=== PATIENT | male | born 1935 | race Caucasian/White ===

== ENCOUNTER 2023-02-17 12:04 | Emergency (ER) | payer MEDICARE, SELFPAY ==
[2023-02-17 12:05] VITALS: BP 154/105; PULSE 149; RESP 16; TEMP 36.2; O2SAT 100; BMI 31.0
--- NOTE | 2023-02-17 12:22 | EDS_ITS ---
HPI History of Present Illness Chief Complaint: Shortness of Breath Informant: patient Onset/Context/Timing Onset: Month(s) Context: gradual Narrative Narrative: Patient presents from PCPs office secondary to shortness of breath and tachycardia. Patient reports increasing shortness of breath over the last several months that is recently worsened. He states he has occasional sensation of his heart racing. He denies chest pain. He has mild baseline cough. No fever or chills. He was noted in the office to have his heart rate in the 140s. EKG was not performed at that time. He has no known history of cardiac disease. 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 He is not on any baseline medication for blood pressure. [facility] Medical History (Updated 02/17/23 @ 14:[address] Sherry Yin MD) Hx of gastroesophageal reflux (GERD) White coat syndrome with hypertension Home Medications apixaban 5 mg (74 tabs) tablets in a dose pack (Eliquis DVT-PE Treat 30D Start) 5 mg PO BID #74 tabs 02/17/23 [Rx Last Taken Unknown] diltiazem HCl 120 mg capsule,extended release 24 hr (Cardizem CD) 120 mg PO DAILY #30 caps 02/17/23 [Rx Last Taken Unknown] omeprazole 20 mg capsule,delayed release 20 mg PO QODAY 02/17/23 [History Last Taken Unknown] Allergy/AdvReac Type Severity Reaction Status Date / Time No Known Allergies Allergy Verified 02/17/23 12:06 Social History Smoking Status: Never smoker ROS ROS ED Constitutional Constitutional ED: Denies chills or fever(s) Eyes Eyes: Denies change in vision or discharge from eye(s) ENT ENT ED: Denies discharge from eye(s), rhinorrhea or sore throat Cardiovascular Cardiovascular: Reports racing heartbeat; Denies chest pain Respiratory/Chest Respiratory/Chest: Reports cough and dyspnea Gastrointestinal Gastrointestinal: Denies abdominal pain, diarrhea, nausea or vomiting Genitourinary Genitourinary ED: Denies dysuria Musculoskeletal Musculoskeletal: Denies back pain or extremity pain Integumentary Denies Abrasions or rash Neurologic Neurologic: Denies headache(s) or weakness Psychiatric Psychiatric: Denies anxiety or depression Allergic/Immunologic Allergic/Immunologic ED: Denies lip swelling or urticaria EXAM Physical Exam Const Vital Signs: 02/17/23 12:05 02/17/23 12:28 02/17/23 12:30 Temperature 97.1 F L Temperature Source Temporal Pulse Rate 149 H 150 H Respiratory Rate 16 24 H Respiratory Effort Short of Breath Blood Pressure 154/105 H 151/122 H Blood Pressure Mean 121 131 Pulse Ox 100 100 Oxygen Delivery Method Room Air Room Air 02/17/23 12:35 02/17/23 13:02 02/17/23 13:57 Temperature Temperature Source Pulse Rate 110 H 114 H 96 Respiratory Rate 18 18 Respiratory Effort Blood Pressure 147/100 H 110/82 H 107/72 Blood Pressure Mean 115 91 83 Pulse Ox 100 100 Oxygen Delivery Method Room Air Room Air Positive well nourished and well developed General Appearance ED: well developed HEENT Reports normocephalic and head/scalp atraumatic Eyes PERRL and EOMs intact bilaterally Neck supple Chest Wall inspection of chest normal and palpation of chest normal Resp normal respiratory effort Resp Narrative: Diminished breath sounds bilateral bases. Cardio Rate: tachycardic Rhythm: abnormal rhythm irregularly irregular GI non-tender Palpation: soft Extremity Extremity Narrative: 2+ bilateral lower extremity edema, symmetric. Neuro oriented x3 and no sensory deficits noted Sensorium / Orientation: alert Motor Exam: strength 5/5 throughout Psych mental status grossly normal Skin no rashes or lesions noted MDM MDM MDM Narrative Medical decision making narrative: Patient placed on monitoring tech. He appears to be in new onset atrial fibrillation with RVR. IV line established. IV Cardizem ordered for rate control. Labwork obtained to evaluate for leukocytosis, anemia, and electrolyte derangement. Chest x-ray obtained to evaluate for acute lung pathology, cardiac size, or mediastinal abnormality. History & Record Review Discussion w/independent historian: Patient and Other (PCP) Lab Data Attestation: I reviewed the patient's lab results. Labs: Laboratory Results - last 24 hr 02/17/23 12:30 WBC 8.5 RBC 4.68 Hgb 12.8 L Hct 41.7 MCV 89.1 MCH 27.4 MCHC 30.7 L RDW Std Deviation 44.0 H RDW Coeff of Joy 13.4 Plt Count 282 MPV 10.6 Immature Gran % (Auto) 0.500 Neut % (Auto) 59.7 Lymph % (Auto) 26.9 [place] % (Auto) 9.6 Eos % (Auto) 2.2 Baso % (Auto) 1.1 H Absolute Neuts (auto) 5.1 Absolute Lymphs (auto) 2.30 Nucleated RBC % 0 Sodium 137 Potassium 3.9 Chloride 105 Carbon Dioxide 26.0 Anion Gap 6 BUN 15 Creatinine 1.13 Estim Creat Clear Calc 44.56 Est GFR (MDRD) Af Amer 79 Est GFR (MDRD) Non-Af 65 BUN/Creatinine Ratio 13.3 Glucose 153 H Calcium 9.1 Troponin I High Sens 11 B-Natriuretic Peptide 154.3 H TSH 2.75 Radiography Chest X-Ray - ED: 1 View, Read by ED Physician and Chronic Changes Diagnostic Testing: Clinical Impression(s) from Imaging Studies Chest X-Ray 02/17/23 12:35 IMPRESSION: Elevation of the right hemidiaphragm. Mild increased markings at the left lung base suggestive of linear atelectasis. Electronically Signed: Juan Manuel Mix MD at 13:52 EDT , EKG Initial EKG: Attestation: I personally reviewed and interpreted this EKG as follows: Interpretation: Atrial Fibrillation (A-fib RVR with a rate of 145. No significant ST change.) Treatment and Re-Evaluation :: After 2 doses of Cardizem, 10 mg each patient's heart rate is in the high 90s. His blood pressure is 107/72. CBC reveals normal white count 8.5 with a hemoglobin of 12.8. Chemistry studies are unremarkable with normal renal function. Glucose is 153. Troponin is normal at 11. BNP is 154 and TSH is 2.75. Portable chest x-ray per my interpretation reveals chronic changes. Radiology interpretation is reviewed and feels there are signs of mild atelectasis. No overt signs of CHF. On repeat examination patient is comfortable and anxious to go home. He is refusing hospital admission. I spoke with Dr. Núñez, on-call for cardiology. Patient be started on Cardizem CD 120 mg daily as well as Eliquis. Patient encouraged to follow-up in the office for remainder of atrial fibrillation work-up. Discharge Plan Triage Chief Complaint: Shortness of Breath ED Provider: Sherry Yin Dx/Rx/DC Orders Clinical Impression: Atrial fibrillation, new onset, Atrial fibrillation with RVR Instructions: ED AFIB Prescriptions: New diltiazem HCl [Cardizem CD] 120 mg capsule,extended release 24hr 120 mg PO DAILY Qty: 30 0RF Eliquis DVT-PE Treat 30D Start 5 mg (74 tabs) tablets,dose pack 5 mg PO BID Qty: 74 0RF No Action omeprazole 20 mg capsule,delayed release(DR/EC) 20 mg PO QODAY Primary Care Provider: Jeffrey Chan Referrals: Uri Núñez MD [Med Staff - Active Staff] - 1-2 Weeks Jeffrey Chan MD [Primary Care Provider] - 1-2 Weeks Disposition Disposition: Home, Self Care
[2023-02-17 12:28] VITALS: BP 151/122; PULSE 150; RESP 24; O2SAT 100
--- NOTE | 2023-02-17 12:28 | NURSING ---
NO OLD EKGS
[2023-02-17] MEDS: dilTIAZem 25 MG/5 ML Vial 10 MG IV BOLUS ×2 (12:34→13:56)
[2023-02-17 12:35] VITALS: BP 147/100; PULSE 110; RESP 18; O2SAT 100
--- NOTE | 2023-02-17 12:35 | RAD_ITS ---
STUDY: X-RAY CHEST REASON FOR EXAM: Male, 87 years old. Sob TECHNIQUE: Single AP portable view of the chest. COMPARISON: None. FINDINGS: EKG electrodes are seen. Elevation of the right hemidiaphragm. Mild increased markings at the left lung base suggestive of left basilar atelectasis. There is mild cardiac enlargement. Normal mediastinum and liat. Normal visualized pulmonary arteries. There is atherosclerotic tortuosity of the aortic arch and descending thoracic aorta. There are diffuse degenerative changes of the visualized thoracic spine. Normal visualized ribs, clavicles, and shoulders. There is no demonstrated abnormality of the visualized soft tissue structures of the upper abdomen. RAD/Chest 1 View (Portable) IMPRESSION: Elevation of the right hemidiaphragm. Mild increased markings at the left lung base suggestive of linear atelectasis. Electronically Signed: Juan Manuel Mix MD at 13:52 EDT ,
[2023-02-17 12:42] LABS: Absolute Neutrophil Count 5.1 X10^3/uL (2.0-7.7); Basophil# 0.09 X10^3/uL; Basophil% 1.1 % (0-1); Eosinophil# 0.19 X10^3/uL; Eosinophils% 2.2 % (0-5); Hematocrit 41.7 % (40-54); Hemoglobin 12.8 g/dL (13.0-16.5); Lymphocyte % 26.9 % (19-41); Mean Corp Hgb Conc 30.7 g/dL (32-36); Mean Corpuscular Hgb 27.4 pg (27.0-32.0); Mean Corpuscular Volume 89.1 fL (80-94); Mean Platelet Vol. 10.6 fl (6.2-12.0); Monocyte# 0.82 X10^3/uL; Monocyte% 9.6 % (0-10); NRBC Flagged by Analyzer 0 % (0-5); Neutrophil % 59.7 % (47-70); Platelet Count 282 K/mm3 (150-450); RBC Distribution Width CV 13.4 % (11.6-14.6); Red Blood Count 4.68 M/mm3 (4.6-6.2); White Blood Count 8.5 K/mm3 (4.4-11.0)
[2023-02-17 13:02] VITALS: BP 110/82; PULSE 114
[2023-02-17 13:05] LABS: Anion Gap 6 (5-15); BUN 15 mg/dL (7-18); BUN/Creat Ratio 13.3 RATIO (10-20); Calcium,Total 9.1 mg/dL (8.5-10.1); Chloride 105 mmol/L (98-107); Creatinine, Serum 1.13 mg/dL (0.70-1.30); EST Glomerular Filtration Rate 65 mL/min (>60); Est Glom Filt Rate - Afr Amer 79 mL/min (>60); Estimated Creatinine Clearance 44.56 ml/min; Glucose 153 mg/dL (74-106); Potassium 3.9 mmol/L (3.5-5.1); Sodium Level 137 mmol/L (136-145); Thyroid Stim Hormone (TSH) 2.75 uIU/mL (0.358-3.74); Troponin-I HS 11 pg/mL (3.0-78.0)
[2023-02-17 13:12] LABS: BNP,B-Type NATRIURETIC PEPTIDE 154.3 pg/mL (0-100)
[2023-02-17 13:57] VITALS: BP 107/72; PULSE 96; RESP 18; O2SAT 100
== END 2023-02-17 14:48 | disposition home or self-care (01) ==
PROVIDERS: Emergency Provider Emergency Medicine; PCP Internal Medicine; Visit Provider Emergency Medicine
DX: I48.91 Unspecified atrial fibrillation (principal)
CPT/HCPCS: 71045; 80048; 83880; 84443; 84484; 85025; 93005; 96374; 96376; 99283; A4216

== ENCOUNTER → 2023-03-09 | Outpatient (CLI) | payer MEDICARE, SELFPAY ==
--- NOTE | 2023-03-09 10:55 | ECHOD_ITS ---
Reason For Study: AFIB Procedure This was a 2D Doppler, Color Flow transthoracic echocardiogram. Exam performed in department. Left Ventricle Normal LV size. Left ventricular systolic function is normal. The left ventricular ejection fraction is 55 %. No regional wall motion abnormalities noted. Right Ventricle Normal RV size. Normal systolic function. Atria The left atrium is moderately enlarged. Normal right atrium. Mitral Valve Bileaflet diffuse mitral valve thickening. Mild-Moderate (1-2+) eccentric mitral valve insufficiency. Tricuspid Valve Normal tricuspid valve. Mild to moderate (1-2+) tricuspid valve insufficiency. Pulmonary artery systolic pressure is 52 mmHg. Aortic Valve Trisinus/trileaflet aortic valve. Mild (1+) aortic valve insufficiency. Pulmonic Valve Normal pulmonic valve. Great Vessels Mildly dilated aortic root. The pulmonary artery is normal size. Normal inferior vena cava. Pericardium/Pleural No pericardial effusion. MMode/2D Measurements & Calculations LVIDd: 4.2 cm IVSd: 0.84 cm Ao root diam: 3.8 cm LVIDs: 3.5 cm LVPWd: 1.1 cm RVDd: 3.1 cm FS: 16.2 % LAV(MOD-bp): 82.7 ml LVAd ap4: 22.5 cm2 SV(MOD-sp4): 30.1 ml LAV(MOD-bp) Indexed: 46.6 ml/m2 LVLd ap4: 7.5 cm LAV(MOD-sp2): 88.2 ml EDV(MOD-sp4): 56.4 ml LAV(MOD-sp4): 71.4 ml EDV(sp4-el): 57.5 ml LVAs ap4: 14.2 cm2 LVLs ap4: 6.4 cm ESV(MOD-sp4): 26.3 ml ESV(sp4-el): 26.7 ml EF(MOD-sp4): 53.4 % EF(sp4-el): 53.5 % SV(sp4-el): 30.8 ml LA A4 area: 25.4 cm2 LA dimension(2D): 4.5 cm RA A4 area: 18.7 cm2 TAPSE: 0.79 cm Doppler Measurements & Calculations MV E max leonarda: 97.4 cm/sec Ao V2 max: 123.5 cm/sec AI max leonarda: 372.9 cm/sec Ao max P.2 mmHg AI max P.6 mmHg Ao V2 mean: 88.8 cm/sec Ao mean P.5 mmHg AI dec slope: 193.9 cm/sec2 Ao V2 VTI: 19.7 cm AI P1/2t: 563.3 msec AV (velocity ratio): 0.72 LV V1 max: 83.7 cm/sec MR max leonarda: 538.7 cm/sec PA V2 max: 95.4 cm/sec LV V1 max P.8 mmHg MR max P.1 mmHg PA V2 mean: 60.8 cm/sec LV V1 mean P.5 mmHg MR mean leonarda: 448.5 cm/sec LV V1 mean: 55.9 cm/sec MR mean P.1 mmHg LV V1 VTI: 14.2 cm MR VTI: 159.9 cm TR max leonarda: 343.1 cm/sec TR max P.1 mmHg ECHO/Echo Complete Interpretation Summary Normal LV size. Left ventricular systolic function is normal. The left ventricular ejection fraction is 55 %. The left atrium is moderately enlarged. Pulmonary artery systolic pressure is 52 mmHg. Mild (1+) aortic valve insufficiency. Ordering Physician: Yessy Mason Referring Physician: Yessy Mason Performed By: Rosa Davila RCS
== END | disposition home or self-care (01) ==
PROVIDERS: PCP Internal Medicine; Referring Provider Physician Assistant Medical; Visit Provider Physician Assistant Medical
DX: I48.91 Unspecified atrial fibrillation (principal); R94.31 Abnormal electrocardiogram [ECG] [EKG]
CPT/HCPCS: 93306

== ENCOUNTER → 2023-03-24 | Outpatient (CLI) | payer MEDICARE, SELFPAY ==
--- NOTE | 2023-03-24 10:46 | VDLE_ITS ---
Reason For Study: Bilateral leg pain/swelling RIGHT LEFT GSV is normal. GSV is normal. CFV is compressible, spontaneous, competent CFV is compressible, spontaneous, competent, and demonstrates pulsatile venous flow. and demonstrates pulsatile venous flow. FV is compressible, spontaneous, competent FV is compressible, spontaneous, competent and demonstrates pulsatile venous flow. and demonstrates pulsatile venous flow. POP V is compressible, spontaneous, competent POP V is compressible, spontaneous, competent and demonstrates pulsatile venous flow. and demonstrates pulsatile venous flow. T/P Trunk is compressible. T/P Trunk is compressible. PTV is compressible. PTV is compressible. RT PerV is compressible. LT PerV is compressible. Vascularized lymph nodes noted in the right Vascularized lymph node noted in the left groin. groin. Procedure This is a venous duplex using B-mode, color flow and spectral Doppler. Exam performed in department. A preliminary report was called and/or faxed to Dr. Ortiz. VL/Venous Duplex US - Fadi Extrem Interpretation Summary No evidence for acute deep venous thrombosis bilateral lower extremities with p atent and compressible bilateral great saphenous veins. Pulsatile venous flow is noted bi laterally suspicious for proximal venous hypertension or obstruction. Clinical correlation would be appropriate. Groin 3.55 x 1.23 cm diameter lymph node Left groin 3.22 x 0.84 cm lymph node Ordering Physician: Cem Ortiz Referring Physician: Jeffrey Chan M.D. Performed By: Treasure Pacheco RVT
[2023-03-24 16:24] LABS: AST(SGOT) 40 U/L (15-37); Alanine Aminotransfer ALT/SGPT 55 U/L (16-61); Albumin, Serum 3.2 g/dL (3.2-5.0); Alkaline Phosphatase 259 U/L (45-117); Bilirubin, Direct 0.22 mg/dL (0.00-0.30); Globulin 4.6 g/dL (2.2-4.2); Protein, Total 7.8 g/dL (6.4-8.2)
== END | disposition home or self-care (01) ==
PROVIDERS: Physician Assistant Medical; PCP Internal Medicine; Referring Provider Podiatrist; Visit Provider Podiatrist
DX: M79.604 Pain in right leg (principal); M79.605 Pain in left leg; R22.41 Localized swelling, mass and lump, right lower limb; R22.42 Localized swelling, mass and lump, left lower limb
CPT/HCPCS: 36415; 80076; 93970

== ENCOUNTER 2023-06-17 14:20 | Emergency (ER) | payer MEDICARE, SELFPAY ==
[2023-06-17] VITALS (7 sets, daily range): BP systolic 106–149; BP diastolic 76–135; PULSE 72–128; RESP 16–25; TEMP 36.6; O2SAT 89–98; BMI 34.7
--- NOTE | 2023-06-17 15:14 | EDS_ITS ---
HPI History of Present Illness Chief Complaint: Shortness of Breath [facility] Medical History Abnormal EKG Anemia Atrial fibrillation with RVR Atrial fibrillation, new onset Benign neoplasm of colon Bilateral lower extremity edema DDD (degenerative disc disease), lumbar Hx of gastroesophageal reflux (GERD) Hyperlipidemia Idiopathic peripheral neuropathy Internal hemorrhoids without complication Kidney stone Nocturia Obesity (BMI 30.0-34.9) Skin cancer of scalp Thrombocytopenia White coat syndrome with hypertension Home Medications cholecalciferol (vitamin D3) 25 mcg (1,000 unit) capsule 25 mcg PO DAILY 03/12/23 [History Last Taken Unknown] imjrgrmvxkbw-rvahnymf-akfdxt tablet 1 tab PO DAILY 03/12/23 [History Last Taken Unknown] psyllium husk 0.4 gram capsule (Fiber (psyllium husk)) 0.4 g PO DAILY 03/12/23 [History Last Taken Unknown] vitamin B complex 1 cap PO DAILY 03/12/23 [History Last Taken Unknown] apixaban 5 mg tablet (Eliquis) 5 mg PO BID #90 tabs 03/24/23 [Rx Last Taken Unknown] cyanocobalamin (vitamin B-12) 1,000 mcg tablet 2,500 mcg PO DAILY 03/24/23 [History Last Taken Unknown] furosemide 40 mg tablet (Lasix) 40 mg PO DAILY #90 tabs 03/24/23 [Rx Last Taken Unknown] metoprolol succinate 50 mg tablet,extended release 24 hr (Toprol XL) 50 mg PO DAILY #90 tabs 03/24/23 [Rx Last Taken Unknown] omega-3 fatty acids 1,000 mg capsule 2,000 mg PO DAILY 03/24/23 [History Last Taken Unknown] omeprazole 20 mg capsule,delayed release 20 mg PO .QOD 03/24/23 [History Last Taken Unknown] turmeric 400 mg capsule 1,000 mg PO DAILY 03/24/23 [History Last Taken Unknown] vitamins A,C,Z-npjw-ttpnml 4,296 mcg-226 mg-90 mg capsule (PreserVision AREDS) 1 cap PO QAM AND QPM 03/24/23 [History Last Taken Unknown] Allergy/AdvReac Type Severity Reaction Status Date / Time No Known Allergies Allergy Verified 06/17/23 14:23 Family History Father Cancer lung Mother Colon cancer Surgical History History of appendectomy History of colonoscopy History of inguinal hernia repair History of laparotomy Social History Smoking Status: Former smoker how long ago did patient quit smokin years alcohol intake: never substance use type: does not use EXAM Physical Exam Const Vital Signs: 06/17/23 14:24 06/17/23 15:00 06/17/23 15:02 Temperature 98 F Temperature Source Temporal Pulse Rate 107 H Respiratory Rate 20 H 25 H Respiratory Effort Short of Breath Respiratory Pattern Tachypnea Blood Pressure 138/111 H 147/135 H Blood Pressure Mean 120 139 Pulse Ox 89 93 Oxygen Delivery Method Room Air Room Air Room Air 06/17/23 15:17 Temperature Temperature Source Pulse Rate Respiratory Rate Respiratory Effort Respiratory Pattern Blood Pressure Blood Pressure Mean Pulse Ox Oxygen Delivery Method Room Air Discharge Plan Triage Chief Complaint: Shortness of Breath ED Provider: Gerson Prince Dx/Rx/DC Orders Prescriptions: No Action vitamin B complex Capsule 1 cap PO DAILY psyllium husk [Fiber (psyllium husk)] 0.4 gram capsule 0.4 g PO DAILY cholecalciferol (vitamin D3) 25 mcg (1,000 unit) capsule 25 mcg PO DAILY priffsikfzsp-opcefenw-pidlxl Tablet 1 tab PO DAILY omega-3 fatty acids 1,000 mg capsule 2,000 mg PO DAILY turmeric 400 mg capsule 1,000 mg PO DAILY cyanocobalamin (vitamin B-12) 1,000 mcg tablet 2,500 mcg PO DAILY PreserVision AREDS 4,296 mcg-226 mg-90 mg capsule 1 cap PO QAM AND QPM metoprolol succinate [Toprol XL] 50 mg tablet extended release 24 hr 50 mg PO DAILY Qty: 90 3RF Eliquis 5 mg tablet 5 mg PO BID Qty: 90 3RF furosemide [Lasix] 40 mg tablet 40 mg PO DAILY Qty: 90 3RF omeprazole 20 mg capsule,delayed release(DR/EC) 20 mg PO .QOD Primary Care Provider: Jeffrey Chan Referrals: Jeffrey Chan MD [Primary Care Provider] -
--- NOTE | 2023-06-17 15:25 | RAD_ITS ---
EXAM: XR CHEST, 1 VIEW CLINICAL INDICATION: chest pain TECHNIQUE: Frontal view of the chest. COMPARISON: XR Chest dated 02/17/2023 FINDINGS: LUNGS AND PLEURAL SPACES: New small right pleural effusion associated with pneumonia or atelectasis of the right lower lobe. HEART: Stable mild cardiomegaly. MEDIASTINUM: No mediastinal or hilar mass. BONES/JOINTS: No acute abnormality. RAD/Chest 1 View (Portable) IMPRESSION: Small right pleural effusion with pneumonia or atelectasis of the right lower lobe. Electronically Signed: Luis Marshall MD at 16:08 EST ,
[2023-06-17 15:26] LABS: Absolute Lymphocyte Count 0.97 X10^3/uL (0.83-4.51); Absolute Neutrophil Count 5.7 X10^3/uL (2.0-7.7); Basophil# 0.08 X10^3/uL; Eosinophil# 0.13 X10^3/uL; Eosinophils% 1.7 % (0-5); Hematocrit 38.8 % (40-54); Hemoglobin 12.2 g/dL (13.0-16.5); Lymphocyte # 0.97 X10^3/ul (0.83-4.51); Lymphocyte % 12.6 % (19-41); Mean Corp Hgb Conc 31.4 g/dL (32-36); Mean Corpuscular Hgb 26.3 pg (27.0-32.0); Mean Corpuscular Volume 83.8 fL (80-94); Mean Platelet Vol. 9.7 fl (6.2-12.0); Monocyte# 0.84 X10^3/uL; Monocyte% 10.9 % (0-10); NRBC Flagged by Analyzer 0 % (0-5); Neutrophil # 5.66 X10^3/uL (2.7-7.7); Neutrophil % 73.5 % (47-70); Platelet Count 283 K/mm3 (150-450); RBC Distribution Width CV 15.5 % (11.6-14.6); RBC Distribution Width SD 46.9 fl (35.1-43.9); Red Blood Count 4.63 M/mm3 (4.6-6.2); White Blood Count 7.7 K/mm3 (4.4-11.0)
--- NOTE | 2023-06-17 15:27 | ED.VIS.DYS ---
HPI History of Present Illness Chief Complaint: Shortness of Breath Informant: patient and family Onset/Context/Timing Onset: Days Context: gradual Timing: Continuous Quality: Positive for Dyspnea on exertion Current Severity: Mild Maximum Severity: Mild Worsened by: Exertion Relieved by: Nothing Associated Symptoms Chest Pain: Positive for None Narrative Narrative: 88-year-old male history of A-fib on Eliquis takes both metoprolol and Cardizem for this. States has had increasing shortness of breath and weakness for last 10 days. Associated diarrhea. No nausea or vomiting. No fever. No melena. Chronic leg swelling not new or worse. PE Risk Factors: Negative for Cancer, OCP + Smoking + > 35, Prior DVT or PE, Recent immobilization, Recent surgery or Recent travel Prior similar symptoms: Yes Recent Illness/Hospitalization: No PFSH PFSH Medical History Abnormal EKG Anemia Atrial fibrillation with RVR Atrial fibrillation, new onset Benign neoplasm of colon Bilateral lower extremity edema DDD (degenerative disc disease), lumbar Hx of gastroesophageal reflux (GERD) Hyperlipidemia Idiopathic peripheral neuropathy Internal hemorrhoids without complication Kidney stone Nocturia Obesity (BMI 30.0-34.9) Skin cancer of scalp Thrombocytopenia White coat syndrome with hypertension Home Medications cholecalciferol (vitamin D3) 25 mcg (1,000 unit) capsule 25 mcg PO DAILY 03/12/23 [History Last Taken Unknown] lwljzsbcaoeb-ebhwivav-nhdxed tablet 1 tab PO DAILY 03/12/23 [History Last Taken Unknown] psyllium husk 0.4 gram capsule (Fiber (psyllium husk)) 0.4 g PO DAILY 03/12/23 [History Last Taken Unknown] vitamin B complex 1 cap PO DAILY 03/12/23 [History Last Taken Unknown] apixaban 5 mg tablet (Eliquis) 5 mg PO BID #90 tabs 03/24/23 [Rx Last Taken Unknown] cyanocobalamin (vitamin B-12) 1,000 mcg tablet 2,500 mcg PO DAILY 03/24/23 [History Last Taken Unknown] furosemide 40 mg tablet (Lasix) 40 mg PO DAILY #90 tabs 03/24/23 [Rx Last Taken Unknown] metoprolol succinate 50 mg tablet,extended release 24 hr (Toprol XL) 50 mg PO DAILY #90 tabs 03/24/23 [Rx Last Taken Unknown] omega-3 fatty acids 1,000 mg capsule 2,000 mg PO DAILY 03/24/23 [History Last Taken Unknown] omeprazole 20 mg capsule,delayed release 20 mg PO .QOD 03/24/23 [History Last Taken Unknown] turmeric 400 mg capsule 1,000 mg PO DAILY 03/24/23 [History Last Taken Unknown] vitamins A,C,L-phbw-lcmiwq 4,296 mcg-226 mg-90 mg capsule (PreserVision AREDS) 1 cap PO QAM AND QPM 03/24/23 [History Last Taken Unknown] Allergy/AdvReac Type Severity Reaction Status Date / Time No Known Allergies Allergy Verified 06/17/23 14:23 Family History Father Cancer lung Mother Colon cancer Surgical History History of appendectomy History of colonoscopy History of inguinal hernia repair History of laparotomy Social History Smoking Status: Former smoker how long ago did patient quit smokin years alcohol intake: never substance use type: does not use ROS ROS ED ROS Narrative Diarrhea. Shortness of breath. Review of Systems ROS Unobtainable: Denies due to encephalopathy Constitutional Constitutional ED: Denies chills or fever(s) Eyes Eyes: Denies blurry vision ENT ENT ED: Denies ear pain Cardiovascular Cardiovascular: Reports racing heartbeat; Denies chest pain Respiratory/Chest Respiratory/Chest: Reports dyspnea and dyspnea on exertion; Denies cough Gastrointestinal Gastrointestinal: Reports diarrhea; Denies abdominal pain, nausea or vomiting Genitourinary Genitourinary ED: Denies dysuria or hematuria Musculoskeletal Musculoskeletal: Denies arthralgias or back pain Integumentary Denies abscess or Abrasions Neurologic Neurologic: Denies headache(s) Psychiatric Psychiatric: Denies anxiety or depression Endocrine Endocrinology: Denies cold intolerance Hematologic/Lymphatic Hematologic/Lymphatic: Denies easy bleeding Allergic/Immunologic Allergic/Immunologic ED: Denies mouth swelling or tongue swelling EXAM Physical Exam Narrative Exam Narrative: 88-year-old male vital signs stable except heart rate 121 in the room. A-fib RVR on the monitor. No distress. Sitting upright in bed. Niece at bedside. H EENT exam unremarkable. Neck nontender no JVD. Lungs clear to auscultation bilaterally. Heart tachycardic and A-fib RVR. Abdomen soft nontender. Both lower extremities have 1+ pitting edema. Nontender. No cords. Neurologically he is awake alert with no focal motor deficits. Answering questions following commands. Const Vital Signs: 06/17/23 14:24 06/17/23 15:00 06/17/23 15:02 Temperature 98 F Temperature Source Temporal Pulse Rate 107 H Respiratory Rate 20 H 25 H Respiratory Effort Short of Breath Respiratory Pattern Tachypnea Blood Pressure 138/111 H 147/135 H Blood Pressure Mean 120 139 Pulse Ox 89 93 Oxygen Delivery Method Room Air Room Air Room Air 06/17/23 15:17 06/17/23 15:36 06/17/23 15:40 Temperature Temperature Source Pulse Rate 128 H 93 Respiratory Rate Respiratory Effort Respiratory Pattern Blood Pressure 128/98 H 106/79 Blood Pressure Mean 108 88 Pulse Ox Oxygen Delivery Method Room Air Positive well nourished and well developed; Negative for cachectic or contractures General Appearance ED: well developed; Negative for cachectic, contractures or pallor Nutritional Appearance: Negative for cachectic HEENT Reports moist mucous membranes; Denies dry mucous membranes atraumatic; Negative for trauma or tenderness Mouth ED: No dry mucous membranes Mouth: No dry mucous membranes Eyes PERRL and EOMs intact bilaterally General Eye ED: Negative for pale conjunctiva or scleral icterus Neck no lymphadenopathy, supple, no meningeal signs and no JVD General: Negative for tenderness Lymph Lymphatic: Negative for other Chest Wall Chest: Negative for other Resp normal respiratory effort and clear to auscultation bilaterally Effort and Inspection: Negative for pain with movement Auscultation: Negative for rales or rhonchi Cardio S1 normal heart sound, S2 normal heart sound and no murmurs; Negative for regular rate or regular rhythm Rate: tachycardic Rhythm: abnormal rhythm GI non-tender, non-distended and no masses Inspection: Negative for other Auscultation: normoactive bowel sounds Palpation: soft; Negative for tender, guarding or hepatomegaly Back/Spine no CVA tenderness and normal to inspection General Back: Negative for CVA tenderness or tenderness Extremity Negative for normal to inspection General Extremety ED: Yes edema; Negative for tenderness General Extremity: edema Neuro CN's II-XII intact bilaterally Sensorium / Orientation: alert, oriented to person, oriented to place and oriented to time; Negative for orientation impaired, confused, lethargic or stuporous Speech: speech normal Motor Exam: strength 5/5 throughout Psych mental status grossly normal Attitude: No agitated Mood & Affect: Negative for depressed, anxious or tearful Thought Process: normal thought process Skin no wounds and skin turgor normal General Skin Exam: Negative for jaundice or pallor Lesions: no lesions Rashes: no rashes Trauma: Negative for abrasion MDM MDM MDM Narrative Medical decision making narrative: 88-year-old male A-fib RVR with shortness of breath. Lower extremity edema. Cardiac workup. Cardizem IV bolus for his A-fib RVR. Labs and chest x-ray are pending. Repeat exam at 4:50 PM doing well. Heart rate remains A-fib around 100. Working to walk the patient see how he does. He prefers to be discharged home. It was able to get up out of bed and ambulate without any difficulty per nursing his pulse ox stayed 92% or better. He will be discharged home. Continue on both his Cardizem and metoprolol and other A-fib medications and follow-up with his primary care physician and/or real estate listing consultant. Return if worse. History & Record Review Discussion w/independent historian: Patient and Family Lab Data Attestation: I reviewed the patient's lab results. Lab results narrative: CBC shows a white count 7. H&H 12.2 and 38. Platelets 283. Chemistries show sodium 131. Potassium 3.1. Gap of 5. Normal BUN and creatinine is 17 and 1. Glucose 195. Troponin normal at 22. Labs: Laboratory Results - last 24 hr 06/17/23 15:06 WBC 7.7 RBC 4.63 Hgb 12.2 L Hct 38.8 L MCV 83.8 MCH 26.3 L MCHC 31.4 L RDW Std Deviation 46.9 H RDW Coeff of Joy 15.5 H Plt Count 283 MPV 9.7 Immature Gran % (Auto) 0.300 Neut % (Auto) 73.5 H Lymph % (Auto) 12.6 L [place] % (Auto) 10.9 H Eos % (Auto) 1.7 Baso % (Auto) 1.0 Absolute Neuts (auto) 5.7 Absolute Lymphs (auto) 0.97 Nucleated RBC % 0 PT 18.8 H INR 1.6 APTT 36.3 H Sodium 131 L Potassium 3.1 L Chloride 95 L Carbon Dioxide 31.0 Anion Gap 5 BUN 17 Creatinine 1.02 Estim Creat Clear Calc 46.80 Est GFR (MDRD) Af Amer 89 Est GFR (MDRD) Non-Af 73 BUN/Creatinine Ratio 16.7 Glucose 195 H Calcium 9.3 Troponin I High Sens 22 Radiography Chest X-Ray - ED: 1 View, Read by ED Physician, Read by Radiologist, Mediastinum, Bony Structures, Chronic Changes and Right Effusion Diagnostic Testing: Clinical Impression(s) from Imaging Studies Chest X-Ray 06/17/23 15:25 IMPRESSION: Small right pleural effusion with pneumonia or atelectasis of the right lower lobe. Electronically Signed: Luis Marshall MD at 16:08 EST , Ring, portable, single view interpreted by myself and the radiologist shows right lower lobe pleural effusion with atelectasis. Clinically not pneumonia. Rhythm Strip Rhythm Strip: A-fib Rate: 146 Ectopy: None EKG Initial EKG: Attestation: I personally reviewed and interpreted this EKG as follows: Interpretation: No Acute Injury Pattern Comments: A-fib RVR rate of 146. No acute signs of VA or ischemia. Discharge Plan Triage Chief Complaint: Shortness of Breath ED Provider: Gerson Prince Dx/Rx/DC Orders Clinical Impression: Chronic a-fib, Atrial fibrillation with rapid ventricular response, Chronic anticoagulation, Pleural effusion on right Instructions: ED AFIB Prescriptions: No Action vitamin B complex Capsule 1 cap PO DAILY psyllium husk [Fiber (psyllium husk)] 0.4 gram capsule 0.4 g PO DAILY cholecalciferol (vitamin D3) 25 mcg (1,000 unit) capsule 25 mcg PO DAILY cudhpyvdjbqc-ogglbjjf-xstvdr Tablet 1 tab PO DAILY omega-3 fatty acids 1,000 mg capsule 2,000 mg PO DAILY turmeric 400 mg capsule 1,000 mg PO DAILY cyanocobalamin (vitamin B-12) 1,000 mcg tablet 2,500 mcg PO DAILY PreserVision AREDS 4,296 mcg-226 mg-90 mg capsule 1 cap PO QAM AND QPM metoprolol succinate [Toprol XL] 50 mg tablet extended release 24 hr 50 mg PO DAILY Qty: 90 3RF Eliquis 5 mg tablet 5 mg PO BID Qty: 90 3RF furosemide [Lasix] 40 mg tablet 40 mg PO DAILY Qty: 90 3RF omeprazole 20 mg capsule,delayed release(DR/EC) 20 mg PO .QOD Primary Care Provider: Jeffrey Chan Referrals: Jeffrey Chan MD [Primary Care Provider] - As soon as possible Activity Restrictions/Additional Instructions: Call and follow-up with primary care physician and/or your real estate listing consultant as soon as possible. To ensure you are improving. Make sure you are taking your medications for A-fib both your Cardizem and your metoprolol if you are still on both of those. Continue your Eliquis. Your sodium was just a little low today at 131 add a little salt to your food. Your potassium was a little low at 3.1 make sure you are eating plenty of fluid fruits and vegetables. Disposition Disposition: Home, Self Care
[2023-06-17] MEDS: dilTIAZem 25 MG/5 ML Vial IV BOLUS (15:35)
--- OUTSIDE RECORDS SUMMARY | 2023-06-17 15:40 | XMS RPT_ITS | CCD ---
Author Name Unknown Address [facility] [employer] [address] [place] [address] Organization [facility] Care Team Providers Care Staff Software Engineer Name Role Phone Dustin PEÑA, Jeffrey Camacho Primary Care Provider OLDER, KASEY Referring Unavailable BETTS, JEFFREY Camacho Primary Care Unavailable OLDER, KASEY Referring Unavailable BETTS, JEFFREY Camacho Primary Care Unavailable OLDER, KASEY Attending Unavailable OLDER, KASEY Referring Unavailable BETTS, JEFFREY Camacho Primary Care Unavailable BETTS, JEFFREY Camacho Primary Care Unavailable OLDER, KASEY Attending Unavailable SELF Referring Unavailable BETTS, JEFFREY Camacho Primary Care Unavailable BETTS, JEFFREY Camacho Attending Unavailable BETTS, JEFFREY Camacho Primary Care Unavailable BETTS, JEFFREY Camacho Attending Unavailable QIAN CHERY Referring Unavailable BETTS, JEFFREY Camacho Primary Care Unavailable BETTS, JEFFREY Camacho Referring Unavailable BETTS, JEFFREY Camacho Primary Care Unavailable QIAN CHERY Attending Unavailable BETTS, JEFFREY Camacho Referring Unavailable BETTS, JEFFREY Camacho Primary Care Unavailable BETTS, JEFFREY Camacho Referring Unavailable BETTS, JEFFREY Camacho Primary Care Unavailable Medications Completed/Discontinued Medications Medication Drug Class(es) Dates Sig (Normalized) Sig (Original) apixaban 5 mg oral tablet (8 sources) Factor Xa Inhibitor Start: 02-17-2023 take 1 tablet by mouth twice daily apixaban (ELIQUIS) 5 mg tab(s) Take 5 mg by mouth twice daily. 0 02/17/2023 Active Problems Active Problems Problem Classification Problem Date Documented Date Episodic/Chronic Cardiac dysrhythmias (13 sources) Atrial fibrillation with rapid ventricular response; Translations: [Unspecified atrial fibrillation] Onset: 02-17-2023 02-18-2023 Chronic Cardiac dysrhythmias (1 source) Tachycardia; Translations: [Tachycardia, unspecified] 02-17-2023 Episodic Coagulation and hemorrhagic disorders (17 sources) Platelet count below reference range; Translations: [Thrombocytopenia, unspecified] Onset: 02-22-2018 02-22-2018 Chronic Congestive heart failure; nonhypertensive (1 source) Congestive heart failure; Translations: [Heart failure, unspecified] 02-17-2023 Chronic Deficiency and other anemia (1 source) Anemia; Translations: [Anemia, unspecified] 05-17-2023 Episodic Diabetes mellitus without complication (3 sources) Disorder of glucose metabolism; Translations: [Other abnormal glucose] Onset: 04-26-2023 04-23-2023 Episodic Esophageal disorders (17 sources) Gastroesophageal reflux disease; Translations: [Gastro-esophageal reflux disease without esophagitis] 10-11-2006 Chronic Essential hypertension (17 sources) Hypertensive disorder; Translations: [Essential (primary) hypertension] Onset: 02-23-2019 10-09-2020 Chronic Other aftercare (1 source) Patient encounter status; Translations: [Other terminal operations manager (current) drug therapy] Episodic Other lower respiratory disease (5 sources) Dyspnea; Translations: [Shortness of breath] 02-24-2023 Episodic Other lower respiratory disease (1 source) Restrictive lung disease; Translations: [Other disorders of lung] 05-11-2023 Episodic Other lower respiratory disease (1 source) Elevated diaphragm; 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 diaphragm] 05-11-2023 Episodic Other lower respiratory disease (1 source) Shortness of breath; Translations: [SOB (shortness of breath)] Onset: 05-11-2023 Episodic Other lower respiratory disease (1 source) Dyspnea, unspecified; Translations: [Dyspnea, unspecified type] Onset: 05-11-2023 Episodic Other nutritional; endocrine; and metabolic disorders (15 sources) Obese class I; Translations: [Obesity, unspecified] Onset: 02-22-2018 02-22-2018 Chronic Other screening for suspected conditions (not mental disorders or infectious disease) (3 sources) Other specified abnormal findings of blood chemistry; Translations: [Other abnormal blood chemistry] Onset: 04-26-2023 04-23-2023 Episodic Pulmonary heart disease (1 source) Pulmonary arterial hypertension; 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] 05-11-2023 Chronic Residual codes; unclassified (1 source) Bilateral lower limb edema; Translations: [Localized edema] 02-24-2023 Episodic Past or Other Problems Problem Classification Problem Date Documented Da te Episodic/Chronic Chronic obstructive pulmonary disease and bronchiectasis (2 sources) Bronchitis; Translations: [Bronchitis, not specified as acute or chronic] Onset: 09-24-2022 Episodic Other and unspecified benign neoplasm (14 sources) History of polyp of colon; Translations: [Personal history of colonic polyps] Onset: 07-16-2016 07-16-2016 Episodic Other non-epithelial cancer of skin (14 sources) History of malignant neoplasm of skin; Translations: [Personal history of other malignant neoplasm of skin] Onset: 02-22-2018 02-22-2018 Episodic Results Test Name Value Interpretation Reference Range Facil ity Vital Signs Date Time Vital Sign Value Performing Clinician Faci lity 05-11-2023 08:08-0500 Body height 170.3 cm Pulm Wstr Work Phone: [facility] 05-11-2023 08:08-0500 Body weight 93.44 kg Pulm Wstr Work Phone: [facility] 05-11-2023 08:08-0500 Diastolic blood pressure 76 mm[Hg] Qian Chery MD Work Phone: [facility] 05-11-2023 08:08-0500 Heart rate 120 /min Pulm Wstr Work Phone: [facility] 05-11-2023 08:08-0500 Respiratory rate 16 /min Pulm Wstr Work Phone: [facility] 05-11-2023 08:08-0500 SaO2% (BldA) [Mass fraction] 97 % Pulm Wstr Work Phone: [facility] 05-11-2023 08:08-0500 Systolic blood pressure 118 mm[Hg] Qian Chery MD Work Phone: [facility] 04-23-2023 13:53-0400 Body height 170.2 cm Kasey Older RESIDENTIAL CARPENTER.[employer]RAFTER Work Phone: [facility] 04-23-2023 13:53-0400 Body weight 94.35 kg Kasey Older RESIDENTIAL CARPENTER.[employer] DRAFTER Work Phone: [facility] 04-23-2023 13:53-0400 Diastolic blood pressure 92 mm[Hg] Kasey Older RESIDENTIAL CARPENTER.[employer]RAFTER Work Phone: [facility] 04-23-2023 13:53-0400 Heart rate 156 /min Kasey Older RESIDENTIAL CARPENTER.[employer]RAFTER Work Phone: [facility] 04-23-2023 13:53-0400 Respiratory rate 20 /min Kasey Older RESIDENTIAL CARPENTER.[employer]RAFTER Work Phone: [facility] 04-23-2023 13:53-0400 Systolic blood pressure 119 mm[Hg] Kasey Older RESIDENTIAL CARPENTER.[employer]RAFTER Work Phone: [facility] 02-24-2023 10:36-0400 Body weight 93.44 kg Kasey Older RESIDENTIAL CARPENTER.[employer]RAFTER Work Phone: [facility] 02-24-2023 10:36-0400 Diastolic blood pressure 98 mm[Hg] Kasey Older RESIDENTIAL CARPENTER.[employer]RAFTER Work Phone: [facility] 02-24-2023 10:36-0400 Heart rate 147 /min Kasey Older RESIDENTIAL CARPENTER.[employer]RAFTER Work Phone: [facility] 02-24-2023 10:36-0400 Respiratory rate 24 /min Kasey Older RESIDENTIAL CARPENTER.[employer]RAFTER Work Phone: [facility] 02-24-2023 10:36-0400 SaO2% (BldA) [Mass fraction] 96 % Kasey Older RESIDENTIAL CARPENTER.[employer] DRAFTER Work Phone: [facility] 02-24-2023 10:36-0400 Systolic blood pressure 144 mm[Hg] Kasey Older RESIDENTIAL CARPENTER.[employer]RAFTER Work Phone: [facility] 02-17-2023 11:25-0400 Body weight 92.53 kg Jeffrey Betts MD Work Phone: [facility] 02-17-2023 11:25-0400 Diastolic blood pressure 84 mm[Hg] Jeffrey Betts MD Work Phone: [facility] 02-17-2023 11:25-0400 Heart rate 140 /min Jeffrey Betts MD Work Phone: [facility] 02-17-2023 11:25-0400 Respiratory rate 20 /min Jeffrey Betts MD Work Phone: [facility] 02-17-2023 11:25-0400 SaO2% (BldA) [Mass fraction] 96 % Jeffrey Betts MD Work Phone: [facility] 02-17-2023 11:25-0400 Systolic blood pressure 130 mm[Hg] Jeffrey Betts MD Work Phone: [facility] 09-24-2022 10:56-0400 Diastolic blood pressure 77 mm[Hg] eJffrey Betts MD Work Phone: [facility] 09-24-2022 10:56-0400 Heart rate 75 /min Jeffrey Betts MD Work Phone: [facility] 09-24-2022 10:56-0400 Systolic blood pressure 125 mm[Hg] Jeffrey Betts MD Work Phone: [facility] 09-24-2022 10:52-0400 Body temperature 97.81 [degF] Jeffrey Betts MD Work Phone: [facility] 09-24-2022 10:52-0400 Body weight 91.63 kg Jeffrey Betts MD Work Phone: [facility] 09-24-2022 10:52-0400 Respiratory rate 20 /min Jeffrey Betts MD Work Phone: [facility] 09-24-2022 10:52-0400 SaO2% (BldA) [Mass fraction] 98 % Jeffrey Betts MD Work Phone: [facility] 01-23-2022 11:52-0400 Diastolic blood pressure 77 mm[Hg] Kasey Older RESIDENTIAL CARPENTER.[employer] DRAFTER Work Phone: [facility] 01-23-2022 11:52-0400 Systolic blood pressure 143 mm[Hg] Kasey Older RESIDENTIAL CARPENTER.[employer] DRAFTER Work Phone: [facility] 01-23-2022 11:15-0400 Body weight 91.17 kg Kasey Older RESIDENTIAL CARPENTER.[employer] DRAFTER Work Phone: [facility] 01-23-2022 11:15-0400 Heart rate 90 /min Kasey Older RESIDENTIAL CARPENTER.[employer] DRAFTER Work Phone: [facility] 01-23-2022 11:15-0400 Respiratory rate 18 /min Kasey Older RESIDENTIAL CARPENTER.[employer] DRAFTER Work Phone: [facility] Encounters Encounter Date Encounter Type Care Provider Facility Start: 05-17-2023 ambulatory Kasey Older RESIDENTIAL CARPENTER .PRINT[employer] BOARD DRAFTER Work Phone: [facility] [place] Procedures Date Procedure Procedure Detail Performing Clinician Start: 05-11-2023 Brncdilat rspse spmt ry pre&post-brncdilat admn Jeffrey Betts MD Work Phone: Plan of Treatment Date Care Activity Detail Author Start: 02-23-2028 Urine microalbumin profile [facility] Start: 04-26-2026 Diabetes Screening Diabetes Screenin g [facility] Start: 09-20-2023 End: 12-20-2023 Comprehensive metabolic 2000 panel - Serum or Plasma COMP METABOLIC PANEL Lab Routine Elevated LFTs Expected: 09/20/2023 (Approximate), Expires: 12/20/2023 [facility] Work Phone: Immunizations Immunization Date Immunization Notes Care Provider Fa cili 05-04-2022 influenza, high dose seasonal, preservative-free Jeffrey Betts MD Work Phone: [facility] Work Phone: 05-04-2022 influenza virus vacc ine, unspecified formulation Kasey Older RESIDENTIAL CARPENTER.[employer] BO[employer] DRAFTER Work Phone: [facility] 04-08-2020 influenza, high-dose , quadrivalent vaccine (FLUZONE HIGH DOSE QUADRIVALENT) Jeffrey Betts MD Work Phone: [facility] Work Phone: 04-06-2019 influenza, high dose seasonal, preservative-free Jeffrey Betts MD Work Phone: [facility] Work Phone: 02-23-2019 zoster vaccine recombinant Jeffrey Betts MD Work Phone: [facility] Work Phone: 03-16-2018 influenza virus vacc ine, unspecified formulation Jeffrey Betts MD Work Phone: [facility] Work Phone: 02-22-2018 tetanus toxoid, redu quyen diphtheria toxoid, and acellular pertussis vaccine, adsorbed Jeffrey Betts MD Work Phone: [facility] Work Phone: 04-18-2017 influenza, high dose seasonal, preservative-free Jeffrey Betts MD Work Phone: [facility] 2016 influenza, high dose seasonal, preservative-free Jeffrey Betts MD Work Phone: [facility] Work Phone: 05-25-2015 influenza, seasonal, injectable Jeffrey Betts MD Work Phone: [facility] 06-27-2014 pneumococcal conjuga te vaccine, 13 valent Jeffrey Betts MD Work Phone: [facility] Work Phone: 03-29-2014 influenza, seasonal, injectable Jeffrey Betts MD Work Phone: [facility] Work Phone: 04-12-2013 influenza virus vacc ine, unspecified formulation Jeffrey Betts MD Work Phone: [facility] 05-18-2012 influenza virus vacc ine, unspecified formulation Jeffrey Betts MD Work Phone: [facility] 04-16-2011 influenza virus vacc ine, unspecified formulation Jeffrey Betts MD Work Phone: [facility] 04-16-2011 pneumococcal polysaccharide vaccine, 23 valent Jeffrey Betts MD Work Phone: [facility] 04-09-2010 influenza virus vacc ine, unspecified formulation Jeffrey Betts MD Work Phone: [facility] Work Phone: 04-09-2009 influenza virus vacc ine, unspecified formulation Jeffrey Betts MD Work Phone: [facility] 10-26-2008 zoster vaccine, live Jeffrey Betts MD Work Phone: [facility] Work Phone: 04-05-2008 influenza virus vacc ine, unspecified formulation Jeffrey Betts MD Work Phone: [facility] Work Phone: 10-21-2007 diphtheria and tetan us toxoids, adsorbed for pediatric use Jeffrey Betts MD Work Phone: [facility] Work Phone: 04-20-2007 influenza virus vacc ine, unspecified formulation Jeffrey Betts MD Work Phone: [facility] Work Phone: 04-26-2006 influenza virus vacc ine, unspecified formulation Jeffrey Betts MD Work Phone: [facility] 04-15-2005 influenza virus vacc ine, unspecified formulation Jeffrey Betts MD Work Phone: [facility] Work Phone: 05-05-1996 pneumococcal polysaccharide vaccine, 23 valent Jeffrey Betts MD Work Phone: [facility] Work Phone: Payers Date Payer Category Payer Medicare [employer] [place] [id number] 2022-Present [phone] [address] [place] [address] O [id number] 2022 Medicare [id number] 2015 Unknown ANTHEM BLUE SOPHIE S AND BLUE SHIELD ANTHEM MEDIBLUE ACCESS [id number] 2015-Present [phone] [address] [place] [address] PPO [id number] 2015 Unknown ANTHEM BLUE CROS S AND BLUE SHIELD ANTHEM MEDIBLUE ACCESS [id number] 2015-Present [phone] [address] [place] [address] PPO [id number] Social History Date Type Detail Facility Start: 02-18-2017 End: 02-17-2023 Tobacco smoking status NHIS Ex-smoker [facility] End: 07-26-1982 History of tobacco use Current smoker [facility] End: 07-26-1982 History of tobacco use Cigar Smoker [facility] History of tobacco use Chews Tobacco [facility] Start: 10-09-2020 End: 05-11-2023 Alcohol intake Current non-drinker of alcohol (finding) [facility] Start: 12-07-2019 End: 01-20-2022 History SDOH Alcohol Frequency 3 [facility] Start: 12-07-2019 End: 01-20-2022 History SDOH Alcohol Std Drinks 1 [facility] Start: 12-07-2019 End: 01-20-2022 History SDOH Social Connections Phone 2 [facility] Start: 12-07-2019 End: 01-20-2022 History SDOH Social Connections Get Together 98 [facility] Start: 12-07-2019 End: 01-20-2022 History SDOH Social Connections Living 7 [facility] Start: 12-07-2019 History SDOH Physica l Activity MPS 6 [facility] Start: 12-07-2019 End: 01-20-2022 History SDOH Financial 5 [facility] Start: 12-06-2019 Education 21 [facility] Start: 1935 Sex Assigned At Not on file C [facility] Start: 01-20-2022 History SDOH Alcohol Frequency 4 [facility] Start: 02-18-2017 End: 02-17-2023 Tobacco use and exposure Smokeless tobacco non-user [facility] Work Phone: Start: 01-20-2022 End: 02-24-2023 History of Social function [facility] Start: 01-20-2022 End: 02-24-2023 Social connection and isolation panel [facility] Do you belong to any clubs or organizations such as taoist groups, unions, fraternal or athletic groups, or school groups? No [facility] How often do you att end meetings of the clubs or organizations you belong to? Patient refused [facility] Are you now , , , , never or living with a partner? Never [facility] How often to you hav e a drink containing alcohol? 2-3 time sa week [facility] How many standard dr inks containing alcohol do you have on a typical day? 1 or 2 [facility] How often do you hav e 6 or more drinks on 1 occasion? Never [facility] Do you feel stress - tense, restless, nervous, or anxious, or unable to sleep at night because your mind is troubled all the time - these days [OSQ] Not at all [facility] (I/We) worried [facility] (my/our) food would run out before (I/we) got money to buy more. Never true [facility] Clinical Notes 11-19-2016 to 05-11-2023 Ingrid Ramos RPFT - 05/11/2023 8:00 AM Qian Roberson MD - 05/11/2023 8:00 AM ESTTelephone Encounter - Destiny Fraga LPN - 05/08/2023 9:09 AM ESTPatient Instructions Note Date & Type Note Facility 05-11-2023 Note HNO ID: [id number] Author: Elisha Us RT(R) Service: ? Author Type: Utility Arborist Type: Progress Notes Filed: 05/11/2023 9:00 AM Note Text: Radiology Service Progress Note PATIENT NAME: Michel Guevara DATE OF SERVICE: May 11, 2023 TIME: 8:52 AM PATIENT IDENTITY VERIFICATION COMPLETED USING TWO (2) IDENTIFIERS: Name and Date of confirmed by patient verbally. FALL SCREENING: Has the patient had 2 falls in the last year or 1 fall with injury or currently using an Ambulatory Assistive Device (Walker, Cane, Wheelchair, Crutches, etc.)? No PATIENT GENDER DATA: Male PATIENT RELEVANT IMPLANT DATA REVIEWED: Yes RADIOLOGY DEPARTMENT: General X-ray: Exam(s) Completed: Chest X-Ray PERIPHERAL IV DATA: Not applicable SIGNED BY: Elisha Us, RT(R) May 11, 2023 8:52 AM [facility] 05-11-2023 Note HNO ID: [id number] Author: Ingrid Ramos RPFT Service: ? Author Type: Respiratory Therapist Type: Progress Notes Filed: 05/11/2023 8:02 AM Note Text: PULM FUNCTION SMARTBLOCK: Provider: Jeffrey Betts MD Assisting Tech: Ingrid Ramos RPFT Spirometry w/BD: 1 LV - Box: 1 [facility] 05-11-2023 Note HNO ID: [id number] Author: Qian Chery MD Service: ? Author Type: Physician Type: Progress Notes Filed: 05/11/2023 9:43 AM Note Text: . [facility] [place] Note Patient name: Michel Guevara PCP: Jeffrey Betts MD Referring Physician: Same Consultation requested by Dr. Castro for an opinion regarding EDUARDO. My final recommendations will be communicated back to the requesting physician by way of shared Medical record or letter to requesting physician via [place] mail. CC: Shortness of breath HPI: Michel Guevara 88 year old obese male former remote cigar smoker with PMH significant for AF, HLD, prediabetes, GERD being referred for EDUARDO. Patient has been remarkably healthy. First noted dyspnea this past summer. He had intermittent shortness of breath with activity only. If he stopped and rested, shortness of breath would resolve and he was able to go on with his activities. No dyspnea with rest nocturnal. He was discovered to have new onset atrial fibrillation. He is currently on calcium channel carolyn, Eliquis and beta-carolyn but heart rate is not controlled. He continues to have intermittent dyspnea only with exertion. He does not have dyspnea every day. Although episodes seem to be occurring more often. He denies chest pain or palpitations. Associated lower extremity edema and fatigue, no orthopnea. Chronic cough, wheezing or sputum production. He states that he does have a history of recurrent bronchitis. No history of asthma or COPD. He will tend to wheeze when he is ill with bronchitis. He usually can count on an episode of bronchitis once every few years. He denies snoring, witnessed apneas, morning headaches. Echocardiogram shows normal ejection fraction and is notable for left atrial enlargement as well as pulmonary hypertension with RV systolic pressure estimated at 52 mmHg. AP chest x-ray shows elevated right hemidiaphragm. No previous x-rays for comparison. STOP BANG Questionnaire 1. Snoring Do you snore loudly (louder than talking or loud enough to be heard through closed doors)? NO 2. Tired Do you often feel tired, fatigued, or sleepy during daytime? YES 3. Observed Has anyone observed you stop breathing during your sleep? NO 4. Blood Pressure Do you have or are you being treated for high blood pressure? NO 5. BMI BMI more than 35 kg/m2? NO 6. Age Age over 50 yr old? YES 7. Neck circumference Neck circumference greater than 40 cm? NO 8. Gender Gender male? YES * Neck circumference is measured by staff High risk of RON: answering yes to three or more items Low risk of RON: answering yes to less than three items DATA: PFT: Review pulmonary function test showed restriction pattern suggestive of body habitus Labs: Imaging / Diagnostic Studies: Echocardiogram [facility] 02/2023: EF 55%, LAE, RVSP estimated at 52 mmHg CXR [facility] 01/2023: Cardiac enlargement, elevated right hemidiaphragm, LLL atelectasis Reviewed chest x-ray shows elevated right hemidiaphragm PAST MEDICAL HISTORY Diagnosis Date Anemia, unspecified Atrial fibrillation with rapid ventricular response (HCC) 02/17/2023 Benign neoplasm of colon DDD (degenerative disc disease), lumbar Esophageal reflux EXANTHEM////NONSPECIF SKIN ERUPT NEC 06/29/2008 Idiopathic peripheral neuropathy 1983 Internal hemorrhoids without mention of complication 01/20/2007 Laceration of thumb 02/17/2015 Nocturia Other and unspecified hyperlipidemia Pain in joint of right hip 11/19/2016 Personal history of skin cancer 2010 left scalp, [facility] Prediabetes Unspecified erythematous condition 06/29/2008 ALLERGIES No Known Allergies metoprolol succinate ER (TOPROL XL) 50 mg 24 hr tablet omeprazole (PRILOSEC) 20 mg capsule Take 1 capsule by mouth once daily as needed (acid reflux). 1/2 hr before meal. apixaban (ELIQUIS) 5 mg tab(s) Take 5 mg by mouth twice daily. dilTIAZem CD (CARDIZEM CD) 180 mg 24 hr capsule Take 1 capsule by mouth daily at bedtime. furosemide (LASIX) 20 mg tablet Take 1 tablet by mouth once daily for 7 days. psyllium husk (DAILY FIBER ORAL) Take 1 tablet by mouth once daily. flaxseed oil (OMEGA 3 ORAL) Take 520 mg by mouth once daily. TURMERIC, BULK, MISC Take 500 mg by mouth once daily. cyanocobalamin (VITAMIN B-12) 1,000 mcg tab Take 1,000 mcg by mouth once daily. COMPOUNDED PRESCRIPTION Take 1 Drop by mouth once daily. Nascent Iodine - mix 1 drop with water, drink once daily. Aspirin 81 mg tab Take 1 tablet by mouth once daily. Cholecalciferol, Vitamin D3, 1,000 unit ORAL Cap Take 1 capsule by mouth once daily. Ovlefbwazuaox-Fxqkdtlc-Nhclfj (CENTRUM SILVER) ORAL Tab Take one(1) tablet daily. vitamin b complex capsule Take 1 capsule by mouth once daily. Social History Tobacco Use Smoking status: Former Types: Cigars Quit date: 07/26/1982 Years since quittin.8 Smokeless tob (more content not included)... [facility] 05-11-2023 History of Presen t illness Narrative PULM FUNCTION SMARTBLOCK: Provider: Jeffrey Betts MD Assisting Tech: Ingrid Ramos RPFT Spirometry w/BD: 1 LV - Box: 1 documented in this encounter [facility] 05-11-2023 History of Presen t illness Narrative Images from the original note were not included. . [facility] [place] Note Patient name: Michel Guevara PCP: Jeffrey Betts MD Referring Physician: Same Consultation requested by Dr. Castro for an opinion regarding EDUARDO. My final recommendations will be communicated back to the requesting physician by way of shared Medical record or letter to requesting physician via [place] mail. CC: Shortness of breath HPI: Michel Guevara 88 year old obese male former remote cigar smoker with PMH significant for AF, HLD, prediabetes, GERD being referred for EDUARDO. Patient has been remarkably healthy. First noted dyspnea this past summer. He had intermittent shortness of breath with activity only. If he stopped and rested, shortness of breath would resolve and he was able to go on with his activities. No dyspnea with rest nocturnal. He was discovered to have new onset atrial fibrillation. He is currently on calcium channel carolyn, Eliquis and beta-carolyn but heart rate is not controlled. He continues to have intermittent dyspnea only with exertion. He does not have dyspnea every day. Although episodes seem to be occurring more often. He denies chest pain or palpitations. Associated lower extremity edema and fatigue, no orthopnea. Chronic cough, wheezing or sputum production. He states that he does have a history of recurrent bronchitis. No history of asthma or COPD. He will tend to wheeze when he is ill with bronchitis. He usually can count on an episode of bronchitis once every few years. He denies snoring, witnessed apneas, morning headaches. Echocardiogram shows normal ejection fraction and is notable for left atrial enlargement as well as pulmonary hypertension with RV systolic pressure estimated at 52 mmHg. AP chest x-ray shows elevated right hemidiaphragm. No previous x-rays for comparison. STOP BANG Questionnaire 1. Snoring Do you snore loudly (louder than talking or loud enough to be heard through closed doors)? NO 2. Tired Do you often feel tired, fatigued, or sleepy during daytime? YES 3. Observed Has anyone observed you stop breathing during your sleep? NO 4. Blood Pressure Do you have or are you being treated for high blood pressure? NO 5. BMI BMI more than 35 kg/m2? NO 6. Age Age over 50 yr old? YES 7. Neck circumference Neck circumference greater than 40 cm? NO 8. Gender Gender male? YES * Neck circumference is measured by staff High risk of RON: answering yes to three or more items Low risk of RON: answering yes to less than three items DATA: PFT: Review pulmonary function test showed restriction pattern suggestive of body habitus Labs: Imaging / Diagnostic Studies: Echocardiogram [facility] 02/2023: EF 55%, LAE, RVSP estimated at 52 mmHg CXR [facility] 01/2023: Cardiac enlargement, elevated right hemidiaphragm, LLL atelectasis Reviewed chest x-ray shows elevated right hemidiaphragm PAST MEDICAL HISTORY Diagnosis Date Anemia, unspecified Atrial fibrillation with rapid ventricular response (HCC) 02/17/2023 Benign neoplasm of colon DDD (degenerative disc disease), lumbar Esophageal reflux EXANTHEM////NONSPECIF SKIN ERUPT NEC 06/29/2008 Idiopathic peripheral neuropathy 1982 Internal hemorrhoids without mention of complication 01/20/2007 Laceration of thumb 02/17/2015 Nocturia Other and unspecified hyperlipidemia Pain in joint of right hip 11/19/2016 Personal history of skin cancer 2010 left scalp, [facility] Prediabetes Unspecified erythematous condition 06/29/2008 ALLERGIES No Known Allergies metoprolol succinate ER (TOPROL XL) 50 mg 24 hr tablet omeprazole (PRILOSEC) 20 mg capsule Take 1 capsule by mouth once daily as needed (acid reflux). 1/2 hr before meal. apixaban (ELIQUIS) 5 mg tab(s) Take 5 mg by mouth twice daily. dilTIAZem CD (CARDIZEM CD) 180 mg 24 hr capsule Take 1 capsule by mouth daily at bedtime. furosemide (LASIX) 20 mg tablet Take 1 tablet by mouth once daily for 7 days. psyllium husk (DAILY FIBER ORAL) Take 1 tablet by mouth once daily. flaxseed oil (OMEGA 3 ORAL) Take 520 mg by mouth once daily. TURMERIC, BULK, MISC Take 500 mg by mouth once daily. cyanocobalamin (VITAMIN B-12) 1,000 mcg tab Take 1,000 mcg by mouth once daily. COMPOUNDED PRESCRIPTION Take 1 Drop by mouth once daily. Nascent Iodine - mix 1 drop with water, drink once daily. Aspirin 81 mg tab Take 1 tablet by mouth once daily. Cholecalciferol, Vitamin D3, 1,000 unit ORAL Cap Take 1 capsule by mouth once daily. Mbquhyoibshyd-Xxstivzw-Zmhcbo (CENTRUM SILVER) ORAL Tab Take one(1) tablet daily. vitamin b complex capsule Take 1 capsule by mouth once daily. 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 Pets: None FAMILY HISTORY Problem Relation Age of Onset Cancer Mother met colon cancer Cancer Father lung Asthma No Family History PAST SURGICAL HISTORY Procedure Laterality Date APPENDECTOMY 194 COLONOSCOPY FLX DX W/COLLJ SPEC WHEN PFRMD 01/20/2007 Colonoscopy COLONOSCOPY FLX DX W/COLLJ SPEC WHEN PFRMD 01/27/2012 Colonoscopy IR BASKET STONE EXTRACTION Right 1994 kidney stone MOHS 1 STAGE T/A/L Left 2009 PAST SURGICAL HISTORY OF Right 1972 laparotomy for kidney stone extraction RPR 1ST INGUN HRNA AGE 5 YRS/> REDUCIBLE Left 1966 Hernia repair, inguinal, left PMH, Social history, family history and surgical history reviewed and updated in EMR REVIEW OF SYSTEMS: CONSTITUTIONAL: No fevers, chills, nightsweats, unintended weight loss or weight gain HEENT: Denies morning headaches, sinus symptoms, allergy problems. Intermittent rhinorrhea EYES: No diplopia or blurry vision. CARDIOVASCULAR: No chest pain, palpitations, orthopnea, PND. Edema PULM: See HPI GI: No dysphagia/odynophagia, constipation, diarrhea. GERD : No urinary complaints, including dysuria, gross hematuria NEURO: No new balance problems, peripheral weakness. Neuropathy MUSC-SKEL: No joint pain, swelling, or erythema. PSY: No concerns regarding depression, anxiety INTEGUMENTARY: No new skin changes, rashes, bruising PHYSICAL EXAMINATION: BP 118/76 Pulse 120 Resp 16 Ht 5' 7.05 (1.70m) Wt 206 lb (93.4kg) SpO2 97% BMI 32.22 kg/(m^2). General Appearance: Elderly male, NAD. Skin: Skin color, texture, turgor normal, no suspicious rashes or lesions. Head: Normocephalic, no masses, lesions, tenderness or abnormalities. Eyes: Sclera, conjunctiva normal. Oropharynx: No oral lesions, erythema. Neck: JVD, no masses, no bruits. Lungs: Not labored, dullness to percussion right base, no crackles or wheezes. Heart: Irregular rhythm tachycardia, no murmur. Extremities: Lower extremity tense edema, stasis dermatitis, no clubbing. Musculoskeletal: No joint deformities or effusions. Neurologic: Alert and oriented, no focal findings. Lymph Nodes: No cervical lymphadenopathy and No supraclavicular lymphadenopathy. Assessment/Plan: 1. Restrictive lung disease -Pulmonary function test suggests restriction due to body habitus chest x-ray shows elevated right hemidiaphragm. No lateral view evaluate for possible eventration of the diaphragm versus paralysis 2. Shortness of breath -Intermittent dyspnea in the face of atrial fibrillation with RVR is the primary reason for the patient's shortness of breath 3. Pulmonary artery hypertension -In light of elevated hemidiaphragm and elevated pulmonary pressure, need to exclude nocturnal hypoxemia -Overnight oximetry testing 4. A-fib with RVR -See #2 -Has appointment with cardiology in June. Needs to be seen sooner for rate control 5. Elevated diaphragm -See #1 -Lateral chest x-ray to assess for eventration versus paralysis although clinical history does not suggest diaphragmatic paralysis -If lateral x-ray does not confirm eventration of the diaphragm, he will need sniff test Qian Chery MD [facility] [place] documented in this encounter [facility] 05-08-2023 Miscellaneous Notes Phoned patient and assisted with transfer to central scheduler to get Pulmonary and other testing appts set up. ASSESSMENT/PLAN: 1. Dyspnea, unspecified type - ICD9: 786.09, ICD10: R06.00 - CONSULT TO PULMONARY MEDICINE - SPIROMETRY - BASELINE AND POST DILATOR - LUNG VOLUMES Jeffrey Betts MD Patient calling asking for referral to Pulmonology, Dr Chery. Patient said with his Afib he is short of breath with very little activity and fatigued. Patient said he saw Dr Cooper in March and has follow up in June with him. Patient said he discussed this with Dr Cooper at his last visit. Pending consult needs diagnosis. Please advise documented in this encounter [facility] 05-03-2023 Miscellaneous Notes Patient has been identified by name and date of : Yes Patient phones for refill(s): Requested Prescriptions Pending Prescriptions Disp Refills omeprazole (PRILOSEC) 20 mg capsule 30 capsule 5 Sig: Take 1 capsule by mouth once daily as needed (acid reflux). 1/2 hr before meal. Date of last office visit in primary care: 04/23/2023 Date of next office visit in primary care: Visit date not found Last 2 Encounter Wt Readings: Date: Wt: 04/23/2023 94.3 kg (208 lb) 02/24/2023 93.4 kg (206 lb) Previous labs/tests for medication: Not applicable Please advise. Thank you. Mariangel Lloyd LPN. documented in this encounter [facility] 04-23-2023 Note HNO ID: [id number] Author: Kasey Ruiz APRN.[employer] Service: ? Author Type: Nurse Practitioner Type: Progress Notes Filed: 04/23/2023 2:26 PM Note Text: Michel Guevara is a 88 year old male here for a Medicare wellness visit. Medicare Health Risk Assessment General Health good Exercise: Minutes/Day Does not exercise Exercise: Days/Week No Alcohol: Daily Use No Alcohol: Drinks/Day 1 glass of wine a couple times a week Alcohol: 6 or more drinks No Feel off balance No Concerns: Teeth/Dentures No Concerns: Sexual function No Troubled by feelings No Frequency: Eating healthy diet Most of the time ADLs requiring help No Safety precautions in home/vehicle Yes Smoke, vape, chews tobacco No Difficulty hearing No Difficulty seeing No Current Providers Specialists: I have reviewed specialist-related care of the patient in the medical record. 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 Opioid use review Opioid Medications (last 90 days) Some values may be hidden. Unless noted otherwise, only the newest values recorded on each date are displayed. Opioid Medications No data to display. Depression screening Depression Screening PHQ-2 Score FAUSTO-2 Total Score 10/08/2020 0 - Depression screening tool completed and reviewed. Based on score and interview, patient is not at risk for depression. Screening tool discussed with patient, and I recommended no further intervention at this time. Cognitive screening Mini Cog Score: 5 Functional Observation Was the patient's timed Up AND Go test unsteady or ? 12 seconds? No Advance Care Planning Patient did not wish or was not able to name a surrogate decision maker or provide an advance care plan Measurements BP 119/92 Pulse 156 Resp 20 Ht 5' 7 (1.70m) Wt 208 lb (94.3kg) BMI 32.57 kg/(m2). Additional screenings: No results found. Assessment/Plan Medicare annual wellness visit, subsequent (Z00.00) - Counseled on healthy diet and regular exercise - Fall avoidance information provided - Personalized prevention plan provided - Discussed need for and benefit of weight loss. BMI 32.58 kg/(m2) Kasey Ruiz APRN.CNP [facility] 04-23-2023 Instructions Kasey Ruiz APRN.CNP - 04/23/2023 2:23 PM EDT Screening schedule The following prevention plan is recommended: Covid-19 Vaccine(1) Never done RSV Vaccine(1 - 1-dose 60+ series) Never done Advance Directive Discussion due on 06/21/2022 Depression Assessment Never done Influenza Vaccine(1) due on 02/19/2023 Diabetes Screening due on 04/04/2023 WHAT YOU CAN DO TO PREVENT FALLS Many falls can be prevented. By making some changes, you can lower your chances of falling. Four things YOU can do to prevent falls for you* and your caregiver 1. Begin a regular exercise program Exercise is one of the most important ways to lower your chances of falling. It makes you stronger and helps you feel better. Exercises that improve balance and coordination (like Marv Chi) are the most helpful. Lack of exercise leads to weakness and increases your chances of falling. Ask your doctor or health care provider about the best type of exercise program for you. 2. Have your health care provider review your medicines Have your doctor or pharmacist review all the medicines you take, even peok-vkb-gmuwpjt medicines. As you get older, the way medicines work in your body can change. Some medicines, or combinations of medicines, can make you sleepy or dizzy and can cause you to fall. 3. Have your vision checked Have your eyes checked by an eye doctor at least once a year. You may be wearing the wrong glasses or have a condition like glaucoma or cataracts that limits your vision. Poor vision can increase your chances of falling. 4. Make your home safer About half of all falls happen at home. To make your home safer: Remove things you can trip over (like papers, books, clothes, and shoes) from stairs and places where you walk. Remove small throw rugs or use double-sided tape to keep the rugs from slipping. Keep items you use often in cabinets you can reach easily without using a step stool. Have grab bars put in next to your toilet and in the tub or shower. Use non-slip mats in the bathtub and on shower floors. Improve the lighting in your home. As you get older, you need brighter lights to see well. Hang light-weight curtains or shades to reduce glare. Have handrails and lights put in on all staircases. Wear shoes both inside and outside the house. Avoid going barefoot or wearing slippers. For more information, contact: Centers for Disease Control and Prevention www.cdc.gov/injury * This information may not apply if you have certain medical conditions. documented in this encounter [facility] 04-23-2023 History of Presen t illness Narrative Michel Guevara is a 88 year old male here for a Medicare wellness visit. Medicare Health Risk Assessment General Health good Exercise: Minutes/Day Does not exercise Exercise: Days/Week No Alcohol: Daily Use No Alcohol: Drinks/Day 1 glass of wine a couple times a week Alcohol: 6 or more drinks No Feel off balance No Concerns: Teeth/Dentures No Concerns: Sexual function No Troubled by feelings No Frequency: Eating healthy diet Most of the time ADLs requiring help No Safety precautions in home/vehicle Yes Smoke, vape, chews tobacco No Difficulty hearing No Difficulty seeing No Current Providers Specialists: I have reviewed specialist-related care of the patient in the medical record. 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 Opioid use review Opioid Medications (last 90 days) Some values may be hidden. Unless noted otherwise, only the newest values recorded on each date are displayed. Opioid Medications No data to display. Depression screening Depression Screening PHQ-2 Score FAUSTO-2 Total Score 10/08/2020 0 - Depression screening tool completed and reviewed. Based on score and interview, patient is not at risk for depression. Screening tool discussed with patient, and I recommended no further intervention at this time. Cognitive screening Mini Cog Score: 5 Functional Observation Was the patient's timed Up & Go test unsteady or ? 12 seconds? No Advance Care Planning Patient did not wish or was not able to name a surrogate decision maker or provide an advance care plan Measurements BP 119/92 Pulse 156 Resp 20 Ht 5' 7 (1.70m) Wt 208 lb (94.3kg) BMI 32.57 kg/(m^2). Additional screenings: No results found. Assessment/Plan Medicare annual wellness visit, subsequent (Z00.00) - Counseled on healthy diet and regular exercise - Fall avoidance information provided - Personalized prevention plan provided - Discussed need for and benefit of weight loss. BMI 32.58 kg/(m^2) Kasey Ruiz APRN.CNP documented in this encounter [facility] 02-24-2023 Miscellaneous Notes Addended by: KASEY RUIZ on: 02/24/2023 04:09 PM Modules accepted: Orders Addended by: ALMA HIRSCH MA on: 02/24/2023 04:06 PM Modules accepted: Orders documented in this encounter [facility] 02-24-2023 Note HNO ID: [id number] Author: Kasey Ruiz APRN.[employer] Service: ? Author Type: Nurse Practitioner Type: Progress Notes Filed: 02/24/2023 11:19 AM Note Text: CC: Patient presents with: ED Follow-up HPI Michel Guevara is a 87 year old male who presents today for above. Patient presented to [facility] ER on 02/17 from this office for SOB, chest pain and tachycardia. EKG revealed Afib with RVR. Chest x-ray, labs and BNP unremarkable. It was recommended patient be admitted but he refused. Discharged home with prescription for Cardizem 120 mg daily and Eliquis. Patient continues to feel SOB with minimal exertion but no worse. Edema of BLE is chronic, stable. Denies palpitations, chest pain, weight gain, PND, orthopnea, cough, wheezing, dizziness, lightheadedness, feeling faint, syncope. Monitoring BP and heart rate at home. Average BP in the 120's/70's and heart rate around 100-120. He is taking medications as prescribed, denies side effects. He is scheduled with [facility] at the end of February, will have echocardiogram 03/09. REVIEW OF SYSTEMS See HPI PAST MEDICAL HISTORY Diagnosis Date Anemia, unspecified Atrial fibrillation with rapid ventricular response (HCC) 02/17/2023 Benign neoplasm of colon DDD (degenerative disc disease), lumbar Esophageal reflux EXANTHEM////NONSPECIF SKIN ERUPT NEC 06/29/2008 Idiopathic peripheral neuropathy 1983 Internal hemorrhoids without mention of complication 01/20/2007 Laceration of thumb 02/17/2015 Nocturia Other and unspecified hyperlipidemia Pain in joint of right hip 11/19/2016 Personal history of skin cancer 2010 left scalp, [facility] Unspecified erythematous condition 06/29/2008 PAST SURGICAL HISTORY Procedure Laterality Date APPENDECTOMY 1948 COLONOSCOPY FLX DX W/COLLJ SPEC WHEN PFRMD 01/20/2007 Colonoscopy COLONOSCOPY FLX DX W/COLLJ SPEC WHEN PFRMD 01/27/2012 Colonoscopy IR BASKET STONE EXTRACTION Right 1994 kidney stone MOHS 1 STAGE T/A/L Left 2009 PAST SURGICAL HISTORY OF Right 1972 laparotomy for kidney stone extraction RPR 1ST INGUN HRNA AGE 5 YRS/> REDUCIBLE Left 1965 Hernia repair, inguinal, left ALLERGIES Patient has no known allergies. MEDICATIONS apixaban (ELIQUIS) 5 mg tab(s) Take 5 mg by mouth twice daily. dilTIAZem CD (CARDIZEM CD, CARTIA XT) 120 mg 24 hr capsule Take 120 mg by mouth once daily. vitamin b complex capsule Take 1 capsule by mouth once daily. omeprazole (PRILOSEC) 20 mg capsule Take 1 capsule by mouth once daily as needed (acid reflux). 1/2 hr before meal. psyllium husk (DAILY FIBER ORAL) Take 1 tablet by mouth once daily. flaxseed oil (OMEGA 3 ORAL) Take 520 mg by mouth once daily. TURMERIC, BULK, MISC Take 500 mg by mouth once daily. cyanocobalamin (VITAMIN B-12) 1,000 mcg tab Take 1,000 mcg by mouth once daily. COMPOUNDED PRESCRIPTION Take 1 Drop by mouth once daily. Nascent Iodine - mix 1 drop with water, drink once daily. Aspirin 81 mg tab Take 1 tablet by mouth once daily. Cholecalciferol, Vitamin D3, 1,000 unit ORAL Cap Take 1 capsule by mouth once daily. Jpgwrxnehblpu-Yqniptkk-Evscgj (CENTRUM SILVER) ORAL Tab Take one(1) tablet daily. FAMILY HISTORY Problem Relation Age of Onset Cancer Father lung Cancer Mother met colon cancer Social History Tobacco Use Smoking status: Former Types: Cigars Quit date: 07/26/1982 Years since quittin.6 Smokeless tobacco: Never Vaping Use Vaping Use: Never used Substance Use Topics Alcohol use: No Drug use: No BP 144/98 Pulse (!) 147 Resp 24 Wt 93.4 kg (206 lb) SpO2 96% BMI 31.79 kg/m? Physical Exam Constitutional: General: He is not in acute distress. Appearance: He is not ill-appearing. Cardiovascular: Rate and Rhythm: Tachycardia present. Rhythm irregularly irregular. Heart sounds: No murmur heard. Pulmonary: Effort: Pulmonary effort is normal. No respiratory distress. Breath sounds: Normal breath sounds. No wheezing, rhonchi or rales. Musculoskeletal: Right lower le+ Pitting Edema present. Left lower le+ Pitting Edema present. Neurological: Mental Status: He is alert. DATA REVIEWED: Outside chart from [facility] ER reviewed. ASSESSMENT/PLAN: 1. Atrial fibrillation with rapid ventricular response (HCC) - ICD9: 427.31, ICD10: I48.91 (primary diagnosis) Patient is tachycardic. EKG today showing Afib with RVR, rate of 126. Patient reports symptoms are stable and he is in no apparent distress however due to RVR on EKG recommend ER evaluation and treatment. Patient declined. Discussed with patient's PCP, will increase Cardizem dose and he should take an extra 120 mg capsule this morning. Continue with Eliquis. Follow-up with cardiology and testing as scheduled 2. Bilateral lower extremity edema - ICD9: 782.3, ICD10: R60.0 Chronic, gradually worsening but stable over the past month. No overt heart failure findings on work-up in ER however he did not have echo (more content not included)... [facility] 02-24-2023 Instructions Kasey Ruiz APRN.CNP - 02/24/2023 11:05 AM EDT Take an extra diltiazem 120 mg capsule when you get home documented in this encounter [facility] 02-24-2023 History of Presen t illness Narrative CC: Patient presents with: ED Follow-up HPI Michel Guevara is a 87 year old male who presents today for above. Patient presented to [facility] ER on 02/17 from this office for SOB, chest pain and tachycardia. EKG revealed Afib with RVR. Chest x-ray, labs and BNP unremarkable. It was recommended patient be admitted but he refused. Discharged home with prescription for Cardizem 120 mg daily and Eliquis. Patient continues to feel SOB with minimal exertion but no worse. Edema of BLE is chronic, stable. Denies palpitations, chest pain, weight gain, PND, orthopnea, cough, wheezing, dizziness, lightheadedness, feeling faint, syncope. Monitoring BP and heart rate at home. Average BP in the 120's/70's and heart rate around 100-120. He is taking medications as prescribed, denies side effects. He is scheduled with [facility] at the end of February, will have echocardiogram 03/09. REVIEW OF SYSTEMS See HPI PAST MEDICAL HISTORY Diagnosis Date Anemia, unspecified Atrial fibrillation with rapid ventricular response (HCC) 02/17/2023 Benign neoplasm of colon DDD (degenerative disc disease), lumbar Esophageal reflux EXANTHEM////NONSPECIF SKIN ERUPT NEC 06/29/2008 Idiopathic peripheral neuropathy 1982 Internal hemorrhoids without mention of complication 01/20/2007 Laceration of thumb 02/17/2015 Nocturia Other and unspecified hyperlipidemia Pain in joint of right hip 11/19/2016 Personal history of skin cancer 2010 left scalp, [facility] Unspecified erythematous condition 06/29/2008 PAST SURGICAL HISTORY Procedure Laterality Date APPENDECTOMY 1948 COLONOSCOPY FLX DX W/COLLJ SPEC WHEN PFRMD 01/20/2007 Colonoscopy COLONOSCOPY FLX DX W/COLLJ SPEC WHEN PFRMD 01/27/2012 Colonoscopy IR BASKET STONE EXTRACTION Right 1994 kidney stone MOHS 1 STAGE T/A/L Left 2009 PAST SURGICAL HISTORY OF Right 1973 laparotomy for kidney stone extraction RPR 1ST INGUN HRNA AGE 5 YRS/> REDUCIBLE Left 1966 Hernia repair, inguinal, left ALLERGIES Patient has no known allergies. MEDICATIONS apixaban (ELIQUIS) 5 mg tab(s) Take 5 mg by mouth twice daily. dilTIAZem CD (CARDIZEM CD, CARTIA XT) 120 mg 24 hr capsule Take 120 mg by mouth once daily. vitamin b complex capsule Take 1 capsule by mouth once daily. omeprazole (PRILOSEC) 20 mg capsule Take 1 capsule by mouth once daily as needed (acid reflux). 1/2 hr before meal. psyllium husk (DAILY FIBER ORAL) Take 1 tablet by mouth once daily. flaxseed oil (OMEGA 3 ORAL) Take 520 mg by mouth once daily. TURMERIC, BULK, MISC Take 500 mg by mouth once daily. cyanocobalamin (VITAMIN B-12) 1,000 mcg tab Take 1,000 mcg by mouth once daily. COMPOUNDED PRESCRIPTION Take 1 Drop by mouth once daily. Nascent Iodine - mix 1 drop with water, drink once daily. Aspirin 81 mg tab Take 1 tablet by mouth once daily. Cholecalciferol, Vitamin D3, 1,000 unit ORAL Cap Take 1 capsule by mouth once daily. Sgqsqeehqdldv-Eextthyv-Ftrqyr (CENTRUM SILVER) ORAL Tab Take one(1) tablet daily. FAMILY HISTORY Problem Relation Age of Onset Cancer Father lung Cancer Mother met colon cancer Social History Tobacco Use Smoking status: Former Types: Cigars Quit date: 07/26/1982 Years since quittin.6 Smokeless tobacco: Never Vaping Use Vaping Use: Never used Substance Use Topics Alcohol use: No Drug use: No BP 144/98 Pulse (!) 147 Resp 24 Wt 93.4 kg (206 lb) SpO2 96% BMI 31.79 kg/m Physical Exam Constitutional: General: He is not in acute distress. Appearance: He is not ill-appearing. Cardiovascular: Rate and Rhythm: Tachycardia present. Rhythm irregularly irregular. Heart sounds: No murmur heard. Pulmonary: Effort: Pulmonary effort is normal. No respiratory distress. Breath sounds: Normal breath sounds. No wheezing, rhonchi or rales. Musculoskeletal: Right lower le+ Pitting Edema present. Left lower le+ Pitting Edema present. Neurological: Mental Status: He is alert. DATA REVIEWED: Outside chart from [facility] ER reviewed. ASSESSMENT/PLAN: 1. Atrial fibrillation with rapid ventricular response (HCC) - ICD9: 427.31, ICD10: I48.91 (primary diagnosis) Patient is tachycardic. EKG today showing Afib with RVR, rate of 126. Patient reports symptoms are stable and he is in no apparent distress however due to RVR on EKG recommend ER evaluation and treatment. Patient declined. Discussed with patient's PCP, will increase Cardizem dose and he should take an extra 120 mg capsule this morning. Continue with Eliquis. Follow-up with cardiology and testing as scheduled 2. Bilateral lower extremity edema - ICD9: 782.3, ICD10: R60.0 Chronic, gradually worsening but stable over the past month. No overt heart failure findings on work-up in ER however he did not have echocardiogram. May need diuretic therapy, will discuss with patient's PCP. 3. Shortness of breath - ICD9: 786.05, ICD10: R06.02 As above Prescription instructions reviewed with patient as applicable. Potential red flag symptoms discussed with the patient. Reviewed appropriate action plan to take if red flag symptoms occur. Patient agreeable to treatment plan. Kasey Ruiz APRN.CNP documented in this encounter [facility] 02-19-2023 Miscellaneous Notes Pt returned call and appt scheduled as advised. Kristan Christian RN Attempted to contact patient. Home phone rang with no option to leave a message. Mobile # went straight to VM. Unable to reach patient. Left VM to return call to office. Please assist patient with scheduling ER F/U ([facility]) in 1 week with PCP/[facility]. Please confirm/document if sister/EC has access to information d/t home # listed is the same as well. Etta Mart MA ----- Message from Jeffrey Betts MD sent at 02/18/2023 1:19 PM EDT ----- Regarding: ER follow up Please schedule ER follow up in 1 week with Kasey or me. New atrial fib. documented in this encounter [facility] 02-17-2023 Note HNO ID: [id number] Author: Jeffrey Betts MD Service: ? Author Type: Physician Type: Progress Notes Filed: 02/17/2023 12:42 PM Note Text: This note was created using LIFEMODELER. Subjective Patient presents with: Breathing Problem Michel Guevara is a 87 year old male with progressive dyspnea on exertion for several months. His symptoms have progressed to the point of dyspnea on mild exertion. Other symptoms are palpitations and upper chest heaviness off and on not clearly related to physical activity. Review of Systems Constitutional: Positive for activity change and fatigue. Negative for diaphoresis, fever and unexpected weight change. HENT: Negative for congestion. Eyes: Negative for visual disturbance. Respiratory: Positive for shortness of breath. Negative for cough, chest tightness and wheezing. Cardiovascular: Positive for chest pain, palpitations and leg swelling. Gastrointestinal: Negative for diarrhea, nausea and vomiting. Neurological: Negative for dizziness, syncope and headaches. 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 omeprazole (PRILOSEC) 20 mg capsule Take 1 capsule by mouth once daily as needed (acid reflux). 1/2 hr before meal. psyllium husk (DAILY FIBER ORAL) Take 1 tablet by mouth once daily. flaxseed oil (OMEGA 3 ORAL) Take 520 mg by mouth once daily. TURMERIC, BULK, MISC Take 500 mg by mouth once daily. cyanocobalamin (VITAMIN B-12) 1,000 mcg tab Take 1,000 mcg by mouth once daily. COMPOUNDED PRESCRIPTION Take 1 Drop by mouth once daily. Nascent Iodine - mix 1 drop with water, drink once daily. Aspirin 81 mg tab Take 1 tablet by mouth once daily. Cholecalciferol, Vitamin D3, 1,000 unit ORAL Cap Take 1 capsule by mouth once daily. Khcqznuifympz-Jhdnvbbt-Upvsop (CENTRUM SILVER) ORAL Tab Take one(1) tablet daily. No current facility-administered medications for this visit. Objective BP 130/84 (BP Site: Left Arm, BP Position: Sitting, BP Cuff Size: Large Adult) Pulse (!) 140 Resp 20 Wt 92.5 kg (204 lb) SpO2 96% BMI 31.48 kg/m? Physical Exam Constitutional: General: He is in acute distress. Appearance: He is not ill-appearing or diaphoretic. HENT: Head: Normocephalic. Eyes: Conjunctiva/sclera: Conjunctivae normal. Neck: Vascular: No JVD. Cardiovascular: Rate and Rhythm: Tachycardia present. Rhythm irregular. Heart sounds: No murmur heard. No gallop. Pulmonary: Effort: Accessory muscle usage present. Breath sounds: Examination of the right-lower field reveals decreased breath sounds. Examination of the left-lower field reveals decreased breath sounds and rales. Decreased breath sounds and rales present. No wheezing or rhonchi. Abdominal: General: There is no distension. Palpations: Abdomen is soft. Tenderness: There is no abdominal tenderness. Musculoskeletal: Right lower le+ Pitting Edema present. Left lower le+ Pitting Edema present. Neurological: Mental Status: He is alert. Assessment and Plan 1. Congestive heart failure, unspecified HF chronicity, unspecified heart failure type (HCC) - ICD9: 428.0, ICD10: I50.9 (primary diagnosis) 2. Tachycardia - ICD9: 785.0, ICD10: R00.0 I recommended ER, possible admission. Patient indicated understanding and willingness to follow recommendations. I spoke to Dr. Yin ([facility] ER) about this patient. Jeffrey Betts MD [facility] 02-17-2023 History of Shayy macias illness Narrative This note was created using Satellierriter. Subjective Patient presents with: Breathing Problem Michel Guevara is a 87 year old male with progressive dyspnea on exertion for several months. His symptoms have progressed to the point of dyspnea on mild exertion. Other symptoms are palpitations and upper chest heaviness off and on not clearly related to physical activity. Review of Systems Constitutional: Positive for activity change and fatigue. Negative for diaphoresis, fever and unexpected weight change. HENT: Negative for congestion. Eyes: Negative for visual disturbance. Respiratory: Positive for shortness of breath. Negative for cough, chest tightness and wheezing. Cardiovascular: Positive for chest pain, palpitations and leg swelling. Gastrointestinal: Negative for diarrhea, nausea and vomiting. Neurological: Negative for dizziness, syncope and headaches. 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 omeprazole (PRILOSEC) 20 mg capsule Take 1 capsule by mouth once daily as needed (acid reflux). 1/2 hr before meal. psyllium husk (DAILY FIBER ORAL) Take 1 tablet by mouth once daily. flaxseed oil (OMEGA 3 ORAL) Take 520 mg by mouth once daily. TURMERIC, BULK, MISC Take 500 mg by mouth once daily. cyanocobalamin (VITAMIN B-12) 1,000 mcg tab Take 1,000 mcg by mouth once daily. COMPOUNDED PRESCRIPTION Take 1 Drop by mouth once daily. Nascent Iodine - mix 1 drop with water, drink once daily. Aspirin 81 mg tab Take 1 tablet by mouth once daily. Cholecalciferol, Vitamin D3, 1,000 unit ORAL Cap Take 1 capsule by mouth once daily. Yaxhnggafuwyx-Gelpmybm-Jhjfpe (CENTRUM SILVER) ORAL Tab Take one(1) tablet daily. No current facility-administered medications for this visit. Objective BP 130/84 (BP Site: Left Arm, BP Position: Sitting, BP Cuff Size: Large Adult) Pulse (!) 140 Resp 20 Wt 92.5 kg (204 lb) SpO2 96% BMI 31.48 kg/m Physical Exam Constitutional: General: He is in acute distress. Appearance: He is not ill-appearing or diaphoretic. HENT: Head: Normocephalic. Eyes: Conjunctiva/sclera: Conjunctivae normal. Neck: Vascular: No JVD. Cardiovascular: Rate and Rhythm: Tachycardia present. Rhythm irregular. Heart sounds: No murmur heard. No gallop. Pulmonary: Effort: Accessory muscle usage present. Breath sounds: Examination of the right-lower field reveals decreased breath sounds. Examination of the left-lower field reveals decreased breath sounds and rales. Decreased breath sounds and rales present. No wheezing or rhonchi. Abdominal: General: There is no distension. Palpations: Abdomen is soft. Tenderness: There is no abdominal tenderness. Musculoskeletal: Right lower le+ Pitting Edema present. Left lower le+ Pitting Edema present. Neurological: Mental Status: He is alert. Assessment and Plan 1. Congestive heart failure, unspecified HF chronicity, unspecified heart failure type (HCC) - ICD9: 428.0, ICD10: I50.9 (primary diagnosis) 2. Tachycardia - ICD9: 785.0, ICD10: R00.0 I recommended ER, possible admission. Patient indicated understanding and willingness to follow recommendations. I spoke to Dr. Yin ([facility] ER) about this patient. Jeffrey Betts MD documented in this encounter [facility] 02-17-2023 Instructions Jeffrey Betts MD - 02/17/2023 11:51 AM EDT GO TO ER SOON POSSIBLE TODAY. documented in this encounter [facility] 09-24-2022 Note HNO ID: [id number] Author: Jeffrey Betts MD Service: ? Author Type: Physician Type: Progress Notes Filed: 09/24/2022 11:34 AM Note Text: This note was created using Satellierriter. Subjective Michel Guevara is a 87 year old male who presents with complaint of rhinorrhea, cough- dry, with coughing fits, and for the past 5 days, and not sleeping well. He denies fever, headache, ear pain, sore throat, dyspnea, wheezing, nausea, vomiting, diarrhea, and loss of smell or taste. Treatments tried include nothing so far. Cough was most bothersome and his main concern. His sister was ill with no history of Covid. Review of Systems Per HPI. 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 1/2 hr before meal. Lacto 51/B.animal,bifid/inulin (FORTIFY PROBIOTIC ORAL) Take by mouth. psyllium husk (DAILY FIBER ORAL) Take 1 tablet by mouth once daily. flaxseed oil (OMEGA 3 ORAL) Take 520 mg by mouth once daily. TURMERIC, BULK, MISC Take 500 mg by mouth once daily. cyanocobalamin (VITAMIN B-12) 1,000 mcg tab Take 1,000 mcg by mouth once daily. COMPOUNDED PRESCRIPTION Take 1 Drop by mouth once daily. Nascent Iodine - mix 1 drop with water, drink once daily. Aspirin 81 mg tab Take 1 tablet by mouth once daily. Cholecalciferol, Vitamin D3, 1,000 unit ORAL Cap Take 1 capsule by mouth once daily. Gucecxawvadga-Tgvbfdte-Yblqgt (CENTRUM SILVER) ORAL Tab Take one(1) tablet daily. No current facility-administered medications for this visit. Objective BP 125/77 (BP Site: Left Arm, BP Position: Sitting, BP Cuff Size: Large Adult) Pulse 75 Temp 36.6 ?C (97.8 ?F) (Temporal) Resp 20 Wt 91.6 kg (202 lb) SpO2 98% BMI 31.17 kg/m? Physical Exam Constitutional: General: He is not in acute distress. Appearance: He is not ill-appearing or diaphoretic. HENT: Right Ear: Tympanic membrane normal. Left Ear: Tympanic membrane normal. Nose: Congestion present. No rhinorrhea. Mouth/Throat: Mouth: Mucous membranes are moist. Pharynx: Oropharynx is clear. No oropharyngeal exudate or posterior oropharyngeal erythema. Cardiovascular: Rate and Rhythm: Normal rate and regular rhythm. Pulmonary: Effort: No respiratory distress. Breath sounds: No wheezing or rales. Lymphadenopathy: Cervical: No cervical adenopathy. Neurological: Mental Status: He is alert. Assessment and Plan 1. Bronchitis - ICD9: 490, ICD10: J40 (primary diagnosis) Viral. Symptom care. Discussed medication dosage, usage, goals of therapy, and side effects. Call or return for worsening symptoms. He was not concerned about Covid. - BENZONATATE 100 MG CAPSULE 2. White coat syndrome with hypertension - ICD9: 401.9, ICD10: I10 - good control Jeffrey Betts MD [facility] 09-24-2022 History of Presen t illness Narrative This note was created using NoteWriter. Subjective Michel Guevara is a 87 year old male who presents with complaint of rhinorrhea, cough- dry, with coughing fits, and for the past 5 days, and not sleeping well. He denies fever, headache, ear pain, sore throat, dyspnea, wheezing, nausea, vomiting, diarrhea, and loss of smell or taste. Treatments tried include nothing so far. Cough was most bothersome and his main concern. His sister was ill with no history of Covid. Review of Systems Per HPI. 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 1/2 hr before meal. Lacto 51/B.animal,bifid/inulin (FORTIFY PROBIOTIC ORAL) Take by mouth. psyllium husk (DAILY FIBER ORAL) Take 1 tablet by mouth once daily. flaxseed oil (OMEGA 3 ORAL) Take 520 mg by mouth once daily. TURMERIC, BULK, MISC Take 500 mg by mouth once daily. cyanocobalamin (VITAMIN B-12) 1,000 mcg tab Take 1,000 mcg by mouth once daily. COMPOUNDED PRESCRIPTION Take 1 Drop by mouth once daily. Nascent Iodine - mix 1 drop with water, drink once daily. Aspirin 81 mg tab Take 1 tablet by mouth once daily. Cholecalciferol, Vitamin D3, 1,000 unit ORAL Cap Take 1 capsule by mouth once daily. Aezxkdqqvkplj-Fcynyjex-Quidxo (CENTRUM SILVER) ORAL Tab Take one(1) tablet daily. No current facility-administered medications for this visit. Objective BP 125/77 (BP Site: Left Arm, BP Position: Sitting, BP Cuff Size: Large Adult) Pulse 75 Temp 36.6 C (97.8 F) (Temporal) Resp 20 Wt 91.6 kg (202 lb) SpO2 98% BMI 31.17 kg/m Physical Exam Constitutional: General: He is not in acute distress. Appearance: He is not ill-appearing or diaphoretic. HENT: Right Ear: Tympanic membrane normal. Left Ear: Tympanic membrane normal. Nose: Congestion present. No rhinorrhea. Mouth/Throat: Mouth: Mucous membranes are moist. Pharynx: Oropharynx is clear. No oropharyngeal exudate or posterior oropharyngeal erythema. Cardiovascular: Rate and Rhythm: Normal rate and regular rhythm. Pulmonary: Effort: No respiratory distress. Breath sounds: No wheezing or rales. Lymphadenopathy: Cervical: No cervical adenopathy. Neurological: Mental Status: He is alert. Assessment and Plan 1. Bronchitis - ICD9: 490, ICD10: J40 (primary diagnosis) Viral. Symptom care. Discussed medication dosage, usage, goals of therapy, and side effects. Call or return for worsening symptoms. He was not concerned about Covid. - BENZONATATE 100 MG CAPSULE 2. White coat syndrome with hypertension - ICD9: 401.9, ICD10: I10 - good control Jeffrey Betts MD documented in this encounter [facility] 05-08-2022 Miscellaneous Notes Patient has been identified by name and date of : Yes Patient phones for refill(s): Requested Prescriptions Pending Prescriptions Disp Refills omeprazole (PRILOSEC) 20 mg capsule 30 capsule 5 Sig: Take 1 capsule by mouth once daily as needed (acid reflux). 1/2 hr before meal. Date of last office visit in primary care: 01/23/22 Last 2 Encounter Wt Readings: Date: Wt: 01/23/2022 91.2 kg (201 lb) 10/09/2020 91.9 kg (202 lb 9.6 oz) Please advise. Thank you. Maday Kendrick LPN documented in this encounter [facility] 01-23-2022 History of Presen t illness Narrative CC: Patient presents with: Medicare Wellness Exam HPI Michel Guevara is a 86 year old male who presents today for yearly follow-up. Denies any concerns or issues today. Taking Prilosec as needed for reflux. No new or worsening symptoms. Blood pressure elevated due to white coat hypertension. Patient does not check at home. History of thrombocytopenia. Platelets at baseline. Patient denies prolonged bleeding, black/bloody stools, nose bleeds, hematuria. REVIEW OF SYSTEMS General: no fevers, no chills, no night sweats, no change in appetite, no change in energy and no significant changes in weight Respiratory: no cough, no wheezing, no shortness of breath Cardiovascular: no chest pain, no chest pressure, no palpitations and no swelling PAST MEDICAL HISTORY Diagnosis Date Anemia, unspecified Benign neoplasm of colon DDD (degenerative disc disease), lumbar Esophageal reflux EXANTHEM////NONSPECIF SKIN ERUPT NEC 06/29/2008 Idiopathic peripheral neuropathy 1982 Internal hemorrhoids without mention of complication 01/20/2007 Laceration of thumb 02/17/2015 Nocturia Other and unspecified hyperlipidemia Pain in joint of right hip 11/19/2016 Personal history of skin cancer 2010 left scalp, [facility] Unspecified erythematous condition 06/29/2008 PAST SURGICAL HISTORY Procedure Laterality Date APPENDECTOMY 1948 COLONOSCOPY FLX DX W/COLLJ SPEC WHEN PFRMD 01/20/2007 Colonoscopy COLONOSCOPY FLX DX W/COLLJ SPEC WHEN PFRMD 01/27/2012 Colonoscopy IR BASKET STONE EXTRACTION Right 1994 kidney stone MOHS 1 STAGE T/A/L Left 2009 PAST SURGICAL HISTORY OF Right 1973 laparotomy for kidney stone extraction RPR 1ST INGUN HRNA AGE 5 YRS/> REDUCIBLE Left 1966 Hernia repair, inguinal, left ALLERGIES Patient has no known allergies. MEDICATIONS Lacto 51/B.animal,bifid/inulin (FORTIFY PROBIOTIC ORAL) Take by mouth. omeprazole (PRILOSEC) 20 mg capsule Take 1 capsule by mouth once daily as needed (acid reflux). 1/2 hr before meal. psyllium husk (DAILY FIBER ORAL) Take 1 tablet by mouth once daily. flaxseed oil (OMEGA 3 ORAL) Take 520 mg by mouth once daily. TURMERIC, BULK, MISC Take 500 mg by mouth once daily. cyanocobalamin (VITAMIN B-12) 1,000 mcg tab Take 1,000 mcg by mouth once daily. COMPOUNDED PRESCRIPTION Take 1 Drop by mouth once daily. Nascent Iodine - mix 1 drop with water, drink once daily. Aspirin 81 mg tab Take 1 tablet by mouth once daily. Cholecalciferol, Vitamin D3, 1,000 unit ORAL Cap Take 1 capsule by mouth once daily. Uatkyyxfsaiua-Wmctgmap-Ccmgfv (CENTRUM SILVER) ORAL Tab Take one(1) tablet daily. FAMILY HISTORY Problem Relation Age of Onset Cancer Father lung Cancer Mother met colon cancer Social History Tobacco Use Smoking status: Former Smoker Years: 20.00 Types: Cigars Quit date: 07/26/1982 Years since quittin.5 Smokeless tobacco: Never Used Vaping Use Vaping Use: Never used Substance Use Topics Alcohol use: No Drug use: No PHYSICAL EXAM BP 143/77 Pulse 90 Resp 18 Wt 91.2 kg (201 lb) BMI 31.02 kg/m General Appearance: well appearing, in no acute distress, alert Lungs: Lungs clear to auscultation. No wheezing, rhonchi, rales. Heart: RRR without murmur, gallop, or rubs. No ectopy Health maintenance reviewed with patient: COVID-19 VACCINE(1) due on 01/23/2023 INFLUENZA(1) due on 02/19/2022 DIABETES SCREEN due on 04/04/2023 DTAP,TDAP,TD(3 - Td or Tdap) due on 02/23/2028 ADVANCE DIRECTIVE DISCUSSION Completed PNEUMOCOCCAL: 65+ Completed SHINGRIX VACCINE Discontinued DATA REVIEWED: Most recent labs ASSESSMENT/PLAN: 1. Medicare annual wellness visit, subsequent - ICD9: V70.0, ICD10: Z00.00 (primary diagnosis) See Medicare Wellness note 2. White coat syndrome with hypertension - ICD9: 401.9, ICD10: I10 - Baseline in office reading - Encouraged dietary sodium restriction/DASH diet - Recommended regular aerobic exercise. - Recommend home blood pressure monitoring, to bring results in on next visit - Goal of BP <130/80 3. Thrombocytopenia (HCC) - ICD9: 287.5, ICD10: D69.6 Stable 4. Obesity, Class I, BMI 30-34.9 - ICD9: 278.00, ICD10: E66.9 Weight increasing 5. Gastroesophageal reflux disease without esophagitis - ICD9: 530.81, ICD10: K21.9 Stable Prescription instructions reviewed with patient as applicable. Potential red flag symptoms discussed with the patient. Reviewed appropriate action plan to take if red flag symptoms occur. Patient agreeable to treatment plan. Kasey Ruiz APRN.CNP Medicare Yearly Visit Medical B eligibilty date 1999 Date of last exam 02/18/17 PAST MEDICAL HISTORY Diagnosis Date Anemia, unspecified Benign neoplasm of colon DDD (degenerative disc disease), lumbar Esophageal reflux EXANTHEM////NONSPECIF SKIN ERUPT NEC 06/29/2008 Idiopathic peripheral neuropathy 1983 Internal hemorrhoids without mention of complication 01/20/2007 Laceration of thumb 02/17/2015 Nocturia Other and unspecified hyperlipidemia Pain in joint of right hip 11/19/2016 Personal history of skin cancer 2010 left scalp, [facility] Unspecified erythematous condition 06/29/2008 PAST SURGICAL HISTORY Procedure Laterality Date APPENDECTOMY 1948 COLONOSCOPY FLX DX W/COLLJ SPEC WHEN PFRMD 01/20/2007 Colonoscopy COLONOSCOPY FLX DX W/COLLJ SPEC WHEN PFRMD 01/27/2012 Colonoscopy IR BASKET STONE EXTRACTION Right 1994 kidney stone MOHS 1 STAGE T/A/L Left 2009 PAST SURGICAL HISTORY OF Right 1972 laparotomy for kidney stone extraction RPR 1ST INGUN HRNA AGE 5 YRS/> REDUCIBLE Left 1966 Hernia repair, inguinal, left ALLERGIES: Patient has no known allergies. Medications reviewed: Yes FAMILY HISTORY Problem Relation Age of Onset Cancer Father lung Cancer Mother met colon cancer SOCIAL HISTORY: Social History Tobacco Use Smoking status: Former Smoker Years: 20.00 Types: Cigars Quit date: 07/26/1982 Years since quittin.5 Smokeless tobacco: Never Used Substance Use Topics Alcohol use: No Drug use: No Michel denies regular aerobic exercise but stays active doing yard work, occasionally uses stationary bike in the winter. He watches his diet for sodium, low fat and low cholesterol most of the time but doesn't limit the salt as much as he should. List of current specialists seen: Nurse Clinical- Dr. Ortiz [facility]- Counts Include [facility] Supervisor Network Control Operators- [facility] End of Live Planning discussed including patients advanced directive wishes: Yes I am willing to follow Michel's advanced directives. Evidence of Cognitive Impairment: No What tool was used to assess the patients cognitive status? MiniCog 5/5. PHQ-2 / Depression screen He in the past two weeks denies having felt down, depressed, hopeless or with little interest or pleasure in doing things. Functional Ability/Safety Screen 1. Was the patient's timed Up and Go test unsteady or longer than 30 seconds? No 2. Does the patient need help with the phone, transportation, shopping,preparing meals, housework, laundry, medications or managing money? No 3. Does your home have rugs in the hallway, lack of grab bars in the bathroom, lack of handrails on the stairs or have poor lighting? No Hearing Evaluation: normal PHYSICAL EXAM BP 168/86 Pulse 90 Resp 18 Wt 91.2 kg (201 lb) BMI 31.02 kg/m Alert and oriented X 3: YES Body mass index is 31.02 kg/m . ASSESSMENT/PLAN: 1. Medicare annual wellness visit, subsequent - ICD9: V70.0, ICD10: Z00.00The following prevention plan was discussed during the office visit and provided to the patient: - Fall risk reduction - Counseled on healthy diet and regular exercise - Discussed need for and benefit of weight loss. BMI 31.02 kg/(m^2) - Depression screening tool completed and reviewed with patient. Based on score and interview, patient is not at risk for depression and recommended no further intervention at this time. - Patient was counseled [id number] by myself (the billing provider) for the following immunizations and vaccine components, including side effects: COVID-19. Patient declined - Follow up for annual exam in one year Kasey Ruiz APRN.CNP documented in this encounter [facility] documented as of this encounter (statuses as of 09/26/2021) [facility] History of Past illness Narrative* Problem Noted Date Resolved Date Pain in joint of right hip 11/19/201602/18 Laceration of thumb 02/17/2015 07/16/2016 Unspecified erythematous condition 06/29/2008 07/16/2016 EXANTHEM////NONSPECIF SKIN ERUPT NEC 06/29/2008 07/16/2016 DDD (degenerative disc disease), lumbar 02/18/2017 Mixed hyperlipidemia 07/16/2016 Nocturia 07/16/2016 Anemia, unspecified 06/25/2014 documented as of this encounter (statuses as of 01/23/2022) [facility] History of Past illness Narrative* Problem Noted Date Resolved Date Pain in joint of right hip 11/19/201602/18 Laceration of thumb 02/17/2015 07/16/2016 Unspecified erythematous condition 06/29/2008 07/16/2016 EXANTHEM////NONSPECIF SKIN ERUPT NEC 06/29/2008 07/16/2016 DDD (degenerative disc disease), lumbar 02/18/2017 Mixed hyperlipidemia 07/16/2016 Nocturia 07/16/2016 Anemia, unspecified 06/25/2014 documented as of this encounter (statuses as of 05/08/2022) [facility] History of Past illness Narrative* Problem Noted Date Resolved Date Pain in joint of right hip 11/19/201602/18 Laceration of thumb 02/17/2015 07/16/2016 Unspecified erythematous condition 06/29/2008 07/16/2016 EXANTHEM////NONSPECIF SKIN ERUPT NEC 06/29/2008 07/16/2016 DDD (degenerative disc disease), lumbar 02/18/2017 Mixed hyperlipidemia 07/16/2016 Nocturia 07/16/2016 Anemia, unspecified 06/25/2014 documented as of this encounter (statuses as of 09/24/2022) [facility] History of Past illness Narrative* Problem Noted Date Diagnosed Date Resolved Date Pain in joint of right hip 11/19/2016 0 02/18/2017 Laceration of thumb 02/17/2015 07/16/19 17 Unspecified erythematous condition 06/29/2008 07/16/2016 EXANTHEM////NONSPECIF SKIN ERUPT NEC 06/29/2008 07/16/2016 DDD (degenerative disc disease), lumbar 02/18/2017 Mixed hyperlipidemia 017 Nocturia 07/16/2016 Anemia, unspecified 06/25/19 15 documented as of this encounter (statuses as of 02/17/2023) [facility] History of Past illness Narrative* Problem Noted Date Diagnosed Date Resolved Date Pain in joint of right hip 11/19/2016 0 02/18/2017 Laceration of thumb 02/17/2015 07/16/19 17 Unspecified erythematous condition 06/29/2008 07/16/2016 EXANTHEM////NONSPECIF SKIN ERUPT NEC 06/29/2008 07/16/2016 DDD (degenerative disc disease), lumbar 02/18/2017 Mixed hyperlipidemia 017 Nocturia 07/16/2016 Anemia, unspecified 06/25/19 15 documented as of this encounter (statuses as of 02/19/2023) [facility] of Past illness Narrative* Problem Noted Date Diagnosed Date Resolved Date Pain in joint of right hip 11/19/2016 0 02/18/2017 Laceration of thumb 02/17/2015 07/16/19 17 Unspecified erythematous condition 06/29/2008 07/16/2016 EXANTHEM////NONSPECIF SKIN ERUPT NEC 06/29/2008 07/16/2016 DDD (degenerative disc disease), lumbar 02/18/2017 Mixed hyperlipidemia 017 Nocturia 07/16/2016 Anemia, unspecified 06/25/19 15 documented as of this encounter (statuses as of 02/24/2023) [facility] of Past illness Narrative* Problem Noted Date Diagnosed Date Resolved Date Pain in joint of right hip 11/19/2016 0 02/18/2017 Laceration of thumb 02/17/2015 07/16/19 17 Unspecified erythematous condition 06/29/2008 07/16/2016 EXANTHEM////NONSPECIF SKIN ERUPT NEC 06/29/2008 07/16/2016 DDD (degenerative disc disease), lumbar 02/18/2017 Mixed hyperlipidemia 017 Nocturia 07/16/2016 Anemia, unspecified 06/25/19 15 documented as of this encounter (statuses as of 04/24/2023) [facility] of Past [facility] Narrative* Problem Noted Date Diagnosed Date Resolved Date Pain in joint of right hip 11/19/2016 0 02/18/2017 Laceration of thumb 02/17/2015 07/16/19 17 Unspecified erythematous condition 06/29/2008 07/16/2016 EXANTHEM////NONSPECIF SKIN ERUPT NEC 06/29/2008 07/16/2016 DDD (degenerative disc disease), lumbar 02/18/2017 Mixed hyperlipidemia 017 Nocturia 07/16/2016 Anemia, unspecified 06/25/19 15 documented as of this encounter (statuses as of 05/04/2023) [facility] Past [facility] Narrative* Problem Noted Date Diagnosed Date Resolved Date Pain in joint of right hip 11/19/2016 0 02/18/2017 Laceration of thumb 02/17/2015 07/16/19 17 Unspecified erythematous condition 06/29/2008 07/16/2016 EXANTHEM////NONSPECIF SKIN ERUPT NEC 06/29/2008 07/16/2016 DDD (degenerative disc disease), lumbar 02/18/2017 Mixed hyperlipidemia 017 Nocturia 07/16/2016 Anemia, unspecified 06/25/19 15 documented as of this encounter (statuses as of 05/08/2023) [facility] Narrative* Problem Noted Date Diagnosed Date Resolved Date Pain in joint of right hip 11/19/2016 0 02/18/2017 Laceration of thumb 02/17/2015 07/16/19 17 Unspecified erythematous condition 06/29/2008 07/16/2016 EXANTHEM////NONSPECIF SKIN ERUPT NEC 06/29/2008 07/16/2016 DDD (degenerative disc disease), lumbar 02/18/2017 Mixed hyperlipidemia 017 Nocturia 07/16/2016 Anemia, unspecified 06/25/19 15 documented as of this encounter (statuses as of 05/11/2023) [facility] Past [facility] Narrative* Problem Noted Date Diagnosed Date Resolved Date Pain in joint of right hip 11/19/2016 0 02/18/2017 Laceration of thumb 02/17/2015 07/16/19 17 Unspecified erythematous condition 06/29/2008 07/16/2016 EXANTHEM////NONSPECIF SKIN ERUPT NEC 06/29/2008 07/16/2016 DDD (degenerative disc disease), lumbar 02/18/2017 Mixed hyperlipidemia 017 Nocturia 07/16/2016 Anemia, unspecified 06/25/19 15 documented as of this encounter (statuses as of 05/11/2023) [facility] History of Past illness Narrative* Problem Noted Date Diagnosed Date Resolved Date Pain in joint of right hip 11/19/2016 0 02/18/2017 Laceration of thumb 02/17/2015 07/16/19 17 Unspecified erythematous condition 06/29/2008 07/16/2016 EXANTHEM////NONSPECIF SKIN ERUPT NEC 06/29/2008 07/16/2016 DDD (degenerative disc disease), lumbar 02/18/2017 Mixed hyperlipidemia 017 Nocturia 07/16/2016 Anemia, unspecified 06/25/19 15 documented as of this encounter (statuses as of 05/12/2023) [facility] of Past [facility] Narrative* Problem Noted Date Diagnosed Date Resolved Date Pain in joint of right hip 11/19/2016 0 02/18/2017 Laceration of thumb 02/17/2015 07/16/19 17 Unspecified erythematous condition 06/29/2008 07/16/2016 EXANTHEM////NONSPECIF SKIN ERUPT NEC 06/29/2008 07/16/2016 DDD (degenerative disc disease), lumbar 02/18/2017 Mixed hyperlipidemia 017 Nocturia 07/16/2016 Anemia, unspecified 06/25/19 15 documented as of this encounter (statuses as of 05/18/2023) [facility] Diagnosis Medication management Encounter for long-term (current) use of other medications [facility]* Diagnosis Medicare annual wellness visit, subsequent- Primary Routine general medical examination at a health care facility White coat syndrome with hypertension Thrombocytopenia (HCC) Thrombocytopenia, unspecified Obesity, Class I, BMI 30-34.9 Obesity, unspecified Gastroesophageal reflux disease without esophagitis Esophageal reflux [facility] Diagnosis Gastroesophageal reflux disease without esophagitis Esophageal reflux [facility] Diagnosis Bronchitis- Primary Bronchitis, not specified as acute or chronic White coat syndrome with hypertension [facility] Diagnosis Congestive heart failure, unspecified HF chronicity, unspecified heart failure type (HCC)- Primary Tachycardia Tachycardia, unspecified [facility] Diagnosis Atrial fibrillation with rapid ventricular response (HCC)- Primary Atrial fibrillation Bilateral lower extremity edema Edema Shortness of breath [facility] Diagnosis Medicare annual wellness visit, subsequent- Primary Routine general medical examination at a health care facility Impaired glucose metabolism Impaired glucose tolerance test Elevated LFTs Other abnormal blood chemistry Thrombocytopenia (HCC) Thrombocytopenia, unspecified Atrial fibrillation with rapid ventricular response (HCC) Atrial fibrillation [facility] Diagnosis Gastroesophageal reflux disease without esophagitis Esophageal reflux [facility] Diagnosis Dyspnea, unspecified type- Primary [facility] Diagnosis Dyspnea, unspecified type [facility] Diagnosis Restrictive lung disease- Primary Other diseases of lung, not elsewhere classified SOB (shortness of breath) Shortness of breath PAH (pulmonary artery hypertension) (HCC) Other chronic pulmonary heart diseases Atrial fibrillation with RVR (HCC) Atrial fibrillation Elevated diaphragm Disorders of diaphragm [facility] Diagnosis SOB (shortness of breath) Shortness of breath [facility] Diagnosis Elevated LFTs- Primary Other abnormal blood chemistry Impaired glucose metabolism Impaired glucose tolerance test Anemia, unspecified type documented in this encounter [facility] for referral (narrative)* Outpatient Procedure (Routine) - Closed Specialty Diagnoses / Procedures Referred By Contac t Referred To Contact [facility] Diagnoses Atrial fibrillation with rapid ventricular response (HCC) Procedures ECG COMPLETE ECG ROUTINE ECG W/LEAST 12 LDS W/I&R Kasey Ruiz APRN.CNP [address] [id number] [facility] [place] [address] Referral ID Status Reason Start Date Expiration Date V isits Requested Visits Authorized [id number] Closed Auto-Generate d Referral 02/24/2023 02/24/2024 1 1 [facility] for referral (narrative)* Outpatient Procedure (Routine) - Pending Review Specialty Diagnoses / Procedures Referred By Contac t Referred To [facility] Diagnoses Dyspnea, unspecified type Procedures LUNG VOLUMES Jeffrey Betts MD [address] [place] [address] [facility] [address] [place] [address] Referral ID Status Reason Start Date Expiration Date Visits Requested Visits Authorized [id number] Pending Review Auto-Generat ed Referral 3 06/05/2024 1 1 * Outpatient Procedure (Routine) - Pending Review Specialty Diagnoses / Procedures Referred By Contac t Referred To [facility] Diagnoses Dyspnea, unspecified type Procedures SPIROMETRY - BASELINE AND POST DILATOR BRNCDILAT RSPSE SPMTRY PRE&POST-BRNCDILAT ADMN Jeffrey Betts MD [address] [place] [address] [facility] [place] [address] Referral ID Status Reason Start Date Expiration Date Visits Requested Visits Authorized [id number] Pending Review Auto-Generat ed Referral 3 06/05/2024 1 1 [facility] Advance Directives No Advanced Directives Records FoundDocuments on File Type Date Recorded 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 Advance Directive(s) 06/28/2012 4:54 PM Documents on File Type Date Recorded 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 Advance Directive(s) 06/28/2012 4:54 PM Summary Purpose Family History No Family History Records Found Additional Source Comments Source Comments (unrecognize d section and content) In the event this informatio n is protected by the Federal Confidentiality of Alcohol and Drug Abuse Patient Records regulations: The Federal rules restrict any use of the information to criminally investigate or prosecute any alcohol or drug abuse patient.[facility] event this information is protected by the Federal Confidentiality of Alcohol and Drug Abuse Patient Records regulations: The Federal rules restrict any use of the information to criminally investigate or prosecute any alcohol or drug abuse patient.[facility] the event this information is protected by the Federal Confidentiality of Alcohol and Drug Abuse Patient Records regulations: The Federal rules restrict any use of the information to criminally investigate or prosecute any alcohol or drug abuse patient.[facility] the event this information is protected by the Federal Confidentiality of Alcohol and Drug Abuse Patient Records regulations: The Federal rules restrict any use of the information to criminally investigate or prosecute any alcohol or drug abuse patient.[facility] the event this information is protected by the Federal Confidentiality of Alcohol and Drug Abuse Patient Records regulations: The Federal rules restrict any use of the information to criminally investigate or prosecute any alcohol or drug abuse patient.[facility] the event this information is protected by the Federal Confidentiality of Alcohol and Drug Abuse Patient Records regulations: The Federal rules restrict any use of the information to criminally investigate or prosecute any alcohol or drug abuse patient.[facility] the event this information is protected by the Federal Confidentiality of Alcohol and Drug Abuse Patient Records regulations: The Federal rules restrict any use of the information to criminally investigate or prosecute any alcohol or drug abuse patient.[facility] the event this information is protected by the Federal Confidentiality of Alcohol and Drug Abuse Patient Records regulations: The Federal rules restrict any use of the information to criminally investigate or prosecute any alcohol or drug abuse patient.[facility] the event this information is protected by the Federal Confidentiality of Alcohol and Drug Abuse Patient Records regulations: The Federal rules restrict any use of the information to criminally investigate or prosecute any alcohol or drug abuse patient.[facility] the event this information is protected by the Federal Confidentiality of Alcohol and Drug Abuse Patient Records regulations: The Federal rules restrict any use of the information to criminally investigate or prosecute any alcohol or drug abuse patient.[facility] the event this information is protected by the Federal Confidentiality of Alcohol and Drug Abuse Patient Records regulations: The Federal rules restrict any use of the information to criminally investigate or prosecute any alcohol or drug abuse patient.[facility] the event this information is protected by the Federal Confidentiality of Alcohol and Drug Abuse Patient Records regulations: The Federal rules restrict any use of the information to criminally investigate or prosecute any alcohol or drug abuse patient.[facility] the event this information is protected by the Federal Confidentiality of Alcohol and Drug Abuse Patient Records regulations: The Federal rules restrict any use of the information to criminally investigate or prosecute any alcohol or drug abuse patient.[facility] the event this information is protected by the Federal Confidentiality of Alcohol and Drug Abuse Patient Records regulations: The Federal rules restrict any use of the information to criminally investigate or prosecute any alcohol or drug abuse patient.[facility] Care Teams (unrecognized sec tion and content) Staff Software Engineer Relationship Specialty Start Date End Date Jeffrey Betts MD [address] [place] [address] PCP - General Internal Medicine 02/18/17 Staff Software Engineer Relationship Specialty Start Date End Date Jeffrey Betts MD [address] [place] [address] PCP - General Internal Medicine 02/18/17 Staff Software Engineer Relationship Specialty Start Date End Date Jeffrey Betts MD [address] [place] [address] PCP - General Internal Medicine 02/18/17 Staff Software Engineer Relationship Specialty Start Date End Date Jeffrey Betts MD [address] [place] [address] PCP - General Internal Medicine 02/18/17 Staff Software Engineer Relationship Specialty Start Date End Date Jeffrey Betts MD [address] [place] [address] PCP - General Internal Medicine 02/18/17 Staff Software Engineer Relationship Specialty Start Date End Date Jeffrey Betts MD [address] [place] [address] PCP - General Internal Medicine 02/18/17 Staff Software Engineer Relationship Specialty Start Date End Date Jeffrey Betts MD [address] [place] [address] PCP - General Internal Medicine 02/18/17 Staff Software Engineer Relationship Specialty Start Date End Date Jeffrey Betts MD [address] [place] [address] PCP - General Internal Medicine 02/18/17 Staff Software Engineer Relationship Specialty Start Date End Date Jeffrey Betts MD [address] [place] [address] PCP - General Internal Medicine 02/18/17 Staff Software Engineer Relationship Specialty Start Date End Date Jeffrey Betts MD [address] [place], [place] [id number] PCP - General Internal Medicine 02/18/17 Staff Software Engineer Relationship Specialty Start Date End Date Jeffrey Betts MD [address] [place], [place] [id number] PCP - General Internal Medicine 02/18/17 Reason for Visit (unrecogniz ed section and content) Reason Onset Date Comments Refill Request 05/08/2022 Reason Comments Cough Reason Comments Breathing Problem Reason Comments Appointment Reason Comments ED Follow-up Reason Onset Date Comments Refill Request 05/03/2023 Reason Comments Consult Reason Comments Spirometry Specialty Diagnoses / Procedures Referred By Contsharon t Referred To Contact [facility] Diagnoses Dyspnea, unspecified type Procedures SPIROMETRY - BASELINE AND POST DILATOR BRNCDILAT RSPSE SPMTRY PRE&POST-BRNCDILAT ADMN Jeffrey Betts MD [address] [place] [address] [facility] [address] [place] [address] Referral ID Status Reason Start Date Expiration Date V isits Requested Visits Authorized [id number] Closed Auto-Generate d Referral 05/07/2023 06/05/2024 1 1 Reason Comments New Patient Dyspnea (unrecognized sect ion and content) No Status Records Found INFORMATION SOURCE (unrecogn ized section and content) FOR RECORDS PERTAINING TO PATIENTS WHO ARE OR HAVE BEEN ENROLLED IN A CHEMICAL DEPENDENCY/SUBSTANCEABUSE PROGRAM, SOME INFORMATION MAY BE OMITTED. This clinical summary was aggregated from multiple sources. Caution should be exercised in using it in the provision of clinical care. This summary normalizes information from multiple sources, and as a consequence, information in this document may materially change the coding, format and clinical context of patient data. In addition, data may be omitted in some cases. CLINICAL DECISIONS SHOULD BE BASED ON THE PRIMARY CLINICAL RECORDS. [facility]. provides no warranty or guarantee of the accuracy or completeness of information in this document.
[2023-06-17 15:44] LABS: International Normalized Ratio 1.6; Prothrombin Time (Protime)PT. 18.8 SECONDS (11.7-14.9)
[2023-06-17 15:46] LABS: Partial Thromboplast Time 36.3 Seconds (24.1-36.2)
[2023-06-17 15:51] LABS: Anion Gap 5 (5-15); BUN 17 mg/dL (7-18); BUN/Creat Ratio 16.7 RATIO (10-20); Calcium,Total 9.3 mg/dL (8.5-10.1); Chloride 95 mmol/L (98-107); Creatinine, Serum 1.02 mg/dL (0.70-1.30); EST Glomerular Filtration Rate 73 mL/min (>60); Est Glom Filt Rate - Afr Amer 89 mL/min (>60); Glucose 195 mg/dL (74-106); Potassium 3.1 mmol/L (3.5-5.1); Sodium Level 131 mmol/L (136-145); Troponin-I HS 22 pg/mL (3.0-78.0)
== END 2023-06-17 17:28 | disposition home or self-care (01) ==
PROVIDERS: Emergency Provider Emergency Medicine; PCP Internal Medicine; Visit Provider Emergency Medicine
DX: J90 Pleural effusion, not elsewhere classified (principal); I48.20 Chronic atrial fibrillation, unspecified; E66.9 Obesity, unspecified; Z68.34 Body mass index [BMI] 34.0-34.9, adult; Z79.01 Long term (current) use of anticoagulants; Z87.891 Personal history of nicotine dependence
CPT/HCPCS: 71045; 80048; 84484; 85025; 85610; 85730; 93005; 96374; 99283; A4216

== ENCOUNTER 2023-06-22 17:12 | Inpatient (IN) | payer MEDICARE, SELFPAY ==
[2023-06-22 17:13] VITALS: BP 145/113; PULSE 113; RESP 16; TEMP 36.8; O2SAT 97; BMI 35.2
--- NOTE | 2023-06-22 17:47 | RAD_ITS ---
STUDY: X-RAY CHEST REASON FOR EXAM: Male, 88 years old. chest pain TECHNIQUE: Single AP portable view of the chest. COMPARISON: 06/17/2023. FINDINGS: Stable low to moderate lung volumes. Stable atelectasis or infiltrate in the right lung base with small effusion. On the left, there may be minimal atelectasis/infiltrate/effusion. There is mild cardiac enlargement. Normal mediastinum and liat. Normal visualized pulmonary arteries. Normal visualized aortic arch and descending thoracic aorta. Normal visualized thoracic spine. Normal visualized ribs, clavicles, and shoulders. There is no demonstrated abnormality of the visualized soft tissue structures of the upper abdomen. RAD/Chest 1 View (Portable) IMPRESSION: Possible mild atelectasis/infiltrate/effusion in the left lung base. No other changes. Electronically Signed: Silas Sevilla MD at 18:04 EST ,
[2023-06-22 18:17] LABS: Absolute Lymphocyte Count 1.25 X10^3/uL (0.83-4.51); Absolute Neutrophil Count 7.7 X10^3/uL (2.0-7.7); Basophil# 0.09 X10^3/uL; Basophil% 0.9 % (0-1); Eosinophil# 0.14 X10^3/uL; Eosinophils% 1.4 % (0-5); Hematocrit 39.5 % (40-54); Hemoglobin 12.7 g/dL (13.0-16.5); Lymphocyte # 1.25 X10^3/ul (0.83-4.51); Lymphocyte % 12.2 % (19-41); Mean Corp Hgb Conc 32.2 g/dL (32-36); Mean Corpuscular Hgb 26.8 pg (27.0-32.0); Mean Corpuscular Volume 83.5 fL (80-94); Mean Platelet Vol. 9.4 fl (6.2-12.0); Monocyte# 1.05 X10^3/uL; Monocyte% 10.2 % (0-10); NRBC Flagged by Analyzer 0 % (0-5); Neutrophil # 7.68 X10^3/uL (2.7-7.7); Neutrophil % 74.9 % (47-70); Platelet Count 304 K/mm3 (150-450); RBC Distribution Width CV 15.6 % (11.6-14.6); RBC Distribution Width SD 47.3 fl (35.1-43.9); Red Blood Count 4.73 M/mm3 (4.6-6.2); White Blood Count 10.3 K/mm3 (4.4-11.0)
[2023-06-22 18:35] LABS: Anion Gap 6 (5-15); BUN 22 mg/dL (7-18); BUN/Creat Ratio 17.2 RATIO (10-20); Calcium,Total 9.2 mg/dL (8.5-10.1); Chloride 96 mmol/L (98-107); Creatinine, Serum 1.28 mg/dL (0.70-1.30); EST Glomerular Filtration Rate 56 mL/min (>60); Est Glom Filt Rate - Afr Amer 68 mL/min (>60); Glucose 140 mg/dL (74-106); Potassium 3.2 mmol/L (3.5-5.1); Sodium Level 132 mmol/L (136-145); Troponin-I HS 27 pg/mL (3.0-78.0)
[2023-06-22 18:39] LABS: BNP,B-Type NATRIURETIC PEPTIDE 169.5 pg/mL (0-100)
--- NOTE | 2023-06-22 19:42 | PCM.HP.STD ---
[facility] - General General Date of Admission: 06/22/23 Date of Service: 06/22/23 Chief Complaint: Generalized Weakness. HPI Narrative TRINH GUEVARA, is a 88 M with a past medical history of essential hypertension, hyperlipidemia, obesity; with BMI of 35.2 this admission, chronic atrial fibrillation; on Eliquis, Metoprolol and Cardizem, history of benign neoplasm of colon, history of appendectomy, history of inguinal hernia repair, peripheral neuropathy, GERD, DDD, chronic bilateral LE edema and OA who presents to [facility] ER complaining of generalized weakness. Mr. Guevara reports his symptoms began a few weeks prior to admission with generalized weakness and easy fatigability that have progressively worsened since that time. He actually came to this ER for a similar complaint on 06/17/2023 and he then decided to return home after new acute pathologic changes were noted on his workup. Today he states he can barely sit up in the bed without assistance and his younger sister and niece informed the ER staff that they could not care for him at home in his current condition which prompted the ER physician to contact the hospitalist service. He denies associated fever, chills, nausea, vomiting, diarrhea or constipation. In the ER he was diagnosed with generalized weakness complicated by ambulatory dysfunction in an elderly patient with multiple comorbidities but with no signs of acute pathologic changes on his labs, imaging or EKG other than mild hypokalemia of 3.2 mmol/L present on admission and he was then admitted to the general medical floor with telemetric monitoring under observation status for a stay that is expected to be less than 48 hours. [facility] Medical History Abnormal EKG Anemia Atrial fibrillation with RVR Atrial fibrillation, new onset Benign neoplasm of colon Bilateral lower extremity edema DDD (degenerative disc disease), lumbar Hx of gastroesophageal reflux (GERD) Hyperlipidemia Idiopathic peripheral neuropathy Internal hemorrhoids without complication Kidney stone Nocturia Obesity (BMI 30.0-34.9) Skin cancer of scalp Thrombocytopenia White coat syndrome with hypertension Home Medications cholecalciferol (vitamin D3) 25 mcg (1,000 unit) capsule 25 mcg PO DAILY vitamin 03/12/23 [History Last Taken Unknown] iwtylolsrjel-gowiantn-yrygfh tablet 1 tab PO DAILY vitamin 03/12/23 [History Last Taken Unknown] psyllium husk 0.4 gram capsule (Fiber (psyllium husk)) 0.4 g PO DAILY fiber 03/12/23 [History Last Taken Unknown] vitamin B complex 1 cap PO DAILY vitamin 03/12/23 [History Last Taken Unknown] cyanocobalamin (vitamin B-12) 1,000 mcg tablet 1,000 mcg PO DAILY vitamin 03/24/23 [History Last Taken Unknown] metoprolol succinate 50 mg tablet,extended release 24 hr (Toprol XL) 50 mg PO DAILY heart #90 tabs 03/24/23 [Rx Last Taken Unknown] omeprazole 20 mg capsule,delayed release 20 mg PO DAILY PRN acid reflux 03/24/23 [History Last Taken Unknown] apixaban 5 mg tablet (Eliquis) 5 mg PO BID blood thinner 06/22/23 [History Last Taken Unknown] aspirin 81 mg tablet,delayed release (Adult Aspirin Regimen) 81 mg PO DAILY blood thinner 06/22/23 [History Last Taken Unknown] diltiazem HCl 180 mg capsule,extended release 24 hr 180 mg PO QHS afib 06/22/23 [History Last Taken Unknown] furosemide 40 mg tablet (Lasix) 20 mg PO DAILY water pill 06/22/23 [History Last Taken Unknown] omega-3 fatty acids 520 mg PO DAILY vitamin 06/22/23 [History Last Taken Unknown] turmeric 400 mg capsule 500 mg PO DAILY vitamin 06/22/23 [History Last Taken Unknown] Allergy/AdvReac Type Severity Reaction Status Date / Time No Known Allergies Allergy Verified 06/22/23 17:15 Family History Father Cancer lung Mother Colon cancer Surgical History History of appendectomy History of colonoscopy History of inguinal hernia repair History of laparotomy Social History Smoking Status: Former smoker how long ago did patient quit smokin years alcohol intake: never substance use type: does not use ROS ROS Narrative Review of systems: Constitutional: Patient denies fever or chills but he does admit to severe fatigue. Eyes: Patient denies visual changes or discharge from eyes. ENT: Patient denies runny nose, sore throat or ear pain. Cardiovascular: Patient denies chest pain or palpitations. Respiratory: Patient does admit increased SOB with activity and easy fatigability but denies cough. Gastrointestinal: Patient denies nausea, vomiting, abdominal pain, diarrhea or constipation. Genitourinary: Patient denies dysuria, hematuria or urinary obstruction. Integumentary: Patient denies abscess or rash. Psychiatric: Patient denies uncontrolled depression or anxiety. Allergic: Patient denies lip swelling, tongue swelling or urticaria. Hematologic: Patient admits to easy bleeding on Eliquis. Endocrinologic: Patient denies polyuria, polydipsia or polyphagia. 14 point ROS otherwise negative except for positives noted above in HPI. Vital Signs Vital Signs Vital Signs: 06/22/23 17:13 06/22/23 18:08 06/22/23 18:09 Temperature 98.2 F Temperature Source Oral Pulse Rate 113 H Respiratory Rate 16 Respiratory Pattern Normal Blood Pressure 145/113 H Blood Pressure Mean 123 Pulse Ox 97 Oxygen Delivery Method Room Air Room Air Weight Weight: 225 lb Body Mass Index (BMI) 35.2 Physical Exam Const alert, oriented x3 and no apparent distress General Appearance: cooperative HEENT normocephalic, head/scalp atraumatic, hearing grossly normal bilaterally and moist oral mucous membranes Eyes PERRL, EOMs intact bilaterally and conjunctivae normal Neck no lymphadenopathy and supple Resp normal respiratory effort, no retractions and no use of accessory muscles Cardio Cardio Narrative: Irregularly irregular. GI normal to inspection, nondistended, normoactive bowel sounds, soft to palpation, non-tender and non-distended Extremity normal to inspection and full ROM Skin Skin Narrative: Patient has no evidence of rash at this time. Neuro oriented x3, CN's II-XII intact bilaterally, moves all extremities and no focal motor deficits Sensorium / Orientation: awake, alert, oriented to person, oriented to place and oriented to time Speech: speech normal Psych affect normal Results Medical Records Data Attestation: I reviewed the patient's medical records Lab / Micro Data Attestation: I reviewed the patient's lab results. 06/22/23 18:05 06/22/23 18:05 Labs: Laboratory Results - last 24 hr 06/22/23 18:05: WBC 10.3, RBC 4.73, Hgb 12.7 L, Hct 39.5 L, MCV 83.5, MCH 26.8 L, MCHC 32.2, RDW Std Deviation 47.3 H, RDW Coeff of Joy 15.6 H, Plt Count 304, MPV 9.4, Immature Gran % (Auto) 0.400, Neut % (Auto) 74.9 H, Lymph % (Auto) 12.2 L, [place] % (Auto) 10.2 H, Eos % (Auto) 1.4, Baso % (Auto) 0.9, Absolute Neuts (auto) 7.7, Absolute Lymphs (auto) 1.25, Nucleated RBC % 0, Sodium 132 L, Potassium 3.2 L, Chloride 96 L, Carbon Dioxide 30.0, Anion Gap 6, BUN 22 H, Creatinine 1.28, Estim Creat Clear Calc 37.30, Est GFR (MDRD) Af Amer 68, Est GFR (MDRD) Non-Af 56 L, BUN/Creatinine Ratio 17.2, Glucose 140 H, Calcium 9.2, Troponin I High Sens 27, B-Natriuretic Peptide 169.5 H Imagaing Radiology Impression Chest X-Ray 06/22/23 17:47 IMPRESSION: Possible mild atelectasis/infiltrate/effusion in the left lung base. No other changes. Electronically Signed: Silas Sevilla MD at 18:04 EST , Assessment & Plan Assessment/Plan (1) Generalized weakness: (2) Ambulatory dysfunction: (3) Hypokalemia: (4) Chronic a-fib: (5) Chronic anticoagulation: PLAN: Plan 1. Generalized Weakness with Ambulatory Dysfunction - Admit to general medical floor with telemetric monitoring under observation status. Check TSH. Finally, PT/OT and Case Management to consult and treat on-rounds in the AM for further recommendations with help appreciated in advance. 2. Mild Hypokalemia of 3.2 mmol/L present on admission - Give supplemental KCl and then recheck level in the AM to ensure correction. 3. Chronic atrial fibrillation; on Eliquis, Metoprolol and Cardizem - Resume home regimen as previous. 4. Essential hypertension - Continue home medications plus give prn IV Hydralazine for systolic blood pressure > 160 mm Hg. 5. Hyperlipidemia - Resume statin and check lipid profile this admission. 6. Obesity; with BMI of 35.2 this admission - Weight loss will be recommended. 7. History of benign neoplasm of colon - Noted. 8. History of appendectomy - Noted. 9. History of inguinal hernia repair - Noted. 10. Peripheral neuropathy - Stable. 11. GERD - Continue PPI. 12. DDD - Stable. 13. Chronic bilateral LE edema - Noted. 14. OA - Stable. Give Tylenol prn. 15. DVT prophylaxis - Patient is already on Eliquis for #3 which will be continued. Total time: Approximately 45 minutes. Charges/Coding Visit Charges OBSV E&M: 84632 Observ/hosp same date L1
[2023-06-22 20:36] VITALS: BP 124/75; PULSE 94; RESP 16; O2SAT 96
--- NOTE | 2023-06-22 20:53 | EX.ED.DYSGE1 ---
HPI History of Present Illness Chief Complaint: Weakness Narrative Narrative: 88-year-old male with history of CHF, A-fib, hyperlipidemia, CAD presenting with several months of progressive weakness. Patient states this all started in January when he was diagnosed with atrial fibrillation. He was initially seen by Dr. Chan who sent the patient to Dr. Cooper and was sent him to the emergency room. Patient has been on Eliquis, Lasix, rate control but states he is steadily getting more short of breath. He describes it as slowly getting worse over the last few months. This is worse increasingly over the last month. Patient was here last week with A-fib and RVR. Patient states he is walking with a walker but this is not his baseline. Now he can no longer walk with a walker. Denies fevers or chills. He does admit to significant shortness of breath when he tries to ambulate. He states he can only go a couple of feet without a walker. He cannot do his ADLs. [facility] Medical History Abnormal EKG Anemia Atrial fibrillation with RVR Atrial fibrillation, new onset Benign neoplasm of colon Bilateral lower extremity edema DDD (degenerative disc disease), lumbar Hx of gastroesophageal reflux (GERD) Hyperlipidemia Idiopathic peripheral neuropathy Internal hemorrhoids without complication Kidney stone Nocturia Obesity (BMI 30.0-34.9) Skin cancer of scalp Thrombocytopenia White coat syndrome with hypertension Home Medications cholecalciferol (vitamin D3) 25 mcg (1,000 unit) capsule 25 mcg PO DAILY 03/12/23 [History Last Taken Unknown] tqnguimfzrgp-nzbjwquz-xjygvb tablet 1 tab PO DAILY 03/12/23 [History Last Taken Unknown] psyllium husk 0.4 gram capsule (Fiber (psyllium husk)) 0.4 g PO DAILY 03/12/23 [History Last Taken Unknown] vitamin B complex 1 cap PO DAILY 03/12/23 [History Last Taken Unknown] cyanocobalamin (vitamin B-12) 1,000 mcg tablet 1,000 mcg PO DAILY 03/24/23 [History Last Taken Unknown] metoprolol succinate 50 mg tablet,extended release 24 hr (Toprol XL) 50 mg PO DAILY #90 tabs 03/24/23 [Rx Last Taken Unknown] omeprazole 20 mg capsule,delayed release 20 mg PO DAILY PRN acid reflux 03/24/23 [History Last Taken Unknown] apixaban 5 mg tablet (Eliquis) 5 mg PO BID 06/22/23 [History Last Taken Unknown] aspirin 81 mg tablet,delayed release (Adult Aspirin Regimen) 81 mg PO DAILY 06/22/23 [History Last Taken Unknown] diltiazem HCl 180 mg capsule,extended release 24 hr 180 mg PO QHS 06/22/23 [History Last Taken Unknown] furosemide 40 mg tablet (Lasix) 20 mg PO DAILY 06/22/23 [History Last Taken Unknown] turmeric 400 mg capsule 500 mg PO DAILY 06/22/23 [History Last Taken Unknown] Allergy/AdvReac Type Severity Reaction Status Date / Time No Known Allergies Allergy Verified 06/22/23 17:15 Family History Father Cancer lung Mother Colon cancer Surgical History History of appendectomy History of colonoscopy History of inguinal hernia repair History of laparotomy Social History Smoking Status: Former smoker how long ago did patient quit smokin years alcohol intake: never substance use type: does not use ROS ROS ED Constitutional Constitutional ED: Denies chills, fever(s) or sweats Eyes Eyes: Denies blurry vision or change in vision ENT ENT ED: Denies ear pain or sore throat Cardiovascular Cardiovascular: Denies chest pain, palpitations or racing heartbeat Respiratory/Chest Respiratory/Chest: Reports dyspnea and dyspnea on exertion; Denies sputum Gastrointestinal Gastrointestinal: Denies abdominal pain, constipation, diarrhea, nausea or vomiting Genitourinary Genitourinary ED: Denies dysuria, hematuria or urinary frequency Musculoskeletal Musculoskeletal: Denies arthralgias, myalgias or neck pain Integumentary Denies abscess, Abrasions or rash Neurologic Neurologic: Denies headache(s), paresthesias or weakness Psychiatric Psychiatric: Denies anxiety, depression, suicidal ideation or suicidal thoughts Endocrine Endocrinology: Denies polydipsia or polyuria EXAM Physical Exam Const Vital Signs: 06/22/23 17:13 06/22/23 18:08 06/22/23 18:09 Temperature 98.2 F Temperature Source Oral Pulse Rate 113 H Respiratory Rate 16 Respiratory Pattern Normal Blood Pressure 145/113 H Blood Pressure Mean 123 Pulse Ox 97 Oxygen Delivery Method Room Air Room Air 06/22/23 20:36 Temperature Temperature Source Pulse Rate 94 Respiratory Rate 16 Respiratory Pattern Blood Pressure 124/75 H Blood Pressure Mean 91 Pulse Ox 96 Oxygen Delivery Method Positive well nourished General Appearance ED: NAD; Negative for pallor HEENT Reports moist mucous membranes Eyes PERRL and EOMs intact bilaterally General Eye ED: Negative for pale conjunctiva Chest Wall inspection of chest normal Resp normal respiratory effort and clear to auscultation bilaterally Auscultation: Negative for rales, rhonchi or wheezes Cardio regular rate and regular rhythm GI normal to inspection, nondistended, normoactive bowel sounds Neuro oriented x3 and CN's II-XII intact bilaterally Sensorium / Orientation: alert Psych mental status grossly normal Skin no rashes or lesions noted General Skin Exam: Negative for jaundice or pallor MDM MDM MDM Narrative Medical decision making narrative: Patient presenting with generalized weakness and worsening shortness of breath over several months which appears to be acutely worsening. Differential includes ACS, CHF, pneumonia, dehydration, anemia, electrolyte abnormalities, A-fib. CBC was obtained to assess white blood cell count, hemoglobin, platelets. BMP to assess renal function, electrolytes, glucose. High-sensitivity troponin and EKG to assess for ischemia/dysrhythmia. BNP to assess for CHF. EKG on my interpretation shows A-fib with a ventricular of 113 bpm without sign of ischemic change. Chest x-ray on my interpretation shows look like a small effusion in the left lung base. Given that the patient's BNP is elevated at 160 this may be CHF. CBC shows normal white blood cell count 10.3. Hemoglobin stable at 12.7. Platelets are normal at 304. Renal function at baseline. Sodium 132 and potassium 3.2. Chloride 96. Patient unable to get up and ambulate and can barely sit up in the bed for examination. Given this family request admission due to debility. Discussed with hospitalist for admission. Impression: 1. Debility 2. Dyspnea Lab Data Attestation: I reviewed the patient's lab results. Labs: Laboratory Results - last 24 hr 06/22/23 18:05 WBC 10.3 RBC 4.73 Hgb 12.7 L Hct 39.5 L MCV 83.5 MCH 26.8 L MCHC 32.2 RDW Std Deviation 47.3 H RDW Coeff of Joy 15.6 H Plt Count 304 MPV 9.4 Immature Gran % (Auto) 0.400 Neut % (Auto) 74.9 H Lymph % (Auto) 12.2 L [place] % (Auto) 10.2 H Eos % (Auto) 1.4 Baso % (Auto) 0.9 Absolute Neuts (auto) 7.7 Absolute Lymphs (auto) 1.25 Nucleated RBC % 0 Sodium 132 L Potassium 3.2 L Chloride 96 L Carbon Dioxide 30.0 Anion Gap 6 BUN 22 H Creatinine 1.28 Estim Creat Clear Calc 37.30 Est GFR (MDRD) Af Amer 68 Est GFR (MDRD) Non-Af 56 L BUN/Creatinine Ratio 17.2 Glucose 140 H Calcium 9.2 Troponin I High Sens 27 B-Natriuretic Peptide 169.5 H Radiography Diagnostic Testing: Clinical Impression(s) from Imaging Studies Chest X-Ray 06/22/23 17:47 IMPRESSION: Possible mild atelectasis/infiltrate/effusion in the left lung base. No other changes. Electronically Signed: Silas Sevilla MD at 18:04 EST , Discharge Plan Triage Chief Complaint: Weakness ED Provider: Fausto Dover Dx/Rx/DC Orders Prescriptions: No Action vitamin B complex Capsule 1 cap PO DAILY psyllium husk [Fiber (psyllium husk)] 0.4 gram capsule 0.4 g PO DAILY cholecalciferol (vitamin D3) 25 mcg (1,000 unit) capsule 25 mcg PO DAILY qfruvgrpqkel-cfjnjlam-hidklz Tablet 1 tab PO DAILY cyanocobalamin (vitamin B-12) 1,000 mcg tablet 1,000 mcg PO DAILY metoprolol succinate [Toprol XL] 50 mg tablet extended release 24 hr 50 mg PO DAILY Qty: 90 3RF omeprazole 20 mg capsule,delayed release(DR/EC) 20 mg PO DAILY PRN (Reason: acid reflux) aspirin [Adult Aspirin Regimen] 81 mg tablet,delayed release (DR/EC) 81 mg PO DAILY diltiazem HCl 180 mg capsule,extended release 24hr 180 mg PO QHS turmeric 400 mg capsule 500 mg PO DAILY furosemide [Lasix] 40 mg tablet 20 mg PO DAILY Eliquis 5 mg tablet 5 mg PO BID Primary Care Provider: Jeffrey Chan Referrals: Jeffrey Chan MD [Primary Care Provider] -
--- OUTSIDE RECORDS SUMMARY | 2023-06-22 20:56 | XMS RPT_ITS | CCD ---
Author Name Unknown Address [facility] [place] [address] Organization [facility] Care Team Providers Care Grocery Shopper Name Role Phone Dustin PEÑA, Jeffrey Camacho Primary Care Provider QIAN CHERY Referring Unavailable BETTS, JEFFREY Camacho Primary Care Unavailable BETTS, JEFFREY Camacho Referring Unavailable BETTS, JEFFREY Camacho Primary Care Unavailable QIAN CHERY Attending Unavailable BETTS, JEFFREY Camacho Referring Unavailable BETTS, JEFFREY Camacho Primary Care Unavailable BETTS, JEFFREY Camacho Referring Unavailable BETTS, JEFFREY Camacho Primary Care Unavailable BETTS, JEFFREY Camacho Primary Care Unavailable KASEY MCDONALD Referring Unavailable BELTRAN, NAZ M Referring Unavailable BETTS, JEFFREY Camacho Primary Care Unavailable BELTRANKASEY SHEN Attending Unavailable BELTRANKASEY SHEN Referring Unavailable BETTS, JEFFREY Camacho Primary Care Unavailable BETTS, JEFFREY Camacho Primary Care Unavailable BELTRANKASEY SHEN Attending Unavailable BETTS, JEFFREY Camacho Primary Care Unavailable SELF Referring Unavailable BETTS, JEFFREY Camacho Attending Unavailable BETTS, JEFFREY Camacho Primary Care Unavailable BETTS, JEFFREY Camacho Attending Unavailable BETTS, JEFFREY Camacho Primary Care Unavailable BELTRANKASEY SHEN Attending Unavailable Medications Completed/Discontinued Medications Medication Drug Class(es) [...] (1 source) Patient encounter status; Translations: [Other jail (current) drug therapy] Episodic Other lower respiratory [...] height 170.3 cm Pulm Wstr Work Phone: [facility] 05-11-2023 08:08-0500 Body weight 93.44 kg Pulm Wstr Work Phone: [facility] 05-11-2023 08:08-0500 Diastolic blood pressure 76 mm[Hg] Qian Chery MD Work Phone: [facility] 05-11-2023 08:08-0500 Heart rate 120 /min Pulm Wstr Work Phone: [facility] 05-11-2023 08:08-0500 Respiratory rate 16 /min Pulm Wstr Work Phone: [facility] 05-11-2023 08:08-0500 SaO2% (BldA) [Mass fraction] 97 % Pulm Wstr Work Phone: [facility] 05-11-2023 08:08-0500 Systolic blood pressure 118 mm[Hg] Qian Chery MD Work Phone: [facility] 04-23-2023 13:53-0400 Body height 170.2 cm Kasey Older MEMBERSHIP COUNSELOR.OPTICAL WORKER Work Phone: [facility] 04-23-2023 13:53-0400 Body weight 94.35 kg Kasey Older MEMBERSHIP COUNSELOR.OPTICAL WORKER Work Phone: [facility] 04-23-2023 13:53-0400 Diastolic blood pressure 92 mm[Hg] Kasey Older MEMBERSHIP COUNSELOR.OPTICAL WORKER Work Phone: [facility] 04-23-2023 13:53-0400 Heart rate 156 /min Kasey Older MEMBERSHIP COUNSELOR.OPTICAL WORKER Work Phone: [facility] 04-23-2023 13:53-0400 Respiratory rate 20 /min Kasey Older MEMBERSHIP COUNSELOR.OPTICAL WORKER Work Phone: [facility] 04-23-2023 13:53-0400 Systolic blood pressure 119 mm[Hg] Kasey Older MEMBERSHIP COUNSELOR.OPTICAL WORKER Work Phone: [facility] 02-24-2023 10:36-0400 Body weight 93.44 kg Kasey Older MEMBERSHIP COUNSELOR.OPTICAL WORKER Work Phone: [facility] 02-24-2023 10:36-0400 Diastolic blood pressure 98 mm[Hg] Kasey Older MEMBERSHIP COUNSELOR.OPTICAL WORKER Work Phone: [facility] 02-24-2023 10:36-0400 Heart rate 147 /min Kasey Older MEMBERSHIP COUNSELOR.OPTICAL WORKER Work Phone: [facility] 02-24-2023 10:36-0400 Respiratory rate 24 /min Kasey Older MEMBERSHIP COUNSELOR.OPTICAL WORKER Work Phone: [facility] 02-24-2023 10:36-0400 SaO2% (BldA) [Mass fraction] 96 % Kasey Older MEMBERSHIP COUNSELOR.OPTICAL WORKER Work Phone: [facility] 02-24-2023 10:36-0400 Systolic blood pressure 144 mm[Hg] Kasey Older MEMBERSHIP COUNSELOR.OPTICAL WORKER Work Phone: [facility] 02-17-2023 11:25-0400 Body weight 92.53 kg Jeffrey Betts MD Work Phone: [facility] 02-17-2023 11:25-0400 Diastolic blood pressure 84 mm[Hg] Jeffrey Betts MD Work Phone: [facility] 02-17-2023 11:25-0400 Heart rate 140 /min Jeffrey Betts MD Work Phone: [facility] 02-17-2023 11:25-0400 Respiratory rate 20 /min Jeffrey Betts MD Work Phone: [facility] 02-17-2023 11:25-0400 SaO2% (BldA) [Mass fraction] 96 % Jeffrey Betts MD Work Phone: [facility] 02-17-2023 11:25-0400 Systolic blood pressure 130 mm[Hg] Jeffrey Betts MD Work Phone: [facility] 09-24-2022 10:56-0400 Diastolic blood pressure 77 mm[Hg] Jeffrey Betts MD Work Phone: [facility] 09-24-2022 10:56-0400 Heart rate 75 /min Jeffrey Betts MD Work Phone: [facility] 09-24-2022 10:56-0400 Systolic blood pressure 125 mm[Hg] Jefrfey Betts MD Work Phone: [facility] 09-24-2022 10:52-0400 Body temperature 97.81 [degF] Jeffrey Betts MD Work Phone: [facility] 09-24-2022 10:52-0400 Body weight 91.63 kg Jeffrey Betts MD Work Phone: [facility] 09-24-2022 10:52-0400 Respiratory rate 20 /min Jeffrey Betts MD Work Phone: [facility] 09-24-2022 10:52-0400 SaO2% (BldA) [Mass fraction] 98 % Jeffrey Betts MD Work Phone: [facility] 01-23-2022 11:52-0400 Diastolic blood pressure 77 mm[Hg] Kasey Ruiz APRNJUD Work Phone: [facility] 01-23-2022 11:52-0400 Systolic blood pressure 143 mm[Hg] Kasey Older MEMBERSHIP COUNSELOR.OPTICAL WORKER Work Phone: [facility] 01-23-2022 11:15-0400 Body weight 91.17 kg Kasey Older MEMBERSHIP COUNSELOR.OPTICAL WORKER Work Phone: [facility] 01-23-2022 11:15-0400 Heart rate 90 /min Kasey Older MEMBERSHIP COUNSELOR.OPTICAL WORKER Work Phone: [facility] 01-23-2022 11:15-0400 Respiratory rate 18 /min Kasey Older MEMBERSHIP COUNSELOR.OPTICAL WORKER Work Phone: [facility] Encounters Encounter Date Encounter Type Care Provider Facility Start: 06-17-2023 End: 06-17-2023 ambulatory JEFFREY BETTS Facility:[facility] Start: 05-17-2023 ambulatory Kasey Older MEMBERSHIP COUNSELOR .OPTICAL WORKER Work Phone: [facility] Procedures Date Procedure Procedure Detail Performing Clinician Start: 05-11-2023 Brncdilat rspse spmt ry pre&post-brncdilat admn Jeffrey Betts MD Work Phone: Plan of Treatment Date Care Activity Detail Author Start: 02-23-2028 Urine microalbumin profile [facility] Start: 04-26-2026 Diabetes Screening Diabetes Screenin g [facility] Start: 09-20-2023 End: 12-20-2023 Comprehensive metabolic 2000 panel - Serum or Plasma COMP METABOLIC PANEL Lab Routine Elevated LFTs Expected: 09/20/2023 (Approximate), Expires: 12/20/2023 [facility] Work Phone: Immunizations Immunization Date Immunization Notes Care Provider Fa cili 05-04-2022 influenza, high dose seasonal, preservative-free Jeffrey Betts MD Work Phone: [facility] Work Phone: 05-04-2022 influenza virus vacc ine, unspecified formulation Kasey Older MEMBERSHIP COUNSELOR.OPTICAL WORKER Work Phone: [facility] 04-08-2020 influenza, high-dose , quadrivalent vaccine (FLUZONE HIGH DOSE QUADRIVALENT) Jeffrey Betts MD Work Phone: [facility] Work Phone: 04-06-2019 influenza, high dose seasonal, preservative-free Jeffrey Betts MD Work Phone: [facility] Work Phone: 02-23-2019 zoster vaccine recombinant Jeffrey Betts MD Work Phone: [facility] Work Phone: 03-16-2018 influenza virus vacc ine, unspecified formulation Jeffrey Betts MD Work Phone: [facility] Work Phone: 02-22-2018 tetanus toxoid, redu quyen diphtheria toxoid, and acellular pertussis vaccine, adsorbed Jeffrey Betts MD Work Phone: [facility] Work Phone: 04-18-2017 influenza, high dose seasonal, preservative-free Jeffrey Betts MD Work Phone: [facility] 2016 influenza, high dose seasonal, preservative-free Jeffrey Betts MD Work Phone: [facility] Work Phone: 05-25-2015 influenza, seasonal, injectable Jeffrey Betts MD Work Phone: [facility] 06-27-2014 pneumococcal conjuga te vaccine, 13 valent Jeffrey Betts MD Work Phone: [facility] Work Phone: 03-29-2014 influenza, seasonal, injectable Jeffrey Betts MD Work Phone: [facility] Work Phone: 04-12-2013 influenza virus vacc ine, unspecified formulation Jeffrey Betts MD Work Phone: [facility] 05-18-2012 influenza virus vacc ine, unspecified formulation Jeffrey Betts MD Work Phone: [facility] 04-16-2011 influenza virus vacc ine, unspecified formulation Jeffrey Betts MD Work Phone: [facility] 04-16-2011 pneumococcal polysaccharide vaccine, 23 valent Jeffrey Betts MD Work Phone: [facility] 04-09-2010 influenza virus vacc ine, unspecified formulation Jeffrey Betts MD Work Phone: [facility] Work Phone: 04-09-2009 influenza virus vacc ine, unspecified formulation Jeffrey Betts MD Work Phone: [facility] 10-26-2008 zoster vaccine, live Jeffrey Betts MD Work Phone: [facility] Work Phone: 04-05-2008 influenza virus vacc ine, unspecified formulation Jeffrey Betts MD Work Phone: [facility] Work Phone: 10-21-2007 diphtheria and tetan us toxoids, adsorbed for pediatric use Jeffrey Betts MD Work Phone: [facility] Work Phone: 04-20-2007 influenza virus vacc ine, unspecified formulation Jeffrey Betts MD Work Phone: [facility] Work Phone: 04-26-2006 influenza virus vacc ine, unspecified formulation Jeffrey Betts MD Work Phone: [facility] 04-15-2005 influenza virus vacc ine, unspecified formulation Jeffrey Betts MD Work Phone: [facility] Work Phone: 05-05-1996 pneumococcal polysaccharide vaccine, 23 valent Jeffrey Betts MD Work Phone: [facility] Work Phone: Payers Date Payer Category Payer [facility] [place] [facility] [id number] 2022-Present [phone] [address] [place] [address] [facility] [id number] 2022 Medicare [id number] 2015 Unknown ANTHEM BLUE CROS S AND BLUE SHIELD ANTHEM MEDIBLUE ACCESS [id number] 2015-Present [phone] [address] [place] [address] PPO [id number] 2015 Unknown ANTHEM BLUE CROS S AND BLUE SHIELD ANTHEM MEDIBLUE ACCESS [id number] 2015-Present [phone] [address] [place] [address] PPO [id number] Social History Date Type Detail Facility Start: 02-18-2017 End: 02-17-2023 Tobacco smoking status NHIS Ex-smoker [facility] End: 07-26-1982 History of tobacco use Current smoker [facility] End: 07-26-1982 History of tobacco use Cigar Smoker [facility] History of tobacco use Chews Tobacco [facility] Start: 10-09-2020 End: 05-11-2023 Alcohol intake Current non-drinker of alcohol (finding) [facility] Start: 12-07-2019 End: 01-20-2022 History SDOH Alcohol Frequency 3 [facility] Start: 12-07-2019 End: 01-20-2022 History SDOH Alcohol Std Drinks 1 [facility] Start: 12-07-2019 End: 01-20-2022 History SDOH Social Connections Phone 2 [facility] Start: 12-07-2019 End: 01-20-2022 History SDOH Social Connections Get Together 98 [facility] Start: 12-07-2019 End: 01-20-2022 History SDOH Social Connections Living 7 [facility] Start: 12-07-2019 History SDOH Physica l Activity MPS 6 [facility] Start: 12-07-2019 End: 01-20-2022 History SDOH Financial 5 [facility] Start: 12-06-2019 Education 21 [facility] Start: 1935 Sex Assigned At Not on file C [facility] Start: 01-20-2022 History SDOH Alcohol Frequency 4 [facility] Start: 02-18-2017 End: 02-17-2023 Tobacco use and exposure Smokeless tobacco non-user [facility] Work Phone: Start: 01-20-2022 End: 02-24-2023 History of Social function [facility] Start: 01-20-2022 End: 02-24-2023 Social connection and isolation panel [facility] Do you belong to any clubs or organizations such as restorationism groups, unions, fraternal or athletic groups, or school groups? No [facility] How often do you att end meetings of the clubs or organizations you belong to? Patient refused [facility] Are you now , , , , never or living with a partner? Never [facility] How often to you hav e a drink containing alcohol? 2-3 time sa week [facility] How many standard dr inks containing alcohol do you have on a typical day? 1 or 2 [facility] How often do you hav e 6 or more drinks on 1 occasion? Never [facility] Do you feel stress - tense, restless, nervous, or anxious, or unable to sleep at night because your mind is troubled all the time - these days [OSQ] Not at all [facility] (I/We) worried wheth er (my/our) food would run out before (I/we) got money to buy more. Never true [facility] Clinical Notes 11-19-2016 to 06-17-2023 Ingrid Ramos RPFT - 05/11/2023 8:00 AM Qian Roberson MD - 05/11/2023 8:00 AM ESTTelephone Encounter - Destiny Fraga LPN - 05/08/2023 9:09 AM ESTPatient Instructions Note Date & Type Note Facility 06-17-2023 Note HNO ID: [id number] Author: Kasey Mcdonald APRN.OPTICAL WORKER Service: ? Author Type: Nurse Practitioner Type: Progress Notes Filed: 06/17/2023 2:37 PM Note Text: CC: Patient presents with: genital swelling started 06/13 HPI Michel Guevara is a 88 year old male who presents today for above. Patient reports worsening SOB with exertion, swelling from the thighs to abdomen including genitals, and diarrhea x 10 days. Positive for PND, orthopnea and weight gain. Swelling in lower legs has actually improved. Denies swelling in the face, arms or hands, chest pain or palpitations. He had an initial weight gain of 20 lbs since 05/16 but has been stable at home for the past 1-2 weeks. He has a history of Afib, pulmonary hypertension and restrictive lung disease. Wood Preserving Plant Laborer is Dr. Cooper and mill supervisor is Dr. Qian Chery. He is currently treated with Metoprolol, Eliquis, Cardizem and Lasix. He is taking all medications as prescribed. Denies history of CHF. Review of Systems Constitutional: Positive for fatigue and unexpected weight change. Negative for chills, diaphoresis and fever. Respiratory: Negative for cough and wheezing. Gastrointestinal: Positive for abdominal distention. Negative for abdominal pain, anal bleeding, blood in stool, nausea and vomiting. Genitourinary: Positive for penile swelling and scrotal swelling. Negative for decreased urine volume, difficulty urinating, dysuria, genital sores, hematuria, penile pain and testicular pain. Neurological: Negative for dizziness, syncope and light-headedness. PAST MEDICAL HISTORY Diagnosis Date Anemia, unspecified [...] of skin cancer 2010 left scalp, [facility] Prediabetes Unspecified erythematous condition 06/29/2008 PAST SURGICAL HISTORY [...] ALLERGIES Patient has no known allergies. MEDICATIONS metoprolol succinate ER (TOPROL XL) 50 mg [...] by mouth once daily for 7 days. vitamin b complex capsule Take 1 capsule by mouth once daily. psyllium husk (DAILY FIBER ORAL) Take 1 [...] Take 1 capsule by mouth once daily. Poxvpgbzwzpsl-Tacztgsa-Uvvgpk (CENTRUM SILVER) ORAL Tab Take one(1) tablet daily. FAMILY HISTORY Problem Relation Age of Onset Cancer Mother met colon cancer Cancer Father lung Asthma No Family History Social History Tobacco Use Smoking status: Former Types: Cigars Quit date: 07/26/1982 Years since quittin.9 Smokeless tobacco: Never Vaping Use Vaping Use: Never used Substance Use Topics Alcohol use: No Drug use: No BP 126/86 Pulse 70 Resp 22 Wt 103 kg (227 lb) SpO2 89% BMI 35.50 kg/m? Physical Exam Vitals reviewed. Constitutional: General: He is not in acute distress. Appearance: He is ill-appearing. HENT: Mouth/Throat: Mouth: Mucous membranes are dry. Cardiovascular: Rate and Rhythm: Tachycardia present. Rhythm irregularly irregular. Heart sounds: Normal heart sounds. No murmur heard. Comments: 2-3+ pitting edema from above knees to waist. 1+ pitting edema in the lower legs. Pulmonary: Breath sounds: Decreased air movement present. No wheezing, rhonchi or rales. Comments: Conversational dyspnea noted Abdominal: General: There is distension. Tenderness: There is no abdominal tenderness. Genitourinary: Penis: Swe (more content not included)... [facility] 05-11-2023 Note HNO ID: [id number] Author: Elisha Us RT(R) Service: ? Author Type: Language Tutor Type: Progress Notes Filed: 05/11/2023 9:00 AM [...] IV DATA: Not applicable SIGNED BY: Elisha Us RT(R) May 11, 2023 8:52 AM [facility] 05-11-2023 Note HNO ID: [id number] Author: Ingrid Ramos RPFT Service: ? Author Type: Respiratory Therapist Type: Progress Notes Filed: 05/11/2023 8:02 AM Note Text: PULM FUNCTION SMARTBLOCK: Provider: Jeffrey Betts MD Assisting Tech: Ingrid Ramos RPFT Spirometry w/BD: 1 LV - Box: 1 [facility] 05-11-2023 Note HNO ID: [id number] Author: Qian Chery MD Service: ? Author Type: Physician Type: Progress Notes Filed: 05/11/2023 9:43 AM Note Text: . Respiratory Scribner Note Patient name: Michel Guevara PCP: Jeffrey [...] habitus Labs: Imaging / Diagnostic Studies: Echocardiogram [facility] 02/2023: EF 55%, LAE, RVSP estimated at 52 mmHg CXR [facility] 01/2023: Cardiac enlargement, elevated right hemidiaphragm, LLL [...] of skin cancer 2010 left scalp, [facility] Prediabetes Unspecified erythematous condition 06/29/2008 ALLERGIES [...] Take 1 capsule by mouth once daily. Wfwrgcpmkvqwt-Wxoampvd-Irhzuc (CENTRUM SILVER) ORAL Tab Take one(1) tablet daily. vitamin b complex capsule Take 1 capsule by mouth once daily. Social History Tobacco Use Smoking status: Former Types: Cigars Quit date: 07/26/1982 Years since quittin.8 Smokeless tob (more content not included)... [facility] 05-11-2023 History of Presen t illness Narrative PULM FUNCTION SMARTBLOCK: Provider: Jeffrey Betts MD Assisting Tech: Ingrid Ramos RPFT Spirometry w/BD: 1 LV - Box: 1 documented in this encounter [facility] 05-11-2023 History of Presen t illness Narrative Images from the original note were not included. . Respiratory Scribner Note Patient name: Michel Guevara PCP: Jeffrey [...] habitus Labs: Imaging / Diagnostic Studies: Echocardiogram [facility] 02/2023: EF 55%, LAE, RVSP estimated at 52 mmHg CXR [facility] 01/2023: Cardiac enlargement, elevated right hemidiaphragm, LLL [...] of skin cancer 2010 left scalp, [facility] Prediabetes Unspecified erythematous condition 06/29/2008 ALLERGIES [...] Take 1 capsule by mouth once daily. Ausuxrimwatrx-Thuauqno-Dsyucb (CENTRUM SILVER) ORAL Tab Take one(1) tablet [...] need sniff test Qian Chery MD Respiratory Scribner documented in this encounter [facility] 05-08-2023 Miscellaneous Notes Phoned patient and assisted with transfer to industrial gas servicer helper to get Pulmonary and other testing appts [...] diagnosis. Please advise documented in this encounter [facility] 05-03-2023 Miscellaneous Notes Patient has been [...] Mariangel Lloyd LPN. documented in this encounter [facility] 04-23-2023 Note HNO ID: [id number] Author: Kasey Ruiz APRN.OPTICAL WORKER Service: ? Author Type: Nurse Practitioner Type: [...] - General (Internal Medicine) Outside specialists seen: agriculture department chair- Dr. Ortiz, [facility] Medical/Family history review Reviewed and updated problem [...] weight loss. BMI 32.58 kg/(m2) Kasey Ruiz APRN.JAYCE [facility] 04-23-2023 Instructions Kasey Ruiz APRN.CNP - 04/23/2023 [...] review all the medicines you take, even iwnr-onr-oaajnmn medicines. As you get older, the way [...] certain medical conditions. documented in this encounter [facility] 04-23-2023 History of Presen t illness [...] - General (Internal Medicine) Outside specialists seen: agriculture department chair- Dr. Ortiz, [facility] Medical/Family history review Reviewed and updated problem [...] Kasey Ruiz APRN.CNP documented in this encounter [facility] 02-24-2023 Miscellaneous Notes Addended by: KASEY RUIZ on: 02/24/2023 04:09 PM Modules accepted: Orders Addended by: ALMA HIRSCH MA on: 02/24/2023 04:06 PM Modules accepted: Orders documented in this encounter [facility] 02-24-2023 Note HNO ID: [id number] Author: Kasey Ruiz APRN.CNP Service: ? Author Type: Nurse Practitioner Type: Progress Notes Filed: 02/24/2023 11:19 AM Note Text: CC: Patient presents with: ED Follow-up HPI Michel Guevara is a 87 year old male who presents today for above. Patient presented to [facility] ER on 02/17 from this office for [...] denies side effects. He is scheduled with [facility] at the end of February, [...] of skin cancer 2010 left scalp, [facility] Unspecified erythematous condition 06/29/2008 PAST SURGICAL [...] Take 1 capsule by mouth once daily. Vtgrqieroxvmy-Ujreejoc-Wllcnk (CENTRUM SILVER) ORAL Tab Take one(1) tablet [...] is alert. DATA REVIEWED: Outside chart from [facility] ER reviewed. ASSESSMENT/PLAN: 1. Atrial fibrillation with [...] not have echo (more content not included)... [facility] 02-24-2023 Instructions Kasey Ruiz APRN.CNP - 02/24/2023 11:05 AM EDT Take an extra diltiazem 120 mg capsule when you get home documented in this encounter [facility] 02-24-2023 History of Presen t illness Narrative CC: Patient presents with: ED Follow-up HPI Michel Guevara is a 87 year old male who presents today for above. Patient presented to [facility] ER on 02/17 from this office for [...] denies side effects. He is scheduled with [facility] at the end of February, [...] of skin cancer 2010 left scalp, [facility] Unspecified erythematous condition 06/29/2008 PAST SURGICAL [...] Take 1 capsule by mouth once daily. Lhenyatlcrzqq-Oetfhkdm-Sgqybv (CENTRUM SILVER) ORAL Tab Take one(1) tablet [...] is alert. DATA REVIEWED: Outside chart from [facility] ER reviewed. ASSESSMENT/PLAN: 1. Atrial fibrillation with [...] Kasey Ruiz APRN.CNP documented in this encounter [facility] 02-19-2023 Miscellaneous Notes Pt returned call and appt scheduled as advised. Kristan Christian RN Attempted to contact patient. Home phone rang with no option to leave a message. Mobile # went straight to . Unable to reach patient. Left to return call to office. Please assist patient with scheduling ER F/U ([facility]) in 1 week with PCP/AUTOMAT WATCHER. Please confirm/document if sister/EC has access to information d/t home # listed is the same as well. Etta Mart MA ----- Message from Jeffrey Betts MD sent at 02/18/2023 1:19 PM EDT ----- Regarding: ER follow up Please schedule ER follow up in 1 week with Kasey or . New atrial fib. documented in this encounter [facility] 02-17-2023 Note HNO ID: [id number] Author: Jeffrey Betts MD Service: ? Author Type: Physician Type: Progress Notes Filed: 02/17/2023 12:42 PM Note Text: This note was created using Mobile [employer]. Subjective Patient presents with: Breathing Problem Michel [...] Take 1 capsule by mouth once daily. Byqbeudijhtya-Ltubmfxq-Ybsmod (CENTRUM SILVER) ORAL Tab Take one(1) tablet [...] follow recommendations. I spoke to Dr. Yin ([facility]) about this patient. Jeffrey Betts MD [facility] 02-17-2023 History of Presen t illness Narrative This note was created using Mobile [employer]. Subjective Patient presents with: Breathing Problem Michel [...] Take 1 capsule by mouth once daily. Wlezrjglqwqvj-Zbmbradn-Aobjji (CENTRUM SILVER) ORAL Tab Take one(1) tablet [...] follow recommendations. I spoke to Dr. Yin ([facility]) about this patient. Jeffrey Betts MD documented in this encounter [facility] 02-17-2023 Instructions Jeffrey Betts MD - 02/17/2023 11:51 AM EDT GO TO ER SOON POSSIBLE TODAY. documented in this encounter [facility] 09-24-2022 Note HNO ID: [id number] Author: Jeffrey Betts MD Service: ? Author Type: Physician Type: Progress Notes Filed: 09/24/2022 11:34 AM Note Text: This note was created using Mobile [employer]. Subjective Michel Guevara is a 87 year [...] Take 1 capsule by mouth once daily. Uvfouzqaodrjf-Svalvdpj-Bnkkwo (CENTRUM SILVER) ORAL Tab Take one(1) tablet [...] I10 - good control Jeffrey Betts MD [facility] 09-24-2022 History of Shayy t illness Narrative This note was created using [employer]. Subjective Michel Guevara is a 87 year [...] Take 1 capsule by mouth once daily. Ionllcmvujlze-Suyzhckd-Plvhgb (CENTRUM SILVER) ORAL Tab Take one(1) tablet [...] Jeffrey Betts MD documented in this encounter [facility] 05-08-2022 Miscellaneous Notes Patient has been [...] Maday Kendrick LPN documented in this encounter [facility] 01-23-2022 History of Presen t illness [...] of skin cancer 2010 left scalp, [facility] Unspecified erythematous condition 06/29/2008 PAST SURGICAL [...] Take 1 capsule by mouth once daily. Smkcfwxhcpxxw-Mzqjxotv-Ykdmmo (CENTRUM SILVER) ORAL Tab Take one(1) tablet [...] of skin cancer 2010 left scalp, [facility] Unspecified erythematous condition 06/29/2008 PAST SURGICAL [...] he should. List of current specialists seen: Director Insurance- Dr. Ortiz Reservation Manager- [facility] General Warehouse Associate- [facility] End of Live Planning discussed including patients [...] at this time. - Patient was counseled [id number] by myself (the billing provider) for the following immunizations and vaccine components, including side effects: COVID-19. Patient declined - Follow up for annual exam in one year Kasey Ruiz APRN.CNP documented in this encounter [facility] documented as of this encounter (statuses as of 09/26/2021) [facility] History of Past illness Narrative* Problem Noted Date Resolved Date Pain in joint of right hip 11/19/201602/18 Laceration of thumb 02/17/2015 07/16/2016 Unspecified erythematous condition 06/29/2008 07/16/2016 EXANTHEM////NONSPECIF SKIN ERUPT NEC 06/29/2008 07/16/2016 DDD (degenerative disc disease), lumbar 02/18/2017 Mixed hyperlipidemia 07/16/2016 Nocturia 07/16/2016 Anemia, unspecified 06/25/2014 documented as of this encounter (statuses as of 01/23/2022) [facility] History of Past illness Narrative* Problem Noted Date Resolved Date Pain in joint of right hip 11/19/201602/18 Laceration of thumb 02/17/2015 07/16/2016 Unspecified erythematous condition 06/29/2008 07/16/2016 EXANTHEM////NONSPECIF SKIN ERUPT NEC 06/29/2008 07/16/2016 DDD (degenerative disc disease), lumbar 02/18/2017 Mixed hyperlipidemia 07/16/2016 Nocturia 07/16/2016 Anemia, unspecified 06/25/2014 documented as of this encounter (statuses as of 05/08/2022) [facility] History of Past illness Narrative* Problem Noted Date Resolved Date Pain in joint of right hip 11/19/201602/18 Laceration of thumb 02/17/2015 07/16/2016 Unspecified erythematous condition 06/29/2008 07/16/2016 EXANTHEM////NONSPECIF SKIN ERUPT NEC 06/29/2008 07/16/2016 DDD (degenerative disc disease), lumbar 02/18/2017 Mixed hyperlipidemia 07/16/2016 Nocturia 07/16/2016 Anemia, unspecified 06/25/2014 documented as of this encounter (statuses as of 09/24/2022) [facility] History of Past illness Narrative* Problem Noted Date Diagnosed Date Resolved Date Pain in joint of right hip 11/19/2016 0 02/18/2017 Laceration of thumb 02/17/2015 07/16/19 17 Unspecified erythematous condition 06/29/2008 07/16/2016 EXANTHEM////NONSPECIF SKIN ERUPT NEC 06/29/2008 07/16/2016 DDD (degenerative disc disease), lumbar 02/18/2017 Mixed hyperlipidemia 017 Nocturia 07/16/2016 Anemia, unspecified 06/25/19 15 documented as of this encounter (statuses as of 02/17/2023) [facility] History of Past illness Narrative* Problem Noted Date Diagnosed Date Resolved Date Pain in joint of right hip 11/19/2016 0 02/18/2017 Laceration of thumb 02/17/2015 07/16/19 17 Unspecified erythematous condition 06/29/2008 07/16/2016 EXANTHEM////NONSPECIF SKIN ERUPT NEC 06/29/2008 07/16/2016 DDD (degenerative disc disease), lumbar 02/18/2017 Mixed hyperlipidemia 017 Nocturia 07/16/2016 Anemia, unspecified 06/25/19 15 documented as of this encounter (statuses as of 02/19/2023) [facility] History of Past illness Narrative* Problem Noted Date Diagnosed Date Resolved Date Pain in joint of right hip 11/19/2016 0 02/18/2017 Laceration of thumb 02/17/2015 07/16/19 17 Unspecified erythematous condition 06/29/2008 07/16/2016 EXANTHEM////NONSPECIF SKIN ERUPT NEC 06/29/2008 07/16/2016 DDD (degenerative disc disease), lumbar 02/18/2017 Mixed hyperlipidemia 017 Nocturia 07/16/2016 Anemia, unspecified 06/25/19 15 documented as of this encounter (statuses as of 02/24/2023) [facility] History of Past illness Narrative* Problem Noted Date Diagnosed Date Resolved Date Pain in joint of right hip 11/19/2016 0 02/18/2017 Laceration of thumb 02/17/2015 07/16/19 17 Unspecified erythematous condition 06/29/2008 07/16/2016 EXANTHEM////NONSPECIF SKIN ERUPT NEC 06/29/2008 07/16/2016 DDD (degenerative disc disease), lumbar 02/18/2017 Mixed hyperlipidemia 017 Nocturia 07/16/2016 Anemia, unspecified 06/25/19 15 documented as of this encounter (statuses as of 04/24/2023) [facility] of Past illness Narrative* Problem Noted Date Diagnosed Date Resolved Date Pain in joint of right hip 11/19/2016 0 02/18/2017 Laceration of thumb 02/17/2015 07/16/19 17 Unspecified erythematous condition 06/29/2008 07/16/2016 EXANTHEM////NONSPECIF SKIN ERUPT NEC 06/29/2008 07/16/2016 DDD (degenerative disc disease), lumbar 02/18/2017 Mixed hyperlipidemia 017 Nocturia 07/16/2016 Anemia, unspecified 06/25/19 15 documented as of this encounter (statuses as of 05/04/2023) [facility] of Past [facility] Narrative* Problem Noted Date Diagnosed Date Resolved Date Pain in joint of right hip 11/19/2016 0 02/18/2017 Laceration of thumb 02/17/2015 07/16/19 17 Unspecified erythematous condition 06/29/2008 07/16/2016 EXANTHEM////NONSPECIF SKIN ERUPT NEC 06/29/2008 07/16/2016 DDD (degenerative disc disease), lumbar 02/18/2017 Mixed hyperlipidemia 017 Nocturia 07/16/2016 Anemia, unspecified 06/25/19 15 documented as of this encounter (statuses as of 05/08/2023) [facility] of [facility] Narrative* Problem Noted Date Diagnosed Date Resolved Date Pain in joint of right hip 11/19/2016 0 02/18/2017 Laceration of thumb 02/17/2015 07/16/19 17 Unspecified erythematous condition 06/29/2008 07/16/2016 EXANTHEM////NONSPECIF SKIN ERUPT NEC 06/29/2008 07/16/2016 DDD (degenerative disc disease), lumbar 02/18/2017 Mixed hyperlipidemia 017 Nocturia 07/16/2016 Anemia, unspecified 06/25/19 15 documented as of this encounter (statuses as of 05/11/2023) [facility] of Past illness Narrative* Problem Noted Date Diagnosed Date Resolved Date Pain in joint of right hip 11/19/2016 0 02/18/2017 Laceration of thumb 02/17/2015 07/16/19 17 Unspecified erythematous condition 06/29/2008 07/16/2016 EXANTHEM////NONSPECIF SKIN ERUPT NEC 06/29/2008 07/16/2016 DDD (degenerative disc disease), lumbar 02/18/2017 Mixed hyperlipidemia 017 Nocturia 07/16/2016 Anemia, unspecified 06/25/19 15 documented as of this encounter (statuses as of 05/11/2023) [facility] of [facility] Narrative* Problem Noted Date Diagnosed Date Resolved Date Pain in joint of right hip 11/19/2016 0 02/18/2017 Laceration of thumb 02/17/2015 07/16/19 17 Unspecified erythematous condition 06/29/2008 07/16/2016 EXANTHEM////NONSPECIF SKIN ERUPT NEC 06/29/2008 07/16/2016 DDD (degenerative disc disease), lumbar 02/18/2017 Mixed hyperlipidemia 017 Nocturia 07/16/2016 Anemia, unspecified 06/25/19 15 documented as of this encounter (statuses as of 05/12/2023) [facility] of Past illness Narrative* Problem Noted Date Diagnosed Date Resolved Date Pain in joint of right hip 11/19/2016 0 02/18/2017 Laceration of thumb 02/17/2015 07/16/19 17 Unspecified erythematous condition 06/29/2008 07/16/2016 EXANTHEM////NONSPECIF SKIN ERUPT NEC 06/29/2008 07/16/2016 DDD (degenerative disc disease), lumbar 02/18/2017 Mixed hyperlipidemia 017 Nocturia 07/16/2016 Anemia, unspecified 06/25/19 15 documented as of this encounter (statuses as of 05/18/2023) [facility] Diagnosis Medication management Encounter for long-term (current) use of other medications documented in this encounter [facility]* Diagnosis Medicare annual wellness visit, subsequent- Primary Routine general medical examination at a [facility] care facility White coat syndrome with hypertension Thrombocytopenia (HCC) Thrombocytopenia, unspecified Obesity, Class I, BMI 30-34.9 Obesity, unspecified Gastroesophageal reflux disease without esophagitis Esophageal reflux documented in this encounter [facility]* Diagnosis Gastroesophageal reflux disease without esophagitis Esophageal reflux [facility] Diagnosis Bronchitis- Primary Bronchitis, not specified as acute or chronic White coat syndrome with hypertension [facility] Diagnosis Congestive heart failure, unspecified HF chronicity, unspecified heart failure type (HCC)- Primary Tachycardia Tachycardia, unspecified [facility] Diagnosis Atrial fibrillation with rapid ventricular response (HCC)- Primary Atrial fibrillation Bilateral lower extremity edema Edema Shortness of breath documented in this encounter [facility] note* Diagnosis Medicare annual wellness visit, subsequent- Primary Routine general medical examination at a health care facility Impaired glucose metabolism Impaired glucose tolerance test Elevated LFTs Other abnormal blood chemistry Thrombocytopenia (HCC) Thrombocytopenia, unspecified Atrial fibrillation with rapid ventricular response (HCC) Atrial fibrillation documented in this encounter [facility] note* Diagnosis Gastroesophageal reflux disease without esophagitis Esophageal reflux [facility] Diagnosis Dyspnea, unspecified type- Primary [facility] Diagnosis Dyspnea, unspecified type documented in this encounter [facility]* Diagnosis Restrictive lung disease- Primary Other diseases of lung, not elsewhere classified SOB (shortness of breath) Shortness of breath PAH (pulmonary artery hypertension) (HCC) Other chronic pulmonary heart diseases Atrial fibrillation with RVR (HCC) Atrial fibrillation Elevated diaphragm Disorders of diaphragm documented in this encounter [facility] note* Diagnosis SOB (shortness of breath) Shortness of breath documented in this encounter [facility] note* Diagnosis Elevated LFTs- Primary Other abnormal blood chemistry Impaired glucose metabolism Impaired glucose tolerance test Anemia, unspecified type [facility] Outpatient Procedure (Routine) - Closed Specialty Diagnoses / Procedures Referred By Main macias [facility] Diagnoses Atrial fibrillation with rapid ventricular response (HCC) Procedures ECG COMPLETE ECG ROUTINE ECG W/LEAST 12 LDS W/I&R Kasey Ruiz APRN.CNP [address] [place] [address] [facility] [address] [place] [id number] Referral ID Status Reason Start Date Expiration Date V isits Requested Visits Authorized [id number] Closed Auto-Generate d Referral 02/24/2023 02/24/2024 1 1 [facility] Outpatient Procedure (Routine) - Pending Review Specialty Diagnoses / Procedures Referred By Main macias Referred To Contact [facility] Diagnoses Dyspnea, unspecified type Procedures LUNG VOLUMES Jeffrey Betts MD [address] [place] [address] [place] [phone] Referral ID Status Reason Start Date Expiration Date Visits Requested Visits Authorized [id number] Pending Review Auto-Generat ed Referral 3 06/05/2024 1 1 * Outpatient Procedure (Routine) - Pending Review Specialty Diagnoses / Procedures Referred By Contac t Referred To Contact [facility] Diagnoses Dyspnea, unspecified type Procedures SPIROMETRY - BASELINE AND POST DILATOR BRNCDILAT RSPSE SPMTRY PRE&POST-BRNCDILAT ADMN Jeffrey Betts MD [address] [place] [address] [place] [phone] Referral ID Status Reason Start Date Expiration Date Visits Requested Visits Authorized [id number] Pending Review Auto-Generat ed Referral 3 06/05/2024 1 1 [facility] Advance Directives No Advanced Directives Records FoundDocuments on File Type Date Recorded Patient Nurses Supervisor Expl anation Advance Directive(s) 06/28/2012 4:54 PM Documents on File Type Date Recorded Patient Nurses Supervisor Expl anation Advance Directive(s) 06/28/2012 4:54 PM [...] or prosecute any alcohol or drug abuse patient.[facility] the event this information is protected by the Federal Confidentiality of Alcohol and Drug Abuse Patient Records regulations: The Federal rules restrict any use of the information to criminally investigate or prosecute any alcohol or drug abuse patient.[facility] the event this information is protected by the Federal Confidentiality of Alcohol and Drug Abuse Patient Records regulations: The Federal rules restrict any use of the information to criminally investigate or prosecute any alcohol or drug abuse patient.[facility] the event this information is protected by the Federal Confidentiality of Alcohol and Drug Abuse Patient Records regulations: The Federal rules restrict any use of the information to criminally investigate or prosecute any alcohol or drug abuse patient.[facility] the event this information is protected by the Federal Confidentiality of Alcohol and Drug Abuse Patient Records regulations: The Federal rules restrict any use of the information to criminally investigate or prosecute any alcohol or drug abuse patient.[facility] the event this information is protected by the Federal Confidentiality of Alcohol and Drug Abuse Patient Records regulations: The Federal rules restrict any use of the information to criminally investigate or prosecute any alcohol or drug abuse patient.[facility] the event this information is protected by the Federal Confidentiality of Alcohol and Drug Abuse Patient Records regulations: The Federal rules restrict any use of the information to criminally investigate or prosecute any alcohol or drug abuse patient.[facility] the event this information is protected by the Federal Confidentiality of Alcohol and Drug Abuse Patient Records regulations: The Federal rules restrict any use of the information to criminally investigate or prosecute any alcohol or drug abuse patient.[facility] the event this information is protected by the Federal Confidentiality of Alcohol and Drug Abuse Patient Records regulations: The Federal rules restrict any use of the information to criminally investigate or prosecute any alcohol or drug abuse patient.[facility] the event this information is protected by the Federal Confidentiality of Alcohol and Drug Abuse Patient Records regulations: The Federal rules restrict any use of the information to criminally investigate or prosecute any alcohol or drug abuse patient.[facility] the event this information is protected by the Federal Confidentiality of Alcohol and Drug Abuse Patient Records regulations: The Federal rules restrict any use of the information to criminally investigate or prosecute any alcohol or drug abuse patient.[facility] the event this information is protected by the Federal Confidentiality of Alcohol and Drug Abuse Patient Records regulations: The Federal rules restrict any use of the information to criminally investigate or prosecute any alcohol or drug abuse patient.[facility] the event this information is protected by the Federal Confidentiality of Alcohol and Drug Abuse Patient Records regulations: The Federal rules restrict any use of the information to criminally investigate or prosecute any alcohol or drug abuse patient.[facility] the event this information is protected by the Federal Confidentiality of Alcohol and Drug Abuse Patient Records regulations: The Federal rules restrict any use of the information to criminally investigate or prosecute any alcohol or drug abuse patient.[facility] Care Teams (unrecognized sec tion and content) Grocery Shopper Relationship Specialty Start Date End Date Jeffrey Betts MD [address] [place] [address] PCP - General Internal Medicine 02/18/17 Grocery Shopper Relationship Specialty Start Date End Date Jeffrey Betts MD [address] [place] [address] PCP - General Internal Medicine 02/18/17 Grocery Shopper Relationship Specialty Start Date End Date Jeffrey Betts MD [address] [place] [address] PCP - General Internal Medicine 02/18/17 Grocery Shopper Relationship Specialty Start Date End Date Jeffrey Betts MD [address] [place] [address] PCP - General Internal Medicine 02/18/17 Grocery Shopper Relationship Specialty Start Date End Date Jeffrey Betts MD [address] [place] [address] PCP - General Internal Medicine 02/18/17 Grocery Shopper Relationship Specialty Start Date End Date Jeffrey Betts MD [address] [place] [address] PCP - General Internal Medicine 02/18/17 Grocery Shopper Relationship Specialty Start Date End Date Jeffrey Betts MD [address] [facility] [place] [address] PCP - General Internal Medicine 02/18/17 Grocery Shopper Relationship Specialty Start Date End Date Jeffrey Betts MD [address] [facility] [place] [address] PCP - General Internal Medicine 02/18/17 Grocery Shopper Relationship Specialty Start Date End Date Jeffrey Betts MD [address] [facility] [place] [address] PCP - General Internal Medicine 02/18/17 Grocery Shopper Relationship Specialty Start Date End Date Jeffrey Betts MD [address] [facility] [place] [address] PCP - General Internal Medicine 02/18/17 Grocery Shopper Relationship Specialty Start Date End Date Jeffrey Betts MD [address] [facility] [place] [address] PCP - General Internal Medicine 02/18/17 Reason [...] AND POST DILATOR BRNCDILAT RSPSE SPMTRY PRE&POST-BRNCDILAT ADMJeffrey Moscoso MD [address] [place] [address] [facility] [address] [place] [address] Referral ID Status Reason Start Date Expiration Date V isits Requested Visits Authorized [id number] Closed Auto-Generate d Referral 05/07/2023 06/05/2024 1 [...] BE BASED ON THE PRIMARY CLINICAL RECORDS. [facility]. provides no warranty or guarantee of the accuracy or completeness of information in this document.
--- NOTE | 2023-06-22 21:13 | NURSING ---
Pt taken to the bathroom. Pt became very sob with min exeration. 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 edema noted from the abd down.
[2023-06-22 21:22] VITALS: BMI 34.9
[2023-06-22 21:31] VITALS: BP 143/109; PULSE 125; RESP 20; TEMP 36.6; O2SAT 96
[2023-06-22] MEDS: Potassium Chloride Oral Tablet 20 MEQ 60 MEQ PO (22:55)
[2023-06-22] MEDS: 0.9% Saline Lock 10 ML Syringe IV (22:56)
[2023-06-22] MEDS: APIXABAN 5 MG TABLET PO (22:56)
[2023-06-22] MEDS: KCL 20MEQ in 0.9% NS 20 MEQ/1,000 ML IV.SOLN. 50 MEQ IV (22:56)
[2023-06-22] MEDS: dilTIAZem CD 180 MG Capsule PO (22:56)
[2023-06-22 23:52] VITALS: O2SAT 95
[2023-06-23 05:27] VITALS: BP 144/112; PULSE 107; RESP 20; TEMP 36.4; O2SAT 94
[2023-06-23 05:45] VITALS: BMI 35.1
[2023-06-23 07:16] VITALS: O2SAT 95
[2023-06-23 07:45] LABS: Absolute Lymphocyte Count 0.94 X10^3/uL (0.83-4.51); Absolute Neutrophil Count 6.1 X10^3/uL (2.0-7.7); Basophil# 0.07 X10^3/uL; Basophil% 0.8 % (0-1); Eosinophil# 0.18 X10^3/uL; Eosinophils% 2.2 % (0-5); Hematocrit 37.1 % (40-54); Hemoglobin 12.2 g/dL (13.0-16.5); Lymphocyte # 0.94 X10^3/ul (0.83-4.51); Lymphocyte % 11.4 % (19-41); Mean Corp Hgb Conc 32.9 g/dL (32-36); Mean Corpuscular Hgb 27.2 pg (27.0-32.0); Mean Corpuscular Volume 82.6 fL (80-94); Mean Platelet Vol. 9.2 fl (6.2-12.0); Monocyte# 0.95 X10^3/uL; Monocyte% 11.5 % (0-10); NRBC Flagged by Analyzer 0 % (0-5); Neutrophil # 6.09 X10^3/uL (2.7-7.7); Neutrophil % 73.7 % (47-70); Platelet Count 267 K/mm3 (150-450); RBC Distribution Width CV 15.6 % (11.6-14.6); RBC Distribution Width SD 46.4 fl (35.1-43.9); Red Blood Count 4.49 M/mm3 (4.6-6.2); White Blood Count 8.3 K/mm3 (4.4-11.0)
[2023-06-23 08:24] VITALS: BP 133/95; PULSE 116; RESP 18; TEMP 36.4; O2SAT 95
[2023-06-23 08:36] LABS: ALB/GLOB Ratio 0.8 RATIO (0.9-2.4); AST(SGOT) 47 U/L (15-37); Alanine Aminotransfer ALT/SGPT 52 U/L (16-61); Albumin, Serum 2.8 g/dL (3.2-5.0); Alkaline Phosphatase 128 U/L (45-117); Anion Gap 9 (5-15); BUN 19 mg/dL (7-18); Calcium,Total 8.8 mg/dL (8.5-10.1); Chloride 100 mmol/L (98-107); EST Glomerular Filtration Rate 75 mL/min (>60); Est Glom Filt Rate - Afr Amer 91 mL/min (>60); Estimated Creatinine Clearance 47.74 ml/min; Globulin 3.6 g/dL (2.2-4.2); Glucose 101 mg/dL (74-106); Magnesium 1.8 mg/dL (1.6-2.6); Phosphorus 3.1 mg/dL (2.5-4.9); Potassium 3.5 mmol/L (3.5-5.1); Protein, Total 6.4 g/dL (6.4-8.2); Sodium Level 134 mmol/L (136-145); Thyroid Stim Hormone (TSH) 3.46 uIU/mL (0.358-3.74)
--- NOTE | 2023-06-23 09:42 | CASEMGMT ---
Discharge Planning A list of?SNF providers including quality and resource use data and consistent with the patient's preferred geographic region, medical needs, and insurance network was created in [employer].? This list was provided to the SW. Esperanza Montiel Discharge Planning Asst.
--- NOTE | 2023-06-23 09:46 | PN.HOSP_ITS ---
Subjective Subjective States that he is doing well, no issues overnight. Denies any recent illnesses or fevers. Objective Data Objective Data Vital Signs: Vital Signs Temp Pulse Resp BP Pulse Ox O2 Del Method 97.6 F L 116 H 18 133/95 H 95 Room Air 06/23/23 08:24 06/23/23 08:24 06/23/23 08:24 06/23/23 08:24 06/23/23 08:24 06/23/23 08:24 Oxygen Delivery Method Room Air Weight: 223 lb 8.78 oz Body Mass Index (BMI) 35.1 Intake & Output: Intake and Output for Last 24 Hours 06/22/23 06/23/23 06/24/23 03:59 03:59 03:59 Intake Total 500 / 500 200 / 200 Balance 500 / 500 200 / 200 Lab / Micro Data 06/23/23 07:23 06/23/23 07:23 Labs: Laboratory Results - last 24 hr 06/22/23 18:05: WBC 10.3, RBC 4.73, Hgb 12.7 L, Hct 39.5 L, MCV 83.5, MCH 26.8 L , MCHC 32.2, RDW Std Deviation 47.3 H, RDW Coeff of Joy 15.6 H, Plt Count 304, MPV 9.4, Immature Gran % (Auto) 0.400, Neut % (Auto) 74.9 H, Lymph % (Auto) 12.2 L, [place] % (Auto) 10.2 H, Eos % (Auto) 1.4, Baso % (Auto) 0.9, Absolute Neuts ( auto) 7.7, Absolute Lymphs (auto) 1.25, Nucleated RBC % 0, Sodium 132 L, Potassium 3.2 L, Chloride 96 L, Carbon Dioxide 30.0, Anion Gap 6, BUN 22 H, Creatinine 1.28, Estim Creat Clear Calc 37.30, Est GFR (MDRD) Af Amer 68, Est GFR (MDRD) Non-Af 56 L, BUN/Creatinine Ratio 17.2, Glucose 140 H, Calcium 9.2, Troponin I High Sens 27, B-Natriuretic Peptide 169.5 H 06/23/23 07:23: WBC 8.3, RBC 4.49 L, Hgb 12.2 L, Hct 37.1 L, MCV 82.6, MCH 27.2, MCHC 32.9, RDW Std Deviation 46.4 H, RDW Coeff of Joy 15.6 H, Plt Count 267, MPV 9.2, Immature Gran % (Auto) 0.400, Neut % (Auto) 73.7 H, Lymph % (Auto) 11.4 L, [place] % (Auto) 11.5 H, Eos % (Auto) 2.2, Baso % (Auto) 0.8, Absolute Neuts (auto) 6.1, Absolute Lymphs (auto) 0.94, Nucleated RBC % 0, Sodium 134 L, Potassium 3.5, Chloride 100, Carbon Dioxide 25.0, Anion Gap 9, BUN 19 H, Creatinine 1.00, Estim Creat Clear Calc 47.74, Est GFR (MDRD) Af Amer 91, Est GFR (MDRD) Non-Af 75, BUN/Creatinine Ratio 19.0, Glucose 101, Calcium 8.8, Phosphorus 3.1, Magnesium 1.8, Total Bilirubin 1.50 H, AST 47 H, ALT 52, Alkaline Phosphatase 128 H, Total Protein 6.4, Albumin 2.8 L, Globulin 3.6, Albumin/Globulin Ratio 0.8 L, TSH 3.46 Radiography Diagnostic Testing: Radiology Impression Chest X-Ray 06/22/23 17:47 IMPRESSION: Possible mild atelectasis/infiltrate/effusion in the left lung base. No other changes. Electronically Signed: Silas Sevilla MD at 18:04 EST Reading Location ID and State: [address] [place] [address] , Service support , Physical Exam Narrative General: Alert, Oriented x3, Cooperative, No apparent distress HEENT: Atraumatic, PERRLA, EOMI, Normocephalic Oral: Moist Mucosa Neck: Supple, No JVD Lungs: Diminished, Normal air movement, No rhonchi, No wheeze, No rales Cardiovascular: Regular rate, Regular Rhythm, Normal S1, Normal S2, No murmurs Abdomen: Soft, Non Tender, Non-Distended, No Hepato-splenomegaly Extremities: No edema, Capillary Refill Less than 3 Seconds Skin: No rashes, No breakdown Musculoskeletal: No Tenderness to Palpation of Joints or Extremities Neurological: Moves all extremities, no focal deficits, Motor Exam 5/5 strength throughout, Sensory exam intact to light touch and pain Psych/Mental Status: Normal Affect, Appropriate Assessment & Plan Assessment/Plan (1) Generalized weakness: (2) Ambulatory dysfunction: (3) Hypokalemia: (4) Chronic a-fib: (5) Chronic anticoagulation: PLAN: Plan 1. Generalized weakness with an inability to complete ADLs ? Unclear etiology says that this has been a gradual onset for the last 6 months ? Will obtain a UA just to completely rule out infectious etiology ? PT/OT ? Consult case management for discharge planning ? 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 A-fib/HTN/HLD ? Continue with his home blood pressure medications ? We will monitor make adjustments as necessary ? Continue with Eliquis ? Continue with his statin, he denies any muscle pain 3. GERD ? Stable ? Continue with PPI DVT: Eliquis Charges/Coding Visit Charges Inpatient E&M: 23029 Subs Hosp L2
[2023-06-23] MEDS: Psyllium 1 PACKET PO (09:49)
[2023-06-23 09:50] VITALS: PULSE 116
[2023-06-23] MEDS: Metoprolol(XL)Succ 50 MG Tablet PO (09:50)
[2023-06-23] MEDS: Multivitamins,Ther W-Minerals Tablet 1 TABLET PO (09:50)
[2023-06-23] MEDS: Cholecalciferol (VIT D3) 25 MCG TABLET (1,000 UNITS) PO (09:50)
[2023-06-23] MEDS: Furosemide 20 MG Tablet PO (09:50)
[2023-06-23] MEDS: Cyanocobalamin 500 MCG Tablet 1000 MCG PO (09:50)
[2023-06-23] MEDS: Aspirin E.C. 81 MG Tablet PO (09:50)
[2023-06-23] MEDS: APIXABAN 5 MG TABLET PO ×2 (09:50→21:41)
[2023-06-23 10:11] LABS: Bacteria 0 SEEN /hpf (None Seen); Mucous, Urine 0 SEEN /hpf (<or=2+)
[2023-06-23 10:20] LABS: Color, Urine Yellow (Yellow); Glucose, Dipstick Normal (Normal); Ketone-Dipstick 50 mg/dl (Negative); Leukocyte Esterase-Dipstick 25 /ul (Negative); Nitrite-Dipstick Negative (Negative); Occult Blood-Urine 10 /ul (Negative); Protein-Dipstick 30 mg/dl (Negative); Urine Bilirubin Dipstick Negative (Negative); Urine Clarity Clear (Clear); Urine Urobilinogen 1 mg/dl (Normal)
[2023-06-23 10:46] LABS: Red Blood Cells-Urine 0-5 SEEN /hpf (0-5); Squamous Epithelial Cells - UA 0-5 SEEN /hpf (0-5); White Blood Cells 0-5 SEEN /hpf (0-5)
[2023-06-23] MEDS: Flu Vacc QS2023-24(65YR UP)/PF 240 MCG/0.7 ML Syringe IM (12:02)
--- NOTE | 2023-06-23 12:11 | CASEMGMT ---
Addendum entered by Livier Parikh 06/23/23 12:32: Appt. for Wednesday is at 1330. Pt is aware. Original Note: This RN to pt room to discuss DC needs. Pt states that he did good with therapy and states that he would be willing to partake in outpatient PT/OT. Dr. Moss signed a form for outpatient therapy. Pt states he prefers late-morning for TOD. [facility] called by this RN CM and they state they can see the pt on Wednesday at 1300 for PT. 1000 on Wednesday06/29/23 for OT. Pt and pt family updated and accepts this. Order faxed to [facility]. Pt lives at home with his sister. Pt states he is normally independent at home. Pt states he drives. Pt states his sister can drive him when needed. Pt uses a walker at home. Pt states that he can manage his meals and medications independently. Pt states he feels safe being DC home with his sister at time of DC.
--- NOTE | 2023-06-23 13:09 | CASEMGMT ---
Addendum entered by Ana Shore 06/24/23 15:36: Social Work SW received a message from [employer] office that pt does not have advance directives on file at their office. SW notified pt's niece and educated that SW can assist pt in completing new documents if pt chooses. NU Abreu Original Note: Social Work SW met with pt to discuss advance directives.? Pt confirms he has completed a living will and health care POA naming his sister Loraine Lambert.? Pt notified that documents are not on file at [facility] and SW requested they be brought in for scanning into the EMR. Pt stating documents are on file at [employer] and requested SW obtain documents from there. Phone call to the law office and request made for documents to be faxed to [facility]. NU Abreu
[2023-06-23 14:57] VITALS: BP 119/84; PULSE 94; RESP 20; TEMP 36.9; O2SAT 93
--- NOTE | 2023-06-23 16:05 | CASEMGMT ---
Met with patient to complete OCHOA form. OCHOA form explained to patient who voiced understanding and signed form. Original form placed in pt?s chart and copy provided to?patient. Esperanza Montiel, Discharge Planning Asst
[2023-06-23 21:38] VITALS: BP 128/89; PULSE 93; RESP 20; TEMP 36.4; O2SAT 100
[2023-06-23] MEDS: 0.9% Saline Lock 10 ML Syringe IV (21:41)
[2023-06-23] MEDS: dilTIAZem CD 180 MG Capsule PO (21:41)
[2023-06-24] VITALS (13 sets, daily range): BP systolic 108–129; BP diastolic 73–87; PULSE 77–100; RESP 18–22; TEMP 36.6–36.9; O2SAT 85–98; BMI 35.0; BMI 35.2
[2023-06-24 07:27] LABS: Absolute Lymphocyte Count 1.33 X10^3/uL (0.83-4.51); Absolute Neutrophil Count 6.5 X10^3/uL (2.0-7.7); Basophil# 0.08 X10^3/uL; Basophil% 0.9 % (0-1); Eosinophil# 0.15 X10^3/uL; Eosinophils% 1.6 % (0-5); Hematocrit 35.7 % (40-54); Hemoglobin 11.5 g/dL (13.0-16.5); Lymphocyte # 1.33 X10^3/ul (0.83-4.51); Lymphocyte % 14.6 % (19-41); Mean Corp Hgb Conc 32.2 g/dL (32-36); Mean Corpuscular Hgb 26.7 pg (27.0-32.0); Monocyte# 1.04 X10^3/uL; Monocyte% 11.4 % (0-10); NRBC Flagged by Analyzer 0 % (0-5); Neutrophil # 6.47 X10^3/uL (2.7-7.7); Neutrophil % 71.1 % (47-70); Platelet Count 275 K/mm3 (150-450); RBC Distribution Width CV 15.7 % (11.6-14.6); RBC Distribution Width SD 46.9 fl (35.1-43.9); White Blood Count 9.1 K/mm3 (4.4-11.0)
[2023-06-24 08:01] LABS: Anion Gap 9 (5-15); BUN 20 mg/dL (7-18); BUN/Creat Ratio 21.2 RATIO (10-20); Calcium,Total 9.1 mg/dL (8.5-10.1); Chloride 98 mmol/L (98-107); Creatinine, Serum 0.94 mg/dL (0.70-1.30); EST Glomerular Filtration Rate 80 mL/min (>60); Est Glom Filt Rate - Afr Amer 97 mL/min (>60); Estimated Creatinine Clearance 50.79 ml/min; Glucose 128 mg/dL (74-106); Potassium 3.5 mmol/L (3.5-5.1); Sodium Level 134 mmol/L (136-145)
[2023-06-24] MEDS: Multivitamins,Ther W-Minerals Tablet 1 TABLET PO (09:00)
[2023-06-24] MEDS: Aspirin E.C. 81 MG Tablet PO (09:00)
[2023-06-24] MEDS: APIXABAN 5 MG TABLET PO ×2 (09:00→21:59)
[2023-06-24] MEDS: Metoprolol(XL)Succ 50 MG Tablet PO (09:00)
[2023-06-24] MEDS: Cholecalciferol (VIT D3) 25 MCG TABLET (1,000 UNITS) PO (09:00)
[2023-06-24] MEDS: Furosemide 20 MG Tablet PO (09:00)
[2023-06-24] MEDS: Cyanocobalamin 500 MCG Tablet 1000 MCG PO (09:01)
[2023-06-24] MEDS: Psyllium 1 PACKET PO (09:01)
--- NOTE | 2023-06-24 10:16 | PCM.PN.HOSP ---
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 200 / 200 Balance 200 / 200 Lab / Micro Data 06/24/23 07:17 06/24/23 07:17 Labs: Laboratory Results - last 24 hr 06/23/23 10:01: Urine Color Yellow, Urine Clarity Clear, Urine pH 6.0, Ur Specific [place] 1.020, Urine Protein 30 H, Urine Glucose (UA) Normal, Urine Ketones 50 H, Urine Occult Blood 10 H, Urine Nitrite Negative, Urine Bilirubin Negative, Urine Urobilinogen 1 H, Ur Leukocyte Esterase 25 H, Urine RBC 0-5 SEEN, Urine WBC 0-5 SEEN, Ur Squamous Epith Cells 0-5 SEEN, Urine Bacteria 0 SEEN, Urine Mucus 0 SEEN 06/24/23 07:17: WBC 9.1, RBC 4.30 L, Hgb 11.5 L, Hct 35.7 L, MCV 83.0, MCH 26.7 L, MCHC 32.2, RDW Std Deviation 46.9 H, RDW Coeff of Joy 15.7 H, Plt Count 275, MPV 9.0, Immature Gran % (Auto) 0.400, Neut % (Auto) 71.1 H, Lymph % (Auto) 14.6 L, [place] % (Auto) 11.4 H, Eos % (Auto) 1.6, Baso % (Auto) 0.9, Absolute Neuts (auto) 6.5, Absolute Lymphs (auto) 1.33, Nucleated RBC % 0, Sodium 134 L, Potassium 3.5, Chloride 98, Carbon Dioxide 27.0, Anion Gap 9, BUN 20 H, Creatinine 0.94, Estim Creat Clear Calc 50.79, Est GFR (MDRD) Af Amer 97, Est GFR (MDRD) Non-Af 80, BUN/Creatinine Ratio 21.2 H, Glucose 128 H, Calcium 9.1 Physical Exam Narrative GENERAL: cooperative HEENT: Atraumatic; normocephalic EYES; Anicteric, Normal Conjunctiva NECK; supple, normal thyroid, RESPIRATORY: Diminished to auscultation CARDIOVASCULAR: Regular S1 S2, GI: soft, normoactive bowel sounds, : No Renal angle tenderness; EXTREMITIES: Bilateral edema, no clubbing, MUSCULOSKELETAL: no muscle wasting NEURO: Awake; no lateralizing signs. SKIN: No Rash PSYCH; Flat affect Assessment & Plan Assessment/Plan (1) Generalized weakness: (2) Ambulatory dysfunction: (3) Hypokalemia: (4) Chronic a-fib: (5) Chronic anticoagulation: PLAN: Plan 1. Generalized weakness with an inability to complete ADLs ? Unclear etiology says that this has been a gradual onset for the last 6 months ? Will obtain a UA just to completely rule out infectious etiology ? PT/OT ? Consult case management for discharge planning ? 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 A-fib/HTN/HLD ? Continue with his home blood pressure medications ? We will monitor make adjustments as necessary ? Continue with Eliquis ? Continue with his statin, he denies any muscle pain 3. GERD ? Stable ? Continue with PPI DVT: Eliquis
--- NOTE | 2023-06-24 14:16 | PCM.DC.SUM ---
Providers Date of Admission: 06/22/23 Primary Care Physician: Dr. 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 Physical deconditioning - Requested for PT OT eval and criminal justice social worker to assist with discharge planning. Recommendation was for patient to have been discharged to care home facility however requested to be discharged home for outpatient physical therapy 2. Hypertension - Blood pressure controlled, home medications continued with dose adjustment as needed 3. Paroxysmal A-fib ? Rate controlled on metoprolol and diltiazem, on systemic anticoagulation with Eliquis discontinued 4. GERD ? On PPI 5. Class I obesity with BMI of 34.9 ? Complicating care weight loss advised 6. Significant bipedal edema ? This was attributed to patient being on calcium channel carolyn; diltiazem this was discontinued on discharge 7. DVT prophylaxis ? On apixaban Medications at Discharge Home Medications cholecalciferol (vitamin D3) 25 mcg (1,000 unit) capsule 25 mcg PO DAILY vitamin 03/12/23 rqufbdjmtxpj-qvnjflon-bhghat tablet 1 tab PO DAILY vitamin 03/12/23 psyllium husk 0.4 gram capsule (Fiber (psyllium husk)) 0.4 g PO DAILY fiber 03/12/23 vitamin B complex 1 cap PO DAILY vitamin 03/12/23 cyanocobalamin (vitamin B-12) 1,000 mcg tablet 1,000 mcg PO DAILY vitamin 03/24/23 metoprolol succinate 50 mg tablet,extended release 24 hr (Toprol XL) 50 mg PO DAILY heart #90 tabs 03/24/23 omeprazole 20 mg capsule,delayed release 20 mg PO DAILY PRN acid reflux 03/24/23 apixaban 5 mg tablet (Eliquis) 5 mg PO BID blood thinner 06/22/23 aspirin 81 mg tablet,delayed release (Adult Aspirin Regimen) 81 mg PO DAILY blood thinner 06/22/23 furosemide 40 mg tablet (Lasix) 20 mg PO DAILY water pill 06/22/23 omega-3 fatty acids 520 mg PO DAILY vitamin 06/22/23 turmeric 400 mg capsule 500 mg PO DAILY vitamin 06/22/23 Hospital Course Summary of Care Provided Minutes Spent on Discharge: 35 Physical Exam Narrative GENERAL: cooperative HEENT: Atraumatic; normocephalic EYES; Anicteric, Normal Conjunctiva NECK; supple, normal thyroid, RESPIRATORY: Diminished to auscultation CARDIOVASCULAR: Regular S1 S2, GI: soft, normoactive bowel sounds, : No Renal angle tenderness; EXTREMITIES: Bipedal edema, no clubbing, MUSCULOSKELETAL: no muscle wasting NEURO: Awake; no lateralizing signs. SKIN: No Rash PSYCH; Flat affect Weight / BMI Weight Weight: 101.2 kg Body Mass Index (BMI) 35.0 ABG / Lab / Microbiology Data 06/24/23 07:17 06/24/23 07:17 Laboratory: Laboratory Results - last 24 hr 06/24/23 07:17: WBC 9.1, RBC 4.30 L, Hgb 11.5 L, Hct 35.7 L, MCV 83.0, MCH 26.7 L, MCHC 32.2, RDW Std Deviation 46.9 H, RDW Coeff of Joy 15.7 H, Plt Count 275, MPV 9.0, Immature Gran % (Auto) 0.400, Neut % (Auto) 71.1 H, Lymph % (Auto) 14.6 L, [place] % (Auto) 11.4 H, Eos % (Auto) 1.6, Baso % (Auto) 0.9, Absolute Neuts (auto) 6.5, Absolute Lymphs (auto) 1.33, Nucleated RBC % 0, Sodium 134 L, Potassium 3.5, Chloride 98, Carbon Dioxide 27.0, Anion Gap 9, BUN 20 H, Creatinine 0.94, Estim Creat Clear Calc 50.79, Est GFR (MDRD) Af Amer 97, Est GFR (MDRD) Non-Af 80, BUN/Creatinine Ratio 21.2 H, Glucose 128 H, Calcium 9.1 D/C Instructions Discharge Diet: No restrictions Discharge Activity: Return to Normal Activity Call your doctor if you observe: Fever of 101 or Higher, Shortness of breath, Fainting spells and Chest pain Meaningful Use Info Meaningful Use Diagnoses (Choose all that apply): None applicable Discharge Plan Admission Admit Date/Time: 06/22/23 20:22 Attending Provider: Adrian Elise Primary Care Provider: Jeffrey Chan Consulting Providers: Adrian Singleton; Kaleb Moss Discharge Orders/Prescriptions Prescriptions: Continued vitamin B complex Capsule 1 cap PO DAILY psyllium husk [Fiber (psyllium husk)] 0.4 gram capsule 0.4 g PO DAILY cholecalciferol (vitamin D3) 25 mcg (1,000 unit) capsule 25 mcg PO DAILY fwqgflviggfr-ybhaqfvp-uzvrgg Tablet 1 tab PO DAILY cyanocobalamin (vitamin B-12) 1,000 mcg tablet 1,000 mcg PO DAILY metoprolol succinate [Toprol XL] 50 mg tablet extended release 24 hr 50 mg PO DAILY Qty: 90 3RF omeprazole 20 mg capsule,delayed release(DR/EC) 20 mg PO DAILY PRN (Reason: acid reflux) aspirin [Adult Aspirin Regimen] 81 mg tablet,delayed release (DR/EC) 81 mg PO DAILY turmeric 400 mg capsule 500 mg PO DAILY furosemide [Lasix] 40 mg tablet 20 mg PO DAILY Eliquis 5 mg tablet 5 mg PO BID omega-3 fatty acids Capsule 520 mg PO DAILY Discontinued diltiazem HCl 180 mg capsule,extended release 24hr 180 mg PO QHS Other Ambulatory Orders: Occupational Therapy Eval (Routine) Location: None Selected Ordered By: Dr. Adrian Elise Physical Therapy Evaluation (Routine) Location: None Selected Ordered By: Dr. Adrian Elise Referrals / Follow Up: Jeffrey Chan MD [Primary Care Provider] - Within 1 Week Disposition Disposition (needs filled in before D/C Order can be placed): Home, Self Care Charges/Coding Visit Charges Inpatient E&M: 04838 Disch Hosp >30min
--- NOTE | 2023-06-24 14:48 | RAD_ITS ---
STUDY: X-RAY CHEST REASON FOR EXAM: Male, 88 years old. dyspnea TECHNIQUE: Single AP portable view of the chest. COMPARISON: 06/22/2023. FINDINGS: Continued incomplete expansion of the lungs. Improved aeration in both lung bases, especially the left since prior study. Improved atelectasis or infiltrate and small effusion persists in the right lung base. Minimal atelectasis persists in the left lung base. There is mild cardiac enlargement. Normal mediastinum and liat. Normal visualized pulmonary arteries. Normal visualized aortic arch and descending thoracic aorta. Normal visualized thoracic spine. Normal visualized ribs, clavicles, and shoulders. There is no demonstrated abnormality of the visualized soft tissue structures of the upper abdomen. RAD/Chest 1 View (Portable) IMPRESSION: Pulmonary opacities in both lung bases, left worse than right, but improved bilaterally since prior study. Electronically Signed: Silas Sevilla MD at 16:42 EST ,
--- NOTE | 2023-06-24 14:50 | PCM.PN.HOSP ---
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0 Intake & Output: Intake and Output for Last 24 Hours 06/22/23 06/23/23 06/24/23 23:59 23:59 23:59 Intake Total 2027.33 / 2027.33 200 / 200 Balance 2027. / 2027. 200 / 200 Lab / Micro Data 06/24/23 07:17 06/24/23 07:17 Labs: Laboratory Results - last 24 hr 06/24/23 07:17: WBC 9.1, RBC 4.30 L, Hgb 11.5 L, Hct 35.7 L, MCV 83.0, MCH 26.7 L, MCHC 32.2, RDW Std Deviation 46.9 H, RDW Coeff of Joy 15.7 H, Plt Count 275, MPV 9.0, Immature Gran % (Auto) 0.400, Neut % (Auto) 71.1 H, Lymph % (Auto) 14.6 L, [place] % (Auto) 11.4 H, Eos % (Auto) 1.6, Baso % (Auto) 0.9, Absolute Neuts (auto) 6.5, Absolute Lymphs (auto) 1.33, Nucleated RBC % 0, Sodium 134 L, Potassium 3.5, Chloride 98, Carbon Dioxide 27.0, Anion Gap 9, BUN 20 H, Creatinine 0.94, Estim Creat Clear Calc 50.79, Est GFR (MDRD) Af Amer 97, Est GFR (MDRD) Non-Af 80, BUN/Creatinine Ratio 21.2 H, Glucose 128 H, Calcium 9.1 Physical Exam Narrative GENERAL: cooperative HEENT: Atraumatic; normocephalic EYES; Anicteric, Normal Conjunctiva NECK; supple, normal thyroid, RESPIRATORY: Diminished to auscultation CARDIOVASCULAR: Regular S1 S2, GI: soft, normoactive bowel sounds, : No Renal angle tenderness; EXTREMITIES: Bipedal edema, no clubbing, MUSCULOSKELETAL: no muscle wasting NEURO: Awake; no lateralizing signs. SKIN: No Rash PSYCH; Flat affect Assessment & Plan Assessment/Plan (1) Generalized weakness: (2) Ambulatory dysfunction: (3) Hypokalemia: (4) Chronic a-fib: (5) Chronic anticoagulation: PLAN: Plan Patient is an 88-year-old gentleman admitted with progressive generalized weakness 1. Physical deconditioning - Requested for PT OT eval and social welfare administrator to assist with discharge planning. Recommendation was for patient to have been discharged to [facility] facility however requested to be discharged home for outpatient physical therapy 2. Hypertension - Blood pressure controlled, home medications continued with dose adjustment as needed 3. Paroxysmal A-fib ? Rate controlled on metoprolol and diltiazem, on systemic anticoagulation with Eliquis discontinued 4. GERD ? On PPI 5. Class I obesity with BMI of 34.9 ? Complicating care weight loss advised 6. Significant bipedal edema ? This was attributed to patient being on calcium channel carolyn; diltiazem discontinued 7. DVT prophylaxis ? On apixaban Charges/Coding Visit Charges Inpatient E&M: 22031 Subs Hosp L2
--- NOTE | 2023-06-24 14:51 | CASEMGMT ---
Addendum entered by Ze Sharif 06/24/23 16:48: Pt and kit state pt has a pulse ox, but it is not working properly. Kit states they will change the batteries to see if that is the issue. If it still does not work, they can afford to buy another one and made aware of locations one can be purchased. Original Note: PARMJIT BRIGGS NOTE: Discharge order was in. Per Eunice PARNELL, pt will need home O2, as his pulse ox was 87% RA @ rest and she was going to do home O2 amb testing soon. Dr Elise made aware of above and states he will cancel his discharge and keep him one more day. Pt and kit, who is at bedside, made aware. Pt has an appt @ [facility] tomorrow. Kit and pt asked if PARMJIT BRIGGS could call and cancel the appt and have it rescheduled for Wednesday. Call placed to [facility]. Appt cancelled for tomorrow and rescheduled for Wednesday06/28/23 @ 2 PM for PT eval. Pt also has an OT eval on 06/29/23 @ 1000, which will remain in place. Pt and kit made aware and this was edited in pt's discharge plan. John BEAVER RN, CM
[2023-06-24] MEDS: 0.9% Saline Lock 10 ML Syringe IV ×2 (15:19→21:59)
[2023-06-24] MEDS: Furosemide 100 MG/10 ML Vial 60 MG IV (15:19)
[2023-06-24 18:19] LABS: BNP,B-Type NATRIURETIC PEPTIDE 171.9 pg/mL (0-100)
[2023-06-25] VITALS (9 sets, daily range): BP systolic 113–137; BP diastolic 78–94; PULSE 81–122; RESP 20–24; TEMP 36.4–36.8; O2SAT 76–98; BMI 35.2
[2023-06-25 06:19] LABS: Absolute Lymphocyte Count 1.15 X10^3/uL (0.83-4.51); Absolute Neutrophil Count 5.9 X10^3/uL (2.0-7.7); Basophil# 0.08 X10^3/uL; Basophil% 0.9 % (0-1); Eosinophil# 0.32 X10^3/uL; Eosinophils% 3.7 % (0-5); Hemoglobin 11.5 g/dL (13.0-16.5); Lymphocyte # 1.15 X10^3/ul (0.83-4.51); Lymphocyte % 13.3 % (19-41); Mean Corp Hgb Conc 31.9 g/dL (32-36); Mean Corpuscular Hgb 26.6 pg (27.0-32.0); Mean Corpuscular Volume 83.3 fL (80-94); Monocyte# 1.11 X10^3/uL; Monocyte% 12.9 % (0-10); NRBC Flagged by Analyzer 0 % (0-5); Neutrophil # 5.94 X10^3/uL (2.7-7.7); Neutrophil % 68.9 % (47-70); Platelet Count 274 K/mm3 (150-450); RBC Distribution Width CV 15.7 % (11.6-14.6); RBC Distribution Width SD 47.5 fl (35.1-43.9); Red Blood Count 4.32 M/mm3 (4.6-6.2); White Blood Count 8.6 K/mm3 (4.4-11.0)
[2023-06-25 06:58] LABS: Anion Gap 7 (5-15); BUN 19 mg/dL (7-18); BUN/Creat Ratio 17.8 RATIO (10-20); Calcium,Total 8.3 mg/dL (8.5-10.1); Chloride 101 mmol/L (98-107); Creatinine, Serum 1.07 mg/dL (0.70-1.30); EST Glomerular Filtration Rate 69 mL/min (>60); Est Glom Filt Rate - Afr Amer 84 mL/min (>60); Estimated Creatinine Clearance 44.62 ml/min; Glucose 122 mg/dL (74-106); Magnesium 1.9 mg/dL (1.6-2.6); Phosphorus 3.6 mg/dL (2.5-4.9); Potassium 3.4 mmol/L (3.5-5.1); Sodium Level 138 mmol/L (136-145)
--- NOTE | 2023-06-25 07:36 | PCM.PN.HOSP ---
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 Patient was started on scheduled Lasix. Has extensive anterior abdominal wall scrotal and bilateral lower extremity edema Objective Data Objective Data Vital Signs: Vital Signs Temp Pulse Resp BP Pulse Ox O2 Del Method O2 Flow Rate 97.5 F L 94 20 H 132/79 H 96 Nasal Cannula 2 06/25/23 05:12 06/25/23 05:12 06/25/23 05:12 06/25/23 05:12 06/25/23 05:12 06/25/23 05:12 06/25/23 05:12 Oxygen Flow Rate (L/min) [At 2 REST with Oxygen] Oxygen Flow Rate (L/min) 2 Oxygen Delivery Method Nasal Cannula Weight: 101.8 kg Body Mass Index (BMI) 35.2 Intake & Output: Intake and Output for Last 24 Hours 06/23/23 06/24/23 06/25/23 23:59 23:59 23:59 Intake Total 2027.33 / 2027. 200 / 200 Output Total 650 / 650 Balance / 2027. -450 / -450 Lab / Micro Data 06/25/23 05:57 06/25/23 05:57 Labs: Laboratory Results - last 24 hr 06/24/23 07:17: Sodium 134 L, Potassium 3.5, Chloride 98, Carbon Dioxide 27.0, Anion Gap 9, BUN 20 H, Creatinine 0.94, Estim Creat Clear Calc 50.79, Est GFR (MDRD) Af Amer 97, Est GFR (MDRD) Non-Af 80, BUN/Creatinine Ratio 21.2 H, Glucose 128 H, Calcium 9.1, B-Natriuretic Peptide 171.9 H 06/25/23 05:57: WBC 8.6, RBC 4.32 L, Hgb 11.5 L, Hct 36.0 L, MCV 83.3, MCH 26.6 L, MCHC 31.9 L, RDW Std Deviation 47.5 H, RDW Coeff of Joy 15.7 H, Plt Count 274, MPV 9.0, Immature Gran % (Auto) 0.300, Neut % (Auto) 68.9, Lymph % (Auto) 13.3 L, [place] % (Auto) 12.9 H, Eos % (Auto) 3.7, Baso % (Auto) 0.9, Absolute Neuts (auto) 5.9, Absolute Lymphs (auto) 1.15, Nucleated RBC % 0, Sodium 138, Potassium 3.4 L, Chloride 101, Carbon Dioxide 30.0, Anion Gap 7, BUN 19 H, Creatinine 1.07, Estim Creat Clear Calc 44.62, Est GFR (MDRD) Af Amer 84, Est GFR (MDRD) Non-Af 69, BUN/Creatinine Ratio 17.8, Glucose 122 H, Calcium 8.3 L, Phosphorus 3.6, Magnesium 1.9 Radiography Diagnostic Testing: Radiology Impression Chest X-Ray 06/24/23 14:48 IMPRESSION: Pulmonary opacities in both lung bases, left worse than right, but improved bilaterally since prior study. Electronically Signed: Silas Sevilla MD at 16:42 EST , Physical Exam Narrative GENERAL: cooperative HEENT: Atraumatic; normocephalic EYES; Anicteric, Normal Conjunctiva NECK; supple, normal thyroid, RESPIRATORY: Diminished to auscultation CARDIOVASCULAR: Regular S1 S2, GI: soft, normoactive bowel sounds, : No Renal angle tenderness; EXTREMITIES: Bipedal edema, no clubbing, MUSCULOSKELETAL: no muscle wasting NEURO: Awake; no lateralizing signs. SKIN: No Rash PSYCH; Flat affect Assessment & Plan Assessment/Plan (1) Generalized weakness: (2) Ambulatory dysfunction: (3) Hypokalemia: (4) Chronic a-fib: (5) Chronic anticoagulation: PLAN: Plan Patient is an 88-year-old gentleman admitted with progressive generalized weakness 1. Physical deconditioning - Requested for PT OT eval and social welfare research worker to assist with discharge planning. Recommendation was for patient to [facility] however requested to be discharged home for outpatient physical therapy 2. 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 Echo from 2022 demonstrated Normal LV size. Left ventricular systolic function is normal. The left ventricular ejection fraction is 55 %. The left atrium is moderately enlarged. Pulmonary artery systolic pressure is 52 mmHg. Mild (1+) aortic valve insufficiency. ? Patient is on furosemide p.o. switch to IV Lasix 3. Acute hypoxia ? 06/25/2023 secondary to patient acute congestive heart failure as well as possible atelectasis. Repeat x-ray demonstrated Pulmonary opacities in both lung bases, left worse than right, but improved bilaterally since prior study ? Patient qualifies for home oxygen. He will need portability since he is active both at home as well as in the community 4. Hypertension - Blood pressure controlled, home medications continued with dose adjustment as needed 5. Paroxysmal A-fib ? Rate controlled on metoprolol and diltiazem, on systemic anticoagulation with Eliquis discontinued 6. GERD ? On PPI 7. Class I obesity with BMI of 34.9 ? Complicating care weight loss advised 8. Significant bipedal edema ? This was attributed to patient being on calcium channel carolyn; diltiazem discontinued 9. DVT prophylaxis ? On apixaban 10. Hypokalemia -Corrected per protocol, repeat labs ordered for a.m. Time spent in the patient's overall evaluation,decision-making process, review of diagnostic data, adjustment of management, discussion with other providers, nursing nursing and ancillary staff involved in patient's care documentation, 50 Minutes Charges/Coding Visit Charges Inpatient E&M: 37780 [facility] L3
[2023-06-25] MEDS: Furosemide 100 MG/10 ML Vial 80 MG IV (08:17)
[2023-06-25] MEDS: 0.9% Saline Lock 10 ML Syringe IV ×3 (08:18→23:31)
[2023-06-25] MEDS: Aspirin E.C. 81 MG Tablet PO (08:19)
[2023-06-25] MEDS: Metoprolol(XL)Succ 50 MG Tablet PO (08:20)
[2023-06-25] MEDS: Psyllium 1 PACKET PO (08:20)
[2023-06-25] MEDS: Cyanocobalamin 500 MCG Tablet 1000 MCG PO (08:20)
[2023-06-25] MEDS: Multivitamins,Ther W-Minerals Tablet 1 TABLET PO (08:20)
[2023-06-25] MEDS: Cholecalciferol (VIT D3) 25 MCG TABLET (1,000 UNITS) PO (08:20)
[2023-06-25] MEDS: APIXABAN 5 MG TABLET PO ×2 (08:21→23:31)
[2023-06-25] MEDS: Potassium Chloride Oral Tablet 20 MEQ 40 MEQ PO (10:19)
--- NOTE | 2023-06-25 12:52 | CASEMGMT ---
PARMJIT BRIGGS Assessment Face to Face with patient for initial transition planning/care coordination assessment. PARMJIT BRIGGS introduced self and role at [facility], pt voices understanding. Pt is A&Ox4 and is resting comfortably in chair and is calm. Care providers, pharmacy, and demographics verified. Admitting dx: Weakness LACE Strata: 2 PCP: Dustin Specialists: Vik Cooper (Pulmonary) Preferred Pharmacy: [facility] Insurance: [facility] Prescription Benefit: Yes LNOK: Loraine Lambret (Sister) Living Arrangements: Pt states he lives in a 1 story home with a basement with his sister. Pt states there are 3 steps to enter the home with 2 hand rails. Pt denies any issues. ADLs/IADLs: Pt states he is completely independent at home. Transportation: Pt states he drives and also his sister. DME: Pt states he uses a walker at home. Pt states he also has a cane at home. Pt reports he has grab bars for his toilet and shower. Raised seat for toilet. Pt denies previous home O2 use. Pt provided with a list of local, in-network DME companies. Pt states he would be willing to use [employer] if needing home O2. HHC/SNF: Denies history or needs. Plan: Pt goal and plan is to DC home with his sister. Pt has outpatient therapy setup through [facility] starting Wednesday 06/28. Pt is aware of this appointment and states willing to go. Will follow O2 needs. Reina Parikh RN, CM
[2023-06-25] MEDS: Furosemide 40 MG/4 ML Vial IV ×2 (13:39→23:31)
[2023-06-25] MEDS: Potassium Chloride Oral Tablet 20 MEQ PO (17:04)
[2023-06-26] VITALS (10 sets, daily range): BP systolic 106–123; BP diastolic 70–90; PULSE 70–113; RESP 18–20; TEMP 36.6–37.1; O2SAT 87–97; BMI 35.2
[2023-06-26] MEDS: Furosemide 40 MG/4 ML Vial IV ×2 (06:39→14:15)
[2023-06-26] MEDS: 0.9% Saline Lock 10 ML Syringe IV ×2 (06:39→14:15)
[2023-06-26 06:53] LABS: Absolute Lymphocyte Count 1.14 X10^3/uL (0.83-4.51); Absolute Neutrophil Count 5.6 X10^3/uL (2.0-7.7); Basophil# 0.12 X10^3/uL; Basophil% 1.5 % (0-1); Eosinophil# 0.43 X10^3/uL; Eosinophils% 5.2 % (0-5); Hematocrit 35.7 % (40-54); Hemoglobin 11.5 g/dL (13.0-16.5); Lymphocyte # 1.14 X10^3/ul (0.83-4.51); Lymphocyte % 13.8 % (19-41); Mean Corp Hgb Conc 32.2 g/dL (32-36); Mean Corpuscular Hgb 27.1 pg (27.0-32.0); Mean Corpuscular Volume 84.2 fL (80-94); Mean Platelet Vol. 9.2 fl (6.2-12.0); Monocyte# 1.01 X10^3/uL; Monocyte% 12.2 % (0-10); NRBC Flagged by Analyzer 0 % (0-5); Neutrophil # 5.55 X10^3/uL (2.7-7.7); Neutrophil % 67.1 % (47-70); Platelet Count 272 K/mm3 (150-450); RBC Distribution Width CV 15.8 % (11.6-14.6); RBC Distribution Width SD 47.7 fl (35.1-43.9); Red Blood Count 4.24 M/mm3 (4.6-6.2); White Blood Count 8.3 K/mm3 (4.4-11.0)
[2023-06-26 07:18] LABS: Anion Gap 6 (5-15); BUN 17 mg/dL (7-18); BUN/Creat Ratio 16.8 RATIO (10-20); Calcium,Total 8.4 mg/dL (8.5-10.1); Chloride 100 mmol/L (98-107); Creatinine, Serum 1.01 mg/dL (0.70-1.30); EST Glomerular Filtration Rate 74 mL/min (>60); Est Glom Filt Rate - Afr Amer 90 mL/min (>60); Estimated Creatinine Clearance 47.27 ml/min; Glucose 115 mg/dL (74-106); Potassium 3.5 mmol/L (3.5-5.1); Sodium Level 139 mmol/L (136-145)
--- NOTE | 2023-06-26 07:40 | PCM.PN.HOSP ---
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 Breathing and edema in both lower extremities improving. Patient be assessed for possible discharge Objective Data Objective Data Vital Signs: Vital Signs Temp Pulse Resp BP Pulse Ox O2 Del Method O2 Flow Rate 98.1 F 111 H 20 H 121/76 H 97 Nasal Cannula 2 06/26/23 05:04 06/26/23 06:38 06/26/23 05:04 06/26/23 06:38 06/26/23 05:04 06/26/23 05:09 06/26/23 05:09 Oxygen Flow Rate (L/min) [ 8 AMBULATING with Oxygen #2] Oxygen Flow Rate (L/min) [At 2 REST with Oxygen] Oxygen Flow Rate (L/min) 2 Oxygen Delivery Method Nasal Cannula Weight: 101.6 kg Body Mass Index (BMI) 35.2 Intake & Output: Intake and Output for Last 24 Hours 06/24/23 06/25/23 06/26/23 23:59 23:59 23:59 Intake Total 200 / 200 300 / 300 200 / 200 Output Total 650 / 650 2340 / 2340 900 / 900 Balance -450 / -450 -2040 / -2040 -700 / -700 Lab / Micro Data 06/26/23 06:29 06/26/23 06:29 Labs: Laboratory Results - last 24 hr 06/26/23 06:29: WBC 8.3, RBC 4.24 L, Hgb 11.5 L, Hct 35.7 L, MCV 84.2, MCH 27.1, MCHC 32.2, RDW Std Deviation 47.7 H, RDW Coeff of Joy 15.8 H, Plt Count 272, MPV 9.2, Immature Gran % (Auto) 0.200, Neut % (Auto) 67.1, Lymph % (Auto) 13.8 L, [place] % (Auto) 12.2 H, Eos % (Auto) 5.2 H, Baso % (Auto) 1.5 H, Absolute Neuts (auto) 5.6, Absolute Lymphs (auto) 1.14, Nucleated RBC % 0, Sodium 139, Potassium 3.5, Chloride 100, Carbon Dioxide 33.0 H, Anion Gap 6, BUN 17, Creatinine 1.01, Estim Creat Clear Calc 47.27, Est GFR (MDRD) Af Amer 90, Est GFR (MDRD) Non-Af 74, BUN/Creatinine Ratio 16.8, Glucose 115 H, Calcium 8.4 L Physical Exam Narrative GENERAL: cooperative HEENT: Atraumatic; normocephalic EYES; Anicteric, Normal Conjunctiva NECK; supple, normal thyroid, RESPIRATORY: Diminished to auscultation CARDIOVASCULAR: Regular S1 S2, GI: soft, normoactive bowel sounds, : No Renal angle tenderness; EXTREMITIES: Bipedal edema, no clubbing, MUSCULOSKELETAL: no muscle wasting NEURO: Awake; no lateralizing signs. SKIN: No Rash PSYCH; Flat affect Assessment & Plan Assessment/Plan (1) Generalized weakness: (2) Ambulatory dysfunction: (3) Hypokalemia: (4) Chronic a-fib: (5) Chronic anticoagulation: PLAN: Plan Patient is an 88-year-old gentleman admitted with progressive generalized weakness 1. Physical deconditioning - Requested for PT OT eval and high school social science teacher to assist with discharge planning. Recommendation was for patient to have been discharged to longterm facility however requested to be discharged home for outpatient physical therapy 2. 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 Echo from 2022 demonstrated Normal LV size. Left ventricular systolic function is normal. The left ventricular ejection fraction is 55 %. The left atrium is moderately enlarged. Pulmonary artery systolic pressure is 52 mmHg. Mild (1+) aortic valve insufficiency. ? Patient is on furosemide p.o. switch to IV Lasix 3. Acute hypoxia ? 06/25/2023 secondary to patient acute congestive heart failure as well as possible atelectasis. Repeat x-ray demonstrated Pulmonary opacities in both lung bases, left worse than right, but improved bilaterally since prior study ? Patient qualifies for home oxygen. He will need portability since he is active both at home as well as in the community 4. Hypertension - Blood pressure controlled, home medications continued with dose adjustment as needed 5. Paroxysmal A-fib ? Rate controlled on metoprolol and diltiazem, on systemic anticoagulation with Eliquis discontinued 6. GERD ? On PPI 7. Class I obesity with BMI of 34.9 ? Complicating care weight loss advised 8. Significant bipedal edema ? This was attributed to patient being on calcium channel carolyn; diltiazem discontinued 9. DVT prophylaxis ? On apixaban 10. Hypokalemia -Corrected per protocol, repeat labs ordered for a.m. Time spent in the patient's overall evaluation,decision-making process, review of diagnostic data, adjustment of management, discussion with other providers, nursing nursing and ancillary staff involved in patient's care documentation, 35 minutes Charges/Coding Visit Charges Inpatient E&M: 72099 [facility] L2
[2023-06-26] MEDS: Aspirin E.C. 81 MG Tablet PO (08:01)
[2023-06-26] MEDS: Potassium Chloride Oral Tablet 20 MEQ PO (08:01)
[2023-06-26] MEDS: Multivitamins,Ther W-Minerals Tablet 1 TABLET PO (08:01)
[2023-06-26] MEDS: Metoprolol(XL)Succ 50 MG Tablet PO (08:02)
[2023-06-26] MEDS: APIXABAN 5 MG TABLET PO (08:02)
[2023-06-26] MEDS: Psyllium 1 PACKET PO (08:03)
[2023-06-26] MEDS: Cholecalciferol (VIT D3) 25 MCG TABLET (1,000 UNITS) PO (08:03)
[2023-06-26] MEDS: Cyanocobalamin 500 MCG Tablet 1000 MCG PO (08:03)
--- NOTE | 2023-06-26 09:36 | DS.PCM_ITS ---
Providers Date of Admission: 06/24/23 Date of Discharge: 06/26/23 Primary Care Physician: Dr. Jeffrey Chan MD Reason For Visit: GENERALIZED WEAKNESS Diagnosis Discharge Diagnosis (1) Generalized weakness: Status: Acute Code(s): R53.1 - Weakness (2) Ambulatory dysfunction: Status: Acute Code(s): R26.2 - Difficulty in walking, not elsewhere classified (3) Hypokalemia: Status: Resolved Code(s): E87.6 - Hypokalemia (4) Chronic a-fib: Status: Inactive Code(s): I48.20 - Chronic atrial fibrillation, unspecified (5) Chronic anticoagulation: Status: Inactive Code(s): Z79.01 - manager long term care (current) use of anticoagulants Plan Patient is an 88-year-old gentleman admitted with progressive generalized weakness 1. Physical deconditioning - Requested for PT OT eval and social services assistant to assist with discharge planning. Recommendation was for patient to have been discharged to [place] however requested to be discharged home for outpatient physical therapy 2. 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 Echo from 2022 demonstrated Normal LV size. Left ventricular systolic function is normal. The left ventricular ejection fraction is 55 %. The left atrium is moderately enlarged. Pulmonary artery systolic pressure is 52 mmHg. Mild (1+) aortic valve insufficiency. ? Patient is on furosemide p.o. switch to IV Lasix 3. Acute hypoxia ? 06/25/2023 secondary to patient acute congestive heart failure as well as possible atelectasis. Repeat x-ray demonstrated Pulmonary opacities in both lung bases, left worse than right, but improved bilaterally since prior study ? Patient qualifies for home oxygen. He will need portability since he is active both at home as well as in the community 4. Hypertension - Blood pressure controlled, home medications continued with dose adjustment as needed 5. Paroxysmal A-fib ? Rate controlled on metoprolol and diltiazem, on systemic anticoagulation with Eliquis discontinued 6. GERD ? On PPI 7. Class I obesity with BMI of 34.9 ? Complicating care weight loss advised 8. Significant bipedal edema ? This was attributed to patient being on calcium channel carolyn; diltiazem discontinued 9. DVT prophylaxis ? On apixaban 10. Hypokalemia -Corrected per protocol, repeat labs ordered for a.m. Time spent in the patient's overall evaluation,decision-making process, review of diagnostic data, adjustment of management, discussion with other providers, nursing nursing and ancillary staff involved in patient's care documentation, 35 minutes Medications at Discharge Home Medications cholecalciferol (vitamin D3) 25 mcg (1,000 unit) capsule 25 mcg PO DAILY vitamin 03/12/23 [id number]-plgezyts-hroggb tablet 1 tab PO DAILY vitamin 03/12/23 psyllium husk 0.4 gram capsule (Fiber (psyllium husk)) 0.4 g PO DAILY fiber 03/12/23 vitamin B complex 1 cap PO DAILY vitamin 03/12/23 cyanocobalamin (vitamin B-12) 1,000 mcg tablet 1,000 mcg PO DAILY vitamin 03/24/23 metoprolol succinate 50 mg tablet,extended release 24 hr (Toprol XL) 50 mg PO DAILY heart #90 tabs 03/24/23 omeprazole 20 mg capsule,delayed release 20 mg PO DAILY PRN acid reflux 03/24/23 apixaban 5 mg tablet (Eliquis) 5 mg PO BID blood thinner 06/22/23 aspirin 81 mg tablet,delayed release (Adult Aspirin Regimen) 81 mg PO DAILY blood thinner 06/22/23 omega-3 fatty acids 520 mg PO DAILY vitamin 06/22/23 turmeric 400 mg capsule 500 mg PO DAILY vitamin 06/22/23 furosemide 40 mg tablet (Lasix) 40 mg PO BID #60 tabs 06/26/23 potassium chloride 20 mEq tablet,extended release(part/cryst) 20 meq PO BIDCM 30 days #60 tabs 06/26/23 Hospital Course Summary of Care Provided Minutes Spent on Discharge: 35 Physical Exam Narrative GENERAL: cooperative HEENT: Atraumatic; normocephalic EYES; Anicteric, Normal Conjunctiva NECK; supple, normal thyroid, RESPIRATORY: Diminished to auscultation CARDIOVASCULAR: Regular S1 S2, GI: soft, normoactive bowel sounds, : No Renal angle tenderness; EXTREMITIES: Bipedal edema, no clubbing, MUSCULOSKELETAL: no muscle wasting NEURO: Awake; no lateralizing signs. SKIN: No Rash PSYCH; Flat affect Weight / BMI Weight Weight: 101.6 kg Body Mass Index (BMI) 35.2 ABG / Lab / Microbiology Data 06/26/23 06:29 06/26/23 06:29 Laboratory: Laboratory Results - last 24 hr 06/26/23 06:29: WBC 8.3, RBC 4.24 L, Hgb 11.5 L, Hct 35.7 L, MCV 84.2, MCH 27.1, MCHC 32.2, RDW Std Deviation 47.7 H, RDW Coeff of Joy 15.8 H, Plt Count 272, MPV 9.2, Immature Gran % (Auto) 0.200, Neut % (Auto) 67.1, Lymph % (Auto) 13.8 L, [place] % (Auto) 12.2 H, Eos % (Auto) 5.2 H, Baso % (Auto) 1.5 H, Absolute Neuts (auto) 5.6, Absolute Lymphs (auto) 1.14, Nucleated RBC % 0, Sodium 139, Potassium 3.5, Chloride 100, Carbon Dioxide 33.0 H, Anion Gap 6, BUN 17, Creatinine 1.01, Estim Creat Clear Calc 47.27, Est GFR (MDRD) Af Amer 90, Est GFR (MDRD) Non-Af 74, BUN/Creatinine Ratio 16.8, Glucose 115 H, Calcium 8.4 L D/C Instructions Discharge Diet: 8 Cup Fluid Restriction and 2000 mg Sodium Diet Call your doctor if you observe: Fever of 101 or Higher, Shortness of breath, Fainting spells and Chest pain Meaningful Use Info Meaningful Use Diagnoses (Choose all that apply): CHF CHF ANIKET/ARB ordered at discharge?: No Reason ANIKET/ARB not ordered?: Not indicated Documented LVEF (%): 55 Discharge Plan Admission Admit Date/Time: 06/24/23 16:47 Attending Provider: Adrian Elise Primary Care Provider: Jeffrey Chan Consulting Providers: Adrian Singleton; Kaleb Moss Discharge Orders/Prescriptions Prescriptions: New potassium chloride 20 mEq Tablet,Er Particles/Crystals 20 meq PO BIDCM 30 Days Qty: 60 0RF furosemide [Lasix] 40 mg tablet 40 mg PO BID Qty: 60 0RF Continued vitamin B complex Capsule 1 cap PO DAILY psyllium husk [Fiber (psyllium husk)] 0.4 gram capsule 0.4 g PO DAILY cholecalciferol (vitamin D3) 25 mcg (1,000 unit) capsule 25 mcg PO DAILY [id number]-bhvdhhtg-jgspdd Tablet 1 tab PO DAILY cyanocobalamin (vitamin B-12) 1,000 mcg tablet 1,000 mcg PO DAILY metoprolol succinate [Toprol XL] 50 mg tablet extended release 24 hr 50 mg PO DAILY Qty: 90 3RF omeprazole 20 mg capsule,delayed release(DR/EC) 20 mg PO DAILY PRN (Reason: acid reflux) aspirin [Adult Aspirin Regimen] 81 mg tablet,delayed release (DR/EC) 81 mg PO DAILY turmeric 400 mg capsule 500 mg PO DAILY Eliquis 5 mg tablet 5 mg PO BID omega-3 fatty acids Capsule 520 mg PO DAILY Discontinued diltiazem HCl 180 mg capsule,extended release 24hr 180 mg PO QHS furosemide [Lasix] 40 mg tablet 20 mg PO DAILY Referrals / Follow Up: Jeffrey Chan MD [Primary Care Provider] - Within 1 Week Disposition Disposition (needs filled in before D/C Order can be placed): Home Health Service Charges/Coding Visit Charges Inpatient E&M: 06959 Disch Hosp >30min
== END 2023-06-26 16:31 | disposition home or self-care (01) | DRG 291 ==
LOC: ED 20:04 → MS3 20:53
PROVIDERS: Family Medicine; Admitting Provider Internal Medicine; Emergency Provider Student in an Organized Health Care Education/Training Program; PCP Internal Medicine; Visit Provider Internal Medicine
DX: I11.0 Hypertensive heart disease with heart failure (principal); I50.33 Acute on chronic diastolic (congestive) heart failure; E66.9 Obesity, unspecified; I48.0 Paroxysmal atrial fibrillation; E78.5 Hyperlipidemia, unspecified; G60.9 Hereditary and idiopathic neuropathy, unspecified; I35.1 Nonrheumatic aortic (valve) insufficiency; E87.6 Hypokalemia; M19.90 Unspecified osteoarthritis, unspecified site; I25.10 Atherosclerotic heart disease of native coronary artery without angina pectoris; K21.9 Gastro-esophageal reflux disease without esophagitis; R26.2 Difficulty in walking, not elsewhere classified; R09.02 Hypoxemia; R53.1 Weakness; R53.81 Other malaise; Z68.35 Body mass index [BMI] 35.0-35.9, adult; Z23 Encounter for immunization; Z87.891 Personal history of nicotine dependence; Z79.899 Other long term (current) drug therapy
CPT/HCPCS: 36415; 71045; 80048; 80053; 81001; 83735; 83880; 84100; 84443; 84484; 85025; 93005; 94668; 97110; 97116; 97162; 97166; 97530; 97535; 97802; 99252; 99284; 90662; A4216; G0463; J1940

== ENCOUNTER 2023-07-30 13:00 | Outpatient (RCR) | payer MEDICARE, SELFPAY ==
--- NOTE | 2023-07-05 11:33 | HP.PTEVAL_ITS ---
Patient's Visit Information Visit Information Visit Information: TRINH ROWELL is a 88 year old M referred to Physical Therapy by Dr. Kaleb Moss MD with a diagnosis of Weakness. Date of Evaluation: 07/05/23 Physical Therapist: Vladimir Garcia, PT, ATC Visit Plan Frequency: 2-3x /Week Duration: 4-6 Weeks Plan: R shoulder rot cuff strengthening, gait training, B LE strengthening, B LE stretching, balance and proprio, nustep, and HEP Subjective Subjective: Pt reports he has progressively become more week over the last month. Pt notes he has Afib, which has resulted in swelling throughout his body. Pt notes this has also made him feel more weak. Pt reports he is no longer able to go grocery shopping secondary to weakness. Pt also notes difficulty with stair negotiation and sit to stand transfers secondary to weakness. Pt notes he has neuropathy, and less sensation in his feet. Pt reports he had one fall in the past 2 weeks ago secondary to losing his balance while bending forward trying to leaf size picker a set of keys. Pt lives in a one story house. Pt still likes to do all of his own yard work. Pt reports his major goal is to gain flexibility in his legs, and to gain strength throughout his body including his R shoulder that he injured while putting up [employer] this year.. Pain R shoulder: Pain Intensity (Out of 10): 1 Objective Objective: Neuro: B LE sensation is WNL to light touch. B patellar reflex= 2/3 MMT: B LE strength is rated at 4-/5 throughout sit to stand test: Pt is able to perform 3 sit to stand reps in 30 seconds Gait: Pt is able to ambulate 510 feet with CGAx1 and WW until requesting to rest secondary to fatigue Balance/Special Test Scores Lower Extremity Functional Score: 11 Goals Goal 1:: Increase B LE strength x 1 grade to aid with sit to stand transfers Goal Time Frame: 4-6 Weeks Goal 2:: Pt will be able to perform 6 sit to stand transfers in 30 seconds to aid with I at home Goal Time Frame: 4-6 Weeks Goal 3:: Pt will be able to ambulate 1000 feet with LRD to aid with community ambulation Goal Time Frame: 4-6 Weeks Goal 4:: I with HEP Goal Time Frame: 4-6 Weeks Rehabilitation Potential Physical Therapy Diagnosis: Pt has B LE weakness, difficulty with stair negotiation, and difficulty with sit to stand transfers secondary to debility Rehabilitation Potential: Good Anticipated Interventions Patient/Client Instruction: Educate patient on: Condition and Plan of Care For the Purpose of:: To improve self management Therapeutic Exercise to Include: Strength training, Endurance training, Balance training and Scapular Strength/Stabilization For the Purpose of:: To decrease pain, To improve muscle performance and motor function and To increase tolerance to activity/condition/position Text: Thank you for the opportunity to evaluate your patient. For Medicare and Medicare HMO plans, please review the plan of care and approve it. It will need to be FAXED BACK to us at [phone] for Medicare purposes. For Medicare only, by signing this I certify the plan of care. Please let me know if there are questions or concerns regarding this plan of care. Physician Signature: Date:
--- NOTE | 2023-07-06 07:27 | HP.OTEVAL_ITS ---
Patient's Visit Information Visit Information Visit Information: TRINH ROWELL is a 88 year old M, referred to Occupational Therapy by Dr. Kaleb Moss MD, with a diagnosis of generalized weakness. Date of Evaluation: 07/05/23 Occupational Therapist: Yessy Marcum, OTR/Shereen, CHT Subjective Subjective: This 88 year old male was seen for OT eval with dx of Afib back in Jan- had SOB, weakness and swelling in both LE. pt states when he went to hospital and was in hospital for 5 days- pt came home on Jun.26. pt states since he has been home he has returned to cooking, laundry and has return to using his computer- pt states he will sit for about an hour at a time at the computer- States he feels mostly weakness in his legs and feels his walking endurance is more of a problem than his UB. ADLs Comments: pt states his sister lives with him and helps- has 3 entry steps with railing. pt has first floor set-up and laundry will get stair lift put in home so he can go to finished basement area. pt states he tub shower combination with grab bar- pt states sister is helping with his socks. states he was walking with ww in home due to SOB prior to going to the hospital pt likes to cook-garden- and did the yard work- as well is on computer pt states he feels he has returned to performing IADls and ADLs at his PLOF. 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 for right shoulder) Quick DASH-Disab of Arm,Shoulder& Hand Quick DASH Score: 6.8175 Rehabilitation General Assessment: pt demo with good UB strength and pt and pts sister state has returned to performing his ADLS and IADLs at PLOF. pt states he does not feel he requires OT services at this time. Would like PT for his LE- will defer services to PT for LB. Visit Plan TEXT: Thank you for the opportunity to evaluate your patient. For Medicare and Medicare HMO plans, please review the plan of care and approve it. It will need to be FAXED BACK to us at [phone] for Medicare purposes. Please let me know if there are questions or concerns regarding this plan of care. Physician Signature: Date:
--- NOTE | 2023-08-03 15:53 | HP.PTDCSUM ---
Discharge Summary D/C summary: It has been my pleasure to treat TRINH ROWELL referred by Dr. Kaleb Moss MD, with the diagnosis of Weakness for a total of 9 visit(s). Discharge Date: Please see the following information for a summary of their discharge status. Subjective Subjective: PT has been very helpful, especially with getting out of a chair. Pain R shoulder: Pain Intensity (Out of 10): 0 Overall Improvement % Improvement: 25 Objective Objective/Function: B LE MMT 5/5 throughout Gait was not able to be assessed secondary to intolerance for activity this date. sit to stands: Unable to perform one today Pt is I with HEP Goals Goal 1:: Increase B LE strength x 1 grade to aid with sit to stand transfers Goal Progress: Goal Met Goal 2:: Pt will be able to perform 6 sit to stand transfers in 30 seconds to aid with I at home Goal Progress: Not Progressing Goal 3:: Pt will be able to ambulate 1000 feet with LRD to aid with community ambulation Goal Progress: Unable to assess this nas Goal 4:: I with HEP Goal Progress: Goal Met Plan Plan: Discontinue to HEP D/C Information d/c sentence: If there are questions or concerns regarding this patient's physical therapy, please feel free to call me at [phone]. Thank you for the referral of this patient. Sincerely, Vladimir Garcia, PT, ATC Balance/Gait/Functional tests Balance/Special Test Scores Lower Extremity Functional Score: 11 Improvement % Improvement: 25
== END 2023-07-30 19:00 | disposition home or self-care (01) ==
LOC: PT 13:00
PROVIDERS: PCP Internal Medicine; Referring Provider Family Medicine; Visit Provider Family Medicine
DX: R53.1 Weakness (principal); R26.9 Unspecified abnormalities of gait and mobility
CPT/HCPCS: 97110; 97161; 97166

== ENCOUNTER 2023-08-03 16:31 | Inpatient (IN) | payer MEDICARE, SELFPAY ==
[2023-08-03 16:31] VITALS: BP 112/93; PULSE 88; RESP 16; TEMP 36.6; O2SAT 98
--- NOTE | 2023-08-03 16:54 | EKG12_ITS ---
Test Reason : SOB Blood Pressure : / mmHG Vent. Rate : 098 BPM Atrial Rate : 000 BPM P-R Int : 000 ms QRS Dur : 074 ms QT Int : 390 ms P-R-T Axes : 000 052 169 degrees QTc Int : 497 ms Atrial fibrillation Low voltage QRS Nonspecific T wave abnormality Abnormal ECG Confirmed by Blake Lindsay ([id number]), graphics editor BAO SONG ([id number]) on 08/04/2023 10:58:51 AM Referred By: KAVITHA/LIVIER Confirmed By:Blake Lindsay
[2023-08-03 17:22] VITALS: BP 108/89; PULSE 102; RESP 21; O2SAT 92; BMI 35.1
[2023-08-03 17:24] VITALS: O2SAT 94
[2023-08-03 17:26] VITALS: O2SAT 94
--- NOTE | 2023-08-03 17:48 | ED.VIS.DYS ---
HPI History of Present Illness Chief Complaint: Shortness of Breath Informant: patient Narrative Narrative: Patient presents with dyspnea and generalized weakness. Patient has a history of COPD. Also A-fib RVR on Eliquis. He states since February he has had some generalized weakness. He was admitted for CHF about a month or so ago. I think he left the hospital at 208 pounds and he is now 224. He says he has gained 4 pounds in the last week. He feels a little bit more edema in his upper legs and abdomen area. He is more short of breath. But no cough. No fevers no chills. No chest pain. [facility] Medical History Abnormal EKG Anemia Atrial fibrillation with RVR Atrial fibrillation, new onset Benign neoplasm of colon Bilateral lower extremity edema DDD (degenerative disc disease), lumbar Hx of gastroesophageal reflux (GERD) Hyperlipidemia Idiopathic peripheral neuropathy Internal hemorrhoids without complication Kidney stone Longstanding persistent atrial fibrillation Nocturia Obesity (BMI 30.0-34.9) Skin cancer of scalp Thrombocytopenia White coat syndrome with hypertension Home Medications cholecalciferol (vitamin D3) 25 mcg (1,000 unit) capsule 25 mcg PO DAILY vitamin 03/12/23 [History Last Taken Unknown] aoindnwxxymg-sllkoets-ylipeg tablet 1 tab PO DAILY vitamin 03/12/23 [History Last Taken Unknown] psyllium husk 0.4 gram capsule (Fiber (psyllium husk)) 0.4 g PO DAILY fiber 03/12/23 [History Last Taken Unknown] cyanocobalamin (vitamin B-12) 1,000 mcg tablet 1,000 mcg PO DAILY vitamin 03/24/23 [History Last Taken Unknown] omeprazole 20 mg capsule,delayed release 20 mg PO .every other day PRN acid reflux 03/24/23 [History Last Taken Unknown] apixaban 5 mg tablet (Eliquis) 5 mg PO BID blood thinner 06/22/23 [History Last Taken Unknown] metoprolol tartrate 25 mg tablet 25 mg PO BID #180 tabs 07/02/23 [Rx Last Taken Unknown] furosemide 40 mg tablet (Lasix) 40 mg PO .COMPLEX #180 tabs 07/29/23 [Rx Last Taken Unknown] potassium chloride 20 mEq tablet,extended release(part/cryst) 20 meq PO BID #180 tabs 07/29/23 [Rx Last Taken Unknown] Allergy/AdvReac Type Severity Reaction Status Date / Time No Known Allergies Allergy Verified 08/03/23 16:36 Family History Father Cancer lung Mother Colon cancer Surgical History History of appendectomy History of colonoscopy History of inguinal hernia repair History of laparotomy Social History Smoking Status: Former smoker how long ago did patient quit smokin years alcohol intake: never substance use type: does not use EXAM Physical Exam Const Vital Signs: 08/03/23 16:31 08/03/23 17:22 08/03/23 17:24 Temperature 97.8 F Temperature Source Temporal Pulse Rate 88 102 H Respiratory Rate 16 21 H Respiratory Effort Blood Pressure 112/93 H 108/89 H Blood Pressure Mean 99 95 Pulse Ox 98 92 94 Oxygen Delivery Method Room Air Room Air Room Air 08/03/23 17:26 08/03/23 21:11 08/03/23 21:55 Temperature 98.9 F Temperature Source Pulse Rate 108 H 103 H Respiratory Rate 24 H 21 H Respiratory Effort Short of Breath Blood Pressure 122/88 H 131/98 H Blood Pressure Mean 99 109 Pulse Ox 94 93 Oxygen Delivery Method Room Air Room Air MDM MDM MDM Narrative Medical decision making narrative: My independent interpretation single view chest x-ray shows some slight effusion at the right. Mild CHF. But it looks similar to prior. Final reading is similar.\ Patient's CBC is overall normal. Patient's electrolytes show mild rise of his creatinine over his baseline. Although this is not a large rise it is concerning since he so appears to be fluid overloaded. Hopefully this will improve with some diuresis. BNP is high at 251. Again, this is not markedly high but it is his highest. His troponin is normal at 17. Patient has significant weight gain, dyspnea, orthopnea, x-ray and BNP findings consistent with CHF. He states his oral Lasix is not really producing a lot of urination. He was given IV Lasix here and he is urinated 3 times. But we walked him he still desaturates to 86%. He has no oxygen at home. I think he will need to come in. I will talk to the hospitalist. Lab Data Attestation: I reviewed the patient's lab results. Labs: Laboratory Results - last 24 hr 08/03/23 17:30 WBC 8.6 RBC 5.01 Hgb 13.3 Hct 41.7 MCV 83.2 MCH 26.5 L MCHC 31.9 L RDW Std Deviation 48.5 H RDW Coeff of Joy 16.3 H Plt Count 219 MPV 10.5 Immature Gran % (Auto) 0.200 Neut % (Auto) 71.9 H Lymph % (Auto) 12.7 L Nobles % (Auto) 12.3 H Eos % (Auto) 2.2 Baso % (Auto) 0.7 Absolute Neuts (auto) 6.2 Absolute Lymphs (auto) 1.09 Nucleated RBC % 0 Sodium 136 Potassium 3.9 Chloride 100 Carbon Dioxide 31.0 Anion Gap 5 BUN 27 H Creatinine 1.42 H Estim Creat Clear Calc 40.88 Est GFR (MDRD) Af Amer 61 Est GFR (MDRD) Non-Af 50 L BUN/Creatinine Ratio 19.0 Glucose 160 H Calcium 9.0 Troponin I High Sens 17 B-Natriuretic Peptide 251.0 H Radiography Diagnostic Testing: Clinical Impression(s) from Imaging Studies Chest X-Ray 08/03/23 18:06 IMPRESSION: Stable bibasilar airspace disease and effusion at the right lung base. Electronically Signed: Cem Morel, at 18:28 EST Reading Location ID and State: [address] [place] [address] Tel , Service support , EKG Initial EKG: Comments: My independent interpretation EKG is atrial fibrillation with a rate at 98 of the patient's. Diffuse decreased voltage. No ST elevation or depression. Discharge Plan Triage Chief Complaint: Shortness of Breath ED Provider: Jermaine Caicedo Dx/Rx/DC Orders Prescriptions: No Action psyllium husk [Fiber (psyllium husk)] 0.4 gram capsule 0.4 g PO DAILY cholecalciferol (vitamin D3) 25 mcg (1,000 unit) capsule 25 mcg PO DAILY ndbjpzxyjsik-jwtfyjvk-grummd Tablet 1 tab PO DAILY cyanocobalamin (vitamin B-12) 1,000 mcg tablet 1,000 mcg PO DAILY metoprolol tartrate 25 mg tablet 25 mg PO BID Qty: 180 3RF omeprazole 20 mg capsule,delayed release(DR/EC) 20 mg PO .every other day PRN (Reason: acid reflux) Eliquis 5 mg tablet 5 mg PO BID potassium chloride 20 mEq tablet,ER particles/crystals 20 meq PO BID Qty: 180 3RF furosemide [Lasix] 40 mg tablet 40 mg PO .COMPLEX Qty: 180 3RF Rx Instructions: 40 mg orally twice a day, about 4 hours apart X 1 week, then go back to once a day; Primary Care Provider: Jeffrey Chan Referrals: Jeffrey Chan MD [Primary Care Provider] -
[2023-08-03 17:52] LABS: Absolute Lymphocyte Count 1.09 X10^3/uL (0.83-4.51); Absolute Neutrophil Count 6.2 X10^3/uL (2.0-7.7); Basophil# 0.06 X10^3/uL; Basophil% 0.7 % (0-1); Eosinophil# 0.19 X10^3/uL; Eosinophils% 2.2 % (0-5); Hematocrit 41.7 % (40-54); Hemoglobin 13.3 g/dL (13.0-16.5); Lymphocyte # 1.09 X10^3/ul (0.83-4.51); Lymphocyte % 12.7 % (19-41); Mean Corp Hgb Conc 31.9 g/dL (32-36); Mean Corpuscular Hgb 26.5 pg (27.0-32.0); Mean Corpuscular Volume 83.2 fL (80-94); Mean Platelet Vol. 10.5 fl (6.2-12.0); Monocyte# 1.05 X10^3/uL; Monocyte% 12.3 % (0-10); NRBC Flagged by Analyzer 0 % (0-5); Neutrophil # 6.15 X10^3/uL (2.7-7.7); Neutrophil % 71.9 % (47-70); Platelet Count 219 K/mm3 (150-450); RBC Distribution Width CV 16.3 % (11.6-14.6); RBC Distribution Width SD 48.5 fl (35.1-43.9); Red Blood Count 5.01 M/mm3 (4.6-6.2); White Blood Count 8.6 K/mm3 (4.4-11.0)
[2023-08-03 18:04] LABS: Anion Gap 5 (5-15); BUN 27 mg/dL (7-18); Chloride 100 mmol/L (98-107); Creatinine, Serum 1.42 mg/dL (0.70-1.30); EST Glomerular Filtration Rate 50 mL/min (>60); Est Glom Filt Rate - Afr Amer 61 mL/min (>60); Estimated Creatinine Clearance 40.88 ml/min; Glucose 160 mg/dL (74-106); Potassium 3.9 mmol/L (3.5-5.1); Sodium Level 136 mmol/L (136-145); Troponin-I HS 17 pg/mL (3.0-78.0)
--- NOTE | 2023-08-03 18:06 | RAD_ITS ---
INDICATION: sob EXAMINATION/TECHNIQUE: X-RAY - XR Chest 1 View COMPARISON: June 24, 2023 FINDINGS: LINES/DEVICES: None. LUNGS: There is questionable airspace disease and effusion at the right lung base and airspace disease at the left lung base.. MEDIASTINUM AND CARDIOVASCULAR STRUCTURES: Cardiac silhouette not enlarged. Central airways and mediastinal contour are unremarkable. BONES AND SOFT TISSUES: Unremarkable. RAD/Chest 1 View (Portable) IMPRESSION: Stable bibasilar airspace disease and effusion at the right lung base. Electronically Signed: Cem Morel, at 18:28 EST ,
[2023-08-03] MEDS: Furosemide 40 MG/4 ML Vial IV (19:44)
--- OUTSIDE RECORDS SUMMARY | 2023-08-03 20:45 | XMS RPT_ITS | CCD ---
Author Name Unknown Address [address] [place] [address] [id number] [place] [address] Organization [facility] Care Team Providers Care Head Operator Name Role Phone Jeffrey Betts MD Primary Care Provider [phone] JEFFREY BETTS Primary Care Unavailable KASEY MCDONALD Referring Unavailable ALPESH, JEFFREY Camacho Primary Care Unavailable KASEY MCDONALD Attending Unavailable ALPESH, JEFFREY Camacho Attending Unavailable ALPESH, JEFFREY Camacho Primary Care Unavailable SELF Referring Unavailable ALPESH, JEFFREY Camacho Primary Care Unavailable ALPESH, JEFFREY Camacho Attending Unavailable ALPESH, JEFFREY Camacho Attending Unavailable ALPESH, JEFFREY Camacho Primary Care Unavailable ALPESH, JEFFREY Camacho Primary Care Unavailable KASEY MCDONALD Attending Unavailable QIAN CHERY Referring Unavailable ALPESH, JEFFREY Camacho Primary Care Unavailable ALPESH, JEFFREY Camacho Referring Unavailable ALPESH, JEFFREY Camacho Primary Care Unavailable QIAN CHERY Attending Unavailable ALPESH, JEFFREY Camacho Referring Unavailable ALPESH, JEFFREY Camacho Primary Care Unavailable ALPESH, JEFFREY Camacho Referring Unavailable BETTS, JEFFREY Camacho Primary Care Unavailable ALPESH, JEFFREY Camacho Primary Care Unavailable KASEY MCDONALD Referring Unavailable ALPESH, JEFFREY Camacho Primary Care Unavailable KASEY MCDONALD Attending Unavailable KASEY MCDONALD Referring Unavailable Jeffrey Betts MD Primary Care Provider [phone] Medications Completed/Discontinued Medications Medication Drug Class(es) Dates Sig (Normalized) Sig (Original) apixaban 5 mg oral tablet (9 sources) Factor Xa Inhibitor Start: 02-17-2023 take 1 tablet by mouth twice daily apixaban (ELIQUIS) 5 mg tab(s) Take 5 mg by mouth twice daily. 0 02/17/2023 Active Problems Active Problems Problem Classification Problem Date Documented Date Episodic/Chronic Cardiac dysrhythmias (14 sources) Atrial fibrillation with rapid ventricular response; Translations: [Unspecified atrial fibrillation] Onset: 02-17-2023 02-18-2023 Chronic Cardiac dysrhythmias (1 source) Tachycardia; Translations: [Tachycardia, unspecified] 02-17-2023 Episodic Coagulation and hemorrhagic disorders (17 sources) Platelet count below reference range; Translations: [Thrombocytopenia, unspecified] Onset: 02-22-2018 02-22-2018 Chronic Congestive heart failure; nonhypertensive (2 sources) Congestive heart failure; Translations: [Heart failure, unspecified] Onset: 06-30-2023 02-17-2023 Chronic Deficiency and other anemia (1 source) Anemia; Translations: [Anemia, unspecified] 05-17-2023 Episodic Diabetes mellitus without complication (3 sources) Disorder of glucose metabolism; Translations: [Other abnormal glucose] Onset: 04-26-2023 04-23-2023 Episodic Esophageal disorders (18 sources) Gastroesophageal reflux disease; Translations: [Gastro-esophageal reflux disease without esophagitis] 10-11-2006 Chronic Essential hypertension (18 sources) Hypertensive disorder; Translations: [Essential (primary) hypertension] Onset: 02-23-2019 10-09-2020 Chronic Fluid and electrolyte disorders (1 source) Hypokalemia; Translations: [Hypokalemia] Onset: 06-30-2023 06-30-2023 Episodic Malaise and fatigue (1 source) Physical deconditioning; Translations: [Other malaise] Onset: 06-30-2023 06-30-2023 Episodic Open wounds of extremities (1 source) Open wound of left forearm; Translations: [Unspecified open wound of left forearm, initial encounter] Onset: 06-30-2023 06-30-2023 Episodic Other aftercare (1 source) Patient encounter status; Translations: [Other terminal makeup operator (current) drug therapy] Episodic Other lower respiratory [...] [Dyspnea, unspecified type] Onset: 05-11-2023 Episodic Other lower respiratory disease (1 source) Hypoxia; Translations: [Hypoxemia] Onset: 06-30-2023 06-30-2023 Episodic Other nutritional; endocrine; and metabolic disorders (16 sources) Obese class I; Translations: [Obesity, unspecified] [...] 09-24-2022 Episodic Other and unspecified benign neoplasm (15 sources) History of polyp of colon; Translations: [Personal history of colonic polyps] Onset: 07-16-2016 07-16-2016 Episodic Other non-epithelial cancer of skin (15 sources) History of malignant neoplasm of skin; Translations: [Personal history of other malignant neoplasm of skin] Onset: 02-22-2018 02-22-2018 Episodic Results Test Name Value Interpretation Reference Range Facil ity Vital Signs Date Time Vital Sign Value Performing Clinician Arden rowan 05-11-2023 08:08-0500 Body height 170.3 cm Pulm Wstr Work Phone: [facility] 05-11-2023 08:08-0500 Body weight 93.44 kg Pulm Wstr Work Phone: [facility] 05-11-2023 08:08-0500 Diastolic blood pressure 76 mm[Hg] Qian Chery MD Work Phone: [facility] 05-11-2023 08:08-0500 Heart rate 120 /min Pulm Wstr Work Phone: [facility] 05-11-2023 08:08-0500 Respiratory rate 16 /min Pulm Wstr Work Phone: [facility] 05-11-2023 08:08-0500 SaO2% (BldA) [Mass fraction] 97 % Pulm Wstr Work Phone: [facility] 05-11-2023 08:08-0500 Systolic blood pressure 118 mm[Hg] Qian Chery MD Work Phone: [facility] 04-23-2023 13:53-0400 Body height 170.2 cm Kasey Older COPIER REPAIR TECHNICIAN.CHEMICAL MIXER Work Phone: [facility] 04-23-2023 13:53-0400 Body weight 94.35 kg Kasey Older COPIER REPAIR TECHNICIAN.CHEMICAL MIXER Work Phone: [facility] 04-23-2023 13:53-0400 Diastolic blood pressure 92 mm[Hg] Kasey Older COPIER REPAIR TECHNICIAN.CHEMICAL MIXER Work Phone: [facility] 04-23-2023 13:53-0400 Heart rate 156 /min Kasey Older COPIER REPAIR TECHNICIAN.CHEMICAL MIXER Work Phone: [facility] 04-23-2023 13:53-0400 Respiratory rate 20 /min Kasey Older COPIER REPAIR TECHNICIAN.CHEMICAL MIXER Work Phone: [facility] 04-23-2023 13:53-0400 Systolic blood pressure 119 mm[Hg] Kasey Older COPIER REPAIR TECHNICIAN.CHEMICAL MIXER Work Phone: [facility] 02-24-2023 10:36-0400 Body weight 93.44 kg Kasey Older COPIER REPAIR TECHNICIAN.CHEMICAL MIXER Work Phone: [facility] 02-24-2023 10:36-0400 Diastolic blood pressure 98 mm[Hg] Kasey Older COPIER REPAIR TECHNICIAN.CHEMICAL MIXER Work Phone: [facility] 02-24-2023 10:36-0400 Heart rate 147 /min Kasey Older COPIER REPAIR TECHNICIAN.CHEMICAL MIXER Work Phone: [facility] 02-24-2023 10:36-0400 Respiratory rate 24 /min Kasey Older COPIER REPAIR TECHNICIAN.CHEMICAL MIXER Work Phone: [facility] 02-24-2023 10:36-0400 SaO2% (BldA) [Mass fraction] 96 % Kasey Older COPIER REPAIR TECHNICIAN.CHEMICAL MIXER Work Phone: [facility] 02-24-2023 10:36-0400 Systolic blood pressure 144 mm[Hg] Kasey Older COPIER REPAIR TECHNICIAN.CHEMICAL MIXER Work Phone: [facility] 02-17-2023 11:25-0400 Body weight 92.53 kg Jeffrey Betts MD Work Phone: [facility] 02-17-2023 11:25-0400 Diastolic blood pressure 84 mm[Hg] Jeffrey Betts MD Work Phone: [facility] 02-17-2023 11:25-0400 Heart rate 140 /min Jeffrey Betts MD Work Phone: [facility] 02-17-2023 11:25-0400 Respiratory rate 20 /min Jeffrey Betts MD Work Phone: [facility] 02-17-2023 11:25-0400 SaO2% (BldA) [Mass fraction] 96 % Jeffrey Betts MD Work Phone: [facility] 02-17-2023 11:25-0400 Systolic blood pressure 130 mm[Hg] Jeffrey Betts MD Work Phone: [facility] 09-24-2022 10:56-0400 Diastolic blood pressure 77 mm[Hg] Jeffrey Betts MD Work Phone: [facility] 09-24-2022 10:56-0400 Heart rate 75 /min Jeffrey Betts MD Work Phone: [facility] 09-24-2022 10:56-0400 Systolic blood pressure 125 mm[Hg] Jeffrey Betts MD Work Phone: [facility] 09-24-2022 10:52-0400 Body temperature 97.81 [degF] Jeffrey Betts MD Work Phone: [facility] 09-24-2022 10:52-0400 Body weight 91.63 kg Jeffrey Betts MD Work Phone: [facility] 09-24-2022 10:52-0400 Respiratory rate 20 /min Jeffrey Betts MD Work Phone: [facility] 09-24-2022 10:52-0400 SaO2% (BldA) [Mass fraction] 98 % Jeffrey Betts MD Work Phone: [facility] 01-23-2022 11:52-0400 Diastolic blood pressure 77 mm[Hg] Kasey Older COPIER REPAIR TECHNICIAN.CHEMICAL MIXER Work Phone: [facility] 01-23-2022 11:52-0400 Systolic blood pressure 143 mm[Hg] Kasey Older COPIER REPAIR TECHNICIAN.CHEMICAL MIXER Work Phone: [facility] 01-23-2022 11:15-0400 Body weight 91.17 kg Kasey Older COPIER REPAIR TECHNICIAN.CHEMICAL MIXER Work Phone: [facility] 01-23-2022 11:15-0400 Heart rate 90 /min Kasey Older COPIER REPAIR TECHNICIAN.CHEMICAL MIXER Work Phone: [facility] 01-23-2022 11:15-0400 Respiratory rate 18 /min Kasey Older COPIER REPAIR TECHNICIAN.CHEMICAL MIXER Work Phone: [facility] Encounters Encounter Date Encounter Type Care Provider Facility Start: 07-27-2023 ambulatory Qian Chery MD Work Phone: Pulmonary Medicine Procedures Date Procedure Procedure Detail Performing Clinician Start: 05-11-2023 Brncdilat rspse spmt ry pre&post-brncdilat admn Jeffrey Betts MD Work Phone: Plan of Treatment Date Care Activity Detail Author Start: 02-23-2028 Urine microalbumin profile [facility] Start: 04-26-2026 Diabetes Screening Diabetes Screenin g [facility] Start: 09-20-2023 End: 12-20-2023 Comprehensive metabolic 2000 panel - Serum or Plasma COMP METABOLIC PANEL Lab Routine Elevated LFTs Expected: 09/20/2023 (Approximate), Expires: 12/20/2023 [facility] Work Phone: Immunizations Immunization Date Immunization Notes Care Provider Fa gail 05-04-2022 influenza, high dose seasonal, preservative-free Jeffrey Betts MD Work Phone: [facility] Work Phone: 05-04-2022 influenza virus vacc ine, unspecified formulation Kasey Older COPIER REPAIR TECHNICIAN.CHEMICAL MIXER Work Phone: [facility] 04-08-2020 influenza, high-dose , quadrivalent vaccine (FLUZONE HIGH DOSE QUADRIVALENT) Jeffrey Betts MD Work Phone: [facility] Work Phone: 04-06-2019 influenza, high dose seasonal, preservative-free Jeffrey Betts MD Work Phone: [facility] Work Phone: 02-23-2019 zoster vaccine recombinant Jeffrey Betts MD Work Phone: [facility] Work Phone: 03-16-2018 influenza virus vacc ine, unspecified formulation Jeffrey Betts MD Work Phone: [facility] Work Phone: 02-22-2018 tetanus toxoid, redu quyen diphtheria toxoid, and acellular pertussis vaccine, adsorbed Jeffrey Betts MD Work Phone: [facility] Work Phone: 04-18-2017 influenza, high dose seasonal, preservative-free Jeffrey Betts MD Work Phone: [facility] 2016 influenza, high dose seasonal, preservative-free Jeffrey Betts MD Work Phone: [facility] Work Phone: 05-25-2015 influenza, seasonal, injectable Jeffrey Betts MD Work Phone: [facility] 06-27-2014 pneumococcal conjuga te vaccine, 13 valent Jeffrey Betts MD Work Phone: [facility] Work Phone: 03-29-2014 influenza, seasonal, injectable Jeffrey Betts MD Work Phone: [facility] Work Phone: 04-12-2013 influenza virus vacc ine, unspecified formulation Jeffrey Betts MD Work Phone: [facility] 05-18-2012 influenza virus vacc ine, unspecified formulation Jeffrey Betts MD Work Phone: [facility] 04-16-2011 influenza virus vacc ine, unspecified formulation Jeffrey Betts MD Work Phone: [facility] 04-16-2011 pneumococcal polysaccharide vaccine, 23 valent Jeffrey Betts MD Work Phone: [facility] 04-09-2010 influenza virus vacc ine, unspecified formulation Jeffrey Betts MD Work Phone: [facility] Work Phone: 04-09-2009 influenza virus vacc ine, unspecified formulation Jeffrey Betts MD Work Phone: [facility] 10-26-2008 zoster vaccine, live Jeffrey Betts MD Work Phone: [facility] Work Phone: 04-05-2008 influenza virus vacc ine, unspecified formulation Jeffrey Betts MD Work Phone: [facility] Work Phone: 10-21-2007 diphtheria and tetan us toxoids, adsorbed for pediatric use Jeffrey Betts MD Work Phone: [facility] Work Phone: 04-20-2007 influenza virus vacc ine, unspecified formulation Jeffrey Betts MD Work Phone: [facility] Work Phone: 04-26-2006 influenza virus vacc ine, unspecified formulation Jeffrey Betts MD Work Phone: [facility] 04-15-2005 influenza virus vacc ine, unspecified formulation Jeffrey Betts MD Work Phone: [facility] Work Phone: 05-05-1996 pneumococcal polysaccharide vaccine, 23 valent Jeffrey Betts MD Work Phone: [facility] Work Phone: Payers Date Payer Category Payer Medicare [employer] [place] [id number] 2022-Present [phone] [address] [place] [address] O [id number] 2022 Medicare [id number] 2015 Unknown ANTHEM BLUE CROS S AND BLUE SHIELD ANTHEM MEDIBLUE ACCESS [id number] 2015-Present [phone] [address] [place] [id number] PPO [id number] 2015 Unknown ANTHEM BLUE CROS S AND BLUE SHIELD ANTHEM MEDIBLUE ACCESS [id number] 2015-Present [phone] [address] [place] [address] PPO [id number] Social History Date Type Detail Facility Start: 02-18-2017 End: 02-17-2023 Tobacco smoking status NHIS Ex-smoker [facility] End: 07-26-1982 History of tobacco use Current smoker [facility] End: 07-26-1982 History of tobacco use Cigar Smoker [facility] History of tobacco use Chews Tobacco [facility] Start: 10-09-2020 End: 06-30-2023 Alcohol intake Current non-drinker of alcohol (finding) [facility] Start: 12-07-2019 End: 01-20-2022 History SDOH Alcohol Frequency 3 [facility] Start: 12-07-2019 End: 01-20-2022 History SDOH Alcohol Std Drinks 1 [facility] Start: 12-07-2019 End: 01-20-2022 History SDOH Social Connections Phone 2 [facility] Start: 12-07-2019 End: 01-20-2022 History SDOH Social Connections Get Together 98 [facility] Start: 12-07-2019 End: 01-20-2022 History SDOH Social Connections Living 7 [facility] Start: 12-07-2019 History SDOH Physica l Activity MPS 6 [facility] Start: 12-07-2019 End: 01-20-2022 History SDOH Financial 5 [facility] Start: 12-06-2019 Education 21 [facility] Start: 1935 Sex Assigned At Not on file [facility] Start: 01-20-2022 History SDOH Alcohol Frequency 4 [facility] Start: 02-18-2017 End: 02-17-2023 Tobacco use and exposure Smokeless tobacco non-user [facility] Work Phone: Start: 01-20-2022 End: 02-24-2023 History of Social function [facility] Start: 01-20-2022 End: 02-24-2023 Social connection and isolation panel [facility] Do you belong to any clubs or organizations such as christian groups, unions, fraternal or athletic groups, or school groups? No [facility] How often do you att end meetings of the clubs or organizations you belong to? Patient refused [facility] Are you now , , , , never or living with a partner? Never [facility] How often to you hav e a drink containing alcohol? 2-3 time sa week [facility] How many standard dr inks containing alcohol do you have on a typical day? 1 or 2 [facility] How often do you hav e 6 or more drinks on 1 occasion? Never [facility] Do you feel stress - tense, restless, nervous, or anxious, or unable to sleep at night because your mind is troubled all the time - these days [OSQ] Not at all [facility] (I/We) worried wheth er (my/our) food would run out before (I/we) got money to buy more. Never true [facility] Clinical Notes 11-19-2016 to 07-27-2023 Telephone Encounter - Maggie Garzon LPN - 07/27/2023 2:35 PM Ingrid Byers RPFT - 05/11/2023 8:00 AM Qian Roberson MD - 05/11/2023 8:00 AM ESTPatient Instructions Note Date & Type Note Facility 07-27-2023 Miscellaneous Notes Spoke with patient and niece. Sx are suspicious for CHF exacerbation, as patient was recently treated at [facility] and discharged in early June. Niece states they attempted to contact [facility] and were unable to speak with nursing staff so they sent a message to our office. Called Missy at [facility] and information given- they will contact the patient to further triage. Maggie Garzon LPN documented in this encounter [facility] 06-30-2023 Note HNO ID: [id number] Author: JEFFREY BETTS MD Service: ? Author Type: Physician Type: Progress Notes Filed: 06/30/2023 12:58 Note Text: This note was created using [employer]. Subjective Patient presents with: Transition Of Care Transitional Care Management Progress Note The patients TCM visit was performed within the 7 days of discharge. Patient's Date of discharge: 06/26/2023 Date of initial coordinator contact after discharge: 06/28/2023 Discharge diagnosis: weakness, gait dysfunction, hypokalemia, atrial fibrillation, CHF. Medication review completed Yes In follow-up of hospitalization, Michel Rowell is a 88 year old male with the chief complaint of transition of care. I have reviewed the patient?s last hospital course including diagnostic testing performed during this hospitalization, their discharge medications, and my assessment and plan with the patient and any family members present at today?s visit. Michel was admitted 06/24-06/28/23 with weakness, CHF, hypoxia, atrial fibrillation, edema, hypokalemia. He was better after IV diuresis. His CCB was discontinued and furosemide increased. He declined to go to a SNF, and was scheduled for outpatient PT at [facility]. He will see Dr. Cooper, his office helper, in 2 days. His sister was dressing a wound of his left forearm from a fall before he was admitted. There was discussion about home oxygen, but apparently he was not discharged on home oxygen. Review of Systems Constitutional: Negative for chills, diaphoresis, fever and unexpected weight change. HENT: Negative. Respiratory: Positive for shortness of breath. Negative for cough and wheezing. Cardiovascular: Positive for leg swelling. Negative for chest pain and palpitations. Gastrointestinal: Negative for diarrhea, nausea and vomiting. Genitourinary: Negative for difficulty urinating and dysuria. Musculoskeletal: Positive for gait problem. Skin: Positive for wound. Neurological: Negative for dizziness and headaches. 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 potassium chloride ER (KLOR-CON) 20 mEq tablet Take 20 mEq by mouth two times a day. omeprazole (PRILOSEC) 20 mg capsule Take 1 capsule by mouth once daily as needed (acid reflux). 1/2 hr before meal. apixaban (ELIQUIS) 5 mg tab(s) Take 5 mg by mouth twice daily. vitamin b complex capsule Take 1 [...] Take 1 capsule by mouth once daily. Qeosysemfchni-Feblyuzr-Prxuzg (CENTRUM SILVER) ORAL Tab Take one(1) tablet daily. metoprolol succinate ER (TOPROL XL) 50 mg 24 hr tablet Take 1 tablet by mouth once daily. Dr. Cooper[facility] No current facility-administered medications for this visit. Objective BP 116/78 (BP Site: Left Arm, BP Position: Sitting, BP Cuff Size: Large Adult) Pulse 96 Temp 36.8 ?C (98.2 ?F) Resp 28 Wt 97 kg (213 lb 14.4 oz) SpO2 92% BMI 33.45 kg/m? Physical Exam Constitutional: General: He is not in acute distress. Appearance: He is not diaphoretic. HENT: Head: Atraumatic. Eyes: Extraocular Movements: Extraocular movements intact. Conjunctiva/sclera: Conjunctivae normal. Cardiovascular: Rate and Rhythm: Normal rate. Rhythm irregularly irregular. Heart sounds: S1 normal and S2 normal. No murmur heard. Pulmonary: Effort: No respiratory distress. Breath sounds: Examination of the left-lower field reveals rales. Rales present. Abdominal: General: There is no distension. Palpations: Abdomen is soft. Tenderness: There is no abdominal tenderness. Musculoskeletal: Right lower le+ Edema present. Left lower le+ Edema present. Skin: Comments: 1 inch irregular abrasion/laceration of the left forearm. No cellulitis. Dressing clean. Neurological: General: No focal deficit present. (more content not included)... [facility] 06-28-2023 Note HNO ID: [id number] Author: RANDI GONZALEZ LPN Service: ? Author Type: LICENSED NURSE Type: Progress Notes Filed: 06/28/2023 14:06 Note Text: TRANSITION CARE MANAGEMENT (TCM) INITIAL CONTACT Supervisor Line Department Outreach Provider Action/FYI: Dr. Betts- Review medications Initial contact with patient post discharge, spoke to patient. Patient identified by name and . TRANSITION CARE MANAGEMENT INITIAL OUTREACH DOCUMENTATION: Date of Outreach: 06/28/2023 06/28/2023 Outreach Attempt 1: Contact Made Contact Made Date of Discharge 06/26/2023 06/26/2023 Some recent data might be hidden SUMMARY: -Pt discharged from [facility] on 06/26/23. -Admitted for: SOB, weakness, fluid build-up Do you have a hospital follow up appointment with your PCP? Appointment on 06/30/23 with PCP. Yes. Remind patient of appointment date, time, and location. If not within 14 calendar days of discharge - please reschedule accordingly. MEDICATIONS: Many patients have questions or concerns about their medications once they are home. Were you prescribed any new medications? Yes - Potassium Chloride, Furosemide was increased to 40 mg bid Were you told to hold any medications? No Were any of your medications discontinued? No Do you have any questions about getting or taking your medications? No- Pt reports he put a call into hospital because he was advised to take furosemide 40 mg bid but does not have a rx for it. Your discharge instructions/After visit Summary (AVS) are important in guiding you through the recovery process. Is there anything I might help you understand? No Do you have all the necessary equipment and supplies at home? No- pt put a call into hospital because he does not have rx for furosemide 40 mg bid and he thought he was supposed to take that dose when he went [facility]. Medical records from recent hospitalization: Care Everywhere [facility] 06-28-2023 Note Patient Outreach (LACI MPKIKO) MICHEL ROWELL ([id number]) 1935 M Date Time Provider Department 06/28/23 RANDI GONZALEZ During your visit today, we recorded the following information about you: Randi Gonzalez LPN 06/28/2023 2:06 PM Signed TRANSITION CARE MANAGEMENT (TCM) INITIAL CONTACT Supervisor Line Department Outreach Provider Action/FYI: Dr. Betts- Review medications Initial contact with patient post discharge, spoke to patient. Patient identified by name and . TRANSITION CARE MANAGEMENT INITIAL OUTREACH DOCUMENTATION: Date of Outreach: 06/28/2023 06/28/2023 Outreach Attempt 1: Contact Made Contact Made Date of Discharge 06/26/2023 06/26/2023 Some recent data might be hidden SUMMARY: -Pt discharged from [facility] on 06/26/23. -Admitted for: SOB, weakness, fluid build-up Do you have a hospital follow up appointment with your PCP? Appointment on 06/30/23 with PCP. Yes. Remind patient of appointment date, time, and location. If not within 14 calendar days of discharge - please reschedule accordingly. MEDICATIONS: Many patients have questions or concerns about their medications once they are home. Were you prescribed any new medications? Yes - Potassium Chloride, Furosemide was increased to 40 mg bid Were you told to hold any medications? No Were any of your medications discontinued? No Do you have any questions about getting or taking your medications? No- Pt reports he put a call into hospital because he was advised to take furosemide 40 mg bid but does not have a rx for it. Your discharge instructions/After visit Summary (AVS) are important in guiding you through the recovery process. Is there anything I might help you understand? No Do you have all the necessary equipment and supplies at home? No- pt put a call into hospital because he does not have rx for furosemide 40 mg bid and he thought he was supposed to take that dose when he went [facility]. Medical records from recent hospitalization: Care Everywhere Allergies As of Date: 06/28/2023 (No Known Allergies) Date Reviewed: 06/17/2023 Reviewed by: Kasey Mcdonald, RYAN.CHEMICAL MIXER - Fully Assessed Reason for Visit: Transition Of Care [4074] Prescriptions as of 06/28/2023 - metoprolol succinate ER (TOPROL XL) 50 mg 24 hr tablet - omeprazole (PRILOSEC) 20 mg capsule Take 1 capsule by mouth once daily as needed (acid reflux). 1/2 hr before meal. - apixaban (ELIQUIS) 5 mg tab(s) Take 5 mg by mouth twice daily. - dilTIAZem CD (CARDIZEM CD) 180 mg 24 hr capsule Take 1 capsule by mouth daily at bedtime. - furosemide (LASIX) 20 mg tablet Take 1 tablet by mouth once daily for 7 days. - vitamin b complex capsule Take 1 capsule by mouth once daily. - psyllium husk (DAILY FIBER ORAL) Take 1 tablet by mouth once daily. - flaxseed oil (OMEGA 3 ORAL) Take 520 mg by mouth once daily. - TURMERIC, BULK, MISC Take 500 mg by mouth once daily. - cyanocobalamin (VITAMIN B-12) 1,000 mcg tab Take 1,000 mcg by mouth once daily. - COMPOUNDED PRESCRIPTION Take 1 Drop by mouth once daily. Nascent Iodine - mix 1 drop with water, drink once daily. - Aspirin 81 mg tab Take 1 tablet by mouth once daily. - Cholecalciferol, Vitamin D3, 1,000 unit ORAL Cap Take 1 capsule by mouth once daily. - Dxbnzpvqobsjl-Inikycrm-Picnse (CENTRUM SILVER) ORAL Tab Take one(1) tablet daily. Problem List As Of Date 06/28/2023 Noted Resolved DDD (degenerative disc disease), lumbar [M51.36] 02/18/2017 ESOPHAGEAL REFLUX [K21.9] Mixed hyperlipidemia [E78.2] 07/16/2016 Nocturia [R35.1] 07/16/2016 Anemia, unspecified [D64.9] 06/25/2014 Unspecified erythematous condition [L53.9] 06/29/2008 07/16/2016 EXANTHEM////NONSPECIF SKIN ERUPT NEC [R21] 06/29/2008 07/16/2016 Laceration of thumb [S61.019A] 02/17/2015 07/16/2016 History of colon polyps [Z86.010] 07/16/2016 Pain in joint of right hip [M25.551] 11/19/2016 02/18/2017 Personal history of skin cancer [Z85.828] 02/22/2018 Obesity, Class I, BMI 30-34.9 [E66.9] 02/22/2018 Thrombocytopenia (HCC) [D69.6] 02/22/2018 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 Author Type: Nurse Practitioner Type: Progress Notes Filed: 06/17/2023 2:37 PM Note Text: CC: Patient presents with: genital swelling started 12/24 HPI Michel Rowell is a 88 year old male who [...] Afib, pulmonary hypertension and restrictive lung disease. Firefighter Type One is Dr. Cooper and outsole paraffiner is Dr. Qian Chery. He is currently [...] of skin cancer 2010 left scalp, [facility] Prediabetes Unspecified erythematous condition 06/29/2008 PAST [...] Take 1 capsule by mouth once daily. Epplksuzwvabg-Gqruaofl-Xmbaug (CENTRUM SILVER) ORAL Tab Take one(1) tablet [...] Genitourinary: Penis: Swe (more content not included)... [facility] 05-11-2023 Note HNO ID: [id number] Author: Elisha Us RT(R) Service: ? Author Type: Die Tripper Type: Progress Notes Filed: 05/11/2023 9:00 AM Note Text: Radiology Service Progress Note PATIENT NAME: Michel Rowell DATE OF SERVICE: May 11, 2023 TIME: [...] Us RT(R) May 11, 2023 8:52 AM [facility] 05-11-2023 Note HNO ID: [id number] Author: Ingrid Ramos RPFT Service: ? Author Type: Respiratory Therapist Type: Progress Notes Filed: 05/11/2023 8:02 AM Note Text: PULM FUNCTION SMARTBLOCK: Provider: Jeffrey Betts MD Assisting Tech: Ingrid Ramos RPFT Spirometry w/BD: 1 LV - Box: 1 [facility] 05-11-2023 Note HNO ID: [id number] Author: Qian Chery MD Service: ? Author Type: Physician Type: Progress Notes Filed: 05/11/2023 9:43 AM Note Text: . Respiratory Dillard Note Patient name: Michel Rowell PCP: Jeffrey Betts MD Referring Physician: Same Consultation requested by Dr. Castro for an opinion regarding EDUARDO. My final recommendations will be communicated back to the requesting physician by way of shared Medical record or letter to requesting physician via US mail. CC: Shortness of breath HPI: Michel Rowell 88 year old obese male former remote [...] habitus Labs: Imaging / Diagnostic Studies: Echocardiogram [facility] 02/2023: EF 55%, LAE, RVSP estimated at 52 mmHg CXR [facility] 01/2023: Cardiac enlargement, elevated right hemidiaphragm, [...] of skin cancer 2010 left scalp, [facility] Prediabetes Unspecified erythematous condition 06/29/2008 ALLERGIES [...] Take 1 capsule by mouth once daily. Ezhujqsdrcixd-Yylcfwuv-Rwqxbs (CENTRUM SILVER) ORAL Tab Take one(1) tablet daily. vitamin b complex capsule Take 1 capsule by mouth once daily. Social History Tobacco Use Smoking status: Former Types: Cigars Quit date: 07/26/1982 Years since quittin.8 Smokeless tob (more content not included)... [facility] 05-11-2023 History of Presen t illness Narrative PULM FUNCTION SMARTBLOCK: Provider: Jeffrey Betts MD Assisting Tech: Ingrid Ramos RPFT Spirometry w/BD: 1 LV - Box: 1 documented in this encounter [facility] 05-11-2023 History of Presen t illness Narrative Images from the original note were not included. . Respiratory Dillard Note Patient name: Michel Rowell PCP: Jeffrey Betts MD Referring Physician: Same Consultation requested by Dr. Castro for an opinion regarding EDUARDO. My final recommendations will be communicated back to the requesting physician by way of shared Medical record or letter to requesting physician via US mail. CC: Shortness of breath HPI: Michel Rowell 88 year old obese male former remote [...] habitus Labs: Imaging / Diagnostic Studies: Echocardiogram [facility] 02/2023: EF 55%, LAE, RVSP estimated at 52 mmHg CXR [facility] 01/2023: Cardiac enlargement, elevated right hemidiaphragm, [...] of skin cancer 2010 left scalp, [facility] Prediabetes Unspecified erythematous condition 06/29/2008 ALLERGIES [...] Take 1 capsule by mouth once daily. Dkrzgufddbeyh-Sfihhrwn-Zlosrq (CENTRUM SILVER) ORAL Tab Take one(1) tablet [...] need sniff test Qian Chery MD Respiratory Dillard documented in this encounter [facility] 05-08-2023 Miscellaneous Notes Phoned patient and assisted with transfer to recruiting scheduler to get Pulmonary and other testing [...] advise documented in this encounter [facility] 05-03-2023 Miscellaneous Notes Patient has been identified [...] LPN. documented in this encounter [facility] 04-23-2023 Note HNO ID: [id number] Author: Kasey Ruiz APRN.CHEMICAL MIXER Service: ? Author Type: Nurse Practitioner Type: Progress Notes Filed: 04/23/2023 2:26 PM Note Text: Michel Rowell is a 88 year old male here [...] - General (Internal Medicine) Outside specialists seen: inside finisher- Dr. Ortiz, [facility] Medical/Family history review Reviewed and [...] loss. BMI 32.58 kg/(m2) Kasey Ruiz APRN.CNP [facility] 04-23-2023 Instructions Kasey Ruiz APRN.CNP - 04/23/2023 [...] review all the medicines you take, even grml-jvc-kvmqwow medicines. As you get older, the way [...] conditions. documented in this encounter [facility] 04-23-2023 History of en t illness Narrative Michel Rowell is a 88 year old male here [...] - General (Internal Medicine) Outside specialists seen: inside finisher- Dr. Ortiz, [facility] Medical/Family history review Reviewed and [...] APRN.CNP documented in this encounter [facility] 02-24-2023 Miscellaneous Notes Addended by: KASEY RUIZ on: 02/24/2023 04:09 PM Modules accepted: Orders Addended by: ALMA HIRSCH MA on: 02/24/2023 04:06 PM Modules accepted: Orders documented in this encounter [facility] 02-24-2023 Note HNO ID: [id number] Author: Kasey Ruiz APRN.CNP Service: ? Author Type: Nurse Practitioner Type: Progress Notes Filed: 02/24/2023 11:19 AM Note Text: CC: Patient presents with: ED Follow-up HPI Michel Rowell is a 87 year old male who presents today for above. Patient presented to [facility] ER on 02/17 from this office [...] of skin cancer 2010 left scalp, [facility] Unspecified erythematous condition 06/29/2008 PAST SURGICAL [...] Take 1 capsule by mouth once daily. Nfgcdipzqpdsr-Zgdanoxy-Efuvyl (CENTRUM SILVER) ORAL Tab Take one(1) tablet [...] is alert. DATA REVIEWED: Outside chart from [facility] ER reviewed. ASSESSMENT/PLAN: 1. Atrial fibrillation [...] not have echo (more content not included)... [facility] 02-24-2023 Instructions Kasey Ruiz APRN.CNP - 02/24/2023 11:05 AM EDT Take an extra diltiazem 120 mg capsule when you get home documented in this encounter [facility] 02-24-2023 History of Presen t illness Narrative CC: Patient presents with: ED Follow-up HPI Michel Rowell is a 87 year old male who presents today for above. Patient presented to [facility] ER on 02/17 from this office [...] denies side effects. He is scheduled with [facility] at the end of February, [...] of skin cancer 2010 left scalp, [facility] Unspecified erythematous condition 06/29/2008 PAST SURGICAL [...] Take 1 capsule by mouth once daily. Auczczmokgvdh-Yibabflx-Yrgpel (CENTRUM SILVER) ORAL Tab Take one(1) tablet [...] is alert. DATA REVIEWED: Outside chart from [facility] ER reviewed. ASSESSMENT/PLAN: 1. Atrial fibrillation [...] APRN.CNP documented in this encounter [facility] 02-19-2023 Miscellaneous Notes Pt returned call and appt scheduled as advised. Kristan Christian RN Attempted to contact patient. Home phone rang with no option to leave a message. Mobile # went straight to VM. Unable to reach patient. Left VM to return call to office. Please assist patient with scheduling ER F/U ([facility]-NEW AFIB) in 1 week with PCP/[facility] SHUCKER. Please confirm/document if sister/EC has access to information d/t home # listed is the same as well. Etta Mart MA ----- Message from Jeffrey Betts MD sent at 02/18/2023 1:19 PM EDT ----- Regarding: ER follow up Please schedule ER follow up in 1 week with Kasey or . New atrial fib. documented in this encounter [facility] 02-17-2023 Note HNO ID: [id number] Author: Jeffrey Betts MD Service: ? Author Type: Physician Type: Progress Notes Filed: 02/17/2023 12:42 PM Note Text: This note was created using [employer]. Subjective Patient presents with: Breathing Problem Michel Rowell is a 87 year old male with [...] Take 1 capsule by mouth once daily. Vynvjaohisspq-Mebfxmst-Vhxkwn (CENTRUM SILVER) ORAL Tab Take one(1) tablet [...] follow recommendations. I spoke to Dr. Yin ([facility]) about this patient. Jeffrey Betts MD [facility] 02-17-2023 History of Presen t illness Narrative This note was created using [employer]. Subjective Patient presents with: Breathing Problem Michel Rowell is a 87 year old male with [...] Take 1 capsule by mouth once daily. Mbmcfyjzqcesz-Qnbwmcrp-Kkfdgn (CENTRUM SILVER) ORAL Tab Take one(1) tablet [...] follow recommendations. I spoke to Dr. Yin ([facility]) about this patient. Jeffrey Betts MD documented in this encounter [facility] 02-17-2023 Instructions Jeffrey Betts MD - 02/17/2023 11:51 AM EDT GO TO ER SOON POSSIBLE TODAY. documented in this encounter [facility] 09-24-2022 Note HNO ID: [id number] Author: Jeffrey Betts MD Service: ? Author Type: Physician Type: Progress Notes Filed: 09/24/2022 11:34 AM Note Text: This note was created using [employer]. Subjective Michel Rowell is a 87 year old male who [...] Take 1 capsule by mouth once daily. Rsxdtcsnyodhf-Poyknaln-Waukdo (CENTRUM SILVER) ORAL Tab Take one(1) tablet [...] I10 - good control Jeffrey Betts MD [facility] 09-24-2022 History of Presen t illness Narrative This note was created using [employer]. Subjective Michel Rowell is a 87 year old male who [...] Take 1 capsule by mouth once daily. Hhvahrboiripc-Limxhyyo-Hmuxvm (CENTRUM SILVER) ORAL Tab Take one(1) tablet [...] MD documented in this encounter [facility] 05-08-2022 Miscellaneous Notes Patient has been identified [...] LPN documented in this encounter [facility] 01-23-2022 History of Presen t illness Narrative CC: Patient presents with: Medicare Wellness Exam HPI Michel Rowell is a 86 year old male who [...] of skin cancer 2010 left scalp, [facility] Unspecified erythematous condition 06/29/2008 PAST SURGICAL [...] Take 1 capsule by mouth once daily. Kvvxufnujajaj-Bwxbehhl-Sqlhuy (CENTRUM SILVER) ORAL Tab Take one(1) tablet [...] of skin cancer 2010 left scalp, [facility] Unspecified erythematous condition 06/29/2008 PAST SURGICAL [...] he should. List of current specialists seen: Programming Manager- Dr. Ortiz Methodologist- [facility] Darkroom Technician- [facility] End of Live Planning discussed [...] at this time. - Patient was counseled llwi-ny-emss by myself (the billing provider) for the following immunizations and vaccine components, including side effects: COVID-19. Patient declined - Follow up for annual exam in one year Kasey Ruiz APRN.CNP documented in this encounter [facility] documented as of this encounter (statuses as of 07/28/2023) [facility] History of Past illness Narrative* Problem Noted Date Resolved Date Pain in joint of right hip 11/19/201602/18 Laceration of thumb 02/17/2015 07/16/2016 Unspecified erythematous condition 06/29/2008 07/16/2016 EXANTHEM////NONSPECIF SKIN ERUPT NEC 06/29/2008 07/16/2016 DDD (degenerative disc disease), lumbar 02/18/2017 Mixed hyperlipidemia 07/16/2016 Nocturia 07/16/2016 Anemia, unspecified 06/25/2014 documented as of this encounter (statuses as of 09/26/2021) [facility] History of Past illness Narrative* Problem Noted Date Resolved Date Pain in joint of right hip 11/19/201602/18 Laceration of thumb 02/17/2015 07/16/2016 Unspecified erythematous condition 06/29/2008 07/16/2016 EXANTHEM////NONSPECIF SKIN ERUPT NEC 06/29/2008 07/16/2016 DDD (degenerative disc disease), lumbar 02/18/2017 Mixed hyperlipidemia 07/16/2016 Nocturia 07/16/2016 Anemia, unspecified 06/25/2014 documented as of this encounter (statuses as of 01/23/2022) [facility] History of Past illness Narrative* Problem Noted Date Resolved Date Pain in joint of right hip 11/19/201602/18 Laceration of thumb 02/17/2015 07/16/2016 Unspecified erythematous condition 06/29/2008 07/16/2016 EXANTHEM////NONSPECIF SKIN ERUPT NEC 06/29/2008 07/16/2016 DDD (degenerative disc disease), lumbar 02/18/2017 Mixed hyperlipidemia 07/16/2016 Nocturia 07/16/2016 Anemia, unspecified 06/25/2014 documented as of this encounter (statuses as of 05/08/2022) [facility] History of Past illness Narrative* Problem Noted Date Resolved Date Pain in joint of right hip 11/19/201602/18 Laceration of thumb 02/17/2015 07/16/2016 Unspecified erythematous condition 06/29/2008 07/16/2016 EXANTHEM////NONSPECIF SKIN ERUPT NEC 06/29/2008 07/16/2016 DDD (degenerative disc disease), lumbar 02/18/2017 Mixed hyperlipidemia 07/16/2016 Nocturia 07/16/2016 Anemia, unspecified 06/25/2014 documented as of this encounter (statuses as of 09/24/2022) [facility] History of Past illness Narrative* Problem Noted [...] encounter (statuses as of 02/17/2023) [facility] History of Past illness Narrative* Problem Noted [...] encounter (statuses as of 02/19/2023) [facility] History of Past illness Narrative* Problem Noted [...] encounter (statuses as of 02/24/2023) [facility] History of Past illness Narrative* Problem Noted [...] encounter (statuses as of 04/24/2023) [facility] History of Past illness Narrative* Problem Noted [...] encounter (statuses as of 05/04/2023) [facility] History of Past illness Narrative* Problem Noted [...] encounter (statuses as of 05/08/2023) [facility] History of Past illness Narrative* Problem Noted [...] encounter (statuses as of 05/11/2023) [facility] History of Past illness Narrative* Problem Noted [...] encounter (statuses as of 05/11/2023) [facility] History of Past illness Narrative* Problem Noted [...] encounter (statuses as of 05/12/2023) [facility] History of Past illness Narrative* Problem Noted [...] encounter (statuses as of 05/18/2023) [facility] Diagnosis Medication management Encounter for long-term (current) use of other medications [facility] Diagnosis Medicare annual wellness visit, subsequent- Primary Routine general medical examination at a health care facility White coat syndrome with hypertension Thrombocytopenia (HCC) Thrombocytopenia, unspecified Obesity, Class I, BMI 30-34.9 Obesity, unspecified Gastroesophageal reflux disease without esophagitis Esophageal reflux [facility]* Diagnosis Gastroesophageal reflux disease without esophagitis Esophageal reflux [facility]* Diagnosis Bronchitis- Primary Bronchitis, not specified as acute or chronic White coat syndrome with hypertension [facility]* Diagnosis Congestive heart failure, unspecified HF chronicity, unspecified heart failure type (HCC)- Primary Tachycardia Tachycardia, unspecified [facility]* Diagnosis Atrial fibrillation with rapid ventricular response (HCC)- Primary Atrial fibrillation Bilateral lower extremity edema Edema Shortness of breath [facility]* Diagnosis Medicare annual wellness visit, subsequent- Primary Routine general medical examination at a health care facility Impaired glucose metabolism Impaired glucose tolerance test Elevated LFTs Other abnormal blood chemistry Thrombocytopenia (HCC) Thrombocytopenia, unspecified Atrial fibrillation with rapid ventricular response (HCC) Atrial fibrillation [facility]* Diagnosis Gastroesophageal reflux disease without esophagitis Esophageal reflux [facility]* Diagnosis Dyspnea, unspecified type- Primary [facility]* Diagnosis Dyspnea, unspecified type documented in this encounter [facility]* Diagnosis Restrictive lung disease- Primary Other diseases of lung, not elsewhere classified SOB (shortness of breath) Shortness of breath PAH (pulmonary artery hypertension) (HCC) Other chronic pulmonary heart diseases Atrial fibrillation with RVR (HCC) Atrial fibrillation Elevated diaphragm Disorders of diaphragm documented in this encounter [facility]* Diagnosis SOB (shortness of breath) Shortness of breath documented in this encounter [facility]* Diagnosis Elevated LFTs- Primary Other abnormal blood chemistry Impaired glucose metabolism Impaired glucose tolerance test Anemia, unspecified type documented in this encounter [facility] for referral (narrative)* Outpatient Procedure (Routine) - Closed Specialty Diagnoses / Procedures Referred By Contac t Referred To [facility] Diagnoses Atrial fibrillation with rapid ventricular response (HCC) Procedures ECG COMPLETE ECG ROUTINE ECG W/LEAST 12 LDS W/I&R Older, Kasey, COPIER REPAIR TECHNICIAN.CHEMICAL MIXER [address] [place] [address] [facility] [address] [place] [id number] Referral ID Status Reason Start Date Expiration Date V isits Requested Visits Authorized [id number] Closed Auto-Generate d Referral 02/24/2023 02/24/2024 1 1 [facility] Outpatient Procedure (Routine) - Pending Review Specialty Diagnoses / Procedures Referred By Contac t Referred To Contact [facility] Diagnoses Dyspnea, unspecified type Procedures LUNG VOLUMES Jeffrey Betts MD [address] [place] [address] [address] Referral ID Status Reason Start Date Expiration Date Visits Requested Visits Authorized [id number] Pending Review Auto-Generat ed Referral 3 06/05/2024 1 1 * Outpatient Procedure (Routine) - Pending Review Specialty Diagnoses / Procedures Referred By Contac t Referred To Contact [facility] Diagnoses Dyspnea, unspecified type Procedures SPIROMETRY - BASELINE AND POST DILATOR BRNCDILAT RSPSE SPMTRY PRE&POST-BRNCDILAT ADMN Jeffrey Betts MD [address] [place] [address] [address] Referral ID Status Reason Start Date Expiration Date Visits Requested Visits Authorized [id number] Pending Review Auto-Generat ed Referral 3 06/05/2024 1 1 [facility] Advance Directives Documents on File Type Date Recorded Patient Supervisor Line Department Expl anation Advance Directive(s) 06/28/2012 4:54 PM Documents on File Type Date Recorded Patient Supervisor Line Department Expl anation Advance Directive(s) 06/28/2012 4:54 PM [...] any alcohol or drug abuse patient.[facility] RehabilitationIn the event this information is protected by the Federal Confidentiality of Alcohol and Drug Abuse Patient Records regulations: The Federal rules restrict any use of the information to criminally investigate or prosecute any alcohol or drug abuse patient.[facility] RehabilitationIn the event this information is protected by the Federal Confidentiality of Alcohol and Drug Abuse Patient Records regulations: The Federal rules restrict any use of the information to criminally investigate or prosecute any alcohol or drug abuse patient.[facility] RehabilitationIn the event this information is protected by the Federal Confidentiality of Alcohol and Drug Abuse Patient Records regulations: The Federal rules restrict any use of the information to criminally investigate or prosecute any alcohol or drug abuse patient.[facility] RehabilitationIn the event this information is protected by the Federal Confidentiality of Alcohol and Drug Abuse Patient Records regulations: The Federal rules restrict any use of the information to criminally investigate or prosecute any alcohol or drug abuse patient.[facility] Rehabilitation[facility] the event this information is protected by the Federal Confidentiality of Alcohol and Drug Abuse Patient Records regulations: The Federal rules restrict any use of the information to criminally investigate or prosecute any alcohol or drug abuse patient.[facility] RehabilitationIn the event this information is protected by the Federal Confidentiality of Alcohol and Drug Abuse Patient Records regulations: The Federal rules restrict any use of the information to criminally investigate or prosecute any alcohol or drug abuse patient.[facility] RehabilitationIn the event this information is protected by the Federal Confidentiality of Alcohol and Drug Abuse Patient Records regulations: The Federal rules restrict any use of the information to criminally investigate or prosecute any alcohol or drug abuse patient.[facility] RehabilitationIn the event this information is protected by the Federal Confidentiality of Alcohol and Drug Abuse Patient Records regulations: The Federal rules restrict any use of the information to criminally investigate or prosecute any alcohol or drug abuse patient.[facility] RehabilitationIn the event this information is protected by the Federal Confidentiality of Alcohol and Drug Abuse Patient Records regulations: The Federal rules restrict any use of the information to criminally investigate or prosecute any alcohol or drug abuse patient.[facility] RehabilitationIn the event this information is protected by the Federal Confidentiality of Alcohol and Drug Abuse Patient Records regulations: The Federal rules restrict any use of the information to criminally investigate or prosecute any alcohol or drug abuse patient.[facility] RehabilitationIn the event this information is protected by the Federal Confidentiality of Alcohol and Drug Abuse Patient Records regulations: The Federal rules restrict any use of the information to criminally investigate or prosecute any alcohol or drug abuse patient.[facility] RehabilitationIn the event this information is protected by the Federal Confidentiality of Alcohol and Drug Abuse Patient Records regulations: The Federal rules restrict any use of the information to criminally investigate or prosecute any alcohol or drug abuse patient.[facility] RehabilitationIn the event this information is protected by the Federal Confidentiality of Alcohol and Drug Abuse Patient Records regulations: The Federal rules restrict any use of the information to criminally investigate or prosecute any alcohol or drug abuse patient.[facility] RehabilitationIn the event this information is protected by the Federal Confidentiality of Alcohol and Drug Abuse Patient Records regulations: The Federal rules restrict any use of the information to criminally investigate or prosecute any alcohol or drug abuse patient.[facility] Care Teams (unrecognized sec tion and content) Head Operator Relationship Specialty Start Date End Date Jeffrey Betts MD [address] [facility] [place] [address] PCP - General Internal Medicine 02/18/17 Head Operator Relationship Specialty Start Date End Date Jeffrey Betts MD [address] [facility] [place] [address] PCP - General Internal Medicine 02/18/17 Head Operator Relationship Specialty Start Date End Date Jeffrey Betts MD [address] [facility] [place] [address] PCP - General Internal Medicine 02/18/17 Head Operator Relationship Specialty Start Date End Date Jeffrey Betts MD [address] [facility] [place] [address] PCP - General Internal Medicine 02/18/17 Head Operator Relationship Specialty Start Date End Date Jeffrey Betts MD [address] [facility] [place] [address] PCP - General Internal Medicine 02/18/17 Head Operator Relationship Specialty Start Date End Date Jeffrey Betts MD [address] [facility] [address] PCP - General Internal Medicine 02/18/17 Head Operator Relationship Specialty Start Date End Date Jeffrey Betts MD [address] [facility] [address] PCP - General Internal Medicine 02/18/17 Head Operator Relationship Specialty Start Date End Date Jeffrey Betts MD [address] [facility] [address] PCP - General Internal Medicine 02/18/17 Head Operator Relationship Specialty Start Date End Date Jeffrey Betts MD [address] [place], [place] [id number] PCP - General Internal Medicine 02/18/17 Head Operator Relationship Specialty Start Date End Date Jeffrey Betts MD [address] [place], [place] [address] PCP - General Internal Medicine 02/18/17 Head Operator Relationship Specialty Start Date End Date Jeffrey Betts MD [address] [place], [place] [id number] PCP - General Internal Medicine 02/18/17 Head Operator Relationship Specialty Start Date End Date Jeffrey Betts MD [address] [place], [place] [address] PCP - General Internal Medicine 02/18/17 Reason for Visit (unrecogniz ed section and content) Reason Onset Date Comments Refill Request 05/08/2022 Reason Comments Cough Reason Comments Breathing Problem Reason Comments Appointment Reason Comments ED Follow-up Reason Onset Date Comments Refill Request 05/03/2023 Reason Comments Consult Reason Comments Spirometry Specialty Diagnoses / Procedures Referred By Contac t Referred To Contact [facility] Diagnoses Dyspnea, unspecified type Procedures SPIROMETRY - BASELINE AND POST DILATOR BRNCDILAT RSPSE SPMTRY PRE&POST-BRNCDILAT ADMN Jeffrey Betts MD [address] [place] [address] [facility] [address] [place] [address] Referral ID Status Reason Start Date Expiration Date V isits Requested Visits Authorized [id number] Closed Auto-Generate d Referral 05/07/2023 06/05/2024 1 [...] BE BASED ON THE PRIMARY CLINICAL RECORDS. [facility] provides no warranty or guarantee of the accuracy or completeness of information in this document.
[2023-08-03 21:11] VITALS: BP 122/88; PULSE 108; RESP 24; O2SAT 94
[2023-08-03 21:55] VITALS: BP 131/98; PULSE 103; RESP 21; TEMP 37.2; O2SAT 93
--- NOTE | 2023-08-03 23:16 | PCM.HP.STD ---
[facility] - General General Date of Admission: 08/03/23 Date of Service: 08/03/23 Chief Complaint: SOB and 16 pound weight gain. HPI Narrative TRINH ROWELL, is a 88 M with a past medical history of essential hypertension, paroxysmal atrial fibrillation; on Eliquis, obesity; with BMI of 35.2 this admission, remote history of tobacco abuse; with subsequent COPD, history of benign neoplasm of colon, lumbar DDD, idiopathic peripheral neuropathy, chronic anemia, history of renal calculi, GERD and history of chronic diastolic CHF; with preserved LVEF with admission here for AE CHF about one month ago with physical deconditioning who presents to [facility] ER complaining of SOB and 16 pound weight gain. Mr. Rowell reports his symptoms began approximately three weeks prior to admission with the gradual-onset of fluid retention with weight gain causing him to feel more edema in his upper legs up into his abdomen. He also admits to EDUARDO that progressed to SOB at rest after he gained ~4 more pounds in the past week in spite of being on Lasix 40 mg PO BID. He denies associated fever, chills, cough or chest pain and he stated he recently saw his chemist water purification who prescribed spironolactone - and he has just gotten the prescription filled but he has not take it yet. In the ER he was diagnosed with AE of Chronic CHF; confirmed with CXR positive for pulmonary vascular congestion with an elevated BNP of 251 pg/mL present on admission complicated by clinical evidence of acute hypoxic respiratory insufficiency evidenced when his oxygen saturations dropped to ~86% on RA with minimal activity and he was then admitted to the PCU for ongoing care for a stay that is expected to be greater than 48 hours. [facility] Medical History Abnormal EKG Anemia Atrial fibrillation with RVR Atrial fibrillation, new onset Benign neoplasm of colon Bilateral lower extremity edema DDD (degenerative disc disease), lumbar Hx of gastroesophageal reflux (GERD) Hyperlipidemia Idiopathic peripheral neuropathy Internal hemorrhoids without complication Kidney stone Longstanding persistent atrial fibrillation Nocturia Obesity (BMI 30.0-34.9) Skin cancer of scalp Thrombocytopenia White coat syndrome with hypertension Home Medications cholecalciferol (vitamin D3) 25 mcg (1,000 unit) capsule 25 mcg PO DAILY vitamin 03/12/23 [History Last Taken Unknown] gyurmvkyugmp-ucdmwvqp-cxnkua tablet 1 tab PO DAILY vitamin 03/12/23 [History Last Taken Unknown] psyllium husk 0.4 gram capsule (Fiber (psyllium husk)) 0.4 g PO DAILY fiber 03/12/23 [History Last Taken Unknown] cyanocobalamin (vitamin B-12) 1,000 mcg tablet 1,000 mcg PO DAILY vitamin 03/24/23 [History Last Taken Unknown] omeprazole 20 mg capsule,delayed release 20 mg PO .every other day PRN acid reflux 03/24/23 [History Last Taken Unknown] apixaban 5 mg tablet (Eliquis) 5 mg PO BID blood thinner 06/22/23 [History Last Taken Unknown] metoprolol tartrate 25 mg tablet 25 mg PO BID #180 tabs 07/02/23 [Rx Last Taken Unknown] furosemide 40 mg tablet (Lasix) 40 mg PO .COMPLEX #180 tabs 07/29/23 [Rx Last Taken Unknown] potassium chloride 20 mEq tablet,extended release(part/cryst) 20 meq PO BID #180 tabs 07/29/23 [Rx Last Taken Unknown] Allergy/AdvReac Type Severity Reaction Status Date / Time No Known Allergies Allergy Verified 08/03/23 16:36 Family History Father Cancer lung Mother Colon cancer Surgical History History of appendectomy History of colonoscopy History of inguinal hernia repair History of laparotomy Social History Smoking Status: Former smoker how long ago did patient quit smokin years alcohol intake: never substance use type: does not use ROS ROS Narrative Review of systems: Constitutional: Patient denies fever or chills. Eyes: Patient denies visual changes or discharge from eyes. ENT: Patient denies sore throat, runny nose or ear pain. CV: Patient admits to LE edema extending up into his abdomen but he denies related chest pain or palpitations. Lungs: Positive EDUARDO. GI: Patient denies abdominal pain, nausea or vomiting. Ext: Patient admits to 2+ LE edema. Allergy: Patient denies lip swelling, tongue swelling or urticaria. Hematology: Patient denies easy bleeding or easy bruisability. Psych: Patient denies uncontrolled depression or anxiety. !4 point ROS otherwise negative except for positives noted above in HPI. Vital Signs Vital Signs Vital Signs: 08/03/23 16:31 08/03/23 17:22 08/03/23 17:24 Temperature 97.8 F Temperature Source Temporal Pulse Rate 88 102 H Respiratory Rate 16 21 H Respiratory Effort Blood Pressure 112/93 H 108/89 H Blood Pressure Mean 99 95 Pulse Ox 98 92 94 Oxygen Delivery Method Room Air Room Air Room Air 08/03/23 17:26 08/03/23 21:11 08/03/23 21:55 Temperature 98.9 F Temperature Source Pulse Rate 108 H 103 H Respiratory Rate 24 H 21 H Respiratory Effort Short of Breath Blood Pressure 122/88 H 131/98 H Blood Pressure Mean 99 109 Pulse Ox 94 93 Oxygen Delivery Method Room Air Room Air Weight Weight: 224 lb 6.889 oz Body Mass Index (BMI) 35.1 Physical Exam Const alert, oriented x3, no apparent distress, average body habitus and healthy appearing General Appearance: cooperative HEENT normocephalic, head/scalp atraumatic, hearing grossly normal bilaterally and moist oral mucous membranes Eyes PERRL, EOMs intact bilaterally and conjunctivae normal Neck no lymphadenopathy and supple Resp normal respiratory effort, no retractions and no use of accessory muscles Cardio regular rate and regular rhythm GI normal to inspection, nondistended, normoactive bowel sounds, soft to palpation, non-tender and non-distended Extremity Extremity Narrative: 2+ bilateral LE edema. Skin Skin Narrative: Patient has no evidence of rash or abscess. Neuro oriented x3, CN's II-XII intact bilaterally, moves all extremities and no focal motor deficits Sensorium / Orientation: awake, alert, oriented to person, oriented to place and oriented to time Speech: speech normal Motor Exam: strength 5/5 throughout Psych affect normal Results Medical Records Data Attestation: I reviewed the patient's medical records Lab / Micro Data Attestation: I reviewed the patient's lab results. 08/03/23 17:30 08/03/23 17:30 Labs: Laboratory Results - last 24 hr 08/03/23 17:30: WBC 8.6, RBC 5.01, Hgb 13.3, Hct 41.7, MCV 83.2, MCH 26.5 L, MCHC 31.9 L, RDW Std Deviation 48.5 H, RDW Coeff of Joy 16.3 H, Plt Count 219, MPV 10.5, Immature Gran % (Auto) 0.200, Neut % (Auto) 71.9 H, Lymph % (Auto) 12.7 L, Mills % (Auto) 12.3 H, Eos % (Auto) 2.2, Baso % (Auto) 0.7, Absolute Neuts (auto) 6.2, Absolute Lymphs (auto) 1.09, Nucleated RBC % 0, Sodium 136, Potassium 3.9, Chloride 100, Carbon Dioxide 31.0, Anion Gap 5, BUN 27 H, Creatinine 1.42 H, Estim Creat Clear Calc 40.88, Est GFR (MDRD) Af Amer 61, Est GFR (MDRD) Non-Af 50 L, BUN/Creatinine Ratio 19.0, Glucose 160 H, Calcium 9.0, Troponin I High Sens 17, B-Natriuretic Peptide 251.0 H Micro: Microbiology 08/03/23 17:39 Mucosa - Nose SARS-CoV-2, Influenza & RSV (PCR) - Final Imaging Radiology Impression Chest X-Ray 08/03/23 18:06 IMPRESSION: Stable bibasilar airspace disease and effusion at the right lung base. Electronically Signed: Cem Morel, at 18:28 EST Reading Location ID and State: [id number] [facility] Tel , Service support , Assessment & Plan Assessment/Plan (1) Heart failure: QUALIFIERS: Heart failure type: diastolic Heart failure chronicity: acute on chronic Qualified Code(s): I50.33 - Acute on chronic diastolic (congestive) heart failure (2) Respiratory insufficiency: (3) BLAIR (acute kidney injury): (4) Urinary retention: PLAN: Plan 1. AE of Chronic Diastolic CHF; with preserved LVEF with ~16# weight gain over the past ~3 weeks - Admit to PCU. Continue IV Lasix with supplemental KCl and magnesium. Patient is already feeling better after massive diuresis in the ER. 2. Acute hypoxic respiratory insufficiency due to #1 - Wean supplemental oxygen as tolerated. 3. Mild BLAIR with elevated creatinine of 1.43 mg/dL present on admission likely due to urinary retention from BPH complicating #1 & #2 - Check PSA and start Flomax. 4. Recent admission here for AE CHF about one month ago with physical deconditioning complicating #1 & #2 - Noted. 5. Essential hypertension - Continue home regimen as previous plus give prn IV Hydralazine for systolic blood pressure > 160 mm Hg. 6. Paroxysmal atrial fibrillation; on Eliquis - Resume Eliquis. 7. Obesity; with BMI of 35.2 this admission - Weight loss will be recommended. Check TSH. 8. Remote history of tobacco abuse; with subsequent COPD - 9. History of benign neoplasm of colon - Noted. 10. Lumbar DDD - Stable. 11. Idiopathic peripheral neuropathy - Noted. 12. Chronic anemia - Stable. 13. History of renal calculi - Noted with no evidence of recurrence at this time. 14. GERD - Continue PPI. 15. DVT prophylaxis - Patient is already on Eliquis for #5 which will be continued. Total time: Approximately 55 minutes. Charges/Coding Visit Charges Inpatient E&M: 44986 Init Hosp L2
--- OUTSIDE RECORDS SUMMARY | 2023-08-03 23:47 | XMS RPT_ITS | CCD ---
Author Name Unknown Address [address] [place] [address] [address] [place] [address] Organization [facility] Care Team Providers Care Sample Puller Name Role Phone Jeffrey Betts MD Primary Care Provider [phone] JEFFREY BETTS Primary Care Unavailable KASEY MCDONALD [...] Jeffrey Betts MD Primary Care Provider [phone] Medications Completed/Discontinued Medications Medication Drug Class(es) Dates [...] (1 source) Patient encounter status; Translations: [Other remote computer terminal operator (current) drug therapy] Episodic Other lower [...] cm Pulm Wstr Work Phone: [facility] 05-11-2023 08:08-0500 Body weight 93.44 kg Pulm Wstr Work Phone: [facility] 05-11-2023 08:08-0500 Diastolic blood pressure 76 mm[Hg] Qian Chery MD Work Phone: [facility] 05-11-2023 08:08-0500 Heart rate 120 /min Pulm Wstr Work Phone: [facility] 05-11-2023 08:08-0500 Respiratory rate 16 /min Pulm Wstr Work Phone: [facility] 05-11-2023 08:08-0500 SaO2% (BldA) [Mass fraction] 97 % Pulm Wstr Work Phone: [facility] 05-11-2023 08:08-0500 Systolic blood pressure 118 mm[Hg] Qian Chery MD Work Phone: [facility] 04-23-2023 13:53-0400 Body height 170.2 cm Kasey Older CUT PRESSMAN.HUMAN RESOURCES INTERN Work Phone: [facility] 04-23-2023 13:53-0400 Body weight 94.35 kg Kasey Older CUT PRESSMAN.HUMAN RESOURCES INTERN Work Phone: [facility] 04-23-2023 13:53-0400 Diastolic blood pressure 92 mm[Hg] Kasey Older CUT PRESSMAN.HUMAN RESOURCES INTERN Work Phone: [facility] 04-23-2023 13:53-0400 Heart rate 156 /min Kasey Older CUT PRESSMAN.HUMAN RESOURCES INTERN Work Phone: [facility] 04-23-2023 13:53-0400 Respiratory rate 20 /min Kasey Older CUT PRESSMAN.HUMAN RESOURCES INTERN Work Phone: [facility] 04-23-2023 13:53-0400 Systolic blood pressure 119 mm[Hg] Kasey Older CUT PRESSMAN.HUMAN RESOURCES INTERN Work Phone: [facility] 02-24-2023 10:36-0400 Body weight 93.44 kg Kasey Older CUT PRESSMAN.HUMAN RESOURCES INTERN Work Phone: [facility] 02-24-2023 10:36-0400 Diastolic blood pressure 98 mm[Hg] Kasey Older CUT PRESSMAN.HUMAN RESOURCES INTERN Work Phone: [facility] 02-24-2023 10:36-0400 Heart rate 147 /min Kasey Older CUT PRESSMAN.HUMAN RESOURCES INTERN Work Phone: [facility] 02-24-2023 10:36-0400 Respiratory rate 24 /min Kasey Older CUT PRESSMAN.HUMAN RESOURCES INTERN Work Phone: [facility] 02-24-2023 10:36-0400 SaO2% (BldA) [Mass fraction] 96 % Kasey Older CUT PRESSMAN.HUMAN RESOURCES INTERN Work Phone: [facility] 02-24-2023 10:36-0400 Systolic blood pressure 144 mm[Hg] Kasey Older CUT PRESSMAN.HUMAN RESOURCES INTERN Work Phone: [facility] 02-17-2023 11:25-0400 Body weight 92.53 kg Jeffrey Betts MD Work Phone: [facility] 02-17-2023 11:25-0400 Diastolic blood pressure 84 mm[Hg] Jeffrey Betts MD Work Phone: [facility] 02-17-2023 11:25-0400 Heart rate 140 /min Jeffrey Betts MD Work Phone: [facility] 02-17-2023 11:25-0400 Respiratory rate 20 /min Jeffrey Betts MD Work Phone: [facility] 02-17-2023 11:25-0400 SaO2% (BldA) [Mass fraction] 96 % Jeffrey Betts MD Work Phone: [facility] 02-17-2023 11:25-0400 Systolic blood pressure 130 mm[Hg] Jeffrey Betts MD Work Phone: [facility] 09-24-2022 10:56-0400 Diastolic blood pressure 77 mm[Hg] Jeffrey Betts MD Work Phone: [facility] 09-24-2022 10:56-0400 Heart rate 75 /min Jeffrey Betts MD Work Phone: [facility] 09-24-2022 10:56-0400 Systolic blood pressure 125 mm[Hg] Jeffrey Betts MD Work Phone: [facility] 09-24-2022 10:52-0400 Body temperature 97.81 [degF] Jeffrey Betts MD Work Phone: [facility] 09-24-2022 10:52-0400 Body weight 91.63 kg Jeffrey Betts MD Work Phone: [facility] 09-24-2022 10:52-0400 Respiratory rate 20 /min Jeffrey Betts MD Work Phone: [facility] 09-24-2022 10:52-0400 SaO2% (BldA) [Mass fraction] 98 % Jeffrey Betts MD Work Phone: [facility] 01-23-2022 11:52-0400 Diastolic blood pressure 77 mm[Hg] Kasey Older CUT PRESSMAN.HUMAN RESOURCES INTERN Work Phone: [facility] 01-23-2022 11:52-0400 Systolic blood pressure 143 mm[Hg] Kasey Older CUT PRESSMAN.HUMAN RESOURCES INTERN Work Phone: [facility] 01-23-2022 11:15-0400 Body weight 91.17 kg Kasey Older CUT PRESSMAN.HUMAN RESOURCES INTERN Work Phone: [facility] 01-23-2022 11:15-0400 Heart rate 90 /min Kasey Older CUT PRESSMAN.HUMAN RESOURCES INTERN Work Phone: [facility] 01-23-2022 11:15-0400 Respiratory rate 18 /min Kasey Older CUT PRESSMAN.HUMAN RESOURCES INTERN Work Phone: [facility] Encounters Encounter Date Encounter Type Care Provider Facility Start: 07-27-2023 ambulatory Qian Chery MD Work Phone: Pulmonary Medicine Procedures Date Procedure Procedure Detail Performing Clinician Start: 05-11-2023 Brncdilat rspse spmt ry pre&post-brncdilat admn Jeffrey Betts MD Work Phone: Plan of Treatment Date Care Activity Detail Author Start: 02-23-2028 Urine microalbumin profile [facility] Start: 04-26-2026 Diabetes Screening Diabetes Screenin g [facility] Start: 09-20-2023 End: 12-20-2023 Comprehensive metabolic 2000 panel - Serum or Plasma COMP METABOLIC PANEL Lab Routine Elevated LFTs Expected: 09/20/2023 (Approximate), Expires: 12/20/2023 [facility] Work Phone: Immunizations Immunization Date Immunization Notes Care Provider Fa gail 05-04-2022 influenza, high dose seasonal, preservative-free Jeffrey Betts MD Work Phone: [facility] Work Phone: 05-04-2022 influenza virus vacc ine, unspecified formulation Kasey Older CUT PRESSMAN.HUMAN RESOURCES INTERN Work Phone: [facility] 04-08-2020 influenza, high-dose , quadrivalent vaccine (FLUZONE HIGH DOSE QUADRIVALENT) Jeffrey Betts MD Work Phone: [facility] Work Phone: 04-06-2019 influenza, high dose seasonal, preservative-free Jeffrey Betts MD Work Phone: [facility] Work Phone: 02-23-2019 zoster vaccine recombinant Jeffrey Betts MD Work Phone: [facility] Work Phone: 03-16-2018 influenza virus vacc ine, unspecified formulation Jeffrey Betts MD Work Phone: [facility] Work Phone: 02-22-2018 tetanus toxoid, redu quyen diphtheria toxoid, and acellular pertussis vaccine, adsorbed Jeffrey Betts MD Work Phone: [facility] Work Phone: 04-18-2017 influenza, high dose seasonal, preservative-free Jeffrey Betts MD Work Phone: [facility] 2016 influenza, high dose seasonal, preservative-free Jeffrey Betts MD Work Phone: [facility] Work Phone: 05-25-2015 influenza, seasonal, injectable Jeffrey Betts MD Work Phone: [facility] 06-27-2014 pneumococcal conjuga te vaccine, 13 valent Jeffrey Betts MD Work Phone: [facility] Work Phone: 03-29-2014 influenza, seasonal, injectable Jeffrey Betts MD Work Phone: [facility] Work Phone: 04-12-2013 influenza virus vacc ine, unspecified formulation Jeffrey Betts MD Work Phone: [facility] 05-18-2012 influenza virus vacc ine, unspecified formulation Jeffrey Betts MD Work Phone: [facility] 04-16-2011 influenza virus vacc ine, unspecified formulation Jeffrey Betts MD Work Phone: [facility] 04-16-2011 pneumococcal polysaccharide vaccine, 23 valent Jeffrey Betts MD Work Phone: [facility] 04-09-2010 influenza virus vacc ine, unspecified formulation Jeffrey Betts MD Work Phone: [facility] Work Phone: 04-09-2009 influenza virus vacc ine, unspecified formulation Jeffrey Betts MD Work Phone: [facility] 10-26-2008 zoster vaccine, live Jeffrey Betts MD Work Phone: [facility] Work Phone: 04-05-2008 influenza virus vacc ine, unspecified formulation Jeffrey Betts MD Work Phone: [facility] Work Phone: 10-21-2007 diphtheria and tetan us toxoids, adsorbed for pediatric use Jeffrey Betts MD Work Phone: [facility] Work Phone: 04-20-2007 influenza virus vacc ine, unspecified formulation Jeffrey Betts MD Work Phone: [facility] Work Phone: 04-26-2006 influenza virus vacc ine, unspecified formulation Jeffrey Betts MD Work Phone: [facility] 04-15-2005 influenza virus vacc ine, unspecified formulation Jeffrey Betts MD Work Phone: [facility] Work Phone: 05-05-1996 pneumococcal polysaccharide vaccine, 23 valent Jeffrey Betts MD Work Phone: [facility] Work Phone: Payers Date Payer Category Payer Medicare [employer] [place] [id number] 2022-Present [phone] [address] [place] [address] O [id number] 2022 Medicare [id number] 2015 Unknown ANTHEM BLUE CROS S AND BLUE SHIELD ANTHEM MEDIBLUE ACCESS [id number] 2015-Present [phone] [address] [place] [id number] PPO [id number] 2015 Unknown ANTHEM BLUE CROS S AND BLUE SHIELD ANTHEM MEDIBLUE ACCESS [id number] 2015-Present [phone] [address] [place] [address] PPO [id number] Social History Date Type Detail Facility Start: 02-18-2017 End: 02-17-2023 Tobacco smoking status NHIS Ex-smoker [facility] End: 07-26-1982 History of tobacco use Current smoker [facility] End: 07-26-1982 History of tobacco use Cigar Smoker [facility] History of tobacco use Chews Tobacco [facility] Start: 10-09-2020 End: 06-30-2023 Alcohol intake Current non-drinker of alcohol (finding) [facility] Start: 12-07-2019 End: 01-20-2022 History SDOH Alcohol Frequency 3 [facility] Start: 12-07-2019 End: 01-20-2022 History SDOH Alcohol Std Drinks 1 [facility] Start: 12-07-2019 End: 01-20-2022 History SDOH Social Connections Phone 2 [facility] Start: 12-07-2019 End: 01-20-2022 History SDOH Social Connections Get Together 98 [facility] Start: 12-07-2019 End: 01-20-2022 History SDOH Social Connections Living 7 [facility] Start: 12-07-2019 History SDOH Physica l Activity MPS 6 [facility] Start: 12-07-2019 End: 01-20-2022 History SDOH Financial 5 [facility] Start: 12-06-2019 Education 21 [facility] Start: 1935 Sex Assigned At Not on file [facility] Start: 01-20-2022 History SDOH Alcohol Frequency 4 [facility] Start: 02-18-2017 End: 02-17-2023 Tobacco use and exposure Smokeless tobacco non-user [facility] Work Phone: Start: 01-20-2022 End: 02-24-2023 History of Social function [facility] Start: 01-20-2022 End: 02-24-2023 Social connection and isolation panel [facility] Do you belong to any clubs or organizations such as jehovah's witness groups, unions, fraternal or athletic groups, or school groups? No [facility] How often do you att end meetings of the clubs or organizations you belong to? Patient refused [facility] Are you now , , , , never or living with a partner? Never [facility] How often to you hav e a drink containing alcohol? 2-3 time sa week [facility] How many standard dr inks containing alcohol do you have on a typical day? 1 or 2 [facility] How often do you hav e 6 or more drinks on 1 occasion? Never [facility] Do you feel stress - tense, restless, nervous, or anxious, or unable to sleep at night because your mind is troubled all the time - these days [OSQ] Not at all [facility] (I/We) worried wheth er (my/our) food would run out before (I/we) got money to buy more. Never true [facility] Clinical Notes 11-19-2016 to 07-27-2023 Telephone Encounter - Maggie Garzon LPN - 07/27/2023 2:35 PM Ingrid Byers RPFT - 05/11/2023 8:00 AM Qian Roberson MD - 05/11/2023 8:00 AM ESTPatient Instructions Note Date & Type Note Facility 07-27-2023 Miscellaneous Notes Spoke with patient and niece. Sx are suspicious for CHF exacerbation, as patient was recently treated at [facility] and discharged in early June. Niece states they attempted to contact [facility] and were unable to speak with nursing staff so they sent a message to our office. Called Missy at [facility] and information given- they will contact the patient to further triage. Maggie Garzon LPN documented in this encounter [facility] 06-30-2023 Note HNO ID: [id number] Author: JEFFREY BETTS MD Service: ? Author Type: Physician Type: Progress Notes Filed: 06/30/2023 12:58 Note Text: This note was created using [employer]. Subjective Patient presents with: Transition Of Care [...] and was scheduled for outpatient PT at [facility]. He will see Dr. Cooper, his warehouse consultant, in 2 days. His sister was dressing [...] Take 1 capsule by mouth once daily. Samogfupxraem-Pllgcxne-Btagok (CENTRUM SILVER) ORAL Tab Take one(1) tablet [...] focal deficit present. (more content not included)... [facility] 06-28-2023 Note HNO ID: [id number] Author: RANDI GONZALEZ LPN Service: ? Author Type: LICENSED NURSE Type: Progress Notes Filed: 06/28/2023 14:06 Note Text: TRANSITION CARE MANAGEMENT (TCM) INITIAL CONTACT Purchasing Buyer Outreach Provider Action/FYI: Dr. Betts- Review medications Initial contact with patient post discharge, spoke to patient. Patient identified by name and . TRANSITION CARE MANAGEMENT INITIAL OUTREACH DOCUMENTATION: Date of Outreach: 06/28/2023 06/28/2023 Outreach Attempt 1: Contact Made Contact Made Date of Discharge 06/26/2023 06/26/2023 Some recent data might be hidden SUMMARY: -Pt discharged from [facility] on 06/26/23. -Admitted for: SOB, weakness, fluid [...] Medical records from recent hospitalization: Care Everywhere [facility] 06-28-2023 Note Patient Outreach (LACI MPKIKO) MICHEL ROWELL ([id number]) 1935 M Date Time Provider Department 06/28/23 RANDI GONZALEZ During your visit today, we recorded the following information about you: Randi Gonzalez LPN 06/28/2023 2:06 PM Signed TRANSITION CARE MANAGEMENT (TCM) INITIAL CONTACT Purchasing Buyer Outreach Provider Action/FYI: Dr. Betts- Review medications Initial contact with patient post discharge, spoke to patient. Patient identified by name and . TRANSITION CARE MANAGEMENT INITIAL OUTREACH DOCUMENTATION: Date of Outreach: 06/28/2023 06/28/2023 Outreach Attempt 1: Contact Made Contact Made Date of Discharge 06/26/2023 06/26/2023 Some recent data might be hidden SUMMARY: -Pt discharged from [facility] on 06/26/23. -Admitted for: SOB, weakness, fluid [...] Date Reviewed: 06/17/2023 Reviewed by: Kasey Mcdonald, RYAN.HUMAN RESOURCES INTERN - Fully Assessed Reason for Visit: Transition [...] 1 capsule by mouth once daily. - Biueaqegvzyku-Fuqkjwhs-Mshdfl (CENTRUM SILVER) ORAL Tab Take one(1) tablet [...] Encounter Status:Closed by RANDI GONZALEZ on 06/28/23 [facility] 06-17-2023 Note HNO ID: [id number] Author: Kasey Mcdonald APRN.HUMAN RESOURCES INTERN Service: ? Author Type: Nurse Practitioner Type: [...] Afib, pulmonary hypertension and restrictive lung disease. Litigation Examiner is Dr. Cooper and lighting fixture installer is Dr. Qian Chery. He is currently [...] of skin cancer 2010 left scalp, [facility] Prediabetes Unspecified erythematous condition 06/29/2008 PAST [...] Take 1 capsule by mouth once daily. Jvbmqwnumeksl-Vizyzjbk-Uvrhsx (CENTRUM SILVER) ORAL Tab Take one(1) tablet [...] Genitourinary: Penis: Swe (more content not included)... [facility] 05-11-2023 Note HNO ID: [id number] Author: Elisha Us RT(R) Service: ? Author Type: Kiln Stoker Type: Progress Notes Filed: 05/11/2023 9:00 AM [...] Us RT(R) May 11, 2023 8:52 AM [facility] 05-11-2023 Note HNO ID: [id number] Author: Ingrid Ramos RPFT Service: ? Author Type: Respiratory Therapist Type: Progress Notes Filed: 05/11/2023 8:02 AM Note Text: PULM FUNCTION SMARTBLOCK: Provider: Jeffrey Betts MD Assisting Tech: Ingrid Ramos RPFT Spirometry w/BD: 1 LV - Box: 1 [facility] 05-11-2023 Note HNO ID: [id number] Author: Qian Chery MD Service: ? Author Type: Physician Type: Progress Notes Filed: 05/11/2023 9:43 AM Note Text: . [facility] [place] Note Patient name: Michel Rowell PCP: Jeffrey [...] habitus Labs: Imaging / Diagnostic Studies: Echocardiogram [facility] 02/2023: EF 55%, LAE, RVSP estimated at 52 mmHg CXR [facility] 01/2023: Cardiac enlargement, elevated right hemidiaphragm, LLL [...] of skin cancer 2010 left scalp, [facility] Prediabetes Unspecified erythematous condition 06/29/2008 ALLERGIES [...] Take 1 capsule by mouth once daily. Ytxihooyfzifu-Puwyoiqk-Xvkeph (CENTRUM SILVER) ORAL Tab Take one(1) tablet daily. vitamin b complex capsule Take 1 capsule by mouth once daily. Social History Tobacco Use Smoking status: Former Types: Cigars Quit date: 07/26/1982 Years since quittin.8 Smokeless tob (more content not included)... [facility] 05-11-2023 History of Presen t illness Narrative PULM FUNCTION SMARTBLOCK: Provider: Jeffrey Betts MD Assisting Tech: Ingrid Ramos RPFT Spirometry w/BD: 1 LV - Box: 1 documented in this encounter [facility] 05-11-2023 History of Presen t illness Narrative Images from the original note were not included. . [facility] [place] Note Patient name: Michel Rowell PCP: Jeffrey [...] habitus Labs: Imaging / Diagnostic Studies: Echocardiogram [facility] 02/2023: EF 55%, LAE, RVSP estimated at 52 mmHg CXR [facility] 01/2023: Cardiac enlargement, elevated right hemidiaphragm, LLL [...] of skin cancer 2010 left scalp, [facility] Prediabetes Unspecified erythematous condition 06/29/2008 ALLERGIES [...] Take 1 capsule by mouth once daily. Fwmcwtokbdhzx-Fqgsmvbp-Cnxtsd (CENTRUM SILVER) ORAL Tab Take one(1) tablet [...] need sniff test Qian Chery MD [facility] [place] documented in this encounter [facility] 05-08-2023 Miscellaneous Notes Phoned patient and assisted with transfer to sweet potato disintegrator to get Pulmonary and other testing appts [...] advise documented in this encounter [facility] 05-03-2023 Miscellaneous Notes Patient has been [...] LPN. documented in this encounter [facility] 04-23-2023 Note HNO ID: [id number] Author: Kasey Ruiz APRN.HUMAN RESOURCES INTERN Service: ? Author Type: Nurse Practitioner Type: [...] - General (Internal Medicine) Outside specialists seen: cad application support specialist- Dr. Ortiz, [facility] Medical/Family history review Reviewed and [...] loss. BMI 32.58 kg/(m2) Kasey Ruiz APRN.CNP [facility] 04-23-2023 Instructions Kasey Ruiz APRN.CNP - 04/23/2023 [...] review all the medicines you take, even kuwt-iem-pnapeln medicines. As you get older, the way [...] conditions. documented in this encounter [facility] 04-23-2023 History of en t illness Narrative [...] - General (Internal Medicine) Outside specialists seen: cad application support specialist- Dr. Ortiz, [facility] Medical/Family history review Reviewed and [...] APRN.CNP documented in this encounter [facility] 02-24-2023 Miscellaneous Notes Addended by: KASEY RUIZ on: 02/24/2023 04:09 PM Modules accepted: Orders Addended by: ALMA HIRSCH MA on: 02/24/2023 04:06 PM Modules accepted: Orders documented in this encounter [facility] 02-24-2023 Note HNO ID: [id number] Author: Kasey Ruiz APRN.CNP Service: ? Author Type: Nurse Practitioner Type: Progress Notes Filed: 02/24/2023 11:19 AM Note Text: CC: Patient presents with: ED Follow-up HPI Michel Rowell is a 87 year old male who presents today for above. Patient presented to [facility] ER on 02/17 from this office for [...] of skin cancer 2010 left scalp, [facility] Unspecified erythematous condition 06/29/2008 PAST SURGICAL [...] Take 1 capsule by mouth once daily. Htbdpdhfirbhn-Kausudra-Sfzjem (CENTRUM SILVER) ORAL Tab Take one(1) tablet [...] is alert. DATA REVIEWED: Outside chart from [facility] ER reviewed. ASSESSMENT/PLAN: 1. Atrial fibrillation with [...] not have echo (more content not included)... [facility] 02-24-2023 Instructions Kasey Ruiz APRN.CNP - 02/24/2023 11:05 AM EDT Take an extra diltiazem 120 mg capsule when you get home documented in this encounter [facility] 02-24-2023 History of Presen t illness Narrative CC: Patient presents with: ED Follow-up HPI Michel Rowell is a 87 year old male who presents today for above. Patient presented to [facility] ER on 02/17 from this office for [...] denies side effects. He is scheduled with [facility] at the end of February, [...] of skin cancer 2010 left scalp, [facility] Unspecified erythematous condition 06/29/2008 PAST SURGICAL [...] Take 1 capsule by mouth once daily. Jabziulwojosv-Wnujxuys-Rgxcil (CENTRUM SILVER) ORAL Tab Take one(1) tablet [...] is alert. DATA REVIEWED: Outside chart from [facility] ER reviewed. ASSESSMENT/PLAN: 1. Atrial fibrillation with [...] APRN.CNP documented in this encounter [facility] 02-19-2023 Miscellaneous Notes Pt returned call and appt scheduled as advised. Kristan Christian RN Attempted to contact patient. Home phone rang with no option to leave a message. Mobile # went straight to VM. Unable to reach patient. Left VM to return call to office. Please assist patient with scheduling ER F/U ([facility]NEW AFIB) in 1 week with PCP/COMMERCIAL INSTRUCTOR SUPERVISOR. Please confirm/document if sister/EC has access to information d/t home # listed is the same as well. Etta Mart MA ----- Message from Jeffrey Betts MD sent at 02/18/2023 1:19 PM EDT ----- Regarding: ER follow up Please schedule ER follow up in 1 week with Kasey or . New atrial fib. documented in this encounter [facility] 02-17-2023 Note HNO ID: [id number] Author: Jeffrey Betts MD Service: ? Author Type: Physician Type: Progress Notes Filed: 02/17/2023 12:42 PM Note Text: This note was created using [employer]. Subjective Patient presents with: Breathing Problem Michel [...] Take 1 capsule by mouth once daily. Jegmnepwxhncw-Wpduzqhk-Qlzgxy (CENTRUM SILVER) ORAL Tab Take one(1) tablet [...] follow recommendations. I spoke to Dr. Yin ([facility]) about this patient. [facility] MD [facility] – [facility] 02-17-2023 History of Presen t illness Narrative This note was created using [employer]. Subjective Patient presents with: Breathing Problem Michel [...] Take 1 capsule by mouth once daily. Igolcdkygrbqi-Qgoztvhk-Apbqro (CENTRUM SILVER) ORAL Tab Take one(1) tablet [...] follow recommendations. I spoke to Dr. Yin ([facility]) about this patient. Jeffrey Betts MD documented in this encounter [facility] 02-17-2023 Instructions Jeffrey Betts MD - 02/17/2023 11:51 AM EDT GO TO ER SOON POSSIBLE TODAY. documented in this encounter [facility] 09-24-2022 Note HNO ID: [id number] Author: Jeffrey Betts MD Service: ? Author Type: Physician Type: Progress Notes Filed: 09/24/2022 11:34 AM Note Text: This note was created using [employer]. Subjective Michel Rowell is a 87 year [...] Take 1 capsule by mouth once daily. Yhwynujttfinm-Klzvrpza-Myexxg (CENTRUM SILVER) ORAL Tab Take one(1) tablet [...] I10 - good control Jeffrey Betts MD [facility] 09-24-2022 History of Presen t illness Narrative This note was created using [employer]. Subjective Michel Rowell is a 87 year [...] Take 1 capsule by mouth once daily. Vvhqqcwgootyw-Cmarnqfy-Ylzpwe (CENTRUM SILVER) ORAL Tab Take one(1) tablet [...] MD documented in this encounter [facility] 05-08-2022 Miscellaneous Notes Patient has been [...] LPN documented in this encounter [facility] 01-23-2022 History of Presen t illness [...] of skin cancer 2010 left scalp, [facility] Unspecified erythematous condition 06/29/2008 PAST SURGICAL [...] Take 1 capsule by mouth once daily. Dtovjsdjukwid-Fphzvsla-Vtbesi (CENTRUM SILVER) ORAL Tab Take one(1) tablet [...] of skin cancer 2010 left scalp, [facility] Unspecified erythematous condition 06/29/2008 PAST SURGICAL [...] he should. List of current specialists seen: Fixed Route Operator- Dr. Ortiz Mental Health Aide- [facility]- [facility] End of Live Planning discussed [...] at this time. - Patient was counseled [id number] by myself (the billing provider) for the following immunizations and vaccine components, including side effects: COVID-19. Patient declined - Follow up for annual exam in one year Kasey Ruiz APRN.CNP documented in this encounter [facility] documented as of this encounter (statuses as of 07/28/2023) [facility] History of Past illness Narrative* Problem Noted Date Resolved Date Pain in joint of right hip 11/19/201602/18 Laceration of thumb 02/17/2015 07/16/2016 Unspecified erythematous condition 06/29/2008 07/16/2016 EXANTHEM////NONSPECIF SKIN ERUPT NEC 06/29/2008 07/16/2016 DDD (degenerative disc disease), lumbar 02/18/2017 Mixed hyperlipidemia 07/16/2016 Nocturia 07/16/2016 Anemia, unspecified 06/25/2014 documented as of this encounter (statuses as of 09/26/2021) [facility] History of Past illness Narrative* Problem Noted Date Resolved Date Pain in joint of right hip 11/19/201602/18 Laceration of thumb 02/17/2015 07/16/2016 Unspecified erythematous condition 06/29/2008 07/16/2016 EXANTHEM////NONSPECIF SKIN ERUPT NEC 06/29/2008 07/16/2016 DDD (degenerative disc disease), lumbar 02/18/2017 Mixed hyperlipidemia 07/16/2016 Nocturia 07/16/2016 Anemia, unspecified 06/25/2014 documented as of this encounter (statuses as of 01/23/2022) [facility] History of Past illness Narrative* Problem Noted Date Resolved Date Pain in joint of right hip 11/19/201602/18 Laceration of thumb 02/17/2015 07/16/2016 Unspecified erythematous condition 06/29/2008 07/16/2016 EXANTHEM////NONSPECIF SKIN ERUPT NEC 06/29/2008 07/16/2016 DDD (degenerative disc disease), lumbar 02/18/2017 Mixed hyperlipidemia 07/16/2016 Nocturia 07/16/2016 Anemia, unspecified 06/25/2014 documented as of this encounter (statuses as of 05/08/2022) [facility] History of Past illness Narrative* Problem Noted Date Resolved Date Pain in joint of right hip 11/19/201602/18 Laceration of thumb 02/17/2015 07/16/2016 Unspecified erythematous condition 06/29/2008 07/16/2016 EXANTHEM////NONSPECIF SKIN ERUPT NEC 06/29/2008 07/16/2016 DDD (degenerative disc disease), lumbar 02/18/2017 Mixed hyperlipidemia 07/16/2016 Nocturia 07/16/2016 Anemia, unspecified 06/25/2014 documented as of this encounter (statuses as of 09/24/2022) [facility] History of Past illness Narrative* Problem [...] encounter (statuses as of 02/17/2023) [facility] Narrative* Problem [...] encounter (statuses as of 02/19/2023) [facility] Narrative* Problem [...] encounter (statuses as of 02/24/2023) [facility] of [facility] Narrative* Problem [...] encounter (statuses as of 04/24/2023) [facility] Narrative* Problem [...] encounter (statuses as of 05/04/2023) [facility] Narrative* Problem [...] encounter (statuses as of 05/08/2023) [facility] Narrative* Problem [...] encounter (statuses as of 05/11/2023) [facility] Narrative* Problem [...] encounter (statuses as of 05/11/2023) [facility] of [facility] illness Narrative* Problem [...] encounter (statuses as of 05/12/2023) [facility] Narrative* Problem [...] encounter (statuses as of 05/18/2023) [facility] Medication management Encounter for long-term (current) use of other medications [facility] Diagnosis Medicare annual wellness visit, subsequent- Primary Routine general medical examination at a health care facility White coat syndrome with hypertension Thrombocytopenia (HCC) Thrombocytopenia, unspecified Obesity, Class I, BMI 30-34.9 Obesity, unspecified Gastroesophageal reflux disease without esophagitis Esophageal reflux [facility]* Diagnosis Gastroesophageal reflux disease without esophagitis Esophageal reflux [facility]* Diagnosis Bronchitis- Primary Bronchitis, not specified as acute or chronic White coat syndrome with hypertension [facility] Diagnosis Congestive heart failure, unspecified HF chronicity, unspecified heart failure type (HCC)- Primary Tachycardia Tachycardia, unspecified [facility]* Diagnosis Atrial fibrillation with rapid ventricular response (HCC)- Primary Atrial fibrillation Bilateral lower extremity edema Edema Shortness of breath [facility]* Diagnosis Medicare annual wellness visit, subsequent- Primary Routine general medical examination at a health care facility Impaired glucose metabolism Impaired glucose tolerance test Elevated LFTs Other abnormal blood chemistry Thrombocytopenia (HCC) Thrombocytopenia, unspecified Atrial fibrillation with rapid ventricular response (HCC) Atrial fibrillation [facility] Diagnosis Gastroesophageal reflux disease without esophagitis Esophageal reflux [facility]* Diagnosis Dyspnea, unspecified type- Primary [facility] Diagnosis Dyspnea, unspecified type [facility] Diagnosis Restrictive lung disease- Primary Other diseases of lung, not elsewhere classified SOB (shortness of breath) Shortness of breath PAH (pulmonary artery hypertension) (HCC) Other chronic pulmonary heart diseases Atrial fibrillation with RVR (HCC) Atrial fibrillation Elevated diaphragm Disorders of diaphragm [facility] Diagnosis SOB (shortness of breath) Shortness of breath [facility] Diagnosis Elevated LFTs- Primary Other abnormal blood chemistry Impaired glucose metabolism Impaired glucose tolerance test Anemia, unspecified type documented in this encounter [facility] for referral (narrative)* Outpatient Procedure (Routine) - Closed Specialty Diagnoses / Procedures Referred By Contac t Referred To [facility] Diagnoses Atrial fibrillation with rapid ventricular response (HCC) Procedures ECG COMPLETE ECG ROUTINE ECG W/LEAST 12 LDS W/I&R Older, Kasey, CUT PRESSMAN.HUMAN RESOURCES INTERN [address] [place] [address] [facility] [place] [address] [place] [id number] Referral ID Status Reason Start Date Expiration Date V isits Requested Visits Authorized [id number] Closed Auto-Generate d Referral 02/24/2023 02/24/2024 1 1 [facility] Outpatient Procedure (Routine) - Pending Review Specialty Diagnoses / Procedures Referred By Contac t Referred To Contact [facility] Diagnoses Dyspnea, unspecified type Procedures LUNG VOLUMES Jeffrey Betts MD [address] [place] [address] [address] Referral ID Status Reason Start Date Expiration Date Visits Requested Visits Authorized [id number] Pending Review Auto-Generat ed Referral 3 06/05/2024 1 1 * Outpatient Procedure (Routine) - Pending Review Specialty Diagnoses / Procedures Referred By Contac t Referred To Contact [facility] Diagnoses Dyspnea, unspecified type Procedures SPIROMETRY - BASELINE AND POST DILATOR BRNCDILAT RSPSE SPMTRY PRE&POST-BRNCDILAT ADMN Jeffrey Betts MD [address] [place] [address] [address] Referral ID Status Reason Start Date Expiration Date Visits Requested Visits Authorized [id number] Pending Review Auto-Generat ed Referral 3 06/05/2024 1 1 [facility] Advance Directives Documents on File Type Date Recorded 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 Advance Directive(s) 06/28/2012 4:54 PM Documents on File Type Date Recorded 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 Advance Directive(s) 06/28/2012 4:54 PM [...] any alcohol or drug abuse patient.[facility] the event this information is protected by the Federal Confidentiality of Alcohol and Drug Abuse Patient Records regulations: The Federal rules restrict any use of the information to criminally investigate or prosecute any alcohol or drug abuse patient.[facility] the event this information is protected by the Federal Confidentiality of Alcohol and Drug Abuse Patient Records regulations: The Federal rules restrict any use of the information to criminally investigate or prosecute any alcohol or drug abuse patient.[facility] the event this information is protected by the Federal Confidentiality of Alcohol and Drug Abuse Patient Records regulations: The Federal rules restrict any use of the information to criminally investigate or prosecute any alcohol or drug abuse patient.[facility] the event this information is protected by the Federal Confidentiality of Alcohol and Drug Abuse Patient Records regulations: The Federal rules restrict any use of the information to criminally investigate or prosecute any alcohol or drug abuse patient.[facility] the event this information is protected by the Federal Confidentiality of Alcohol and Drug Abuse Patient Records regulations: The Federal rules restrict any use of the information to criminally investigate or prosecute any alcohol or drug abuse patient.[facility] the event this information is protected by the Federal Confidentiality of Alcohol and Drug Abuse Patient Records regulations: The Federal rules restrict any use of the information to criminally investigate or prosecute any alcohol or drug abuse patient.[facility] Hospital[facility] the event this information is protected by the Federal Confidentiality of Alcohol and Drug Abuse Patient Records regulations: The Federal rules restrict any use of the information to criminally investigate or prosecute any alcohol or drug abuse patient.[facility] the event this information is protected by the Federal Confidentiality of Alcohol and Drug Abuse Patient Records regulations: The Federal rules restrict any use of the information to criminally investigate or prosecute any alcohol or drug abuse patient.[facility] Hospital[facility] the event this information is protected by the Federal Confidentiality of Alcohol and Drug Abuse Patient Records regulations: The Federal rules restrict any use of the information to criminally investigate or prosecute any alcohol or drug abuse patient.[facility] Hospital[facility] the event this information is protected by the Federal Confidentiality of Alcohol and Drug Abuse Patient Records regulations: The Federal rules restrict any use of the information to criminally investigate or prosecute any alcohol or drug abuse patient.[facility] HospitalIn the event this information is protected by the Federal Confidentiality of Alcohol and Drug Abuse Patient Records regulations: The Federal rules restrict any use of the information to criminally investigate or prosecute any alcohol or drug abuse patient.[facility] HospitalIn the event this information is protected by the Federal Confidentiality of Alcohol and Drug Abuse Patient Records regulations: The Federal rules restrict any use of the information to criminally investigate or prosecute any alcohol or drug abuse patient.[facility] HospitalIn the event this information is protected by the Federal Confidentiality of Alcohol and Drug Abuse Patient Records regulations: The Federal rules restrict any use of the information to criminally investigate or prosecute any alcohol or drug abuse patient.[facility] Hospital[facility] the event this information is protected by the Federal Confidentiality of Alcohol and Drug Abuse Patient Records regulations: The Federal rules restrict any use of the information to criminally investigate or prosecute any alcohol or drug abuse patient.[facility] Care Teams (unrecognized sec tion and content) Sample Puller Relationship Specialty Start Date End Date Jeffrey Betts MD [address] [facility] [place] [address] PCP - General Internal Medicine 02/18/17 Sample Puller Relationship Specialty Start Date End Date Jeffrey Betts MD [address] [facility] [place] [address] PCP - General Internal Medicine 02/18/17 Sample Puller Relationship Specialty Start Date End Date Jeffrey Betts MD [address] [facility] [place] [address] PCP - General Internal Medicine 02/18/17 Sample Puller Relationship Specialty Start Date End Date Jeffrey Betts MD [address] [facility] [place] [address] PCP - General Internal Medicine 02/18/17 Sample Puller Relationship Specialty Start Date End Date Jeffrey Betts MD [address] [facility] [place] [address] PCP - General Internal Medicine 02/18/17 Sample Puller Relationship Specialty Start Date End Date Jeffrey Betts MD [address] [facility] [place] [address] PCP - General Internal Medicine 02/18/17 Sample Puller Relationship Specialty Start Date End Date Jeffrey Betts MD [address] [facility] [place] [address] PCP - General Internal Medicine 02/18/17 Sample Puller Relationship Specialty Start Date End Date Jeffrey Betts MD [address] [facility] [place] [address] PCP - General Internal Medicine 02/18/17 Sample Puller Relationship Specialty Start Date End Date Jeffrey Betts MD [address] [place], [place] [id number] PCP - General Internal Medicine 02/18/17 Sample Puller Relationship Specialty Start Date End Date Jeffrey Betts MD [address] [place], [place] [address] PCP - General Internal Medicine 02/18/17 Sample Puller Relationship Specialty Start Date End Date Jeffrey Betts MD [address] [place], [place] [id number] PCP - General Internal Medicine 02/18/17 Sample Puller Relationship Specialty Start Date End Date Jeffrey Betts MD [address] [place], [place] [id number] PCP - General Internal Medicine 02/18/17 Reason [...] SPMTRY PRE&POST-BRNCDILAT ADMN Jeffrey Betts MD [address] [place] [address] [facility] [place] [address] [place] [address] Referral ID Status Reason Start Date Expiration Date V isits Requested Visits Authorized [id number] Closed Auto-Generate d Referral 05/07/2023 06/05/2024 1 [...] BE BASED ON THE PRIMARY CLINICAL RECORDS. [facility] CenterMeet [facility]. provides no warranty or guarantee of the accuracy or completeness of information in this document.
--- OUTSIDE RECORDS SUMMARY | 2023-08-03 23:48 | XMS RPT_ITS | CCD ---
Author Name Unknown Address [address] [place] [address] [address] [place] [address] Organization [facility] Care Team Providers Care Pawn Shop Keeper Name Role Phone Jeffrey Betts MD Primary Care Provider [phone] JEFFREY BETTS Primary Care Unavailable KAESY MCDONALD Referring Unavailable ALPESH, JEFFREY Camacho Primary [...] Unavailable ALPESH, JEFFREY Camacho Referring Unavailable ALPESH, JFEFREY Camacho Primary Care Unavailable ALPESH, JEFFREY Camacho Referring Unavailable BETTS, JEFFREY Camacho Primary Care Unavailable ALPESH, JEFFREY Camacho Primary Care Unavailable KASEY MCDONALD Referring Unavailable ALPESH, JEFFREY Camacho Primary Care Unavailable KASEY MCDONALD Attending Unavailable KASEY MCDONALD Referring Unavailable Jeffrey Betts MD Primary Care Provider [phone] Medications Completed/Discontinued Medications Medication Drug Class(es) Dates [...] source) Patient encounter status; Translations: [Other terminal gauger (current) drug therapy] Episodic Other lower respiratory [...] height 170.3 cm Pulm Wstr Work Phone: [facility] 05-11-2023 08:08-0500 Body weight 93.44 kg Pulm Wstr Work Phone: [facility] 05-11-2023 08:08-0500 Diastolic blood pressure 76 mm[Hg] Qian Chery MD Work Phone: [facility] 05-11-2023 08:08-0500 Heart rate 120 /min Pulm Wstr Work Phone: [facility] 05-11-2023 08:08-0500 Respiratory rate 16 /min Pulm Wstr Work Phone: [facility] 05-11-2023 08:08-0500 SaO2% (BldA) [Mass fraction] 97 % Pulm Wstr Work Phone: [facility] 05-11-2023 08:08-0500 Systolic blood pressure 118 mm[Hg] Qian Chery MD Work Phone: [facility] 04-23-2023 13:53-0400 Body height 170.2 cm Kasey Older KIESELGUHR REGENERATOR OPERATOR.NUTRITION HELPER Work Phone: [facility] 04-23-2023 13:53-0400 Body weight 94.35 kg Kasey Older KIESELGUHR REGENERATOR OPERATOR.NUTRITION HELPER Work Phone: [facility] 04-23-2023 13:53-0400 Diastolic blood pressure 92 mm[Hg] Kasey Older KIESELGUHR REGENERATOR OPERATOR.NUTRITION HELPER Work Phone: [facility] 04-23-2023 13:53-0400 Heart rate 156 /min Kasey Older KIESELGUHR REGENERATOR OPERATOR.NUTRITION HELPER Work Phone: [facility] 04-23-2023 13:53-0400 Respiratory rate 20 /min Kasey Older KIESELGUHR REGENERATOR OPERATOR.NUTRITION HELPER Work Phone: [facility] 04-23-2023 13:53-0400 Systolic blood pressure 119 mm[Hg] Kasey Older KIESELGUHR REGENERATOR OPERATOR.NUTRITION HELPER Work Phone: [facility] 02-24-2023 10:36-0400 Body weight 93.44 kg Kasey Older KIESELGUHR REGENERATOR OPERATOR.NUTRITION HELPER Work Phone: [facility] 02-24-2023 10:36-0400 Diastolic blood pressure 98 mm[Hg] Kasey Older KIESELGUHR REGENERATOR OPERATOR.NUTRITION HELPER Work Phone: [facility] 02-24-2023 10:36-0400 Heart rate 147 /min Kasey Older KIESELGUHR REGENERATOR OPERATOR.NUTRITION HELPER Work Phone: [facility] 02-24-2023 10:36-0400 Respiratory rate 24 /min Kasey Older KIESELGUHR REGENERATOR OPERATOR.NUTRITION HELPER Work Phone: [facility] 02-24-2023 10:36-0400 SaO2% (BldA) [Mass fraction] 96 % Kasey Older KIESELGUHR REGENERATOR OPERATOR.NUTRITION HELPER Work Phone: [facility] 02-24-2023 10:36-0400 Systolic blood pressure 144 mm[Hg] Kasey Older KIESELGUHR REGENERATOR OPERATOR.NUTRITION HELPER Work Phone: [facility] 02-17-2023 11:25-0400 Body weight 92.53 kg Jeffrey Betts MD Work Phone: [facility] 02-17-2023 11:25-0400 Diastolic blood pressure 84 mm[Hg] Jeffrey Betts MD Work Phone: [facility] 02-17-2023 11:25-0400 Heart rate 140 /min Jeffrey Betts MD Work Phone: [facility] 02-17-2023 11:25-0400 Respiratory rate 20 /min Jeffrey Betts MD Work Phone: [facility] 02-17-2023 11:25-0400 SaO2% (BldA) [Mass fraction] 96 % Jeffrey Betts MD Work Phone: [facility] 02-17-2023 11:25-0400 Systolic blood pressure 130 mm[Hg] Jeffrey Betts MD Work Phone: [facility] 09-24-2022 10:56-0400 Diastolic blood pressure 77 mm[Hg] Jeffrey Betts MD Work Phone: [facility] 09-24-2022 10:56-0400 Heart rate 75 /min Jeffrey Betts MD Work Phone: [facility] 09-24-2022 10:56-0400 Systolic blood pressure 125 mm[Hg] Jeffrey Betts MD Work Phone: [facility] 09-24-2022 10:52-0400 Body temperature 97.81 [degF] Jeffrey Betts MD Work Phone: [facility] 09-24-2022 10:52-0400 Body weight 91.63 kg Jeffrey Betts MD Work Phone: [facility] 09-24-2022 10:52-0400 Respiratory rate 20 /min Jeffrey Betts MD Work Phone: [facility] 09-24-2022 10:52-0400 SaO2% (BldA) [Mass fraction] 98 % Jeffrey Betts MD Work Phone: [facility] 01-23-2022 11:52-0400 Diastolic blood pressure 77 mm[Hg] Kasey Older KIESELGUHR REGENERATOR OPERATOR.NUTRITION HELPER Work Phone: [facility] 01-23-2022 11:52-0400 Systolic blood pressure 143 mm[Hg] Kasey Older KIESELGUHR REGENERATOR OPERATOR.NUTRITION HELPER Work Phone: [facility] 01-23-2022 11:15-0400 Body weight 91.17 kg Kasey Older KIESELGUHR REGENERATOR OPERATOR.NUTRITION HELPER Work Phone: [facility] 01-23-2022 11:15-0400 Heart rate 90 /min Kasey Older KIESELGUHR REGENERATOR OPERATOR.NUTRITION HELPER Work Phone: [facility] 01-23-2022 11:15-0400 Respiratory rate 18 /min Kasey Older KIESELGUHR REGENERATOR OPERATOR.NUTRITION HELPER Work Phone: [facility] Encounters Encounter Date Encounter Type Care Provider Facility Start: 07-27-2023 ambulatory Qian Chery MD Work Phone: Pulmonary Medicine Procedures Date Procedure Procedure Detail Performing Clinician Start: 05-11-2023 Brncdilat rspse spmt ry pre&post-brncdilat admn Jeffrey Betts MD Work Phone: Plan of Treatment Date Care Activity Detail Author Start: 02-23-2028 Urine microalbumin profile [facility] Start: 04-26-2026 Diabetes Screening Diabetes Screenin g [facility] Start: 09-20-2023 End: 12-20-2023 Comprehensive metabolic 2000 panel - Serum or Plasma COMP METABOLIC PANEL Lab Routine Elevated LFTs Expected: 09/20/2023 (Approximate), Expires: 12/20/2023 [facility] Work Phone: Immunizations Immunization Date Immunization Notes Care Provider Fa gail 05-04-2022 influenza, high dose seasonal, preservative-free Jeffrey Betts MD Work Phone: [facility] Work Phone: 05-04-2022 influenza virus vacc ine, unspecified formulation Kasey Older KIESELGUHR REGENERATOR OPERATOR.NUTRITION HELPER Work Phone: [facility] 04-08-2020 influenza, high-dose , quadrivalent vaccine (FLUZONE HIGH DOSE QUADRIVALENT) Jeffrey Betts MD Work Phone: [facility] Work Phone: 04-06-2019 influenza, high dose seasonal, preservative-free Jeffrey Betts MD Work Phone: [facility] Work Phone: 02-23-2019 zoster vaccine recombinant Jeffrey Betts MD Work Phone: [facility] Work Phone: 03-16-2018 influenza virus vacc ine, unspecified formulation Jeffrey Betts MD Work Phone: [facility] Work Phone: 02-22-2018 tetanus toxoid, redu quyen diphtheria toxoid, and acellular pertussis vaccine, adsorbed Jeffrey Betts MD Work Phone: [facility] Work Phone: 04-18-2017 influenza, high dose seasonal, preservative-free Jeffrey Betts MD Work Phone: [facility] 2016 influenza, high dose seasonal, preservative-free Jeffrey Betts MD Work Phone: [facility] Work Phone: 05-25-2015 influenza, seasonal, injectable Jeffrey Betts MD Work Phone: [facility] 06-27-2014 pneumococcal conjuga te vaccine, 13 valent Jeffrey Betts MD Work Phone: [facility] Work Phone: 03-29-2014 influenza, seasonal, injectable Jeffrey Betts MD Work Phone: [facility] Work Phone: 04-12-2013 influenza virus vacc ine, unspecified formulation Jeffrey Betts MD Work Phone: [facility] 05-18-2012 influenza virus vacc ine, unspecified formulation Jeffrey Betts MD Work Phone: [facility] 04-16-2011 influenza virus vacc ine, unspecified formulation Jeffrey Betts MD Work Phone: [facility] 04-16-2011 pneumococcal polysaccharide vaccine, 23 valent Jeffrey Betts MD Work Phone: [facility] 04-09-2010 influenza virus vacc ine, unspecified formulation Jeffrey Betts MD Work Phone: [facility] Work Phone: 04-09-2009 influenza virus vacc ine, unspecified formulation Jeffrey Betts MD Work Phone: [facility] 10-26-2008 zoster vaccine, live Jeffrey Betts MD Work Phone: [facility] Work Phone: 04-05-2008 influenza virus vacc ine, unspecified formulation Jeffrey Betts MD Work Phone: [facility] Work Phone: 10-21-2007 diphtheria and tetan us toxoids, adsorbed for pediatric use Jeffrey Betts MD Work Phone: [facility] Work Phone: 04-20-2007 influenza virus vacc ine, unspecified formulation Jeffrey Betts MD Work Phone: [facility] Work Phone: 04-26-2006 influenza virus vacc ine, unspecified formulation Jeffrey Betts MD Work Phone: [facility] 04-15-2005 influenza virus vacc ine, unspecified formulation Jeffrey Betts MD Work Phone: [facility] Work Phone: 05-05-1996 pneumococcal polysaccharide vaccine, 23 valent Jeffrey Betts MD Work Phone: [facility] Work Phone: Payers Date Payer Category Payer Medicare [employer] [place] [id number] 2022-Present [phone] [address] [place] [address] O [id number] 2022 Medicare [id number] 2015 Unknown ANTHEM BLUE CROS S AND BLUE SHIELD ANTHEM MEDIBLUE ACCESS [id number] 2015-Present [phone] [address] [place] [id number] PPO [id number] 2015 Unknown ANTHEM BLUE CROS S AND BLUE SHIELD ANTHEM MEDIBLUE ACCESS [id number] 2015-Present [phone] [address] [place] [address] PPO [id number] Social History Date Type Detail Facility Start: 02-18-2017 End: 02-17-2023 Tobacco smoking status NHIS Ex-smoker [facility] End: 07-26-1982 History of tobacco use Current smoker [facility] End: 07-26-1982 History of tobacco use Cigar Smoker [facility] History of tobacco use Chews Tobacco [facility] Start: 10-09-2020 End: 06-30-2023 Alcohol intake Current non-drinker of alcohol (finding) [facility] Start: 12-07-2019 End: 01-20-2022 History SDOH Alcohol Frequency 3 [facility] Start: 12-07-2019 End: 01-20-2022 History SDOH Alcohol Std Drinks 1 [facility] Start: 12-07-2019 End: 01-20-2022 History SDOH Social Connections Phone 2 [facility] Start: 12-07-2019 End: 01-20-2022 History SDOH Social Connections Get Together 98 [facility] Start: 12-07-2019 End: 01-20-2022 History SDOH Social Connections Living 7 [facility] Start: 12-07-2019 History SDOH Physica l Activity MPS 6 [facility] Start: 12-07-2019 End: 01-20-2022 History SDOH Financial 5 [facility] Start: 12-06-2019 Education 21 [facility] Start: 1935 Sex Assigned At Not on file [facility] Start: 01-20-2022 History SDOH Alcohol Frequency 4 [facility] Start: 02-18-2017 End: 02-17-2023 Tobacco use and exposure Smokeless tobacco non-user [facility] Work Phone: Start: 01-20-2022 End: 02-24-2023 History of Social function [facility] Start: 01-20-2022 End: 02-24-2023 Social connection and isolation panel [facility] Do you belong to any clubs or organizations such as presybeterian groups, unions, fraternal or athletic groups, or school groups? No [facility] How often do you att end meetings of the clubs or organizations you belong to? Patient refused [facility] Are you now , , , , never or living with a partner? Never [facility] How often to you hav e a drink containing alcohol? 2-3 time sa week [facility] How many standard dr inks containing alcohol do you have on a typical day? 1 or 2 [facility] How often do you hav e 6 or more drinks on 1 occasion? Never [facility] Do you feel stress - tense, restless, nervous, or anxious, or unable to sleep at night because your mind is troubled all the time - these days [OSQ] Not at all [facility] (I/We) worried wheth er (my/our) food would run out before (I/we) got money to buy more. Never true [facility] Clinical Notes 11-19-2016 to 07-27-2023 Telephone Encounter - Maggie Garzon LPN - 07/27/2023 2:35 PM Ingrid Byers RPFT - 05/11/2023 8:00 AM Qian Roberson MD - 05/11/2023 8:00 AM ESTPatient Instructions Note Date & Type Note Facility 07-27-2023 Miscellaneous Notes Spoke with patient and niece. Sx are suspicious for CHF exacerbation, as patient was recently treated at [facility] and discharged in early June. Niece states they attempted to contact [facility] and were unable to speak with nursing staff so they sent a message to our office. Called Missy at [facility] and information given- they will contact the patient to further triage. Maggie Garzon LPN documented in this encounter [facility] 06-30-2023 Note HNO ID: [id number] Author: JEFFREY BETTS MD Service: ? Author Type: Physician Type: Progress Notes Filed: 06/30/2023 12:58 Note Text: This note was created using [employer]. Subjective Patient presents with: Transition Of Care [...] and was scheduled for outpatient PT at [facility]. He will see Dr. Cooper, his warehouse driver, in 2 days. His sister was dressing [...] Take 1 capsule by mouth once daily. Cfqctplocwacw-Exdecxeg-Hhqacj (CENTRUM SILVER) ORAL Tab Take one(1) tablet [...] [facility] 06-28-2023 Note HNO ID: [id number] Author: RANDI GONZALEZ LPN Service: ? Author Type: LICENSED NURSE Type: Progress Notes Filed: 06/28/2023 14:06 Note Text: TRANSITION CARE MANAGEMENT (TCM) INITIAL CONTACT Grease Renderer Outreach Provider Action/FYI: Dr. Betts- Review medications Initial contact with patient post discharge, spoke to patient. Patient identified by name and . TRANSITION CARE MANAGEMENT INITIAL OUTREACH DOCUMENTATION: Date of Outreach: 06/28/2023 06/28/2023 Outreach Attempt 1: Contact Made Contact Made Date of Discharge 06/26/2023 06/26/2023 Some recent data might be hidden SUMMARY: -Pt discharged from [facility] on 06/26/23. -Admitted for: SOB, weakness, fluid [...] Note Patient Outreach (LACI MPKIKO) MICHEL ROWELL ([id number]) 1935 M Date Time Provider Department 06/28/23 RANDI GONZALEZ During your visit today, we recorded the following information about you: Randi Gonzalez LPN 06/28/2023 2:06 PM Signed TRANSITION CARE MANAGEMENT (TCM) INITIAL CONTACT Grease Renderer Outreach Provider Action/FYI: Dr. Betts- Review medications Initial contact with patient post discharge, spoke to patient. Patient identified by name and . TRANSITION CARE MANAGEMENT INITIAL OUTREACH DOCUMENTATION: Date of Outreach: 06/28/2023 06/28/2023 Outreach Attempt 1: Contact Made Contact Made Date of Discharge 06/26/2023 06/26/2023 Some recent data might be hidden SUMMARY: -Pt discharged from [facility] on 06/26/23. -Admitted for: SOB, weakness, fluid [...] Date Reviewed: 06/17/2023 Reviewed by: Kasey Mcdonald, RYAN.NUTRITION HELPER - Fully Assessed Reason for Visit: Transition [...] 1 capsule by mouth once daily. - Exdsyqnefkqsn-Vydydbsu-Gimddy (CENTRUM SILVER) ORAL Tab Take one(1) tablet [...] [facility] 06-17-2023 Note HNO ID: [id number] Author: Kasey Mcdonald APRN.NUTRITION HELPER Service: ? Author Type: Nurse Practitioner Type: [...] Afib, pulmonary hypertension and restrictive lung disease. Grain Elevator Operator is Dr. Cooper and nursing assoc is Dr. Qian Chery. He is currently [...] of skin cancer 2010 left scalp, [facility] Prediabetes Unspecified erythematous condition 06/29/2008 PAST [...] Take 1 capsule by mouth once daily. Bxafswrsiimqe-Joygbsdj-Vqjdge (CENTRUM SILVER) ORAL Tab Take one(1) tablet [...] [facility] 05-11-2023 Note HNO ID: [id number] Author: Elisha Us RT(R) Service: ? Author Type: Director Compensation Type: Progress Notes Filed: 05/11/2023 9:00 AM [...] [facility] 05-11-2023 Note HNO ID: [id number] Author: Ingrid Ramos RPFT Service: ? Author Type: Respiratory Therapist Type: Progress Notes Filed: 05/11/2023 8:02 AM Note Text: PULM FUNCTION SMARTBLOCK: Provider: Jeffrey Betts MD Assisting Tech: Ingrid Ramos RPFT Spirometry w/BD: 1 LV - Box: 1 [facility] 05-11-2023 Note HNO ID: [id number] Author: Qian Chery MD Service: ? Author Type: Physician Type: Progress Notes Filed: 05/11/2023 9:43 AM Note Text: . Respiratory [place] Note Patient name: Michel Rowell PCP: Jeffrey [...] habitus Labs: Imaging / Diagnostic Studies: Echocardiogram [facility] 02/2023: EF 55%, LAE, RVSP estimated at 52 mmHg CXR [facility] 01/2023: Cardiac enlargement, elevated right hemidiaphragm, [...] of skin cancer 2010 left scalp, [facility] Prediabetes Unspecified erythematous condition 06/29/2008 ALLERGIES [...] Take 1 capsule by mouth once daily. Rrylldowotjfa-Qvpftwun-Plkzht (CENTRUM SILVER) ORAL Tab Take one(1) tablet [...] - Box: 1 documented in this encounter [facility] 05-11-2023 History of Presen t illness Narrative Images from the original note were not included. . Respiratory [place] Note Patient name: Michel Rowell PCP: Jeffrey [...] habitus Labs: Imaging / Diagnostic Studies: Echocardiogram [facility] 02/2023: EF 55%, LAE, RVSP estimated at 52 mmHg CXR [facility] 01/2023: Cardiac enlargement, elevated right hemidiaphragm, [...] of skin cancer 2010 left scalp, [facility] Prediabetes Unspecified erythematous condition 06/29/2008 ALLERGIES [...] Take 1 capsule by mouth once daily. Segvolnrgnnve-Uiycjuem-Yyyloa (CENTRUM SILVER) ORAL Tab Take one(1) tablet [...] need sniff test Qian Chery MD [facility] [place] documented in this encounter [facility] 05-08-2023 Miscellaneous Notes Phoned patient and assisted with transfer to administrative technician to get Pulmonary and other testing appts [...] diagnosis. Please advise documented in this encounter [facility] 05-03-2023 Miscellaneous Notes Patient has been [...] Mariangel Lloyd LPN. documented in this encounter [facility] 04-23-2023 Note HNO ID: [id number] Author: Kasey Ruiz APRN.NUTRITION HELPER Service: ? Author Type: Nurse Practitioner Type: [...] General (Internal Medicine) Outside specialists seen: inside meter tester- Dr. Ortiz, [facility] Medical/Family history review Reviewed [...] review all the medicines you take, even zkts-lvj-uwihaic medicines. As you get older, the way [...] certain medical conditions. documented in this encounter [facility] 04-23-2023 History of en t illness [...] General (Internal Medicine) Outside specialists seen: inside meter tester- Dr. Ortiz, [facility] Medical/Family history review Reviewed [...] Kasey Ruiz APRN.CNP documented in this encounter [facility] 02-24-2023 Miscellaneous Notes Addended by: KASEY RUIZ on: 02/24/2023 04:09 PM Modules accepted: Orders Addended by: ALMA HIRSCH MA on: 02/24/2023 04:06 PM Modules accepted: Orders documented in this encounter [facility] 02-24-2023 Note HNO ID: [id number] Author: Kasey Ruiz APRN.CNP Service: ? Author Type: Nurse Practitioner Type: Progress Notes Filed: 02/24/2023 11:19 AM Note Text: CC: Patient presents with: ED Follow-up HPI Michel Rowell is a 87 year old male who presents today for above. Patient presented to [facility] ER on 02/17 from this office [...] of skin cancer 2010 left scalp, [facility] Unspecified erythematous condition 06/29/2008 PAST SURGICAL [...] Take 1 capsule by mouth once daily. Wnbkxyxtoudug-Ssykswvw-Qyinbt (CENTRUM SILVER) ORAL Tab Take one(1) tablet [...] is alert. DATA REVIEWED: Outside chart from [facility] ER reviewed. ASSESSMENT/PLAN: 1. Atrial fibrillation [...] you get home documented in this encounter [facility] 02-24-2023 History of Presen t illness Narrative CC: Patient presents with: ED Follow-up HPI Michel Rowell is a 87 year old male who presents today for above. Patient presented to [facility] ER on 02/17 from this office [...] denies side effects. He is scheduled with [facility] at the end of February, [...] of skin cancer 2010 left scalp, [facility] Unspecified erythematous condition 06/29/2008 PAST SURGICAL [...] Take 1 capsule by mouth once daily. Xpjowaecknfzm-Veaxqnko-Zjfvdb (CENTRUM SILVER) ORAL Tab Take one(1) tablet [...] is alert. DATA REVIEWED: Outside chart from [facility] ER reviewed. ASSESSMENT/PLAN: 1. Atrial fibrillation [...] Kasey Ruiz APRN.CNP documented in this encounter [facility] 02-19-2023 Miscellaneous Notes Pt returned call and appt scheduled as advised. Kristan Christian RN Attempted to contact patient. Home phone rang with no option to leave a message. Mobile # went straight to VM. Unable to reach patient. Left VM to return call to office. Please assist patient with scheduling ER F/U ([facility]-NEW AFIB) in 1 week with PCP/CARDIOLOGY NURSE PRACTITIONER. Please confirm/document if sister/EC has access to information d/t home # listed is the same as well. Etta Mart MA ----- Message from Jeffrey Betts MD sent at 02/18/2023 1:19 PM EDT ----- Regarding: ER follow up Please schedule ER follow up in 1 week with Kasey or . New atrial fib. documented in this encounter [facility] 02-17-2023 Note HNO ID: [id number] Author: Jeffrey Betts MD Service: ? Author Type: Physician Type: Progress Notes Filed: 02/17/2023 12:42 PM Note Text: This note was created using [employer]. Subjective Patient presents with: Breathing Problem Michel [...] Take 1 capsule by mouth once daily. Irsfhumudpsey-Ddxltrtp-Xssrrh (CENTRUM SILVER) ORAL Tab Take one(1) tablet [...] follow recommendations. I spoke to Dr. Yin ([facility] ER) about this patient. Jeffrey Betts MD [facility] 02-17-2023 History of Presen t illness Narrative This note was created using [employer]. Subjective Patient presents with: Breathing Problem Michel [...] Take 1 capsule by mouth once daily. Mkpamkqyttadr-Wclumqsp-Lvuqft (CENTRUM SILVER) ORAL Tab Take one(1) tablet [...] follow recommendations. I spoke to Dr. Yin ([facility] ER) about this patient. Jeffrey Betts MD documented in this encounter [facility] 02-17-2023 Instructions Jeffrey Betts MD - 02/17/2023 11:51 AM EDT GO TO ER SOON POSSIBLE TODAY. documented in this encounter [facility] 09-24-2022 Note HNO ID: [id number] Author: Jeffrey Betts MD Service: ? Author Type: Physician Type: Progress Notes Filed: 09/24/2022 11:34 AM Note Text: This note was created using [employer]. Subjective Michel Rowell is a 87 year [...] Take 1 capsule by mouth once daily. Qpvaueqzybeje-Wirswvvw-Nkyemq (CENTRUM SILVER) ORAL Tab Take one(1) tablet [...] illness Narrative This note was created using S[employer]. Subjective Michel Rowell is a 87 year [...] Take 1 capsule by mouth once daily. Aqnwlcyyjrkok-Xoysyspn-Pzhwec (CENTRUM SILVER) ORAL Tab Take one(1) tablet [...] Jeffrey Betts MD documented in this encounter [facility] 05-08-2022 Miscellaneous Notes Patient has been [...] Maday Kendrick LPN documented in this encounter [facility] 01-23-2022 History of Presen t illness [...] of skin cancer 2010 left scalp, [facility] Unspecified erythematous condition 06/29/2008 PAST SURGICAL [...] Take 1 capsule by mouth once daily. Grgdxefjpsbzj-Kylwtkxr-Jziyrq (CENTRUM SILVER) ORAL Tab Take one(1) tablet [...] of skin cancer 2010 left scalp, [facility] Unspecified erythematous condition 06/29/2008 PAST SURGICAL [...] he should. List of current specialists seen: Automation Lead- Dr. Ortiz Noc Analyst- [facility] Welding Equipment Repairer- [facility] End of Live Planning [...] at this time. - Patient was counseled [id number] by myself (the billing provider) for the following immunizations and vaccine components, including side effects: COVID-19. Patient declined - Follow up for annual exam in one year Kasey Ruiz APRN.CNP documented in this encounter [facility] documented as of this encounter (statuses as of 07/28/2023) [facility] History of Past illness Narrative* Problem Noted Date Resolved Date Pain in joint of right hip 11/19/201602/18 Laceration of thumb 02/17/2015 07/16/2016 Unspecified erythematous condition 06/29/2008 07/16/2016 EXANTHEM////NONSPECIF SKIN ERUPT NEC 06/29/2008 07/16/2016 DDD (degenerative disc disease), lumbar 02/18/2017 Mixed hyperlipidemia 07/16/2016 Nocturia 07/16/2016 Anemia, unspecified 06/25/2014 documented as of this encounter (statuses as of 09/26/2021) [facility] History of Past illness Narrative* Problem Noted Date Resolved Date Pain in joint of right hip 11/19/201602/18 Laceration of thumb 02/17/2015 07/16/2016 Unspecified erythematous condition 06/29/2008 07/16/2016 EXANTHEM////NONSPECIF SKIN ERUPT NEC 06/29/2008 07/16/2016 DDD (degenerative disc disease), lumbar 02/18/2017 Mixed hyperlipidemia 07/16/2016 Nocturia 07/16/2016 Anemia, unspecified 06/25/2014 documented as of this encounter (statuses as of 01/23/2022) [facility] of Past illness Narrative* Problem Noted Date Resolved Date Pain in joint of right hip 11/19/201602/18 Laceration of thumb 02/17/2015 07/16/2016 Unspecified erythematous condition 06/29/2008 07/16/2016 EXANTHEM////NONSPECIF SKIN ERUPT NEC 06/29/2008 07/16/2016 DDD (degenerative disc disease), lumbar 02/18/2017 Mixed hyperlipidemia 07/16/2016 Nocturia 07/16/2016 Anemia, unspecified 06/25/2014 documented as of this encounter (statuses as of 05/08/2022) [facility] of Past illness Narrative* Problem Noted Date Resolved Date Pain in joint of right hip 11/19/201602/18 Laceration of thumb 02/17/2015 07/16/2016 Unspecified erythematous condition 06/29/2008 07/16/2016 EXANTHEM////NONSPECIF SKIN ERUPT NEC 06/29/2008 07/16/2016 DDD (degenerative disc disease), lumbar 02/18/2017 Mixed hyperlipidemia 07/16/2016 Nocturia 07/16/2016 Anemia, unspecified 06/25/2014 documented as of this encounter (statuses as of 09/24/2022) [facility] of Past illness Narrative* Problem Noted Date Diagnosed Date Resolved Date Pain in joint of right hip 11/19/2016 0 02/18/2017 Laceration of thumb 02/17/2015 07/16/19 17 Unspecified erythematous condition 06/29/2008 07/16/2016 EXANTHEM////NONSPECIF SKIN ERUPT NEC 06/29/2008 07/16/2016 DDD (degenerative disc disease), lumbar 02/18/2017 Mixed hyperlipidemia 017 Nocturia 07/16/2016 Anemia, unspecified 06/25/19 15 documented as of this encounter (statuses as of 02/17/2023) [facility] of Past illness Narrative* Problem Noted Date Diagnosed Date Resolved Date Pain in joint of right hip 11/19/2016 0 02/18/2017 Laceration of thumb 02/17/2015 07/16/19 17 Unspecified erythematous condition 06/29/2008 07/16/2016 EXANTHEM////NONSPECIF SKIN ERUPT NEC 06/29/2008 07/16/2016 DDD (degenerative disc disease), lumbar 02/18/2017 Mixed hyperlipidemia 017 Nocturia 07/16/2016 Anemia, unspecified 06/25/19 15 documented as of this encounter (statuses as of 02/19/2023) [facility] of Past illness Narrative* Problem Noted Date Diagnosed Date Resolved Date Pain in joint of right hip 11/19/2016 0 02/18/2017 Laceration of thumb 02/17/2015 07/16/19 17 Unspecified erythematous condition 06/29/2008 07/16/2016 EXANTHEM////NONSPECIF SKIN ERUPT NEC 06/29/2008 07/16/2016 DDD (degenerative disc disease), lumbar 02/18/2017 Mixed hyperlipidemia 017 Nocturia 07/16/2016 Anemia, unspecified 06/25/19 15 documented as of this encounter (statuses as of 02/24/2023) [facility] of Past illness Narrative* Problem Noted Date Diagnosed Date Resolved Date Pain in joint of right hip 11/19/2016 0 02/18/2017 Laceration of thumb 02/17/2015 07/16/19 17 Unspecified erythematous condition 06/29/2008 07/16/2016 EXANTHEM////NONSPECIF SKIN ERUPT NEC 06/29/2008 07/16/2016 DDD (degenerative disc disease), lumbar 02/18/2017 Mixed hyperlipidemia 017 Nocturia 07/16/2016 Anemia, unspecified 06/25/19 15 documented as of this encounter (statuses as of 04/24/2023) [facility] of Past illness Narrative* Problem Noted Date Diagnosed Date Resolved Date Pain in joint of right hip 11/19/2016 0 02/18/2017 Laceration of thumb 02/17/2015 07/16/19 17 Unspecified erythematous condition 06/29/2008 07/16/2016 EXANTHEM////NONSPECIF SKIN ERUPT NEC 06/29/2008 07/16/2016 DDD (degenerative disc disease), lumbar 02/18/2017 Mixed hyperlipidemia 017 Nocturia 07/16/2016 Anemia, unspecified 06/25/19 15 documented as of this encounter (statuses as of 05/04/2023) [facility] of Past illness Narrative* Problem Noted Date Diagnosed Date Resolved Date Pain in joint of right hip 11/19/2016 0 02/18/2017 Laceration of thumb 02/17/2015 07/16/19 17 Unspecified erythematous condition 06/29/2008 07/16/2016 EXANTHEM////NONSPECIF SKIN ERUPT NEC 06/29/2008 07/16/2016 DDD (degenerative disc disease), lumbar 02/18/2017 Mixed hyperlipidemia 017 Nocturia 07/16/2016 Anemia, unspecified 06/25/19 15 documented as of this encounter (statuses as of 05/08/2023) [facility] of Past illness Narrative* Problem Noted Date Diagnosed Date Resolved Date Pain in joint of right hip 11/19/2016 0 02/18/2017 Laceration of thumb 02/17/2015 07/16/19 17 Unspecified erythematous condition 06/29/2008 07/16/2016 EXANTHEM////NONSPECIF SKIN ERUPT NEC 06/29/2008 07/16/2016 DDD (degenerative disc disease), lumbar 02/18/2017 Mixed hyperlipidemia 017 Nocturia 07/16/2016 Anemia, unspecified 06/25/19 15 documented as of this encounter (statuses as of 05/11/2023) [facility] of Past illness Narrative* Problem Noted Date Diagnosed Date Resolved Date Pain in joint of right hip 11/19/2016 0 02/18/2017 Laceration of thumb 02/17/2015 07/16/19 17 Unspecified erythematous condition 06/29/2008 07/16/2016 EXANTHEM////NONSPECIF SKIN ERUPT NEC 06/29/2008 07/16/2016 DDD (degenerative disc disease), lumbar 02/18/2017 Mixed hyperlipidemia 017 Nocturia 07/16/2016 Anemia, unspecified 06/25/19 15 documented as of this encounter (statuses as of 05/11/2023) [facility] of [facility] illness Narrative* Problem Noted Date Diagnosed Date Resolved Date Pain in joint of right hip 11/19/2016 0 02/18/2017 Laceration of thumb 02/17/2015 07/16/19 17 Unspecified erythematous condition 06/29/2008 07/16/2016 EXANTHEM////NONSPECIF SKIN ERUPT NEC 06/29/2008 07/16/2016 DDD (degenerative disc disease), lumbar 02/18/2017 Mixed hyperlipidemia 017 Nocturia 07/16/2016 Anemia, unspecified 06/25/19 15 documented as of this encounter (statuses as of 05/12/2023) [facility] History of Past illness Narrative* Problem Noted Date Diagnosed Date Resolved Date Pain in joint of right hip 11/19/2016 0 02/18/2017 Laceration of thumb 02/17/2015 07/16/19 17 Unspecified erythematous condition 06/29/2008 07/16/2016 EXANTHEM////NONSPECIF SKIN ERUPT NEC 06/29/2008 07/16/2016 DDD (degenerative disc disease), lumbar 02/18/2017 Mixed hyperlipidemia 017 Nocturia 07/16/2016 Anemia, unspecified 06/25/19 15 documented as of this encounter (statuses as of 05/18/2023) [facility] Medication management Encounter for long-term (current) use of other medications [facility] Diagnosis Medicare annual wellness visit, subsequent- Primary Routine general medical examination at a health care facility White coat syndrome with hypertension Thrombocytopenia (HCC) Thrombocytopenia, unspecified Obesity, Class I, BMI 30-34.9 Obesity, unspecified Gastroesophageal reflux disease without esophagitis Esophageal reflux [facility] Diagnosis Gastroesophageal reflux disease without esophagitis Esophageal reflux [facility] Diagnosis Bronchitis- Primary Bronchitis, not specified as acute or chronic White coat syndrome with hypertension [facility] Diagnosis Congestive heart failure, unspecified HF chronicity, unspecified heart failure type (HCC)- Primary Tachycardia Tachycardia, unspecified [facility] Diagnosis Atrial fibrillation with rapid ventricular response (HCC)- Primary Atrial fibrillation Bilateral lower extremity edema Edema Shortness of breath [facility] Diagnosis Medicare annual wellness visit, subsequent- Primary Routine general medical examination at a health care facility Impaired glucose metabolism Impaired glucose tolerance test Elevated LFTs Other abnormal blood chemistry Thrombocytopenia (HCC) Thrombocytopenia, unspecified Atrial fibrillation with rapid ventricular response (HCC) Atrial fibrillation [facility] Diagnosis Gastroesophageal reflux disease without esophagitis Esophageal reflux [facility] Diagnosis Dyspnea, unspecified type- Primary [facility] Diagnosis Dyspnea, unspecified type [facility] Diagnosis Restrictive lung disease- Primary Other diseases of lung, not elsewhere classified SOB (shortness of breath) Shortness of breath PAH (pulmonary artery hypertension) (HCC) Other chronic pulmonary heart diseases Atrial fibrillation with RVR (HCC) Atrial fibrillation Elevated diaphragm Disorders of diaphragm [facility] Diagnosis SOB (shortness of breath) Shortness of breath [facility] Diagnosis Elevated LFTs- Primary Other abnormal blood chemistry Impaired glucose metabolism Impaired glucose tolerance test Anemia, unspecified type documented in this encounter [facility] for referral (narrative)* Outpatient Procedure (Routine) - Closed Specialty Diagnoses / Procedures Referred By Contac t Referred To [facility] Diagnoses Atrial fibrillation with rapid ventricular response (HCC) Procedures ECG COMPLETE ECG ROUTINE ECG W/LEAST 12 LDS W/I&R Older, Kasey, KIESELGUHR REGENERATOR OPERATOR.NUTRITION HELPER [address] [place] [address] [facility] [place] [address] [place] [id number] Referral ID Status Reason Start Date Expiration Date V isits Requested Visits Authorized [id number] Closed Auto-Generate d Referral 02/24/2023 02/24/2024 1 1 [facility] Outpatient Procedure (Routine) - Pending Review Specialty Diagnoses / Procedures Referred By Contac t Referred To Contact [facility] Diagnoses Dyspnea, unspecified type Procedures LUNG VOLUMES Jeffrey Betts MD [address] [place] [address] [address] Referral ID Status Reason Start Date Expiration Date Visits Requested Visits Authorized [id number] Pending Review Auto-Generat ed Referral 3 06/05/2024 1 1 * Outpatient Procedure (Routine) - Pending Review Specialty Diagnoses / Procedures Referred By Contac t Referred To Contact [facility] Diagnoses Dyspnea, unspecified type Procedures SPIROMETRY - BASELINE AND POST DILATOR BRNCDILAT RSPSE SPMTRY PRE&POST-BRNCDILAT ADMN Jeffrey Betts MD [address] [place] [address] [address] Referral ID Status Reason Start Date Expiration Date Visits Requested Visits Authorized [id number] Pending Review Auto-Generat ed Referral 3 06/05/2024 1 1 [facility] Advance Directives Documents on File Type Date Recorded Patient Actuarial Analyst Expl anation Advance Directive(s) 06/28/2012 4:54 PM Documents on File Type Date Recorded Patient Actuarial Analyst Expl anation Advance Directive(s) 06/28/2012 4:54 PM [...] or prosecute any alcohol or drug abuse patient.[facility] the event this information is protected by the Federal Confidentiality of Alcohol and Drug Abuse Patient Records regulations: The Federal rules restrict any use of the information to criminally investigate or prosecute any alcohol or drug abuse patient.[facility] the event this information is protected by the Federal Confidentiality of Alcohol and Drug Abuse Patient Records regulations: The Federal rules restrict any use of the information to criminally investigate or prosecute any alcohol or drug abuse patient.[facility] Hospital[facility] the event this information is protected by the Federal Confidentiality of Alcohol and Drug Abuse Patient Records regulations: The Federal rules restrict any use of the information to criminally investigate or prosecute any alcohol or drug abuse patient.[facility] the event this information is protected by the Federal Confidentiality of Alcohol and Drug Abuse Patient Records regulations: The Federal rules restrict any use of the information to criminally investigate or prosecute any alcohol or drug abuse patient.[facility] the event this information is protected by the Federal Confidentiality of Alcohol and Drug Abuse Patient Records regulations: The Federal rules restrict any use of the information to criminally investigate or prosecute any alcohol or drug abuse patient.[facility] the event this information is protected by the Federal Confidentiality of Alcohol and Drug Abuse Patient Records regulations: The Federal rules restrict any use of the information to criminally investigate or prosecute any alcohol or drug abuse patient.[facility] the event this information is protected by the Federal Confidentiality of Alcohol and Drug Abuse Patient Records regulations: The Federal rules restrict any use of the information to criminally investigate or prosecute any alcohol or drug abuse patient.[facility] the event this information is protected by the Federal Confidentiality of Alcohol and Drug Abuse Patient Records regulations: The Federal rules restrict any use of the information to criminally investigate or prosecute any alcohol or drug abuse patient.[facility] the event this information is protected by the Federal Confidentiality of Alcohol and Drug Abuse Patient Records regulations: The Federal rules restrict any use of the information to criminally investigate or prosecute any alcohol or drug abuse patient.[facility] the event this information is protected by the Federal Confidentiality of Alcohol and Drug Abuse Patient Records regulations: The Federal rules restrict any use of the information to criminally investigate or prosecute any alcohol or drug abuse patient.[facility] Hospital[facility] the event this information is protected by the Federal Confidentiality of Alcohol and Drug Abuse Patient Records regulations: The Federal rules restrict any use of the information to criminally investigate or prosecute any alcohol or drug abuse patient.[facility] HospitalIn the event this information is protected by the Federal Confidentiality of Alcohol and Drug Abuse Patient Records regulations: The Federal rules restrict any use of the information to criminally investigate or prosecute any alcohol or drug abuse patient.[facility] Hospital[facility] the event this information is protected by the Federal Confidentiality of Alcohol and Drug Abuse Patient Records regulations: The Federal rules restrict any use of the information to criminally investigate or prosecute any alcohol or drug abuse patient.[facility] Hospital[facility] the event this information is protected by the Federal Confidentiality of Alcohol and Drug Abuse Patient Records regulations: The Federal rules restrict any use of the information to criminally investigate or prosecute any alcohol or drug abuse patient.[facility] Care Teams (unrecognized sec tion and content) Pawn Shop Keeper Relationship Specialty Start Date End Date Jeffrey Betts MD [address] [place] [address] PCP - General Internal Medicine 02/18/17 Pawn Shop Keeper Relationship Specialty Start Date End Date Jeffrey Betts MD [address] [place] [address] PCP - General Internal Medicine 02/18/17 Pawn Shop Keeper Relationship Specialty Start Date End Date Jeffrey Betts MD [address] [place] [address] PCP - General Internal Medicine 02/18/17 Pawn Shop Keeper Relationship Specialty Start Date End Date Jeffrey Betts MD [address] [place] [address] PCP - General Internal Medicine 02/18/17 Pawn Shop Keeper Relationship Specialty Start Date End Date Jeffrey Betts MD [address] [place] [address] PCP - General Internal Medicine 02/18/17 Pawn Shop Keeper Relationship Specialty Start Date End Date Jeffrey Betts MD [address] [place] [address] PCP - General Internal Medicine 02/18/17 Pawn Shop Keeper Relationship Specialty Start Date End Date Jeffrey Betts MD [address] [place] [address] PCP - General Internal Medicine 02/18/17 Pawn Shop Keeper Relationship Specialty Start Date End Date Jeffrey Betts MD [address] [place] [address] PCP - General Internal Medicine 02/18/17 Pawn Shop Keeper Relationship Specialty Start Date End Date Jeffrey Betts MD [address] [place], [place] [id number] PCP - General Internal Medicine 02/18/17 Pawn Shop Keeper Relationship Specialty Start Date End Date Jeffrey Betts MD [address] [place], [place] [id number] PCP - General Internal Medicine 02/18/17 Pawn Shop Keeper Relationship Specialty Start Date End Date Jeffrey Betts MD [address] [place], [place] [id number] PCP - General Internal Medicine 02/18/17 Pawn Shop Keeper Relationship Specialty Start Date End Date Jeffrey Betts MD [address] [place], [place] [address] PCP - General Internal Medicine 02/18/17 Reason [...] SPMTRY PRE&POST-BRNCDILAT ADMN Jeffrey Betts MD [address] [place] [address] [facility] [place] [address] [place] [address] Referral ID Status Reason Start Date Expiration Date V isits Requested Visits Authorized [id number] Closed Auto-Generate d Referral 05/07/2023 06/05/2024 1 [...] BE BASED ON THE PRIMARY CLINICAL RECORDS. [facility]. provides no warranty or guarantee of the accuracy or completeness of information in this document.
[2023-08-04] VITALS (12 sets, daily range): BP systolic 104–132; BP diastolic 68–98; PULSE 99–114; RESP 16–20; TEMP 36.3–36.6; O2SAT 93–96; BMI 34.2
[2023-08-04 03:32] LABS: Troponin-I HS 16 pg/mL (3.0-78.0)
--- NOTE | 2023-08-04 04:18 | NURSING ---
Patient stated that he does not think he has urinary retention and that he does not feel the urge to urinate right after he just went. I have orders to place a talamantes but waited to bladder scan patient to see if he is retaining. He was able to urinate 150 mL and I bladder scanned him after for just 34 mL. I will hold off on placing the talamantes at this time.
--- NOTE | 2023-08-04 05:55 | RAD_ITS ---
STUDY: X-RAY CHEST REASON FOR EXAM: Male, 88 years old. AE CHF TECHNIQUE: PA and lateral views of the chest. COMPARISON: Comparison is made with prior study dated August 03, 2023. FINDINGS: EKG electrodes are seen. Small bilateral pleural effusions with bibasilar atelectasis. There has been improvement. Normal size heart. Normal mediastinum and liat. Normal visualized pulmonary arteries. There is atherosclerotic calcification of the aortic arch with tortuosity. There is demineralization of the osseous structures. There is degenerative osteoarthritis of the bilateral shoulders. There is no demonstrated abnormality of the visualized soft tissue structures of the upper abdomen. RAD/Chest PA and Lateral IMPRESSION: Small bilateral pleural effusions with bibasilar atelectasis. There has been improvement as compared to prior study. Electronically Signed: Juan Manuel Mix MD at 10:50 EST ,
[2023-08-04 06:21] LABS: Troponin-I HS 15 pg/mL (3.0-78.0)
[2023-08-04 07:40] LABS: Troponin-I HS 18 pg/mL (3.0-78.0)
[2023-08-04 07:44] LABS: PSA,Total - Annual Screen 1.98 ng/mL (0.00-4.00)
[2023-08-04 07:45] LABS: Cholesterol 114 mg/dL (200); High Density Lipoprotein 49 mg/dL; Triglycerides 48 mg/dL; Very Low Density Lipoprotein 10 mg/dL (5-40)
[2023-08-04 08:32] LABS: BNP,B-Type NATRIURETIC PEPTIDE 304.8 pg/mL (0-100)
[2023-08-04] MEDS: Multivitamins,Ther W-Minerals Tablet 1 TABLET PO (08:56)
[2023-08-04] MEDS: Cyanocobalamin 500 MCG Tablet 1000 MCG PO (08:56)
[2023-08-04] MEDS: Magnesium Chloride 64 MG Delay Rel.Tablet 128 MG PO (08:56)
[2023-08-04] MEDS: Potassium Chloride Oral Tablet 20 MEQ PO ×2 (08:56→20:31)
[2023-08-04] MEDS: Furosemide 40 MG/4 ML Vial IV ×2 (08:57→17:17)
[2023-08-04] MEDS: Metoprolol Tartrate 25 MG Tablet PO ×2 (08:57→20:30)
[2023-08-04] MEDS: Psyllium 1 PACKET PO (08:57)
[2023-08-04] MEDS: Cholecalciferol (VIT D3) 25 MCG TABLET (1,000 UNITS) PO (08:57)
[2023-08-04] MEDS: APIXABAN 5 MG TABLET PO ×2 (09:05→20:31)
--- NOTE | 2023-08-04 11:40 | CASEMGMT ---
PARMJIT BRIGGS Assessment: Face to Face with pt for initial transition planning/care coordination assessment. PARMJIT BRIGGS introduced self and role at [facility], pt voices understanding and consents to assessment. Pt is A&O x4 and answers all questions appropriately at this time. Pt lying in bed on RA in no distress. Care providers, pharmacy, and demographics verified/updated. Admitting Dx: AE CHF with acute hypoxic resp insuff PCP:Dustin Specialists:Angel, pod; Aileen pulm; Kenneth, cardio Preferred Pharmacy: [facility] Insurance: [employer] [facility] Prescription Benefit: yes LNOK: Loraine Lambert, sister; Maddie Batista, niece Living Arrangements: Pt lives with sister in a single story home with 3 steps to enter with a rail. Pt reports he is I in ADL's and denies concerns at home. Pt sister obtains groceries and he is now setting up delivered groceries from [employer]. Pt has a cleaning lady and has hired a lawn service for his lawn in preparation of being unable to perform these tasks. Transportation: Pt has not driven since K[place], states his sister or brother takes him to medical appts. DME:BP monitor, scale, chair lift to basement, cane which he uses and walker x2 HHC/SNF: Denies hx of Pt states no concerns with going home at time of dc. Pt states he just finished therapy at [facility] yesterday but he was so weak he could not participate. He states he will do therapy at home now. Pt is interested in HHC for SN. Discussed having a nurse for CHF education, pt agreeable to this. DC assistant men's lacrosse coach will prepare list. No 6 clicks completed, added therapy orders at this time. Pt states no further concerns/needs. CM to follow. Advised pt to ask CM if any further question/concerns/needs arise, voices understanding. Pt Goal: Home with HHC Plan: Home with HHC, follow therapy to be added
--- NOTE | 2023-08-04 13:01 | CASEMGMT ---
Discharge Planning A list of?HH providers including quality and resource use data and consistent with the patient's preferred geographic region, medical needs, and insurance network was created in [employer] Guide.? This list was provided to the RN BRIGITTE. Esperanza Montiel, Discharge Planning Asst.
--- NOTE | 2023-08-04 14:08 | PN.HOSP_ITS ---
Subjective Subjective Doing well, no issues overnight. He is currently on room air at rest still with some bilateral lower extremity edema Objective Data Objective Data Vital Signs: Vital Signs Temp Pulse Resp BP Pulse Ox O2 Del Method 97.9 F 99 18 113/79 96 Room Air 08/04/23 10:12 08/04/23 10:12 08/04/23 10:12 08/04/23 10:12 08/04/23 12:14 08/04/23 12:14 Oxygen Delivery Method Room Air Weight: 218 lb 13.251 oz Body Mass Index (BMI) 34.2 Intake & Output: Intake and Output for Last 24 Hours 08/03/23 08/04/23 08/05/23 03:59 03:59 03:59 Intake Total 482 / 482 Output Total 750 / 750 Balance -268 / -268 Lab / Micro Data 08/03/23 17:30 08/03/23 17:30 Labs: Laboratory Results - last 24 hr 08/03/23 17:30: WBC 8.6, RBC 5.01, Hgb 13.3, Hct 41.7, MCV 83.2, MCH 26.5 L, MCHC 31.9 L, RDW Std Deviation 48.5 H, RDW Coeff of Joy 16.3 H, Plt Count 219, MPV 10.5, Immature Gran % (Auto) 0.200, Neut % (Auto) 71.9 H, Lymph % (Auto) 12.7 L, [place] % (Auto) 12.3 H, Eos % (Auto) 2.2, Baso % (Auto) 0.7, Absolute Neuts (auto) 6.2, Absolute Lymphs (auto) 1.09, Nucleated RBC % 0, Sodium 136, Potassium 3.9, Chloride 100, Carbon Dioxide 31.0, Anion Gap 5, BUN 27 H, Creatinine 1.42 H, Estim Creat Clear Calc 40.88, Est GFR (MDRD) Af Amer 61, Est GFR (MDRD) Non-Af 50 L, BUN/Creatinine Ratio 19.0, Glucose 160 H, Calcium 9.0, Troponin I High Sens 17, B-Natriuretic Peptide 251.0 H 08/04/23 00:49: Troponin I High Sens 15 08/04/23 02:35: Troponin I High Sens 16 08/04/23 06:38: Troponin I High Sens 18, B-Natriuretic Peptide 304.8 H, Triglycerides 48, Cholesterol 114, LDL Cholesterol 55, VLDL Cholesterol 10, HDL Cholesterol 49, PSA Screen 1.98 Micro: Microbiology 08/03/23 17:39 Mucosa - Nose SARS-CoV-2, Influenza & RSV (PCR) - Final Radiography Diagnostic Testing: Radiology Impression Chest X-Ray 08/03/23 18:06 IMPRESSION: Stable bibasilar airspace disease and effusion at the right lung base. Electronically Signed: Cem Morel, at 18:28 EST , Chest X-Ray 08/04/23 05:55 IMPRESSION: Small bilateral pleural effusions with bibasilar atelectasis. There has been improvement as compared to prior study. Electronically Signed: Juan Manuel Mix MD at 10:50 EST , Physical Exam Narrative General: Alert, Oriented x3, Cooperative, No apparent distress HEENT: Atraumatic, PERRLA, EOMI, Normocephalic Oral: Moist Mucosa Neck: Supple, No JVD Lungs: Diminished, Normal air movement, No rhonchi, No wheeze, No rales Cardiovascular: Regular rate, Regular Rhythm, Normal S1, Normal S2, No murmurs Abdomen: Soft, Non Tender, Non-Distended, No Hepato-splenomegaly Extremities: Edema, Capillary Refill Less than 3 Seconds Skin: Lower extremity redness has been chronic since February when he was diagnosed with heart failure Musculoskeletal: No Tenderness to Palpation of Joints or Extremities Neurological: No focal neurological deficits, Motor Exam 5/5 strength throughout, Sensory exam intact to light touch and pain Psych/Mental Status: Normal Affect, Appropriate Assessment & Plan Assessment/Plan (1) Heart failure: QUALIFIERS: Heart failure type: diastolic Heart failure chronicity: acute on chronic Qualified Code(s): I50.33 - Acute on chronic diastolic (congestive) heart failure (2) Respiratory insufficiency: (3) BLAIR (acute kidney injury): (4) Urinary retention: PLAN: Plan 1. Acute on chronic diastolic CHF with acute hypoxia/HTN/HLD/paroxysmal A-fib ? Echo on 03/09/2023 with an EF of 55% and a PASP of 52 mmHg ? Continue with aggressive IV diuretics as he states that he is gained 16 pounds in about 3 weeks ? Will place him on daily weights ? Continue with his home blood pressure medications ? Continue with Eliquis 2. Mild BLAIR ? Creatinine elevated to 1.43 however that does not appear to be rechecked this morning ? He was placed on Flomax for possible BPH contributing ? Will recheck creatinine in the morning 3. GERD ? Stable ? Continue with PPI DVT: Eliquis Charges/Coding Visit Charges Inpatient E&M: 44213 Subs Hosp L2
--- NOTE | 2023-08-04 14:25 | CASEMGMT ---
Provided pt with a list of [facility] providers created by lizzy ortiz. Pt states he will need quite a bit of time to look at this. RN CM to check back on preferences.
[2023-08-04] MEDS: Nystatin Powder 15gm Bottle 1 APPLIC TOPICAL ×2 (14:41→20:34)
[2023-08-04] MEDS: Tamsulosin HCl 0.4 MG Capsule 0.400000000000000022 MG PO (17:17)
[2023-08-05 01:46] VITALS: BMI 34.2
[2023-08-05 02:24] VITALS: BP 115/83; PULSE 95; RESP 18; TEMP 36.4; O2SAT 96
[2023-08-05 08:09] LABS: Absolute Lymphocyte Count 1.31 X10^3/uL (0.83-4.51); Absolute Neutrophil Count 5.2 X10^3/uL (2.0-7.7); Basophil# 0.06 X10^3/uL; Basophil% 0.8 % (0-1); Eosinophil# 0.19 X10^3/uL; Eosinophils% 2.4 % (0-5); Hematocrit 37.7 % (40-54); Lymphocyte # 1.31 X10^3/ul (0.83-4.51); Lymphocyte % 16.7 % (19-41); Mean Corp Hgb Conc 31.8 g/dL (32-36); Mean Corpuscular Volume 81.6 fL (80-94); Mean Platelet Vol. 10.6 fl (6.2-12.0); Monocyte# 1.02 X10^3/uL; NRBC Flagged by Analyzer 0 % (0-5); Neutrophil # 5.23 X10^3/uL (2.7-7.7); Neutrophil % 66.6 % (47-70); Platelet Count 184 K/mm3 (150-450); RBC Distribution Width SD 46.8 fl (35.1-43.9); Red Blood Count 4.62 M/mm3 (4.6-6.2); White Blood Count 7.9 K/mm3 (4.4-11.0)
[2023-08-05 08:44] LABS: Anion Gap 7 (5-15); BUN 24 mg/dL (7-18); BUN/Creat Ratio 21.6 RATIO (10-20); Calcium,Total 9.2 mg/dL (8.5-10.1); Chloride 103 mmol/L (98-107); Creatinine, Serum 1.11 mg/dL (0.70-1.30); EST Glomerular Filtration Rate 66 mL/min (>60); Est Glom Filt Rate - Afr Amer 80 mL/min (>60); Estimated Creatinine Clearance 51.57 ml/min; Glucose 134 mg/dL (74-106); Potassium 3.4 mmol/L (3.5-5.1); Sodium Level 140 mmol/L (136-145)
[2023-08-05 09:01] VITALS: BP 105/78; PULSE 110; RESP 16; TEMP 36.4; O2SAT 96
[2023-08-05 09:06] VITALS: PULSE 110
[2023-08-05] MEDS: Magnesium Chloride 64 MG Delay Rel.Tablet 128 MG PO (09:06)
[2023-08-05] MEDS: Metoprolol Tartrate 25 MG Tablet PO (09:06)
[2023-08-05] MEDS: Multivitamins,Ther W-Minerals Tablet 1 TABLET PO (09:06)
[2023-08-05] MEDS: APIXABAN 5 MG TABLET PO (09:06)
[2023-08-05] MEDS: Potassium Chloride Oral Tablet 20 MEQ PO (09:06)
[2023-08-05] MEDS: Furosemide 40 MG/4 ML Vial IV (09:07)
[2023-08-05] MEDS: Cholecalciferol (VIT D3) 25 MCG TABLET (1,000 UNITS) PO (09:07)
[2023-08-05] MEDS: Cyanocobalamin 500 MCG Tablet 1000 MCG PO (09:07)
--- NOTE | 2023-08-05 10:13 | CASEMGMT ---
Social Work SW spoke w/pt, confirmed Loraine Guevara is pt's healthcare for POA. He states they recently (within the last couple of weeks) brought in the documents to the room service clerk here, and they were going to be scanned in there. SW explained they are not yet in the system yet, but will hopefully be scanned in soon. SHY Handley
[2023-08-05 10:43] VITALS: O2SAT 96; O2SAT 98
--- NOTE | 2023-08-05 11:06 | CASEMGMT ---
Addendum entered by Treasure Bucio 08/05/23 11:27: PARMJIT BRIGGS received call back from [facility] and they are able to accept patient with planned start of care for tomorrow. PARMJIT BRIGGS updated patient, patient had no further questions or concerns. Hospitalist updated regarding discharge plan. Original Note: PARMJIT BRIGGS in to discuss needs at discharge with patient. Patient does not qualify for home oxygen. Patient is agreeable to [facility] and states he will be home bound at discharge. Patient states he prefers [facility]. Patient denied further needs at discharge. Patient had no further questions or concerns. PARMJIT BRIGGS called [facility] and made referral, awaiting acceptance.
--- NOTE | 2023-08-05 11:46 | DCINST_ITS ---
Discharge Instructions Diet Discharge Diet: Low fat / Low cholesterol and 6 Cup Fluid Restriction Activity Discharge Activity: Return to Normal Activity Dressing / Incision Call your doctor if you observe: Fever of 101 or Higher, Shortness of breath, Dizziness, Fainting spells, Swelling in the ankles, Chest pain and Increased palpitations (irregular heartbeat) Follow Up Care Test Results: Test results from this visit will be discussed in further detail at your follow- up appointment, if applicable. Discharge Plan Admission Admit Date/Time: 08/03/23 23:39 Attending Provider: Kaleb Moss Primary Care Provider: Jeffrey Chan Consulting Providers: Adrian Singleton Discharge Orders/Prescriptions Prescriptions: New tamsulosin 0.4 mg Capsule 0.4 mg PO DAILY@1730 30 Days Qty: 30 0RF Continued psyllium husk [Fiber (psyllium husk)] 0.4 gram capsule 0.4 g PO DAILY cholecalciferol (vitamin D3) 25 mcg (1,000 unit) capsule 25 mcg PO DAILY [id number] Tablet 1 tab PO DAILY cyanocobalamin (vitamin B-12) 1,000 mcg tablet 1,000 mcg PO DAILY metoprolol tartrate 25 mg tablet 25 mg PO BID Qty: 180 3RF omeprazole 20 mg capsule,delayed release(DR/EC) 20 mg PO .every other day PRN (Reason: acid reflux) Eliquis 5 mg tablet 5 mg PO BID potassium chloride 20 mEq tablet,ER particles/crystals 20 meq PO BID Qty: 180 3RF furosemide [Lasix] 40 mg tablet 40 mg PO .COMPLEX Qty: 180 3RF Rx Instructions: 40 mg orally twice a day, about 4 hours apart X 1 week, then go back to once a day; Referrals / Follow Up: Jeffrey Chan MD [Primary Care Provider] - Within 1 Week Disposition Disposition (needs filled in before D/C Order can be placed): Home Health Service
--- NOTE | 2023-08-05 12:24 | PHA.DC.MC.R ---
Pharmacy [facility] has performed discharge medication reconciliation and counseling for this patient. The patient's discharge medication list was reviewed for discrepancies and discrepancies were resolved. The patient was counseled on the following discharge medications and changes in medications for homegoing were reviewed. 1. FLOMAX The Reason for Use, instructions for use, and potential side effects were reviewed for all new medications. The patient's questions regarding all of their medications were answered. The patient was able to verbally demonstrate an understanding of their discharge medications. Patient was discharge counselled by Lb Nance PharmD Candidate Medications at Discharge Home Medications cholecalciferol (vitamin D3) 25 mcg (1,000 unit) capsule 25 mcg PO DAILY vitamin 03/12/23 [id number]-nrflarqu-uktpbv tablet 1 tab PO DAILY vitamin 03/12/23 psyllium husk 0.4 gram capsule (Fiber (psyllium husk)) 0.4 g PO DAILY fiber 03/12/23 cyanocobalamin (vitamin B-12) 1,000 mcg tablet 1,000 mcg PO DAILY vitamin 03/24/23 omeprazole 20 mg capsule,delayed release 20 mg PO .every other day PRN acid reflux 03/24/23 apixaban 5 mg tablet (Eliquis) 5 mg PO BID blood thinner 06/22/23 metoprolol tartrate 25 mg tablet 25 mg PO BID #180 tabs 07/02/23 furosemide 40 mg tablet (Lasix) 40 mg PO .COMPLEX #180 tabs 07/29/23 potassium chloride 20 mEq tablet,extended release(part/cryst) 20 meq PO BID #180 tabs 07/29/23 tamsulosin 0.4 mg capsule 0.4 mg PO DAILY@1730 30 days #30 caps 08/05/23
--- NOTE | 2023-08-05 16:18 | DS.PCM_ITS ---
Providers Date of Admission: 08/03/23 Primary Care Physician: Dr. Jeffrey Chan MD Reason For Visit: AE CHF WITH ACUTE HYPOXIC RESP INSUFF Diagnosis Discharge Diagnosis (1) Heart failure: Status: Acute Code(s): I50.9 - Heart failure, unspecified Qualifiers: Heart failure type: diastolic Heart failure chronicity: acute on chronic Qualified Code(s): I50.33 - Acute on chronic diastolic (congestive) heart failure (2) Respiratory insufficiency: Status: Acute Code(s): R06.89 - Other abnormalities of breathing (3) BLAIR (acute kidney injury): Status: Acute Code(s): N17.9 - Acute kidney failure, unspecified (4) Urinary retention: Status: Acute Code(s): R33.9 - Retention of urine, unspecified Medications at Discharge Home Medications cholecalciferol (vitamin D3) 25 mcg (1,000 unit) capsule 25 mcg PO DAILY vitamin 03/12/23 [id number]-ilbmxufb-gtjyud tablet 1 tab PO DAILY vitamin 03/12/23 psyllium husk 0.4 gram capsule (Fiber (psyllium husk)) 0.4 g PO DAILY fiber 03/12/23 cyanocobalamin (vitamin B-12) 1,000 mcg tablet 1,000 mcg PO DAILY vitamin 03/24/23 omeprazole 20 mg capsule,delayed release 20 mg PO .every other day PRN acid reflux 03/24/23 apixaban 5 mg tablet (Eliquis) 5 mg PO BID blood thinner 06/22/23 metoprolol tartrate 25 mg tablet 25 mg PO BID #180 tabs 07/02/23 furosemide 40 mg tablet (Lasix) 40 mg PO .COMPLEX #180 tabs 07/29/23 potassium chloride 20 mEq tablet,extended release(part/cryst) 20 meq PO BID #180 tabs 07/29/23 tamsulosin 0.4 mg capsule 0.4 mg PO DAILY@1730 30 days #30 caps 08/05/23 Hospital Course Operations None Procedures None Summary of Care Provided Minutes Spent on Discharge: 33 Hospital Course: Per HPI: TRINH ROWELL, is a 88 M with a past medical history of essential hyp ertension, paroxysmal atrial fibrillation; on Eliquis, obesity; with BMI of 35.2 this admission, remote history of tobacco abuse; with subsequent COPD, history of benign neoplasm of colon, lumbar DDD, idiopathic peripheral neuropathy, chronic anemia, history of renal calculi, GERD and history of chronic diastolic CHF; with preserved LVEF with admission here for AE CHF about one month ago with physical deconditioning who presents to [facility] ER complaining of SOB and 16 pound weight gain. Mr. Rowell reports his symptoms began approximately three weeks prior to admission with the gradual-onset of fluid retention with weight gain causing him to feel more edema in his upper legs up into his abdomen. He also admits to EDUARDO that progressed to SOB at rest after he gained ~4 more pounds in the past week in spite of being on Lasix 40 mg PO BID. He denies associated fever, chills, cough or chest pain and he stated he recently saw his skein bleacher who prescribed spironolactone - and he has just gotten the prescription filled but he has not take it yet. In the ER he was diagnosed with AE of Chronic CHF; confirmed with CXR positive for pulmonary vascular congestion with an elevated BNP of 251 pg/mL present on admission complicated by clinical evidence of acute hypoxic respiratory insufficiency evidenced when his oxygen saturations dropped to ~86% on RA with minimal activi ty and he was then admitted to the PCU for ongoing care for a stay that is expected to be greater than 48 hours. Hospital Course: 1. Acute on chronic diastolic CHF with acute hypoxia/HTN/HLD/paroxysmal A-fib? 88-year-old male with a history of diastolic CHF presented to the hospital with increased shortness of breath. States that he is gained about 16 pounds prior to admission. He had had an echo back in February when his heart failure was first diagnosed with an EF of 55% and a PASP of 52 mmHg. He was placed on aggressive IV diuretics and had significant improvement over the last couple of days with an 8 pound weight loss. Today he did not require any oxygen with ambulation and I discussed with him the possibility for discharge and expressed understanding of the risk benefits of going to home and would like to go today. He did have a mild BLAIR on admission with creatinine of 1.43 however this resolved on the day of discharge. No changes were made to his home medications, he was continued on Lasix 40 mg and we did do education on fluid restrictions an d sodium restriction. 2. Some concern for urinary retention on admission from BPH so he was also started on Flomax and recommend outpatient follow-up 3. GERD, will continue with PPI Physical Exam Narrative General: Alert, Oriented x3, Cooperative, No apparent distress HEENT: Atraumatic, PERRLA, EOMI, Normocephalic Oral: Moist Mucosa Neck: Supple, No JVD Lungs: Diminished, Normal air movement, No rhonchi, No wheeze, No rales Cardiovascular: Regular rate, Regular Rhythm, Normal S1, Normal S2, No murmurs Abdomen: Soft, Non Tender, Non-Distended, No Hepato-splenomegaly Extremities: Edema, Capillary Refill Less than 3 Seconds Skin: Lower extremity redness has been chronic since February when he was diagnosed with heart failure Musculoskeletal: No Tenderness to Palpation of Joints or Extremities Neurological: No focal neurological deficits, Motor Exam 5/5 strength throughout, Sensory exam intact to light touch and pain Psych/Mental Status: Normal Affect, Appropriate Weight / BMI Weight Weight: 218 lb 4.122 oz Body Mass Index (BMI) 34.2 ABG / Lab / Microbiology Data 08/05/23 07:25 08/05/23 07:25 Laboratory: Laboratory Results - last 24 hr 08/05/23 07:25: WBC 7.9, RBC 4.62, Hgb 12.0 L, Hct 37.7 L, MCV 81.6, MCH 26.0 L, MCHC 31.8 L, RDW Std Deviation 46.8 H, RDW Coeff of Joy 16.0 H, Plt Count 184, MPV 10.6, Immature Gran % (Auto) 0.500, Neut % (Auto) 66.6, Lymph % (Auto) 16.7 L, [place] % (Auto) 13.0 H, Eos % (Auto) 2.4, Baso % (Auto) 0.8, Absolute Neuts (auto) 5.2, Absolute Lymphs (auto) 1.31, Nucleated RBC % 0, Sodium 140, Potassium 3.4 L, Chloride 103, Carbon Dioxide 30.0, Anion Gap 7, BUN 24 H, Creatinine 1.11, Estim Creat Clear Calc 51.57, Est GFR (MDRD) Af Amer 80, Est GFR (MDRD) Non-Af 66, BUN/Creatinine Ratio 21.6 H, Glucose 134 H, Calcium 9.2 Microbiology: Microbiology 08/03/23 17:39 Mucosa - Nose SARS-CoV-2, Influenza & RSV (PCR) - Final D/C Instructions Discharge Diet: Low fat / Low cholesterol and 6 Cup Fluid Restriction Call your doctor if you observe: Fever of 101 or Higher, Shortness of breath, Dizziness, Fainting spells, Swelling in the ankles, Chest pain and Increased palpitations (irregular heartbeat) Meaningful Use Info Meaningful Use Diagnoses (Choose all that apply): None applicable Discharge Plan Admission Admit Date/Time: 08/03/23 23:39 Attending Provider: Kaleb Moss Primary Care Provider: Jeffrey Chan Consulting Providers: Adrian Singleton Discharge Orders/Prescriptions Prescriptions: New tamsulosin 0.4 mg Capsule 0.4 mg PO DAILY@1730 30 Days Qty: 30 0RF Continued psyllium husk [Fiber (psyllium husk)] 0.4 gram capsule 0.4 g PO DAILY cholecalciferol (vitamin D3) 25 mcg (1,000 unit) capsule 25 mcg PO DAILY [id number]-cuazxlgk-nrccqi Tablet 1 tab PO DAILY cyanocobalamin (vitamin B-12) 1,000 mcg tablet 1,000 mcg PO DAILY metoprolol tartrate 25 mg tablet 25 mg PO BID Qty: 180 3RF omeprazole 20 mg capsule,delayed release(DR/EC) 20 mg PO .every other day PRN (Reason: acid reflux) Eliquis 5 mg tablet 5 mg PO BID potassium chloride 20 mEq tablet,ER particles/crystals 20 meq PO BID Qty: 180 3RF furosemide [Lasix] 40 mg tablet 40 mg PO .COMPLEX Qty: 180 3RF Rx Instructions: 40 mg orally twice a day, about 4 hours apart X 1 week, then go back to once a day; Referrals / Follow Up: Jeffrey Chan MD [Primary Care Provider] - Within 1 Week Disposition Disposition (needs filled in before D/C Order can be placed): Home Health Service Charges/Coding Visit Charges Inpatient E&M: 46328 Disch Hosp >30min
== END 2023-08-05 12:53 | disposition home health service (06) | DRG 291 ==
LOC: ED 22:24 → PCU 23:45
PROVIDERS: Admitting Provider Internal Medicine; Emergency Provider Emergency Medicine; PCP Internal Medicine; Visit Provider Family Medicine
DX: I11.0 Hypertensive heart disease with heart failure (principal); I50.33 Acute on chronic diastolic (congestive) heart failure; N17.9 Acute kidney failure, unspecified; I48.0 Paroxysmal atrial fibrillation; G60.9 Hereditary and idiopathic neuropathy, unspecified; E78.5 Hyperlipidemia, unspecified; E66.9 Obesity, unspecified; J44.9 Chronic obstructive pulmonary disease, unspecified; M51.36 Other intervertebral disc degeneration, lumbar region; K21.9 Gastro-esophageal reflux disease without esophagitis; N40.1 Benign prostatic hyperplasia with lower urinary tract symptoms; R33.8 Other retention of urine; R09.02 Hypoxemia; Z11.52 Encounter for screening for COVID-19; Z68.35 Body mass index [BMI] 35.0-35.9, adult; Z79.01 Long term (current) use of anticoagulants; Z79.899 Other long term (current) drug therapy; Z87.891 Personal history of nicotine dependence
CPT/HCPCS: 36415; 71045; 71046; 80048; 80061; 83880; 84153; 84484; 85025; 87631; 93005; 97162; 97802; 99284; G0103; J1940

== ENCOUNTER 2023-08-18 13:50 | Outpatient (RCR) | payer MEDICARE, SELFPAY ==
[2023-08-18 14:17] LABS: Anion Gap 4 (5-15); BUN 34 mg/dL (7-18); BUN/Creat Ratio 22.5 RATIO (10-20); Calcium,Total 9.3 mg/dL (8.5-10.1); Chloride 96 mmol/L (98-107); Creatinine, Serum 1.51 mg/dL (0.70-1.30); EST Glomerular Filtration Rate 47 mL/min (>60); Est Glom Filt Rate - Afr Amer 56 mL/min (>60); Glucose 122 mg/dL (74-106); Potassium 3.5 mmol/L (3.5-5.1); Sodium Level 137 mmol/L (136-145)
== END 2023-08-19 18:00 | disposition home or self-care (01) ==
LOC: HHLAB 13:50
PROVIDERS: PCP Internal Medicine
DX: I11.0 Hypertensive heart disease with heart failure (principal); I50.33 Acute on chronic diastolic (congestive) heart failure; J96.01 Acute respiratory failure with hypoxia; J90 Pleural effusion, not elsewhere classified
CPT/HCPCS: 80048

== ENCOUNTER → 2023-09-08 15:21 | Outpatient (RCR) | payer MEDICARE, SELFPAY ==
[2023-09-08 16:28] LABS: Anion Gap 5 (5-15); BUN 34 mg/dL (7-18); BUN/Creat Ratio 21.1 RATIO (10-20); Calcium,Total 9.1 mg/dL (8.5-10.1); Chloride 94 mmol/L (98-107); Creatinine, Serum 1.61 mg/dL (0.70-1.30); EST Glomerular Filtration Rate 43 mL/min (>60); Est Glom Filt Rate - Afr Amer 52 mL/min (>60); Glucose 141 mg/dL (74-106); Potassium 3.6 mmol/L (3.5-5.1); Sodium Level 137 mmol/L (136-145)
== END ==
LOC: CCN 08-30 19:24
PROVIDERS: Physician Assistant Medical; PCP Internal Medicine; Visit Provider Internal Medicine
DX: Z51.89 Encounter for other specified aftercare (principal); Z51.81 Encounter for therapeutic drug level monitoring; Z79.899 Other long term (current) drug therapy; R60.0 Localized edema
CPT/HCPCS: 36415; 80048

== ENCOUNTER → 2023-10-21 | Outpatient (CLI) | payer MEDICARE, SELFPAY ==
[2023-10-21 16:24] LABS: ALB/GLOB Ratio 0.6 RATIO (0.9-2.4); AST(SGOT) 28 U/L (15-37); Alanine Aminotransfer ALT/SGPT 28 U/L (16-61); Albumin, Serum 2.9 g/dL (3.2-5.0); Alkaline Phosphatase 316 U/L (45-117); Anion Gap 4 (5-15); BUN 37 mg/dL (7-18); BUN/Creat Ratio 24.5 RATIO (10-20); Calcium,Total 9.1 mg/dL (8.5-10.1); Chloride 98 mmol/L (98-107); Creatinine, Serum 1.51 mg/dL (0.70-1.30); EST Glomerular Filtration Rate 47 mL/min (>60); Est Glom Filt Rate - Afr Amer 56 mL/min (>60); Globulin 4.5 g/dL (2.2-4.2); Glucose 108 mg/dL (74-106); Protein, Total 7.4 g/dL (6.4-8.2); Sodium Level 135 mmol/L (136-145)
== END | disposition home or self-care (01) ==
LOC: LAB 15:12
PROVIDERS: PCP Internal Medicine; Referring Provider Physician Assistant Medical; Visit Provider Physician Assistant Medical
DX: I48.11 Longstanding persistent atrial fibrillation (principal); N17.9 Acute kidney failure, unspecified; E78.5 Hyperlipidemia, unspecified
CPT/HCPCS: 36415; 80053

== ENCOUNTER → 2023-11-03 | Outpatient (CLI) | payer MEDICARE, SELFPAY ==
[2023-11-03 15:52] LABS: Anion Gap 7 (5-15); BUN 30 mg/dL (7-18); BUN/Creat Ratio 19.7 RATIO (10-20); Calcium,Total 9.1 mg/dL (8.5-10.1); Chloride 92 mmol/L (98-107); Creatinine, Serum 1.52 mg/dL (0.70-1.30); EST Glomerular Filtration Rate 46 mL/min (>60); Est Glom Filt Rate - Afr Amer 56 mL/min (>60); Glucose 157 mg/dL (74-106); Potassium 3.7 mmol/L (3.5-5.1); Sodium Level 132 mmol/L (136-145)
== END | disposition home or self-care (01) ==
LOC: BIMLAB 12:03
PROVIDERS: PCP Internal Medicine; Visit Provider Physician Assistant Medical
DX: Z51.81 Encounter for therapeutic drug level monitoring (principal); Z79.899 Other long term (current) drug therapy
CPT/HCPCS: 36415; 80048

== ENCOUNTER → 2023-11-29 | Outpatient (CLI) | payer MEDICARE, SELFPAY ==
--- NOTE | 2023-11-29 12:48 | ECHOD_ITS ---
Reason For Study: localized edema Procedure This was a 2D Doppler, Color Flow transthoracic echocardiogram. Exam performed in department. Left Ventricle Normal LV size. Mild concentric left ventricular hypertrophy. D shaped septum in diastole. The left ventricular ejection fraction is 40 %. There is mild to moderate global hypokinesis of the left ventricle. Right Ventricle Moderately dilated right ventricle. Mild to moderate global right ventricular systolic dysfunction. Atria The left atrium is moderately enlarged. The right atrium is moderately enlarged. Mitral Valve Normal mitral valve. Mild (1+) eccentric mitral valve insufficiency. Tricuspid Valve Normal tricuspid valve. Moderate (2+) tricuspid valve insufficiency. Pulmonary artery systolic pressure is 60 mmHg. Moderate pulmonary hypertension. Great Vessels Mildly dilated aortic root. The pulmonary artery is normal size. Normal inferior vena cava. Pericardium/Pleural No pericardial effusion. MMode/2D Measurements & Calculations LVIDd: 4.1 cm IVSd: 1.2 cm Ao root diam: 4.1 cm LVIDs: 3.8 cm LVPWd: 1.3 cm RVDd: 4.4 cm FS: 8.6 % LAV(MOD-bp): 77.6 ml SV(MOD-sp4): 22.9 ml LVAd ap4: 21.7 cm2 LAV(MOD-bp) Indexed: 41.8 ml/m2 LVLd ap4: 6.7 cm LAV(MOD-sp2): 78.6 ml EDV(MOD-sp4): 60.1 ml LAV(MOD-sp4): 70.7 ml EDV(sp4-el): 59.5 ml LVAs ap4: 16.4 cm2 LVLs ap4: 6.0 cm ESV(MOD-sp4): 37.2 ml ESV(sp4-el): 38.1 ml EF(MOD-sp4): 38.1 % EF(sp4-el): 36.0 % SV(sp4-el): 21.4 ml LA dimension(2D): 4.8 cm LA A4 area: 26.0 cm2 TAPSE: 0.93 cm RA A4 area: 24.7 cm2 Doppler Measurements & Calculations MV E max leonarda: 100.5 cm/sec Ao V2 max: 92.4 cm/sec AI max leonarda: 303.5 cm/sec Ao max P.4 mmHg AI max P.8 mmHg Ao V2 mean: 69.8 cm/sec AI dec slope: 110.5 cm/sec2 Ao mean P.2 mmHg AI P1/2t: 804.3 msec Ao V2 VTI: 18.4 cm AV (velocity ratio): 0.75 LV V1 max: 75.2 cm/sec PA V2 max: 70.0 cm/sec PI end-d leonarda: 87.5 cm/sec LV V1 max P.3 mmHg PA V2 mean: 47.5 cm/sec LV V1 mean P.4 mmHg LV V1 mean: 55.5 cm/sec LV V1 VTI: 13.9 cm TR max leonarda: 333.3 cm/sec TR max P.4 mmHg ECHO/Echo Complete Interpretation Summary Normal LV size. The left ventricular ejection fraction is 40 %. Mild concentric left ventricular hypertrophy. The left atrium is moderately enlarged. The right atrium is moderately enlarged. D shaped septum in diastole. There is mild to moderate global hypokinesis of the left ventricle. Pulmonary artery systolic pressure is 60 mmHg. Moderate pulmonary hypertension. Mildly dilated aortic root. Ordering Physician: Yessy Mason Referring Physician: Yessy Mason Performed By: Rosa Davila RCS
== END | disposition home or self-care (01) ==
LOC: CVS 12:47
PROVIDERS: PCP Internal Medicine; Referring Provider Physician Assistant Medical; Visit Provider Physician Assistant Medical
DX: R60.0 Localized edema (principal); I48.11 Longstanding persistent atrial fibrillation
CPT/HCPCS: 93306

== ENCOUNTER → 2023-12-14 | Outpatient (CLI) | payer MEDICARE, SELFPAY ==
[2023-12-14 12:41] LABS: Anion Gap 6 (5-15); BUN 48 mg/dL (7-18); BUN/Creat Ratio 25.5 RATIO (10-20); Calcium,Total 9.5 mg/dL (8.5-10.1); Chloride 99 mmol/L (98-107); Creatinine, Serum 1.88 mg/dL (0.70-1.30); EST Glomerular Filtration Rate 36 mL/min (>60); Est Glom Filt Rate - Afr Amer 44 mL/min (>60); Glucose 121 mg/dL (74-106); Potassium 4.3 mmol/L (3.5-5.1); Sodium Level 137 mmol/L (136-145)
== END | disposition home or self-care (01) ==
LOC: BIMLAB 11:34
PROVIDERS: PCP Internal Medicine; Visit Provider Physician Assistant Medical
DX: N17.9 Acute kidney failure, unspecified (principal)
CPT/HCPCS: 36415; 80048

== ENCOUNTER → 2023-12-29 | Outpatient (CLI) | payer MEDICARE, SELFPAY ==
[2023-12-29 12:26] LABS: Anion Gap 6 (5-15); BUN 33 mg/dL (7-18); Calcium,Total 9.5 mg/dL (8.5-10.1); Chloride 100 mmol/L (98-107); Creatinine, Serum 1.65 mg/dL (0.70-1.30); EST Glomerular Filtration Rate 42 mL/min (>60); Est Glom Filt Rate - Afr Amer 51 mL/min (>60); Glucose 118 mg/dL (74-106); Potassium 4.1 mmol/L (3.5-5.1); Sodium Level 136 mmol/L (136-145)
== END | disposition home or self-care (01) ==
LOC: BIMLAB 11:14
PROVIDERS: PCP Internal Medicine; Referring Provider Physician Assistant Medical; Visit Provider Physician Assistant Medical
DX: N17.9 Acute kidney failure, unspecified (principal)
CPT/HCPCS: 36415; 80048

== ENCOUNTER → 2024-07-27 | Outpatient (CLI) | payer MEDICARE, SELFPAY ==
[2024-07-27 12:25] LABS: Absolute Lymphocyte Count 1.21 X10^3/uL (0.83-4.51); Absolute Neutrophil Count 5.5 X10^3/uL (2.0-7.7); Basophil# 0.09 X10^3/uL; Basophil% 1.1 % (0-1); Eosinophil# 0.29 X10^3/uL; Eosinophils% 3.6 % (0-5); Hematocrit 37.1 % (40-54); Hemoglobin 11.7 g/dL (13.0-16.5); Lymphocyte # 1.21 X10^3/ul (0.83-4.51); Lymphocyte % 15.2 % (19-41); Mean Corp Hgb Conc 31.5 g/dL (32-36); Mean Corpuscular Hgb 28.6 pg (27.0-32.0); Mean Corpuscular Volume 90.7 fL (80-94); Mean Platelet Vol. 9.4 fl (6.2-12.0); Monocyte# 0.82 X10^3/uL; Monocyte% 10.3 % (0-10); NRBC Flagged by Analyzer 0 % (0-5); Neutrophil # 5.54 X10^3/uL (2.7-7.7); Neutrophil % 69.4 % (47-70); Platelet Count 281 K/mm3 (150-450); RBC Distribution Width CV 13.5 % (11.6-14.6); RBC Distribution Width SD 45.2 fl (35.1-43.9); Red Blood Count 4.09 M/mm3 (4.6-6.2)
[2024-07-27 13:03] LABS: ALB/GLOB Ratio 0.8 RATIO (0.9-2.4); AST(SGOT) 25 U/L (15-37); Alanine Aminotransfer ALT/SGPT 30 U/L (16-61); Albumin, Serum 3.5 g/dL (3.2-5.0); Alkaline Phosphatase 205 U/L (45-117); Anion Gap 6 (5-15); BUN 38 mg/dL (7-18); BUN/Creat Ratio 21.6 RATIO (10-20); Calcium,Total 9.5 mg/dL (8.5-10.1); Chloride 100 mmol/L (98-107); Creatinine, Serum 1.76 mg/dL (0.70-1.30); EST Glomerular Filtration Rate 39 mL/min (>60); Est Glom Filt Rate - Afr Amer 47 mL/min (>60); Globulin 4.5 g/dL (2.2-4.2); Glucose 130 mg/dL (74-106); Potassium 4.6 mmol/L (3.5-5.1); Sodium Level 136 mmol/L (136-145)
== END | disposition home or self-care (01) ==
LOC: LAB 11:59
PROVIDERS: PCP Internal Medicine; Referring Provider Physician Assistant Medical; Visit Provider Physician Assistant Medical
DX: I50.1 Left ventricular failure, unspecified (principal); R53.1 Weakness
CPT/HCPCS: 36415; 80053; 85025

== ENCOUNTER → 2024-09-06 | Outpatient (CLI) | payer MEDICARE, SELFPAY ==
--- NOTE | 2024-09-06 09:59 | ECHOD_ITS ---
Reason For Study Reason For Study: DILATED CMP Procedure This was a 2D Doppler, Color Flow transthoracic echocardiogram. Exam performed in department. Left Ventricle Normal LV size. The left ventricular ejection fraction is 45 %. Stage 3 diastolic dysfunction. No regional wall motion abnormalities noted. Right Ventricle Borderline right ventricular enlargement. Normal systolic function. Atria The left atrium is moderately enlarged. Prominent eustachian valve. The right atrium is mildly enlarged. Mitral Valve There is moderate mitral annular calcification. Mild (1+) eccentric mitral valve insufficiency. Tricuspid Valve Normal tricuspid valve. Mild to moderate (1-2+) tricuspid valve insufficiency. Pulmonary artery systolic pressure is 40 mmHg. Aortic Valve Trisinus/trileaflet aortic valve. Mild focal aortic valve calcification. Mild (1+) aortic valve insufficiency. Pulmonic Valve Normal pulmonic valve. Great Vessels Normal aortic root. The pulmonary artery is normal size. Inferior vena cava collapse with respiration. Pericardium/Pleural No pericardial effusion. MMode/2D Measurements & Calculations LVIDd: 4.7 cm IVSd: 1.2 cm LVOT diam: 2.0 cm LVIDs: 3.8 cm LVPWd: 1.00 cm LVOT area: 3.2 cm2 RVDd: 4.0 cm FS: 19.0 % Ao root diam: 4.0 cm LAV(MOD-bp): 101.3 ml LVAd ap4: 27.8 cm2 LAV(MOD-bp) Indexed: 53.2 ml/m2 LVLd ap4: 7.5 cm LAV(MOD-sp2): 99.7 ml EDV(MOD-sp4): 89.6 ml LAV(MOD-sp4): 98.7 ml EDV(sp4-el): 87.3 ml LVAs ap4: 20.2 cm2 LVLs ap4: 6.9 cm ESV(MOD-sp4): 50.9 ml ESV(sp4-el): 49.9 ml EF(MOD-sp4): 43.3 % EF(sp4-el): 42.9 % SV(MOD-sp4): 38.8 ml SV(sp4-el): 37.4 ml LA A4 area: 30.0 cm2 SI(MOD-sp4): 20.3 ml/m2 LA dimension(2D): 4.8 cm RA A4 area: 22.7 cm2 TAPSE: 1.1 cm Time Measurements MV dec time: 0.19 sec Doppler Measurements & Calculations MV E max alonso: 95.7 cm/sec Lat Peak E' Alonso: 10.6 cm/sec Med Peak E' Alonso: 11.2 cm/sec MV A max alonso: 34.3 cm/sec E/E' lat: 9.0 E/E' med: 8.6 MV E/A: 2.8 Ao V2 max: 96.5 cm/sec AI max alonso: 345.1 cm/sec MV dec slope: 518.3 cm/sec2 Ao max P.7 mmHg AI max P.8 mmHg Ao V2 mean: 66.4 cm/sec Ao mean P.0 mmHg AI dec slope: 167.4 cm/sec2 Ao V2 VTI: 18.6 cm AI P1/2t: 603.8 msec AV (velocity ratio): 0.80 LADONNA(I,D): 2.6 cm2 LADONNA(V,D): 2.7 cm2 LV V1 max: 80.6 cm/sec MR max alonso: 418.3 cm/sec SV(LVOT): 48.3 ml LV V1 max P.6 mmHg MR max P.0 mmHg LV V1 mean P.5 mmHg MR mean alonso: 324.6 cm/sec LV V1 mean: 58.8 cm/sec MR mean P.7 mmHg LV V1 VTI: 14.9 cm MR VTI: 137.1 cm PA V2 max: 61.6 cm/sec TR max alonso: 300.7 cm/sec TR max P.2 mmHg ECHO/Echo Complete Interpretation Summary Normal LV size. The left ventricular ejection fraction is 45 %. Stage 3 diastolic dysfunction. The left atrium is moderately enlarged. Ordering Physician: Yessy Mason Referring Physician: Jeffrey Chan Performed By: Mary Jo Cook RDCS, RVT
== END | disposition home or self-care (01) ==
LOC: CVS 09:58
PROVIDERS: PCP Internal Medicine; Referring Provider Physician Assistant Medical; Visit Provider Physician Assistant Medical
DX: I42.0 Dilated cardiomyopathy (principal)
CPT/HCPCS: 93306

== ENCOUNTER → 2025-01-25 | Outpatient (CLI) | payer MEDICARE, SELFPAY ==
[2025-01-25 13:18] LABS: Anion Gap 12 (5-15); BUN 31 mg/dL (4-19); BUN/Creat Ratio 18.6 RATIO (10-20); Calcium,Total 9.7 mg/dL (7.6-11.0); Carbon Dioxide 26.0 mmol/L (21.0-32.0); Chloride 98 mmol/L (98-108); Glucose 110 mg/dL (70-99); Potassium 4.4 mmol/L (3.3-5.1)
== END | disposition home or self-care (01) ==
PROVIDERS: PCP Internal Medicine; Referring Provider Physician Assistant Medical; Visit Provider Physician Assistant Medical
DX: I48.11 Longstanding persistent atrial fibrillation (principal)
CPT/HCPCS: 36415; 80048